=== PATIENT | male | born 1955 | race Caucasian/White ===

== ENCOUNTER 2016-07-18 14:22 | Inpatient (IN) | payer OTHER ==
[~2016-07-18] VITALS: Ht 185.4 cm; Wt 87.4 kg
[~2016-07-18 14:22] MED LIST: ASPI-664 PO; ATOR20TA38 PO; BUDE0.5A IH; BUDE6HFA IH; DILTIAZEM PO; FOLI0.4T2 PO; LISI20TA11 PO; NICO1PAT40 TD; NITROGLYCERIN SL; PANT20TA3 PO; PROVENTIL; THIA50TA PO
--- NOTE | 2016-07-18 17:36 | ERA ---
ER Documentation Chief Complaint Date/Time DATE: 07/18/16 TIME: 17:35 Chief Complaint BILATERAL LOWER LEG SWELLING HPI The patient is a 60-year-old male, presenting to the ER because of worsening bilateral lower extremity edema, redness and bleeding for 1 week. He was hospitalized at [facility] and was discharged about a week ago with clindamycin and Lasix. He denies fever, chills, syncope, near syncope, neck pain, chest pain. He complains of dyspnea on exertion and orthopnea. He denies abdominal pain, vomiting, dysuria, diarrhea, constipation. He used to smoke until recently Past medical history: COPD, history of CHF, GERD, CAD, epilepsy, dyslipidemia, chronic bilateral lower extremity edema Past surgical history: Right inguinal herniorrhaphy, left knee and right knee arthroscopy ROS All systems reviewed and are negative except as per history of present illness. Medications Home Meds Reported Medications Quetiapine Fumarate* (Quetiapine Fumarate*) 25 Mg Tablet, 25 MG PO HS, TAB 07/18/16 Pantoprazole* (Pantoprazole*) 40 Mg Tablet.dr, 40 MG PO AC BREAKFAST DINNER, TAB 07/18/16 Nitroglycerin* (Nitroglycerin* SL) 0.4 Mg Tab.subl, 0.4 MG SL Q5MIN Y for CHEST PAIN, BOTTLE 07/18/16 Nicotine* (Nicotine* Patch) 21 mg/day Patch, 1 EACH TD DAILY, PATCH 07/18/16 Magnesium Oxide* (Magnesium Oxide*) 400 Mg Tablet, 400 MG PO BID, TAB 07/18/16 Diltiazem Hcl* (Cardizem SR*) 60 Mg Capsr, 60 MG PO TID, #60 CAP 07/18/16 Budesonide-Formoterol Fumarate* (Symbicort*) 160-4.5 Hfa.aer.ad, 2 PUFF INHALATION BID, #1 EACH 07/18/16 Albuterol Sulfate* (Ventolin HFA*) 18 Gm Hfa.aer.ad, 2 PUFF INHALATION Q6H Y for PRN, #1 INHALER 07/18/16 [Tudorza Pressair] No Conflict Check, 800 MCG PO DAILY 07/18/16 Oxycodone HCl/Acetaminophen (Percocet 5-325 mg Tablet) 1 Each Tablet, 1 EACH PO Q6H, TAB 07/18/16 Lactobacillus Acidophilus* (Lactinex*) 1 Tab Chew, 1 TAB PO BID, TAB 07/18/16 Furosemide* (Furosemide*) 40 Mg Tablet, 40 MG IV DAILY, TAB 07/18/16 Clindamycin Hcl* (Clindamycin Hcl*) 300 Mg Capsule, 300 MG PO QID for 7 Days, CAP 07/18/16 Aspirin* (Aspirin* EC) 81 Mg Tablet.dr, 81 MG PO DAILY, TAB 05/05/14 Atorvastatin Calcium* (Atorvastatin Calcium*) 20 Mg Tablet, 20 MG PO HS, TAB 05/05/14 Folic Acid* (Folic Acid*) 0.4 Mg Tablet, 0.4 MG PO DAILY, TAB 05/05/14 Discontinued Reported Medications Budesonide* (Budesonide*) 0.5 Mg/2 Ml Ampul.neb, 0.5 MG IH BID, EA 05/05/14 [Diltiazem] No Conflict Check, 60 MG PO TID 05/05/14 Lisinopril* (Lisinopril*) 20 Mg Tablet, 20 MG PO DAILY, TAB 05/05/14 Nicotine* (Nicoderm* Patch) 7 mg/day Patch, 1 PATCH TD DAILY, PATCH 05/05/14 [Nitroglycerin] No Conflict Check, 0.4 MG SL Y for CHEST PAIN 05/05/14 Pantoprazole* (Pantoprazole*) 20 Mg Tablet.dr, 20 MG PO DAILY, TAB 05/05/14 [Proventil] No Conflict Check, Q4 05/05/14 Thiamine* (Thiamine*) 50 Mg Tablet, 50 MG PO DAILY, TAB 05/05/14 Budesonide-Formoterol Fumarate* (Symbicort*) 160-4.5 Hfa.aer.ad, 1 PUFF IH BID, INH 05/05/14 Allergies Allergies: Coded Allergies: No Known Allergy (Unverified , 07/18/16) PMhx/Soc History of Surgery: Yes (KNEE) Anesthesia Reaction: No Hx Respiratory Disorders: No Hx Alcohol Use: Yes Hx Substance Use: Yes Hx Tobacco Use: Yes Physical Exam Vitals Vital Signs Date Time Temp Pulse Resp B/P Pulse Ox O2 Delivery O2 Flow Rate FiO2 07/18/16 14:36 98.0 92 18 113/65 99 Physical Exam Const: No acute distress. Head: Atraumatic. Eyes: Normal Conjunctiva. ENT: Normal External Ears, Nose and Mouth. Neck: Full range of motion. No meningismus. Resp: Bibasilar crackle Cardio: Regular rate and rhythm, no murmurs. Abd: Soft, non distended, normal bowel sounds, non tender. Skin: No petechiae or rashes. Back: No midline or flank tenderness. Ext: Bilateral lower extremity edema, erythema, calf tenderness with minimal bleeding lesions Neur: Awake and alert. No focal deficit Psych: Normal Mood and Affect. Result Diagram: 07/19/16 0607/19/16 06 Results 24 hrs Laboratory Tests Test 07/18/16 18:05 07/18/16 19:40 White Blood Count 9.010^3/ul Red Blood Count 3.8310^6/ul Hemoglobin 14.0g/dl Hematocrit 40.1% Mean Corpuscular Volume 104.7fl Mean Corpuscular Hemoglobin 36.6pg Mean Corpuscular Hemoglobin Concent 34.9g/dl Red Cell Distribution Width 13.2% Platelet Count 48417^3/UL Mean Platelet Volume 9.6fl Neutrophils % 81.0% Lymphocytes % 14.1% Monocytes % 3.0% Eosinophils % 0.9% Basophils % 0.1% Nucleated Red Blood Cells % 0.0/100WBC Neutrophils # 7.310^3/ul Lymphocytes # 1.310^3/ul Monocytes # 0.310^3/ul Eosinophils # 0.110^3/ul Basophils # 0.010^3/ul Nucleated Red Blood Cells # 0.010^3/ul Prothrombin Time 12.9Sec Prothrombin Time Ratio 1.0 INR International Normalized Ratio 0.97 Activated Partial Thromboplast Time 25.7Sec Sodium Level 133mmol/L Potassium Level 3.6mmol/L Chloride Level 91mmol/L Carbon Dioxide Level 32mmol/L Anion Gap 14 Blood Urea Nitrogen 12mg/dl Creatinine 0.52mg/dl Glucose Level 80mg/dl Lactic Acid Level 2.0mmol/L Calcium Level 9.0mg/dl Magnesium Level 1.9mg/dl Total Bilirubin 1.8mg/dl Direct Bilirubin 0.00mg/dl Indirect Bilirubin 1.8mg/dl Aspartate Amino Transf (AST/SGOT) 30IU/L Alanine Aminotransferase (ALT/SGPT) 79IU/L Alkaline Phosphatase 75IU/L Troponin I 0.014ng/ml B-Type Natriuretic Peptide 554PG/ML Total Protein 6.1g/dl Albumin 3.5g/dl Globulin 2.60g/dl Albumin/Globulin Ratio 1.34 Ethyl Alcohol Level < 10.0mg/dl Urine Color LT. YELLOW Urine Clarity CLEAR Urine pH 7.5 Urine Specific [place] 1.010 Urine Ketones NEGATIVE Urine Nitrite NEGATIVE Urine Bilirubin NEGATIVE Urine Urobilinogen 4.0 E.U./dL Urine Leukocyte Esterase NEGATIVE Urine Hemoglobin NEGATIVE Urine Glucose NEGATIVE% Urine Total Protein NEGATIVE Urine Opiates Screen Negative Urine Barbiturates Negative Urine Amphetamines Screen Negative Urine Benzodiazepines Screen Positive Urine Cocaine Screen Negative Urine Cannabinoids Negative Current Medications Medications (Trade) Dose Ordered Sig/Molly Route PRN Reason Start Time Stop Time Status Last Admin Dose Admin Levofloxacin/ Dextrose 150 ml @ 100 mls/hr ONCE ONCE IVPB 07/18/16 19:30 07/18/16 20:59 DC 07/18/16 19:41 Vancomycin HCl (Vancocin) 250 ml @ 125 mls/hr ONCE IVPB 07/18/16 19:30 07/18/16 21:29 DC 07/18/16 19:30 Furosemide (Lasix) 20 mg ONCE ONCE IV 07/18/16 19:30 07/18/16 19:31 DC 07/18/16 19:41 Procedures/MDM [place] [id number] Radiology Main Line: [phone] DIAGNOSTIC IMAGING REPORT Patient: JUDY CARLIN : 1955 Age: 60 Sex: M [id number] DOS: 07/18/16 1743 Ordering MD: MAX ESPINOSA MD Location: E/R Room/Bed: PROCEDURE: US Lower extremity Venous. CLINICAL INDICATION: Pain and swelling TECHNIQUE: Multiple sonographic images of the bilateral lower extremity deep venous system was obtained utilizing grayscale, color-flow, compressive sonography and doppler imaging with augmentation. The images were reviewed on a PACS workstation. COMPARISON: None. FINDINGS: There is normal compressibility and flow within the bilateral common femoral, deep femoral, superficial femoral and popliteal veins. Normal respiratory variation and augmentation is seen. There is normal color flow and compressibility of bilateral posterior tibial and peroneal veins IMPRESSION: No sonographic evidence for bilateral lower extremity deep venous thrombosis. RPTAT: HH .Ruben Choe MD, Date Time Electronically viewed and signed by .Ruben Choe MD, on 07/18/2016 19:09 .W/ CC: MAX ESPINOSA MD [place] [id number] Radiology Main Line: [phone] DIAGNOSTIC IMAGING REPORT Patient: JUDY CARLIN : 1955 Age: 60 Sex: M MR #: [id number] DOS: 07/18/16 1743 Ordering MD: MAX ESPINOSA MD Location: E/R Room/Bed: PROCEDURE: XR Chest. CLINICAL INDICATION: Possible sepsis. TECHNIQUE: Single frontal view of the chest was obtained COMPARISON: No. FINDINGS: The soft tissues are normal. The thoracic vertebra are poorly visualized due to underpenetration of the radiograph. The heart, cardiomediastinal silhouette and hilar structures are normal. The pulmonary vasculature is normal. There are vascular calcifications in the aortic arch. The lungs are hyperinflated with some increased interstitial markings in the bases of the lungs. The costophrenic angles are normal. IMPRESSION: 1. Pulmonary hyperinflation which is likely the result of COPD. 2. Atherosclerosis of the aortic arch. RPTAT:AAJJ Physician Sree Date Time Electronically viewed and signed by Physician Sree on 07/18/2016 19:00 JM/ CC: MAX ESPINOSA MD EKG: Read by emergency physician Rate/Rhythm: Normal Sinus Rhythm 94 beats/min QRS, ST, T-waves: No ST elevation, no T inversion, premature supraventricular complex Impression: Abnormal EKG MEDICAL MAKING DECISION: The patient is a 60-year-old male, presenting with acute severe sepsis due to acute bilateral lower extremity cellulitis and acute CHF exacerbation. He was treated with vancomycin IV, Levaquin IV for acute severe sepsis due to bilateral lower extremity cellulitis and Lasix 20 mg IV due to acute CHF exacerbation Admit MDM: Patient's infectious symptoms have not stabilized and the patient is at risk of rapid decompensation. The patient will be admitted for careful hydration, antibiotic therapy, and infectious source control. Severe Sepsis criteria: Infectious source: Bilateral lower extremity cellulitis End organ damage indicated by: Lactate > 2.0 mmol/L Sepsis Management: Time of recognition of severe sepsis/septic shock:1810 Within 3 hours of recognition: Blood cultures x 2 before broad-spectrum antibiotics: Yes 30 ml/kg NS bolus not completed because of CHF exacerbation Initial lactate 2 Repeat lactate pnd Septic Shock Assessment: Any lactic acid > 4.0 no Persistent hypotension (SBP < 90 or 40 mmHg drop, MAP < 65) despite 30 mL/kg IV fluid bolusno Departure Diagnosis: Primary Impression: Severe sepsis Additional Impressions: Bilateral lower leg cellulitis CHF (congestive heart failure) Anemia Hyponatremia Condition: Stable Comments I discussed the findings with the patient. I discussed the patient with the on- call hospitalist Dr. Lucero who was made aware of the lab, the treatment, the patient condition. The patient is admitted to 7:30 PM to telemetry MAX ESPINOSA MD July 18, 2016 17:36
[2016-07-18 18:30] LABS: ADD SCAN DIFF NO
[2016-07-18 18:31] LABS: BASOPHILS % 0.1 % (0.0-2.0); EOSINOPHILS # 0.1 10^3/ul (0.0-0.5); EOSINOPHILS % 0.9 % (0.0-7.0); HEMATOCRIT 40.1 % (42.0-52.0); LYMPHOCYTES # 1.3 10^3/ul (0.8-2.9); LYMPHOCYTES % 14.1 % (15.0-51.0); MEAN CORPUSCULAR HEMOGLOBIN 36.6 pg (29.0-33.0); MEAN CORPUSCULAR HGB CONC 34.9 g/dl (32.0-37.0); MEAN CORPUSCULAR VOLUME 104.7 fl (82.0-101.0); MEAN PLATELET VOLUME 9.6 fl (7.4-10.4); MONOCYTE # 0.3 10^3/ul (0.3-0.9); NEUTROPHIL # 7.3 10^3/ul (1.6-7.5); PLATELET COUNT 180 10^3/UL (140-415); RED BLOOD COUNT 3.83 10^6/ul (4.70-6.10); RED CELL DISTRIBUTION WIDTH 13.2 % (11.5-14.5)
[2016-07-18 18:53] LABS: ALBUMIN 3.5 g/dl (3.3-4.9); CHLORIDE 91 mmol/L (97-110); POTASSIUM 3.6 mmol/L (3.5-5.1); SODIUM 133 mmol/L (135-144)
[2016-07-18 18:54] LABS: INR 0.97; PROTIME 12.9 Sec (12.2-14.2)
[2016-07-18 18:55] LABS: ANION GAP 14 (8-16); BILIRUBIN,INDIRECT 1.8 mg/dl (0-1.1); BILIRUBIN,TOTAL 1.8 mg/dl (0.2-1.3); CARBON DIOXIDE 32 mmol/L (21-31); CREATININE 0.52 mg/dl (0.61-1.24); PARTIAL THROMBOPLASTIN TIME 25.7 Sec (25.0-35.0)
[2016-07-18 18:56] LABS: ALANINE AMINOTRANSFERASE 79 IU/L (13-69); ALBUMIN/GLOBULIN RATIO 1.34; ALKALINE PHOSPHATASE 75 IU/L (42-121); ASPARTATE AMINO TRANSFERASE 30 IU/L (15-46); BLOOD UREA NITROGEN 12 mg/dl (7-20); GLUCOSE 80 mg/dl (70-220); MAGNESIUM 1.9 mg/dl (1.7-2.5); TOTAL PROTEIN 6.1 g/dl (6.1-8.1)
--- NOTE | 2016-07-18 19:01 | RADRPT ---
PROCEDURE: XR Chest. CLINICAL INDICATION: Possible sepsis. TECHNIQUE: Single frontal view of the chest was obtained COMPARISON: No. FINDINGS: The soft tissues are normal. The thoracic vertebra are poorly visualized due to underpenetration of the radiograph. The heart, cardiomediastinal silhouette and hilar structures are normal. The pulmo nary vasculature is normal. There are vascular calcifications in the aortic arch. The lungs are hyp erinflated with some increased interstitial markings in the bases of the lungs. The costophrenic an gles are normal. IMPRESSION: 1. Pulmonary hyperinflation which is likely the result of COPD. 2. Atherosclerosis of the aortic arch. RPTAT:AAJJ Physician Sree Date Time Electronically viewed and signed by Alfa Arredondo Physician on 07/18/2016 19:00 GLENDA/
[2016-07-18 19:05] LABS: B-TYPE NATRIURETIC PEPTIDE 554 PG/ML (0-125)
[2016-07-18 19:07] LABS: ETHANOL < 10.0 mg/dl
[2016-07-18 19:08] LABS: TROPONIN-I 0.014 ng/ml (0.00-0.12)
[2016-07-18] MEDS ORDERED: CLIN-73 PO (19:08)
[2016-07-18] MEDS ORDERED: FURO40TA4 IV (19:08)
[2016-07-18] MEDS ORDERED: LACTINEX PO (19:09)
--- NOTE | 2016-07-18 19:09 | RADRPT ---
PROCEDURE: US Lower extremity Venous. CLINICAL INDICATION: Pain and swelling TECHNIQUE: Multiple sonographic images of the bilateral lower extremity deep venous system was obt ained utilizing grayscale, color-flow, compressive sonography and doppler imaging with augmentation. The images were reviewed on a PACS workstation. COMPARISON: None. FINDINGS: There is normal compressibility and flow within the bilateral common femoral, deep femoral, superfic ial femoral and popliteal veins. Normal respiratory variation and augmentation is seen. There is normal color flow and compressibility of bilateral posterior tibial and peroneal veins IMPRESSION: No sonographic evidence for bilateral lower extremity deep venous thrombosis. RPTAT: HH .Ruben Choe MD, MD Date Time Electronically viewed and signed by .Ruben Choe MD, on 07/18/2016 19:09 .W/
[2016-07-18] MEDS ORDERED: OXYC-279 PO (19:10)
[2016-07-18] MEDS ORDERED: ALBU18HF INHALATION (19:13)
[2016-07-18] MEDS ORDERED: TUDORZA PRESSAIR PO (19:13)
[2016-07-18] MEDS ORDERED: BUDE6HFA INHALATION (19:15)
[2016-07-18] MEDS ORDERED: CARSR60 PO (19:16)
[2016-07-18] MEDS ORDERED: MAGN400T28 PO (19:17)
[2016-07-18] MEDS ORDERED: NICO1PAT6 TD (19:18)
[2016-07-18] MEDS ORDERED: NITR0.4T6 SL (19:19)
[2016-07-18] MEDS ORDERED: PANT40TA4 PO (19:20)
[2016-07-18] MEDS ORDERED: QUET25TA33 PO (19:20)
[2016-07-18] MEDS ORDERED: LEVOFLOXACIN 750MG/D5W (PMX) 150 ML IVPB ONE (19:30)
[2016-07-18] MEDS ORDERED: VANCOMYCIN 1 GM (PMX) 250 ML IVPB SCH (19:30)
[2016-07-18] MEDS ORDERED: FUROSEMIDE 20 MG INJ IV ONE (19:30)
[2016-07-18] MEDS ORDERED: ONDANSETRON 4 MG INJ IV STA (19:53)
[2016-07-18 19:57] LABS: ADD UMIC NO; URINE BILIRUBIN (Dip) NEGATIVE (NEGATIVE); URINE BLOOD (Dip) NEGATIVE (NEGATIVE); URINE COLOR LT. YELLOW (YELLOW); URINE GLUCOSE (Dip) NEGATIVE (NEGATIVE); URINE KETONES (Dip) NEGATIVE (NEGATIVE); URINE LEUKOCYTE ESTERASE (Dip) NEGATIVE (NEGATIVE); URINE NITRITE (Dip) NEGATIVE (NEGATIVE); URINE TOTAL PROTEIN (Dip) NEGATIVE (NEGATIVE); URINE UROBILINOGEN (Dip) 4.0 E.U./dL (0.1-1.0)
[2016-07-18] MEDS ORDERED: ONDANSETRON 4 MG INJ ONE (19:57)
[2016-07-18] MEDS ORDERED: morphine 2 MG INJ IV ONE (20:00)
[2016-07-18 20:15] LABS: BENZODIAZEPINES Positive (NEGATIVE)
[2016-07-18 20:16] LABS: BARBITURATES Negative (NEGATIVE)
[2016-07-18 20:22] LABS: CANNABINOIDS Negative (NEGATIVE); COCAINE Negative (NEGATIVE); OPIATES Negative (NEGATIVE)
[2016-07-18] MEDS ORDERED: IPRATROPIUM (NEB) 0.5 MG/2.5 ML AMP HHN ONE (20:30)
[2016-07-18] MEDS ORDERED: LEVALBUTEROL (NEB) 1.25 MG/0.5 ML AMP HHN ONE (20:30)
[2016-07-18] MEDS ORDERED: HYDROmorphONE 1 MG/ML SYG IV STA (20:31)
[2016-07-18 21:45] VITALS: BP 126/79; PULSE 101; RESP 18
[2016-07-18 21:58] VITALS: PULSE 80
[2016-07-18] MEDS ORDERED: OXYCODONE/ACETAMINOPHEN (5/325) TAB PO SCH (22:30)
[2016-07-18] MEDS ORDERED: NON-FORMULARY/PATIENT OWN MED (Budesonide-Formoterol Fumarate* (Symbicort*) 2 PUFF) INHALATION SCH (22:30)
[2016-07-18] MEDS ORDERED: morphine 2 MG INJ IV PRN (22:30)
[2016-07-18] MEDS ORDERED: ALBUTEROL HFA 8 GM INHALER INH PRN (22:30)
[2016-07-18] MEDS ORDERED: NITROGLYCERIN (SL) 0.4 MG TAB SL PRN (22:30)
[2016-07-18] MEDS ORDERED: ONDANSETRON 4 MG INJ IV PRN (22:30)
[2016-07-18] MEDS ORDERED: NON-FORMULARY/PATIENT OWN MED (Lactobacillus Acidophilus* (Lactinex*) 1 TAB) PO SCH (22:30)
[2016-07-18] MEDS: IPRATROPIUM (NEB) 0.5 MG/2.5 ML AMP HHN SCH (23:28)
[2016-07-19] VITALS (13 sets, daily range): BP systolic 109–124; BP diastolic 62–74; PULSE 80–195; RESP 15–18; Ht 185.4 cm; Wt 87.4 kg
[2016-07-19] MEDS: MAGNESIUM OXIDE 400 MG TAB PO SCH ×3 (01:17→21:31)
[2016-07-19] MEDS: HEPARIN 5,000 UNIT/0.5 ML VIAL SC SCH ×3 (01:22→22:04)
[2016-07-19] MEDS: IPRATROPIUM (NEB) 0.5 MG/2.5 ML AMP HHN SCH ×2 (01:23→05:29)
[2016-07-19] MEDS: LEVALBUTEROL (NEB) 0.63 MG/3 ML AMP HHN SCH ×3 (01:23→09:00)
[2016-07-19] MEDS ORDERED: VANCOMYCIN IV PER PHARMACY XX SCH (02:30)
[2016-07-19] MEDS ORDERED: KETOROLAC 30 MG INJ IV PRN ×2 (02:30→03:00)
[2016-07-19] MEDS: morphine 4 MG/ML VIAL IV PRN ×5 (02:45→21:45)
[2016-07-19] MEDS: CEFEPIME 1GM/50 ML (PMX) 50 ML IVPB SCH ×3 (04:16→21:29)
[2016-07-19] MEDS ORDERED: OXYCODONE/ACETAMINOPHEN (5/325) TAB PO PRN (04:30)
[2016-07-19] MEDS: OXYCODONE/ACETAMINOPHEN (10/325) TAB PO PRN ×2 (04:33→18:44)
[2016-07-19] MEDS: VANCOMYCIN 1.25 GM in SOD CHLORIDE 0.9% 250 ML IVPB SCH ×2 (06:09→16:47)
--- NOTE | 2016-07-19 06:39 | HP ---
Date/Time of Note Date/Time of Note DATE: 07/19/16 TIME: 06:25 Assessment/Plan VTE Prophylaxis VTE Prophylaxis Intervention: heparin Lines/Catheters IV Catheter Type (from Nrs): Saline Lock Assessment/Plan Assessment/Plan 1. Bilateral Lower ext cellulitis - cont abx - f/u culture results - ID consult 2. COPD exacerbation - cont oxygen, homes meds, breathing treatment, steroid 3. HTN: BP within goal - cont meds with adjustment as needed 4. GERD - cont PPI 5. Depression - cont Seroquel 6. Hx of Tobacco - cont nicotine patch HPI/ROS Admit Date/Time Admit Date/Time July 18, 2016 at 19:42 Hx of Present Illness Patient is a 60 yo female with hx HTN, COPD, CAD, CHF, GERD who presented to ER c/o bilateral lower ext redness, swelling, pain and blisters. He also c/o shortness of breath. In ER, initial vitals were stable, CXR showed hyperinflated lungs. Pt received abx, breathing treatment and lasix. . PMH/Family/Social Past Medical History Medical History: GERD, hypertension, other (COPD) Social History Alcohol Use: none Smoking Status: Former smoker Drug Use: none Exam/Review of Systems Vital Signs Vitals Vital Signs Date Time Temp Pulse Resp B/P Pulse Ox O2 Delivery O2 Flow Rate FiO2 07/19/16 05:41 87 18 97 Nasal Cannula 2.0 07/19/16 04:39 98.0 124/74 07/19/16 01:19 28 Exam Constitutional: alert, oriented Head: atraumatic, normocephalic Eyes: EOMI, PERRL Respiratory: clear to auscultation, normal air movement Cardiovascular: nl pulses, regular rate and rhythm Gastrointestinal: non-tender, soft Extremities: edema, other (erythema bilaterally, worse on left foot. Blisters leaking clear fluid), tenderness Labs Result Diagram: 07/18/16180407/18/161804 Medications Medications Current Medications Aspirin (Halfprin) 81 mg DAILY PO ; Start 07/19/16 at 09:00 Atorvastatin Calcium (Lipitor) 20 mg HS PO ; Start 07/19/16 at 21:00 Diltiazem HCl (Cardizem Sr) 60 mg TID PO ; Start 07/19/16 at 09:00 Folic Acid (Folic Acid) 0.4 mg DAILY PO ; Start 07/19/16 at 09:00 Magnesium Oxide (Mag-Ox 400) 400 mg BID PO Last administered on 07/19/16 01:17 ; Admin Dose 400 MG; Start 07/18/16 at 22:30 Nicotine (Nicoderm 21 Mg/ 24hr) 1 patch DAILY TRANSDERM ; Start 07/19/16 at 09:00 Nitroglycerin (Nitroglycerin (Sl Tab) 0.4 Mg) 1 tab ONCE PRN SL CHEST PAIN; Start 07/18/16 at 22:30; Stop 07/19/16 at 22:29 Quetiapine Fumarate (Seroquel) 25 mg HS PO ; Start 07/19/16 at 21:00 Miscellaneous Information 800 mcg DAILY PO ; Start 07/19/16 at 09:00; Status UNV Ondansetron HCl (Zofran Inj) 4 mg Q6H PRN IV NAUSEA AND/OR VOMITING; Start 07/18 at 22:30 Heparin Sodium (Porcine) (Heparin (5000 Units/0.5 ml)) 5,000 unit BID SC Last administered on 07/19/16 01:22; Admin Dose 5,000 UNIT; Start 07/18/16 at 22:30 Albuterol (Ventolin Hfa) 2 puff Q6H PRN INH SHORTNESS OF BREATH; Start 07/18/16 at 23:00 Salmeterol Xinafoate/ Fluticasone (Advair 250/50 Diskus) 1 inh BID INH ; Start 07/19/16 at 09:00 Lactobacillus Acidophilus (Florajen3 Capsule) 1 each BID PO ; Start 07/19/16 at 09:00 Morphine Sulfate 4 mg 4 mg Q4H PRN IV SEVERE PAIN LEVEL 7-10 Last administered on 07/19/16 02:45; Admin Dose 4 MG; Start 07/19/16 at 02:30 Cefepime HCl (Maxipime 1gm/50 ml (Pmx)) 50 ml @ 100 mls/hr Q12 IVPB Last administered on 07/19/16 04:16; Admin Dose 100 MLS/HR; Start 07/19/16 at 02:30 Oxycodone/ Acetaminophen (Endocet (10/ 325)) 1 tab Q6H PRN PO PAIN Last administered on 07/19/16 04:33; Admin Dose 1 TAB; Start 07/19/16 at 02:30 Ketorolac Tromethamine 30 mg 30 mg Q6H PRN IV PAIN Last administered on 04:08; Admin Dose 30 MG; Start 07/19/16 at 03:00; Stop 07/22/16 at 02:59 Vancomycin HCl/ Sodium Chloride (Vancocin/NS) 250 ml @ 83.333 mls/ hr Q12H IVPB Last administered on 07/19/16 06:09; Admin Dose 83.333 MLS/HR; Start at 04:00 FALLON GANDARA MD July 19, 2016 06:35
[2016-07-19 06:55] LABS: ADD SCAN DIFF NO
[2016-07-19 06:57] LABS: BASOPHILS % 0.4 % (0.0-2.0); EOSINOPHILS # 0.1 10^3/ul (0.0-0.5); EOSINOPHILS % 1.1 % (0.0-7.0); HEMATOCRIT 35.2 % (42.0-52.0); HEMOGLOBIN 11.9 g/dl (14.0-18.0); LYMPHOCYTES # 1.2 10^3/ul (0.8-2.9); LYMPHOCYTES % 21.4 % (15.0-51.0); MEAN CORPUSCULAR HEMOGLOBIN 36.2 pg (29.0-33.0); MEAN CORPUSCULAR HGB CONC 33.8 g/dl (32.0-37.0); MEAN PLATELET VOLUME 10.3 fl (7.4-10.4); MONOCYTE # 0.2 10^3/ul (0.3-0.9); MONOCYTES % 4.2 % (0.0-11.0); NEUTROPHIL # 4.1 10^3/ul (1.6-7.5); NEUTROPHILS % 71.8 % (39.0-77.0); PLATELET COUNT 119 10^3/UL (140-415); RED BLOOD COUNT 3.29 10^6/ul (4.70-6.10); RED CELL DISTRIBUTION WIDTH 13.4 % (11.5-14.5); WHITE BLOOD COUNT 5.7 10^3/ul (4.8-10.8)
[2016-07-19] MEDS: PANTOPRAZOLE (EC) 40 MG TAB PO SCH ×2 (07:25→16:47)
[2016-07-19 07:52] LABS: CALCIUM 8.2 mg/dl (8.4-10.2); CREATININE 0.6 mg/dl (0.61-1.24); MAGNESIUM 1.8 mg/dl (1.7-2.5); PHOSPHORUS 3.4 mg/dl (2.5-4.9); POTASSIUM 4.2 mmol/L (3.5-5.1)
[2016-07-19 07:56] LABS: THYROID STIMULATING HORMONE 1.3 MIU/L (0.465-4.680)
[2016-07-19] MEDS: FOLIC ACID 0.4 MG TAB PO SCH (08:37)
[2016-07-19] MEDS: SALMETEROL/FLUTICASONE 250/50 INHA INH SCH ×2 (08:38→21:29)
[2016-07-19] MEDS: ASPIRIN (EC) 81 MG TAB PO SCH (08:38)
[2016-07-19] MEDS: L ACIDOPHIL/B LACTIS/B LONGUM CAPSULE PO SCH ×2 (08:38→21:31)
[2016-07-19] MEDS: DILTIAZEM (SR) 60 MG CAP PO SCH ×3 (08:38→21:32)
[2016-07-19] MEDS: NICOTINE (21 MG/24 HR) PATCH TRANSDERM SCH (08:39)
--- NOTE | 2016-07-19 10:20 | PN ---
Date/Time of Note Date/Time of Note DATE: 07/19/16 TIME: 10:15 Assessment/Plan VTE Prophylaxis VTE Prophylaxis Intervention: heparin Lines/Catheters IV [facility] Saline Lock Assessment/Plan Chief Complaint/Hosp Course Assessment and plan 1. Bilateral Lower ext cellulitis - cont abx - f/u culture results - ID consult has been obtained 2. COPD exacerbation - cont oxygen, homes meds, breathing treatment, steroid 3. HTN: BP within goal - cont meds with adjustment as needed 4. GERD - cont PPI 5. Depression - cont Seroquel 6. Hx of Tobacco - cont nicotine patch 7. Congestive heart failure -Obtain 2D echocardiogram, cardiology has been consulted -Strict I&O's We will continue monitor patient closely for recommendation management treatment as clinical course Problems: Subjective 24 Hr Interval Summary Free Text/Dictation Patient complains of having bilateral lower extremity discomfort and pain He is requesting Dilaudid Denies of any chest pain or shortness of breath Tolerating oral intake Exam/Review of Systems Vital Signs Vitals Vital Signs Date Time Temp Pulse Resp B/P Pulse Ox O2 Delivery O2 Flow Rate FiO2 07/19/16 09:30 102 07/19/16 09:00 98 3.0 07/19/16 09:00 20 Nasal Cannula 07/19/16 07:36 97.9 112/65 07/19/16 01:19 28 Intake and Output 07/18/16 07/18/16 07/19/16 15:00 23:00 07:00 Intake Total 750 ml Balance 750 ml Exam General: The patient is well-developed, Not in acute distress. HEENT: Atraumatic, normocephalic. The pupils are equal and round . Neck: Supple with full range of motion. Chest: Normal expansion of the thorax during inspiration Lungs: Clear to auscultation bilaterally Heart: Normal S1-S2, Regular rhythm and rate. Abdomen: Soft , nontender, nondistended , bowel sounds are present. Extremities: Bilateral lower extremity erythema, +2 edema bilateral lower extremity, no cyanosis Neurologic: Normal mental status,The patient is awake, alert and oriented . Results Result Diagram: 07/19/16 0617 07/19/16 0617 Results 24 hrs Laboratory Tests Test 07/18/16 18:05 07/18/16 19:40 07/18/16 19:46 07/18/16 22:20 White Blood Count 9.0 Red Blood Count 3.83 L Hemoglobin 14.0 Hematocrit 40.1 L Mean Corpuscular Volume 104.7 H Mean Corpuscular Hemoglobin 36.6 H Mean Corpuscular Hemoglobin Concent 34.9 Red Cell Distribution Width 13.2 Platelet Count 180 Mean Platelet Volume 9.6 Neutrophils % 81.0 H Lymphocytes % 14.1 L Monocytes % 3.0 Eosinophils % 0.9 Basophils % 0.1 Nucleated Red Blood Cells % 0.0 Neutrophils # 7.3 Lymphocytes # 1.3 Monocytes # 0.3 Eosinophils # 0.1 Basophils # 0.0 Nucleated Red Blood Cells # 0.0 Prothrombin Time 12.9 Prothrombin Time Ratio 1.0 INR International Normalized Ratio 0.97 Activated Partial Thromboplast Time 25.7 Sodium Level 133 L Potassium Level 3.6 Chloride Level 91 L Carbon Dioxide Level 32 H Anion Gap 14 Blood Urea Nitrogen 12 Creatinine 0.52 L Glucose Level 80 Lactic Acid Level 2.0 1.8 1.4 Calcium Level 9.0 Magnesium Level 1.9 Total Bilirubin 1.8 H Direct Bilirubin 0.00 Indirect Bilirubin 1.8 H Aspartate Amino Transf (AST/SGOT) 30 Alanine Aminotransferase (ALT/SGPT) 79 H Alkaline Phosphatase 75 Troponin I 0.014 0.018 B-Type Natriuretic Peptide 554 H Total Protein 6.1 Albumin 3.5 Globulin 2.60 Albumin/Globulin Ratio 1.34 Ethyl Alcohol Level < 10.0 Urine Color LT. YELLOW Urine Clarity CLEAR Urine pH 7.5 Urine Specific [place] 1.010 Urine Ketones NEGATIVE Urine Nitrite NEGATIVE Urine Bilirubin NEGATIVE Urine Urobilinogen 4.0 E.U./dL H Urine Leukocyte Esterase NEGATIVE Urine Hemoglobin NEGATIVE Urine Glucose NEGATIVE Urine Total Protein NEGATIVE Urine Opiates Screen Negative Urine Barbiturates Negative Urine Amphetamines Screen Negative Urine Benzodiazepines Screen Positive Urine Cocaine Screen Negative Urine Cannabinoids Negative Test 07/19/16 06:17 White Blood Count 5.7 # Red Blood Count 3.29 L Hemoglobin 11.9 L Hematocrit 35.2 L Mean Corpuscular Volume 107.0 H Mean Corpuscular Hemoglobin 36.2 H Mean Corpuscular Hemoglobin Concent 33.8 Red Cell Distribution Width 13.4 Platelet Count 119 #L Mean Platelet Volume 10.3 Neutrophils % 71.8 Lymphocytes % 21.4 Monocytes % 4.2 Eosinophils % 1.1 Basophils % 0.4 Nucleated Red Blood Cells % 0.0 Neutrophils # 4.1 Lymphocytes # 1.2 Monocytes # 0.2 L Eosinophils # 0.1 Basophils # 0.0 Nucleated Red Blood Cells # 0.0 Sodium Level 124 L Potassium Level 4.2 Chloride Level 95 L Carbon Dioxide Level 27 Anion Gap 6 #L Blood Urea Nitrogen 15 Creatinine 0.60 L Glucose Level 75 Hemoglobin A1c 5.6 Calcium Level 8.2 L Phosphorus Level 3.4 Magnesium Level 1.8 Troponin I 0.019 Triglycerides Level 82 Cholesterol Level 127 LDL Cholesterol, Calculated 49 HDL Cholesterol 62 Cholesterol/HDL Ratio 2.0 Thyroid Stimulating Hormone (TSH) 1.300 Medications Medications Current Medications Aspirin (Halfprin) 81 mg DAILY PO Last administered on 07/19/16 08:38; Admin Dose 81 MG; Start 07/19/16 at 09:00 Atorvastatin Calcium (Lipitor) 20 mg HS PO ; Start 07/19/16 at 21:00 Diltiazem HCl (Cardizem Sr) 60 mg TID PO Last administered on 07/19/16 08:38; Admin Dose 60 MG; Start 07/19/16 at 09:00 Folic Acid (Folic Acid) 0.4 mg DAILY PO Last administered on 07/19/16 08:37; Admin Dose 0.4 MG; Start 07/19/16 at 09:00 Magnesium Oxide (Mag-Ox 400) 400 mg BID PO Last administered on 07/19/16 08:37 ; Admin Dose 400 MG; Start 07/18/16 at 22:30 Nicotine (Nicoderm 21 Mg/ 24hr) 1 patch DAILY TRANSDERM Last administered on 08:39; Admin Dose 1 PATCH; Start 07/19/16 at 09:00 Nitroglycerin (Nitroglycerin (Sl Tab) 0.4 Mg) 1 tab ONCE PRN SL CHEST PAIN; Start 07/18/16 at 22:30; Stop 07/19/16 at 22:29 Quetiapine Fumarate (Seroquel) 25 mg HS PO ; Start 07/19/16 at 21:00 Miscellaneous Information 800 mcg DAILY PO ; Start 07/19/16 at 09:00; Status UNV Ondansetron HCl (Zofran Inj) 4 mg Q6H PRN IV NAUSEA AND/OR VOMITING; Start 07/18 at 22:30 Heparin Sodium (Porcine) (Heparin (5000 Units/0.5 ml)) 5,000 unit BID SC Last administered on 07/19/16 08:58; Admin Dose 5,000 UNIT; Start 07/18/16 at 22:30 Albuterol (Ventolin Hfa) 2 puff Q6H PRN INH SHORTNESS OF BREATH; Start 07/18/16 at 23:00 Salmeterol Xinafoate/ Fluticasone (Advair 250/50 Diskus) 1 inh BID INH Last administered on 07/19/16 08:38; Admin Dose 1 INH; Start 07/19/16 at 09:00 Lactobacillus Acidophilus (Florajen3 Capsule) 1 each BID PO Last administered on 07/19/16 08:38; Admin Dose 1 EACH; Start 07/19/16 at 09:00 Morphine Sulfate 4 mg 4 mg Q4H PRN IV SEVERE PAIN LEVEL 7-10 Last administered on 07/19/16 07:39; Admin Dose 4 MG; Start 07/19/16 at 02:30 Cefepime HCl (Maxipime 1gm/50 ml (Pmx)) 50 ml @ 100 mls/hr Q12 IVPB Last administered on 07/19/16 08:47; Admin Dose 100 MLS/HR; Start 07/19/16 at 02:30 Oxycodone/ Acetaminophen (Endocet (10/ 325)) 1 tab Q6H PRN PO PAIN Last administered on 07/19/16 04:33; Admin Dose 1 TAB; Start 07/19/16 at 02:30 Ketorolac Tromethamine 30 mg 30 mg Q6H PRN IV PAIN Last administered on 04:08; Admin Dose 30 MG; Start 07/19/16 at 03:00; Stop 07/22/16 at 02:59 Vancomycin HCl/ Sodium Chloride (Vancocin/NS) 250 ml @ 83.333 mls/ hr Q12H IVPB Last administered on 07/19/16 06:09; Admin Dose 83.333 MLS/HR; Start at 04:00 DEVAUGHN CASE MD July 19, 2016 10:20
[2016-07-19] MEDS: FUROSEMIDE 20 MG INJ IV SCH ×2 (12:23→18:19)
--- NOTE | 2016-07-19 16:16 | CONS ---
Date/Time of Note Date/Time of Note DATE: 07/19/16 TIME: 16:16 Assessment/Plan Assessment/Plan Additional Assessment/Plan 60 yo male with 1) B/L LE Cellulitis 2) COPD Exacerbation 3) Chronic CHF 4) Hyponatremia, Pt is not euvolemic at this time, Asymptomatic 5) CAD 6) Anemia, Likely chronic Hyponatremia likely from Excessive free H20 intake in the setting of Increase Circulating ADH from pain and lung disease Will check urine Na, Osm, Cr, Serum TSH and Cortisol Pt is receiving Lasix Rx for treatment of CHF, Would not recommend Thiazide diuretic at this time Please repeat Chemistry am Recommend free H20 restriction at this time No acute indication for hypertonic saline Thank you for the opportunity to participate in the care of Mr Pool. Consultation Date/Type/Reason Admit Date/Time July 18, 2016 at 19:42 Date of Consultation: July 19, 2016 Type of Consultation: Renal Reason for Consultation Hyponatremia Referring Provider: FALLON GANADRA MD Hx of Present Illness 60 yo male with hx of Chronic HTN, COPD former tobacco, CAD, hx of CHF who presented to ER with c/o bilateral lower ext redness, swelling, pain and found to have cellulitis. Pt also described shortness of breast, CXR performed and patient started on treatment of COPD and CHF, Receiving IV lasix. no IVFs. Incidentally found to have hyponatremia during this admission. Pt is not currently on fluid restriction. Nephrology consutled for Hyponatremia. Past Medical History Medical History: GERD, hypertension, other (COPD) Past Surgical History Past Surgical Hx: no surgical history Family History Significant Family History: no pertinent family hx Social History Alcohol Use: none Smoking Status: Former smoker Drug Use: none Exam/Review of Systems Vital Signs Vitals Vital Signs Date Time Temp Pulse Resp B/P Pulse Ox O2 Delivery O2 Flow Rate FiO2 07/19/16 15:31 98.4 85 15 120/65 100 07/19/16 09:00 3.0 07/19/16 09:00 Nasal Cannula 07/19/16 01:19 28 Intake and Output 07/18/16 07/18/16 07/19/16 15:00 23:00 07:00 Intake Total 750 ml Balance 750 ml Exam Constitutional: distress Head: atraumatic, normocephalic ENMT: mucosa pink and moist Neck: No jvd Respiratory: crackles/rales, diminished breath sounds, labored breathing Cardiovascular: edema, regular rate and rhythm Musculoskeletal: swelling Extremities: edema Neurological: CERTIFIED ORTHOTIST/PEDORTHIST II-XII intact, nl mental status, No lethargic Skin: other (cellulitis), rash or lesions, No diaphoresis Results Result Diagram: 07/19/16 0617 07/19/16 0617 Results 24 hrs Laboratory Tests Test 07/18/16 18:05 07/18/16 19:40 07/18/16 19:46 07/18/16 22:20 White Blood Count 9.0 Red Blood Count 3.83 L Hemoglobin 14.0 Hematocrit 40.1 L Mean Corpuscular Volume 104.7 H Mean Corpuscular Hemoglobin 36.6 H Mean Corpuscular Hemoglobin Concent 34.9 Red Cell Distribution Width 13.2 Platelet Count 180 Mean Platelet Volume 9.6 Neutrophils % 81.0 H Lymphocytes % 14.1 L Monocytes % 3.0 Eosinophils % 0.9 Basophils % 0.1 Nucleated Red Blood Cells % 0.0 Neutrophils # 7.3 Lymphocytes # 1.3 Monocytes # 0.3 Eosinophils # 0.1 Basophils # 0.0 Nucleated Red Blood Cells # 0.0 Prothrombin Time 12.9 Prothrombin Time Ratio 1.0 INR International Normalized Ratio 0.97 Activated Partial Thromboplast Time 25.7 Sodium Level 133 L Potassium Level 3.6 Chloride Level 91 L Carbon Dioxide Level 32 H Anion Gap 14 Blood Urea Nitrogen 12 Creatinine 0.52 L Glucose Level 80 Lactic Acid Level 2.0 1.8 1.4 Calcium Level 9.0 Magnesium Level 1.9 Total Bilirubin 1.8 H Direct Bilirubin 0.00 Indirect Bilirubin 1.8 H Aspartate Amino Transf (AST/SGOT) 30 Alanine Aminotransferase (ALT/SGPT) 79 H Alkaline Phosphatase 75 Troponin I 0.014 0.018 B-Type Natriuretic Peptide 554 H Total Protein 6.1 Albumin 3.5 Globulin 2.60 Albumin/Globulin Ratio 1.34 Ethyl Alcohol Level < 10.0 Urine Color LT. YELLOW Urine Clarity CLEAR Urine pH 7.5 Urine Specific [place] 1.010 Urine Ketones NEGATIVE Urine Nitrite NEGATIVE Urine Bilirubin NEGATIVE Urine Urobilinogen 4.0 E.U./dL H Urine Leukocyte Esterase NEGATIVE Urine Hemoglobin NEGATIVE Urine Glucose NEGATIVE Urine Total Protein NEGATIVE Urine Opiates Screen Negative Urine Barbiturates Negative Urine Amphetamines Screen Negative Urine Benzodiazepines Screen Positive Urine Cocaine Screen Negative Urine Cannabinoids Negative Test 07/19/16 06:17 White Blood Count 5.7 # Red Blood Count 3.29 L Hemoglobin 11.9 L Hematocrit 35.2 L Mean Corpuscular Volume 107.0 H Mean Corpuscular Hemoglobin 36.2 H Mean Corpuscular Hemoglobin Concent 33.8 Red Cell Distribution Width 13.4 Platelet Count 119 #L Mean Platelet Volume 10.3 Neutrophils % 71.8 Lymphocytes % 21.4 Monocytes % 4.2 Eosinophils % 1.1 Basophils % 0.4 Nucleated Red Blood Cells % 0.0 Neutrophils # 4.1 Lymphocytes # 1.2 Monocytes # 0.2 L Eosinophils # 0.1 Basophils # 0.0 Nucleated Red Blood Cells # 0.0 Sodium Level 124 L Potassium Level 4.2 Chloride Level 95 L Carbon Dioxide Level 27 Anion Gap 6 #L Blood Urea Nitrogen 15 Creatinine 0.60 L Glucose Level 75 Hemoglobin A1c 5.6 Calcium Level 8.2 L Phosphorus Level 3.4 Magnesium Level 1.8 Troponin I 0.019 Triglycerides Level 82 Cholesterol Level 127 LDL Cholesterol, Calculated 49 HDL Cholesterol 62 Cholesterol/HDL Ratio 2.0 Thyroid Stimulating Hormone (TSH) 1.300 Medications Medications Current Medications Aspirin (Halfprin) 81 mg DAILY PO Last administered on 07/19/16 08:38; Admin Dose 81 MG; Start 07/19/16 at 09:00 Atorvastatin Calcium (Lipitor) 20 mg HS PO ; Start 07/19/16 at 21:00 Diltiazem HCl (Cardizem Sr) 60 mg TID PO Last administered on 07/19/16 12:24; Admin Dose 60 MG; Start 07/19/16 at 09:00 Folic Acid (Folic Acid) 0.4 mg DAILY PO Last administered on 07/19/16 08:37; Admin Dose 0.4 MG; Start 07/19/16 at 09:00 Magnesium Oxide (Mag-Ox 400) 400 mg BID PO Last administered on 07/19/16 08:37 ; Admin Dose 400 MG; Start 07/18/16 at 22:30 Nicotine (Nicoderm 21 Mg/ 24hr) 1 patch DAILY TRANSDERM Last administered on 08:39; Admin Dose 1 PATCH; Start 07/19/16 at 09:00 Nitroglycerin (Nitroglycerin (Sl Tab) 0.4 Mg) 1 tab ONCE PRN SL CHEST PAIN; Start 07/18/16 at 22:30; Stop 07/19/16 at 22:29 Quetiapine Fumarate (Seroquel) 25 mg HS PO ; Start 07/19/16 at 21:00 Miscellaneous Information 800 mcg DAILY PO ; Start 07/19/16 at 09:00; Status UNV Ondansetron HCl (Zofran Inj) 4 mg Q6H PRN IV NAUSEA AND/OR VOMITING; Start 07/18 at 22:30 Heparin Sodium (Porcine) (Heparin (5000 Units/0.5 ml)) 5,000 unit BID SC Last administered on 07/19/16 08:58; Admin Dose 5,000 UNIT; Start 07/18/16 at 22:30 Albuterol (Ventolin Hfa) 2 puff Q6H PRN INH SHORTNESS OF BREATH; Start 07/18/16 at 23:00 Salmeterol Xinafoate/ Fluticasone (Advair 250/50 Diskus) 1 inh BID INH Last administered on 07/19/16 08:38; Admin Dose 1 INH; Start 07/19/16 at 09:00 Lactobacillus Acidophilus (Florajen3 Capsule) 1 each BID PO Last administered on 07/19/16 08:38; Admin Dose 1 EACH; Start 07/19/16 at 09:00 Morphine Sulfate 4 mg 4 mg Q4H PRN IV SEVERE PAIN LEVEL 7-10 Last administered on 07/19/16 12:24; Admin Dose 4 MG; Start 07/19/16 at 02:30 Cefepime HCl (Maxipime 1gm/50 ml (Pmx)) 50 ml @ 100 mls/hr Q12 IVPB Last administered on 07/19/16 08:47; Admin Dose 100 MLS/HR; Start 07/19/16 at 02:30 Oxycodone/ Acetaminophen (Endocet (10/ 325)) 1 tab Q6H PRN PO PAIN Last administered on 07/19/16 04:33; Admin Dose 1 TAB; Start 07/19/16 at 02:30 Ketorolac Tromethamine 30 mg 30 mg Q6H PRN IV PAIN Last administered on 04:08; Admin Dose 30 MG; Start 07/19/16 at 03:00; Stop 07/22/16 at 02:59 Vancomycin HCl/ Sodium Chloride (Vancocin/NS) 250 ml @ 83.333 mls/ hr Q12H IVPB Last administered on 07/19/16t 06:09; Admin Dose 83.333 MLS/HR; Start at 04:00 Miscellaneous Information (*Rx Drug Level Order Reminder*) 1 ONCE ONCE XX ; Start 07/20/16 at 15:00; Stop 07/20/16 at 15:01 Procedures Procedures PROCEDURE: XR Chest. CLINICAL INDICATION: Possible sepsis. TECHNIQUE: Single frontal view of the chest was obtained COMPARISON: No. FINDINGS: The soft tissues are normal. The thoracic vertebra are poorly visualized due to underpenetration of the radiograph. The heart, cardiomediastinal silhouette and hilar structures are normal. The pulmonary vasculature is normal. There are vascular calcifications in the aortic arch. The lungs are hyperinflated with some increased interstitial markings in the bases of the lungs. The costophrenic angles are normal. IMPRESSION: 1. Pulmonary hyperinflation which is likely the result of COPD. 2. Atherosclerosis of the aortic arch. CHRISSIE MEANS MD July 19, 2016 16:16
--- NOTE | 2016-07-19 18:09 | RADRPT ---
Echocardiogram Report Patient Name: JUDY CARLIN Gender: Male Date: 1955 Study Date: 19-Jul-2016 Student Admissions Clerk: Cecille De Los Santos [facility] Location: [id number] Ref. Physician: DEVAUGHN CASE Quality: Good Procedures: Transthoracic echocardiogram with complete 2D, M-Mode, and doppler examination. Indications: Congestive Heart Failure. 2D/M Mode Doppler Measurement Value Normal Ranges Measurement Value Normal Ranges LVIDd 2D 5.5 3.5 - 5.6 cm AV Peak Dereck 1.4 m/sec LVIDs 2D 3.7 2.1 - 4.1 cm AV Peak PG 8.4 mmHg LVPWd 2D 1.2 0.6 - 1.1 cm LVOT Peak Dereck 1.2 m/sec IVSd 2D 1.0 0.6 - 1.1 cm LVOT Peak PG 5.6 mmHg AoR Diam 2D 1.8 2.0 - 3.7 cm EDV 2D 148.9 cm3 ESV 2D 51.0 cm3 LA Dimen 2D 3.4 2.3 - 4.0 cm Findings Left Ventricle: Normal left ventricular systolic function. Normal left ventricular cavity size. Left ventricular wall thickness upper limits of normal. Ejection fraction is visually estimated at 6065 %. Tissue Doppler/Mitral Doppler indices are consistent with impaired relaxation (Stage I diastolic dysfunction). Right Ventricle: Normal right ventricular size. Normal right ventricular systolic function. Left Atrium: The left atrium is normal in size. Right Atrium: The right atrium is normal in size. Mitral Valve: Normal appearance and function of the mitral valve with trace physiologic regurgitation. Aortic Valve: Normal appearance of the aortic valve. No significant aortic stenosis or insufficiency. Tricuspid Valve: Normal appearance of the tricuspid valve. Unable to obtain RVSP due to minimal presence of tricuspid regurgitation. Pulmonic Valve: Pulmonic valve not well visualized. Pericardium: Normal pericardium with no significant pericardial effusion. Aorta: Normal aortic root. IVC: Normal size and normal respiratory collapse consistent with normal right atrial pressure. Conclusions 1.The left ventricle is normal in size and systolic function. 2.Estimated left ventricular ejection fraction of 60-65%. 3.Mild left ventricular diastolic dysfunction. Electronically Signed By: Paulo Leach 19-Jul-2016 18:08:26 -0700 Patient Name: JUDY CARLIN Study Date: 19-Jul-2016 [id number]
--- NOTE | 2016-07-19 19:06 | CONS ---
Date/Time of Note Date/Time of Note DATE: 07/19/16 TIME: 18:56 Assessment/Plan Assessment/Plan Chief Complaint/Hosp Course Assessment: Acute on chronic diastolic heart failure - improving with diuresis Paroxysmal supraventricular tachycardia - reverted to sinus rhythm Hypertension Dyslipidemia Bilateral lower extremity cellulitis - antibiotics per primary team Chronic obstructive pulmonary disease exacerbation - management per primary team Hyponatremia - management per endocrine Recommendations: -continue telemetry monitoring -echocardiogram showed LVEF 60-65%, mild diastolic dysfunction -continue Lasix 20mg IV BID -continue diltiazem 60mg TID -continue aspirin 81mg and atorvastatin 20mg daily Problems: Consultation Date/Type/Reason Admit Date/Time July 18, 2016 at 19:42 Type of Consultation: Cardiology Reason for Consultation congestive heart failure Hx of Present Illness The patient is a 60 year-old male who presents with worsening bilateral lower extremity edema, erythema, and pain for one week. He also reports shortness of breath. He denies chest pain. Since admission, he as received treatment with IV Lasix and nebulizer treatments with improvement in his breathing. His is on antibiotics for bilateral lower extremity cellulitis. He was noted to have a run of supraventricular tachycardia today, but has spontaneously revered to sinus rhythm. 14 point review of systems negative other than per HPI. Past Medical History Chronic diastolic heart failure Hypertension Dyslipidemia Chronic obstructive pulmonary disease Past Surgical History Right inguinal hernia repair Bilateral knee surgeries Family History Significant Family History: no pertinent family hx (denies family history of heart disease) Social History Alcohol Use: sober Smoking Status: Former smoker Drug Use: none Exam/Review of Systems Vital Signs Vitals Vital Signs Date Time Temp Pulse Resp B/P Pulse Ox O2 Delivery O2 Flow Rate FiO2 07/19/16 18:24 2.0 07/19/16 17:04 93 07/19/16 15:31 98.4 15 120/65 100 07/19/16 09:00 Nasal Cannula 07/19/16 01:19 28 Intake and Output 07/18/16 07/18/16 07/19/16 15:00 23:00 07:00 Intake Total 750 ml Balance 750 ml Exam Constitutional: alert, well developed Psych: nl mood/affect, no complaints Head: atraumatic, normocephalic Eyes: nl conjunctiva, nl lids ENMT: nl external ears & nose, nl nasal mucosa & septum Neck: non-tender, supple, No jvd Respiratory: diminished breath sounds, wheezing Cardiovascular: regular rate and rhythm, No murmurs/extra sounds Gastrointestinal: non-tender, soft Musculoskeletal: swelling Extremities: edema, No clubbing, No cyanosis Neurological: nl mental status, nl speech Skin: rash or lesions Results Result Diagram: 07/19/16 0617 07/19/16 0617 Results 24 hrs Laboratory Tests Test 07/18/16 19:40 07/18/16 19:46 07/18/16 22:20 07/19/16 06:17 Urine Color LT. YELLOW Urine Clarity CLEAR Urine pH 7.5 Urine Specific [place] 1.010 Urine Ketones NEGATIVE Urine Nitrite NEGATIVE Urine Bilirubin NEGATIVE Urine Urobilinogen 4.0 E.U./dL H Urine Leukocyte Esterase NEGATIVE Urine Hemoglobin NEGATIVE Urine Glucose NEGATIVE Urine Total Protein NEGATIVE Urine Opiates Screen Negative Urine Barbiturates Negative Urine Amphetamines Screen Negative Urine Benzodiazepines Screen Positive Urine Cocaine Screen Negative Urine Cannabinoids Negative Lactic Acid Level 1.8 1.4 Troponin I 0.018 0.019 White Blood Count 5.7 # Red Blood Count 3.29 L Hemoglobin 11.9 L Hematocrit 35.2 L Mean Corpuscular Volume 107.0 H Mean Corpuscular Hemoglobin 36.2 H Mean Corpuscular Hemoglobin Concent 33.8 Red Cell Distribution Width 13.4 Platelet Count 119 #L Mean Platelet Volume 10.3 Neutrophils % 71.8 Lymphocytes % 21.4 Monocytes % 4.2 Eosinophils % 1.1 Basophils % 0.4 Nucleated Red Blood Cells % 0.0 Neutrophils # 4.1 Lymphocytes # 1.2 Monocytes # 0.2 L Eosinophils # 0.1 Basophils # 0.0 Nucleated Red Blood Cells # 0.0 Sodium Level 124 L Potassium Level 4.2 Chloride Level 95 L Carbon Dioxide Level 27 Anion Gap 6 #L Blood Urea Nitrogen 15 Creatinine 0.60 L Glucose Level 75 Hemoglobin A1c 5.6 Calcium Level 8.2 L Phosphorus Level 3.4 Magnesium Level 1.8 Triglycerides Level 82 Cholesterol Level 127 LDL Cholesterol, Calculated 49 HDL Cholesterol 62 Cholesterol/HDL Ratio 2.0 Thyroid Stimulating Hormone (TSH) 1.300 Test 07/19/16 17:30 Urine Random Creatinine 27.24 Urine Random Sodium 22 L Medications Medications Current Medications Aspirin (Halfprin) 81 mg DAILY PO Last administered on 07/19/16t 08:38; Admin Dose 81 MG; Start 07/19/16 at 09:00 Atorvastatin Calcium (Lipitor) 20 mg HS PO ; Start 07/19/16 at 21:00 Diltiazem HCl (Cardizem Sr) 60 mg TID PO Last administered on 07/19/16 12:24; Admin Dose 60 MG; Start 07/19/16 at 09:00 Folic Acid (Folic Acid) 0.4 mg DAILY PO Last administered on 07/19/16 08:37; Admin Dose 0.4 MG; Start 07/19/16 at 09:00 Magnesium Oxide (Mag-Ox 400) 400 mg BID PO Last administered on 07/19/16 08:37 ; Admin Dose 400 MG; Start 07/18/16 at 22:30 Nicotine (Nicoderm 21 Mg/ 24hr) 1 patch DAILY TRANSDERM Last administered on 08:39; Admin Dose 1 PATCH; Start 07/19/16 at 09:00 Nitroglycerin (Nitroglycerin (Sl Tab) 0.4 Mg) 1 tab ONCE PRN SL CHEST PAIN; Start 07/18/16 at 22:30; Stop 07/19/16 at 22:29 Quetiapine Fumarate (Seroquel) 25 mg HS PO ; Start 07/19/16 at 21:00 Miscellaneous Information 800 mcg DAILY PO ; Start 07/19/16 at 09:00; Status UNV Ondansetron HCl (Zofran Inj) 4 mg Q6H PRN IV NAUSEA AND/OR VOMITING; Start 07/18 at 22:30 Heparin Sodium (Porcine) (Heparin (5000 Units/0.5 ml)) 5,000 unit BID SC Last administered on 07/19/16 08:58; Admin Dose 5,000 UNIT; Start 07/18/16 at 22:30 Albuterol (Ventolin Hfa) 2 puff Q6H PRN INH SHORTNESS OF BREATH; Start 07/18/16 at 23:00 Salmeterol Xinafoate/ Fluticasone (Advair 250/50 Diskus) 1 inh BID INH Last administered on 07/19/16 08:38; Admin Dose 1 INH; Start 07/19/16 at 09:00 Lactobacillus Acidophilus (Florajen3 Capsule) 1 each BID PO Last administered on 07/19/16 08:38; Admin Dose 1 EACH; Start 07/19/16 at 09:00 Morphine Sulfate 4 mg 4 mg Q4H PRN IV SEVERE PAIN LEVEL 7-10 Last administered on 07/19/16 16:47; Admin Dose 4 MG; Start 07/19/16 at 02:30 Cefepime HCl (Maxipime 1gm/50 ml (Pmx)) 50 ml @ 100 mls/hr Q12 IVPB Last administered on 07/19/16 08:47; Admin Dose 100 MLS/HR; Start 07/19/16 at 02:30 Oxycodone/ Acetaminophen (Endocet ()) 1 tab Q6H PRN PO PAIN Last administered on 07/19/16 18:44; Admin Dose 1 TAB; Start 07/19/16 at 02:30 Ketorolac Tromethamine 30 mg 30 mg Q6H PRN IV PAIN Last administered on 04:08; Admin Dose 30 MG; Start 07/19/16 at 03:00; Stop 07/22/16 at 02:59 Vancomycin HCl/ Sodium Chloride (Vancocin/NS) 250 ml @ 83.333 mls/ hr Q12H IVPB Last administered on 07/19/16 16:47; Admin Dose 83.333 MLS/HR; Start at 04:00 Miscellaneous Information (*Rx Drug Level Order Reminder*) 1 ONCE ONCE XX ; Start 07/20/16 at 15:00; Stop 07/20/16 at 15:01 PRISCILLA HEMPHILL MD July 19, 2016 19:06
[2016-07-19] MEDS: ATORVASTATIN 20 MG TAB PO SCH (21:31)
[2016-07-19] MEDS: QUETIAPINE 25 MG TAB PO SCH (21:32)
[2016-07-20] VITALS (13 sets, daily range): BP systolic 110–141; BP diastolic 59–79; PULSE 85–97; RESP 18–20
[2016-07-20 04:07] LABS: THYROID STIMULATING HORMONE 1.09 MIU/L (0.465-4.680)
[2016-07-20] MEDS: VANCOMYCIN 1.25 GM in SOD CHLORIDE 0.9% 250 ML IVPB SCH (04:43)
[2016-07-20] MEDS: FUROSEMIDE 20 MG INJ IV SCH ×2 (06:21→18:35)
[2016-07-20] MEDS: morphine 4 MG/ML VIAL IV PRN ×3 (07:28→18:35)
[2016-07-20] MEDS: [UNRECOGNIZED DRUG - REMARK] XX SCH ×3 (07:30→23:01)
[2016-07-20 07:59] LABS: ADD SCAN DIFF NO
[2016-07-20 08:05] LABS: BASOPHILS % 0.3 % (0.0-2.0); EOSINOPHILS # 0.1 10^3/ul (0.0-0.5); EOSINOPHILS % 1.3 % (0.0-7.0); HEMOGLOBIN 12.3 g/dl (14.0-18.0); LYMPHOCYTES % 25.8 % (15.0-51.0); MEAN CORPUSCULAR HEMOGLOBIN 36.8 pg (29.0-33.0); MEAN CORPUSCULAR HGB CONC 35.1 g/dl (32.0-37.0); MEAN CORPUSCULAR VOLUME 104.8 fl (82.0-101.0); MEAN PLATELET VOLUME 9.3 fl (7.4-10.4); MONOCYTE # 0.2 10^3/ul (0.3-0.9); MONOCYTES % 5.8 % (0.0-11.0); NEUTROPHIL # 2.6 10^3/ul (1.6-7.5); NEUTROPHILS % 65.3 % (39.0-77.0); PLATELET COUNT 179 10^3/UL (140-415); RED BLOOD COUNT 3.34 10^6/ul (4.70-6.10); RED CELL DISTRIBUTION WIDTH 13.3 % (11.5-14.5)
[2016-07-20 08:34] LABS: CALCIUM 8.6 mg/dl (8.4-10.2); CREATININE 0.58 mg/dl (0.61-1.24); POTASSIUM 4.5 mmol/L (3.5-5.1)
[2016-07-20] MEDS: SALMETEROL/FLUTICASONE 250/50 INHA INH SCH ×2 (09:52→20:58)
[2016-07-20] MEDS: CEFEPIME 1GM/50 ML (PMX) 50 ML IVPB SCH ×2 (09:52→20:58)
[2016-07-20] MEDS: MAGNESIUM OXIDE 400 MG TAB PO SCH ×2 (09:53→20:57)
[2016-07-20] MEDS: DILTIAZEM (SR) 60 MG CAP PO SCH ×3 (09:53→20:58)
[2016-07-20] MEDS: PANTOPRAZOLE (EC) 40 MG TAB PO SCH ×2 (09:53→18:35)
[2016-07-20] MEDS: ASPIRIN (EC) 81 MG TAB PO SCH (09:53)
[2016-07-20] MEDS: L ACIDOPHIL/B LACTIS/B LONGUM CAPSULE PO SCH ×2 (09:53→20:57)
[2016-07-20] MEDS: NICOTINE (21 MG/24 HR) PATCH TRANSDERM SCH (09:53)
[2016-07-20] MEDS: FOLIC ACID 0.4 MG TAB PO SCH (09:53)
[2016-07-20] MEDS: HEPARIN 5,000 UNIT/0.5 ML VIAL SC SCH ×2 (10:07→20:59)
--- NOTE | 2016-07-20 10:45 | CONS ---
Date/Time of Note Date/Time of Note DATE: 07/20/16 TIME: 10:44 Assessment/Plan Assessment/Plan Additional Assessment/Plan 60 yo male with 1) B/L LE Cellulitis 2) COPD Exacerbation 3) Chronic CHF 4) Hyponatremia, Pt is not euvolemic at this time, Asymptomatic 5) CAD 6) Anemia, Likely chronic Hyponatremia likely from Excessive free H20 intake in the setting of Increase Circulating ADH from pain and lung disease Improving, Cont current treatment and plan Recommend free H20 restriction at this time Thank you for the opportunity to participate in the care of Mr Pool. Consultation Date/Type/Reason Admit Date/Time July 18, 2016 at 19:42 Initial Consult Date 07/19/16 Type of Consultation: Renal Referring Provider: FALLON GANDARA MD Exam/Review of Systems Vital Signs Vitals Vital Signs Date Time Temp Pulse Resp B/P Pulse Ox O2 Delivery O2 Flow Rate FiO2 07/20/16 08:39 88 07/20/16 07:50 98.2 18 113/62 99 07/20/16 02:47 2.0 07/19/16 19:36 Nasal Cannula 07/19/16 01:19 28 Intake and Output 07/19/16 07/19/16 07/20/16 15:00 23:00 07:00 Intake Total 750 ml 300 ml Output Total 2000 ml Balance -1250 ml 300 ml Exam Constitutional: No distress ENMT: mucosa pink and moist Respiratory: crackles/rales Cardiovascular: edema Gastrointestinal: non-tender, soft Neurological: SEED PRODUCTION FIELD SUPERVISOR II-XII intact, nl mental status, nl speech, nl strength Results Result Diagram: 07/20/16 0655 07/20/16 0655 Results 24 hrs Laboratory Tests Test 07/19/16 17:30 07/20/16 02:26 07/20/16 06:55 Urine Osmolality 185 L Urine Random Creatinine 27.24 Urine Random Sodium 22 L Thyroid Stimulating Hormone (TSH) 1.090 Random Cortisol 1.2 White Blood Count 4.0 #L Red Blood Count 3.34 L Hemoglobin 12.3 L Hematocrit 35.0 L Mean Corpuscular Volume 104.8 H Mean Corpuscular Hemoglobin 36.8 H Mean Corpuscular Hemoglobin Concent 35.1 Red Cell Distribution Width 13.3 Platelet Count 179 # Mean Platelet Volume 9.3 Neutrophils % 65.3 Lymphocytes % 25.8 Monocytes % 5.8 Eosinophils % 1.3 Basophils % 0.3 Nucleated Red Blood Cells % 0.0 Neutrophils # 2.6 Lymphocytes # 1.0 Monocytes # 0.2 L Eosinophils # 0.1 Basophils # 0.0 Nucleated Red Blood Cells # 0.0 Sodium Level 130 L Potassium Level 4.5 Chloride Level 94 L Carbon Dioxide Level 31 Anion Gap 10 Blood Urea Nitrogen 13 Creatinine 0.58 L Glucose Level 88 Calcium Level 8.6 Magnesium Level 2.0 Vitamin B12 Level 276 Folate Pending Medications Medications Current Medications Aspirin (Halfprin) 81 mg DAILY PO Last administered on 07/20/16 09:53; Admin Dose 81 MG; Start 07/19/16 at 09:00 Atorvastatin Calcium (Lipitor) 20 mg HS PO Last administered on 07/19/16 21:31 ; Admin Dose 20 MG; Start 07/19/16 at 21:00 Diltiazem HCl (Cardizem Sr) 60 mg TID PO Last administered on 07/20/16 09:53; Admin Dose 60 MG; Start 07/19/16 at 09:00 Folic Acid (Folic Acid) 0.4 mg DAILY PO Last administered on 07/20/16 09:53; Admin Dose 0.4 MG; Start 07/19/16 at 09:00 Magnesium Oxide (Mag-Ox 400) 400 mg BID PO Last administered on 07/20/16 09:53 ; Admin Dose 400 MG; Start 07/18/16 at 22:30 Nicotine (Nicoderm 21 Mg/ 24hr) 1 patch DAILY TRANSDERM Last administered on 09:53; Admin Dose 1 PATCH; Start 07/19/16 at 09:00 Quetiapine Fumarate (Seroquel) 25 mg HS PO Last administered on 07/19/16 21:32 ; Admin Dose 25 MG; Start 07/19/16 at 21:00 Miscellaneous Information 800 mcg DAILY PO ; Start 07/19/16 at 09:00; Status UNV Ondansetron HCl (Zofran Inj) 4 mg Q6H PRN IV NAUSEA AND/OR VOMITING; Start 07/18 at 22:30 Heparin Sodium (Porcine) (Heparin (5000 Units/0.5 ml)) 5,000 unit BID SC Last administered on 07/20/16 10:07; Admin Dose 5,000 UNIT; Start 07/18/16 at 22:30 Albuterol (Ventolin Hfa) 2 puff Q6H PRN INH SHORTNESS OF BREATH; Start 07/18/16 at 23:00 Salmeterol Xinafoate/ Fluticasone (Advair 250/50 Diskus) 1 inh BID INH Last administered on 07/20/16 09:52; Admin Dose 1 INH; Start 07/19/16 at 09:00 Lactobacillus Acidophilus (Florajen3 Capsule) 1 each BID PO Last administered on 07/20/16 09:53; Admin Dose 1 EACH; Start 07/19/16 at 09:00 Morphine Sulfate 4 mg 4 mg Q4H PRN IV SEVERE PAIN LEVEL 7-10 Last administered on 07/20/16 07:28; Admin Dose 4 MG; Start 07/19/16 at 02:30 Cefepime HCl (Maxipime 1gm/50 ml (Pmx)) 50 ml @ 100 mls/hr Q12 IVPB Last administered on 07/20/16 09:52; Admin Dose 100 MLS/HR; Start 07/19/16 at 02:30 Oxycodone/ Acetaminophen (Endocet (10/ 325)) 1 tab Q6H PRN PO PAIN Last administered on 07/19/16 18:44; Admin Dose 1 TAB; Start 07/19/16 at 02:30 Ketorolac Tromethamine 30 mg 30 mg Q6H PRN IV PAIN Last administered on 04:08; Admin Dose 30 MG; Start 07/19/16 at 03:00; Stop 07/22/16 at 02:59 Vancomycin HCl/ Sodium Chloride (Vancocin/NS) 250 ml @ 83.333 mls/ hr Q12H IVPB Last administered on 07/20/16 04:43; Admin Dose 83.333 MLS/HR; Start 07/19 at 04:00 Miscellaneous Information (*Rx Drug Level Order Reminder*) 1 ONCE ONCE XX ; Start 07/20/16 at 15:00; Stop 07/20/16 at 15:01 Diltiazem HCl (Cardizem) 60 mg Q3H PRN PO HR>150; Start 07/19/16 at 19:30 Miscellaneous Information (*Order Clarification Bulletin) MEDICATION REQUIRES CLARIFICATI... Q8H XX ; Start 07/20/16 at 07:30 CHRISSIE MEANS MD July 20, 2016 10:44
[2016-07-20 10:47] LABS: FOLATE 17.9 ng/ml (2.8-20.0)
[2016-07-20] MEDS: DILTIAZEM 60 MG TAB PO PRN (11:07)
--- NOTE | 2016-07-20 13:42 | PN ---
Date/Time of Note Date/Time of Note DATE: 07/20/16 TIME: 13:40 Assessment/Plan VTE Prophylaxis VTE Prophylaxis Intervention: other Lines/Catheters IV Catheter Type (from [facility]): Saline Lock Assessment/Plan Chief Complaint/Hosp Course Assessment and plan 1. Bilateral Lower ext cellulitis - cont abx - f/u culture results - ID consult has been obtained 2. COPD exacerbation - cont oxygen, homes meds, breathing treatment, steroid 3. HTN: BP within goal - cont meds with adjustment as needed 4. GERD - cont PPI 5. Depression - cont Seroquel 6. Hx of Tobacco - cont nicotine patch 7. Lower extremity edema - 2D echocardiogram showed normal ejection fraction, cardiology has been consulted -Strict I&O's 8. Microcytic anemia -Start vitamin B12 supplementation We will continue monitor patient closely for recommendation management treatment as clinical course Problems: Subjective 24 Hr Interval Summary Free Text/Dictation Patient continues to complain of having bilateral lower extremity discomfort No nausea vomiting diarrhea Denies of any chest pain Exam/Review of Systems Vital Signs Vitals Vital Signs Date Time Temp Pulse Resp B/P Pulse Ox O2 Delivery O2 Flow Rate FiO2 07/20/16 12:29 97 07/20/16 08:00 Nasal Cannula 2.0 07/20/16 07:50 98.2 18 113/62 99 07/19/16 01:19 28 Intake and Output 07/19/16 07/19/16 07/20/16 15:00 23:00 07:00 Intake Total 750 ml 300 ml Output Total 2000 ml Balance -1250 ml 300 ml Exam General: The patient is well-developed, Not in acute distress. HEENT: Atraumatic, normocephalic. The pupils are equal and round . Neck: Supple with full range of motion. Chest: Normal expansion of the thorax during inspiration Lungs: Clear to auscultation bilaterally Heart: Normal S1-S2, Regular rhythm and rate. Abdomen: Soft , nontender, nondistended , bowel sounds are present. Extremities: Bilateral ankle and feet erythema , +1 edema no cyanosis Neurologic: Normal mental status,The patient is awake, alert and oriented . Results Result Diagram: 07/20/16 0655 07/20/16 0655 Results 24 hrs Laboratory Tests Test 07/19/16 17:30 07/20/16 02:26 07/20/16 06:55 Urine Osmolality 185 L Urine Random Creatinine 27.24 Urine Random Sodium 22 L Thyroid Stimulating Hormone (TSH) 1.090 Random Cortisol 1.2 White Blood Count 4.0 #L Red Blood Count 3.34 L Hemoglobin 12.3 L Hematocrit 35.0 L Mean Corpuscular Volume 104.8 H Mean Corpuscular Hemoglobin 36.8 H Mean Corpuscular Hemoglobin Concent 35.1 Red Cell Distribution Width 13.3 Platelet Count 179 # Mean Platelet Volume 9.3 Neutrophils % 65.3 Lymphocytes % 25.8 Monocytes % 5.8 Eosinophils % 1.3 Basophils % 0.3 Nucleated Red Blood Cells % 0.0 Neutrophils # 2.6 Lymphocytes # 1.0 Monocytes # 0.2 L Eosinophils # 0.1 Basophils # 0.0 Nucleated Red Blood Cells # 0.0 Sodium Level 130 L Potassium Level 4.5 Chloride Level 94 L Carbon Dioxide Level 31 Anion Gap 10 Blood Urea Nitrogen 13 Creatinine 0.58 L Glucose Level 88 Calcium Level 8.6 Magnesium Level 2.0 Vitamin B12 Level 276 Folate 17.9 Medications Medications Current Medications Aspirin (Halfprin) 81 mg DAILY PO Last administered on 07/20/16 09:53; Admin Dose 81 MG; Start 07/19/16 at 09:00 Atorvastatin Calcium (Lipitor) 20 mg HS PO Last administered on 07/19/16 21:31 ; Admin Dose 20 MG; Start 07/19/16 at 21:00 Diltiazem HCl (Cardizem Sr) 60 mg TID PO Last administered on 07/20/16 13:17; Admin Dose 60 MG; Start 07/19/16 at 09:00 Folic Acid (Folic Acid) 0.4 mg DAILY PO Last administered on 07/20/16 09:53; Admin Dose 0.4 MG; Start 07/19/16 at 09:00 Magnesium Oxide (Mag-Ox 400) 400 mg BID PO Last administered on 07/20/16 09:53 ; Admin Dose 400 MG; Start 07/18/16 at 22:30 Nicotine (Nicoderm 21 Mg/ 24hr) 1 patch DAILY TRANSDERM Last administered on 09:53; Admin Dose 1 PATCH; Start 07/19/16 at 09:00 Quetiapine Fumarate (Seroquel) 25 mg HS PO Last administered on 07/19/16 21:32 ; Admin Dose 25 MG; Start 07/19/16 at 21:00 Miscellaneous Information 800 mcg DAILY PO ; Start 07/19/16 at 09:00; Status UNV Ondansetron HCl (Zofran Inj) 4 mg Q6H PRN IV NAUSEA AND/OR VOMITING; Start 07/18 at 22:30 Heparin Sodium (Porcine) (Heparin (5000 Units/0.5 ml)) 5,000 unit BID SC Last administered on 07/20/16 10:07; Admin Dose 5,000 UNIT; Start 07/18/16 at 22:30 Albuterol (Ventolin Hfa) 2 puff Q6H PRN INH SHORTNESS OF BREATH; Start 07/18/16 at 23:00 Salmeterol Xinafoate/ Fluticasone (Advair 250/50 Diskus) 1 inh BID INH Last administered on 07/20/16 09:52; Admin Dose 1 INH; Start 07/19/16 at 09:00 Lactobacillus Acidophilus (Florajen3 Capsule) 1 each BID PO Last administered on 07/20/16 09:53; Admin Dose 1 EACH; Start 07/19/16 at 09:00 Morphine Sulfate 4 mg 4 mg Q4H PRN IV SEVERE PAIN LEVEL 7-10 Last administered on 07/20/16 13:18; Admin Dose 4 MG; Start 07/19/16 at 02:30 Cefepime HCl (Maxipime 1gm/50 ml (Pmx)) 50 ml @ 100 mls/hr Q12 IVPB Last administered on 07/20/16 09:52; Admin Dose 100 MLS/HR; Start 07/19/16 at 02:30 Oxycodone/ Acetaminophen (Endocet (10/ 325)) 1 tab Q6H PRN PO PAIN Last administered on 07/19/16 18:44; Admin Dose 1 TAB; Start 07/19/16 at 02:30 Ketorolac Tromethamine 30 mg 30 mg Q6H PRN IV PAIN Last administered on 04:08; Admin Dose 30 MG; Start 07/19/16 at 03:00; Stop 07/22/16 at 02:59 Vancomycin HCl/ Sodium Chloride (Vancocin/NS) 250 ml @ 83.333 mls/ hr Q12H IVPB Last administered on 07/20/16 04:43; Admin Dose 83.333 MLS/HR; Start 07/19 at 04:00 Miscellaneous Information (*Rx Drug Level Order Reminder*) 1 ONCE ONCE XX ; Start 07/20/16 at 15:00; Stop 07/20/16 at 15:01 Diltiazem HCl (Cardizem) 60 mg Q3H PRN PO HR>150 Last administered on t 11:07; Admin Dose 60 MG; Start 07/19/16 at 19:30 Miscellaneous Information (*Order Clarification Bulletin) MEDICATION REQUIRES CLARIFICATI... Q8H XX ; Start 07/20/16 at 07:30 Cyanocobalamin (Vitamin B12) 1,000 mcg DAILY PO ; Start 07/20/16 at 14:00; Status DEVAUGHN WESTON MD July 20, 2016 13:42
[2016-07-20] MEDS: CYANOCOBALAMIN 500 MCG TAB PO SCH (16:46)
[2016-07-20] MEDS: VANCOMYCIN 1 GM in NS 250 ML IVPB SCH ×2 (16:46→23:03)
[2016-07-20] MEDS: ALBUTEROL 18 GM INHALER INH PRN (20:05)
[2016-07-20] MEDS: OXYCODONE/ACETAMINOPHEN (10/325) TAB PO PRN (20:07)
[2016-07-20] MEDS: IPRATROPIUM (NEB) 0.5 MG/2.5 ML AMP HHN PRN (20:13)
[2016-07-20] MEDS: LEVALBUTEROL (NEB) 0.63 MG/3 ML AMP HHN PRN (20:13)
[2016-07-20] MEDS: QUETIAPINE 25 MG TAB PO SCH (20:57)
[2016-07-20] MEDS: ATORVASTATIN 20 MG TAB PO SCH (20:57)
--- NOTE | 2016-07-20 21:23 | CONS ---
Date/Time of Note Date/Time of Note DATE: 07/20/16 TIME: 21:21 Assessment/Plan Assessment/Plan Chief Complaint/Hosp Course Assessment: Acute on chronic diastolic heart failure - improving with diuresis Paroxysmal supraventricular tachycardia - reverted to sinus rhythm Hypertension Dyslipidemia Bilateral lower extremity cellulitis - antibiotics per primary team Chronic obstructive pulmonary disease exacerbation - management per primary team Hyponatremia - improving Recommendations: -echocardiogram showed LVEF 60-65%, mild diastolic dysfunction -continue Lasix 20mg IV BID -continue diltiazem 60mg TID -continue aspirin 81mg and atorvastatin 20mg daily Problems: Consultation Date/Type/Reason Admit Date/Time July 18, 2016 at 19:42 Initial Consult Date 07/19/16 Type of Consultation: Cardiology 24 HR Interval Summary Free Text/Dictation Shortness of breath and lower extremity swelling improving. Detailed Summary Additional Comments 14 point review of systems without changes. Exam/Review of Systems Vital Signs Vitals Vital Signs Date Time Temp Pulse Resp B/P Pulse Ox O2 Delivery O2 Flow Rate FiO2 07/20/16 20:14 88 18 Nasal Cannula 3.0 07/20/16 19:20 97.3 141/79 98 07/19/16 01:19 28 Intake and Output 07/19/16 07/19/16 07/20/16 14:59 22:59 06:59 Intake Total 750 ml 300 ml Output Total 2000 ml Balance -1250 ml 300 ml Exam Constitutional: alert, well developed Psych: nl mood/affect, no complaints Head: atraumatic, normocephalic Eyes: nl conjunctiva, nl lids ENMT: nl external ears & nose, nl nasal mucosa & septum Neck: non-tender, supple, No jvd Respiratory: diminished breath sounds, wheezing Cardiovascular: regular rate and rhythm, No murmurs/extra sounds Gastrointestinal: non-tender, soft Musculoskeletal: swelling Extremities: edema, No clubbing, No cyanosis Neurological: nl mental status, nl speech Skin: rash or lesions Results Result Diagram: 07/20/1655 07/20/16 0655 Results 24 hrs Laboratory Tests Test 07/20/16 02:26 07/20/16 06:55 07/20/16 14:40 Thyroid Stimulating Hormone (TSH) 1.090 Random Cortisol 1.2 White Blood Count 4.0 #L Red Blood Count 3.34 L Hemoglobin 12.3 L Hematocrit 35.0 L Mean Corpuscular Volume 104.8 H Mean Corpuscular Hemoglobin 36.8 H Mean Corpuscular Hemoglobin Concent 35.1 Red Cell Distribution Width 13.3 Platelet Count 179 # Mean Platelet Volume 9.3 Neutrophils % 65.3 Lymphocytes % 25.8 Monocytes % 5.8 Eosinophils % 1.3 Basophils % 0.3 Nucleated Red Blood Cells % 0.0 Neutrophils # 2.6 Lymphocytes # 1.0 Monocytes # 0.2 L Eosinophils # 0.1 Basophils # 0.0 Nucleated Red Blood Cells # 0.0 Sodium Level 130 L Potassium Level 4.5 Chloride Level 94 L Carbon Dioxide Level 31 Anion Gap 10 Blood Urea Nitrogen 13 Creatinine 0.58 L Glucose Level 88 Calcium Level 8.6 Magnesium Level 2.0 Vitamin B12 Level 276 Folate 17.9 Vancomycin Level Trough 6.4 L Medications Medications Current Medications Aspirin (Halfprin) 81 mg DAILY PO Last administered on 07/20/16 09:53; Admin Dose 81 MG; Start 07/19/16 at 09:00 Atorvastatin Calcium (Lipitor) 20 mg HS PO Last administered on 07/20/16 20:57 ; Admin Dose 20 MG; Start 07/19/16 at 21:00 Diltiazem HCl (Cardizem Sr) 60 mg TID PO Last administered on 07/20/16 20:58; Admin Dose 60 MG; Start 07/19/16 at 09:00 Folic Acid (Folic Acid) 0.4 mg DAILY PO Last administered on 07/20/16 09:53; Admin Dose 0.4 MG; Start 07/19/16 at 09:00 Magnesium Oxide (Mag-Ox 400) 400 mg BID PO Last administered on 07/20/16 20:57 ; Admin Dose 400 MG; Start 07/18/16 at 22:30 Nicotine (Nicoderm 21 Mg/ 24hr) 1 patch DAILY TRANSDERM Last administered on 09:53; Admin Dose 1 PATCH; Start 07/19/16 at 09:00 Quetiapine Fumarate (Seroquel) 25 mg HS PO Last administered on 07/20/16 20:57 ; Admin Dose 25 MG; Start 07/19/16 at 21:00 Miscellaneous Information 800 mcg DAILY PO ; Start 07/19/16 at 09:00; Status UNV Ondansetron HCl (Zofran Inj) 4 mg Q6H PRN IV NAUSEA AND/OR VOMITING; Start 07/18 at 22:30 Heparin Sodium (Porcine) (Heparin (5000 Units/0.5 ml)) 5,000 unit BID SC Last administered on 07/20/16 20:59; Admin Dose 5,000 UNIT; Start 07/18/16 at 22:30 Albuterol (Ventolin Hfa) 2 puff Q6H PRN INH SHORTNESS OF BREATH Last administered on 07/20/16 20:05; Admin Dose 2 PUFF; Start 07/18/16 at 23:00 Salmeterol Xinafoate/ Fluticasone (Advair 250/50 Diskus) 1 inh BID INH Last administered on 07/20/16 20:58; Admin Dose 1 INH; Start 07/19/16 at 09:00 Lactobacillus Acidophilus (Florajen3 Capsule) 1 each BID PO Last administered on 07/20/16 20:57; Admin Dose 1 EACH; Start 07/19/16 at 09:00 Morphine Sulfate 4 mg 4 mg Q4H PRN IV SEVERE PAIN LEVEL 7-10 Last administered on 07/20/16 18:35; Admin Dose 4 MG; Start 07/19/16 at 02:30 Cefepime HCl (Maxipime 1gm/50 ml (Pmx)) 50 ml @ 100 mls/hr Q12 IVPB Last administered on 07/20/16 20:58; Admin Dose 100 MLS/HR; Start 07/19/16 at 02:30 Oxycodone/ Acetaminophen (Endocet (10/ 325)) 1 tab Q6H PRN PO PAIN Last administered on 07/20/16 20:07; Admin Dose 1 TAB; Start 07/19/16 at 02:30 Ketorolac Tromethamine (Toradol) 30 mg Q6H PRN IV PAIN Last administered on 07/19 04:08; Admin Dose 30 MG; Start 07/19/16 at 03:00; Stop 07/22/16 at 02:59 Diltiazem HCl (Cardizem) 60 mg Q3H PRN PO HR>150 Last administered on 11:07; Admin Dose 60 MG; Start 07/19/16 at 19:30 Miscellaneous Information (*Order Clarification Bulletin) MEDICATION REQUIRES CLARIFICATI... Q8H XX ; Start 07/20/16 at 07:30 Cyanocobalamin 1000 mcg 1,000 mcg DAILY PO Last administered on 07/20/16 16:46 ; Admin Dose 1,000 MCG; Start 07/20/16 at 14:00 Vancomycin HCl (Vancocin) 250 ml @ 125 mls/hr Q8H IVPB Last administered on 16:46; Admin Dose 125 MLS/HR; Start 07/20/16 at 16:00 Miscellaneous Information (*Rx Drug Level Order Reminder*) VANCOMYCIN TROUGH AT 1500 ONCE ONCE XX ; Start 07/21/16 at 15:00; Stop 07/21/16 at 15:01 PRISCILLA HEMPHILL MD July 20, 2016 21:22
[2016-07-21] VITALS (11 sets, daily range): BP systolic 122–140; BP diastolic 64–72; PULSE 81–172; RESP 18–21
[2016-07-21] MEDS: morphine 4 MG/ML VIAL IV PRN ×3 (06:01→19:48)
[2016-07-21] MEDS: FUROSEMIDE 20 MG INJ IV SCH ×2 (06:02→17:37)
[2016-07-21] MEDS: ALBUTEROL 18 GM INHALER INH PRN (06:12)
[2016-07-21] MEDS: PANTOPRAZOLE (EC) 40 MG TAB PO SCH ×2 (06:47→17:36)
[2016-07-21 07:03] LABS: ADD SCAN DIFF NO
[2016-07-21 07:12] LABS: BASOPHILS % 0.3 % (0.0-2.0); EOSINOPHILS # 0.1 10^3/ul (0.0-0.5); EOSINOPHILS % 1.5 % (0.0-7.0); HEMATOCRIT 35.9 % (42.0-52.0); HEMOGLOBIN 12.1 g/dl (14.0-18.0); LYMPHOCYTES # 0.9 10^3/ul (0.8-2.9); LYMPHOCYTES % 21.5 % (15.0-51.0); MEAN CORPUSCULAR HEMOGLOBIN 35.8 pg (29.0-33.0); MEAN CORPUSCULAR HGB CONC 33.7 g/dl (32.0-37.0); MEAN CORPUSCULAR VOLUME 106.2 fl (82.0-101.0); MEAN PLATELET VOLUME 8.8 fl (7.4-10.4); MONOCYTE # 0.4 10^3/ul (0.3-0.9); MONOCYTES % 9.9 % (0.0-11.0); NEUTROPHIL # 2.5 10^3/ul (1.6-7.5); NEUTROPHILS % 64.3 % (39.0-77.0); PLATELET COUNT 204 10^3/UL (140-415); RED BLOOD COUNT 3.38 10^6/ul (4.70-6.10); RED CELL DISTRIBUTION WIDTH 13.1 % (11.5-14.5)
[2016-07-21] MEDS: [UNRECOGNIZED DRUG - REMARK] XX SCH (07:30)
[2016-07-21 07:32] LABS: CALCIUM 8.8 mg/dl (8.4-10.2); CREATININE 0.61 mg/dl (0.61-1.24); MAGNESIUM 1.9 mg/dl (1.7-2.5); POTASSIUM 4.7 mmol/L (3.5-5.1)
[2016-07-21] MEDS: FOLIC ACID 0.4 MG TAB PO SCH (08:54)
[2016-07-21] MEDS: NICOTINE (21 MG/24 HR) PATCH TRANSDERM SCH (08:54)
[2016-07-21] MEDS: OXYCODONE/ACETAMINOPHEN (10/325) TAB PO PRN ×2 (08:54→18:26)
[2016-07-21] MEDS: CYANOCOBALAMIN 500 MCG TAB PO SCH (08:55)
[2016-07-21] MEDS: L ACIDOPHIL/B LACTIS/B LONGUM CAPSULE PO SCH ×2 (08:55→22:03)
[2016-07-21] MEDS: MAGNESIUM OXIDE 400 MG TAB PO SCH ×2 (08:55→22:05)
[2016-07-21] MEDS: ASPIRIN (EC) 81 MG TAB PO SCH (08:55)
[2016-07-21] MEDS: VANCOMYCIN 1 GM in NS 250 ML IVPB SCH (08:55)
[2016-07-21] MEDS: DILTIAZEM (SR) 60 MG CAP PO SCH ×3 (08:55→22:04)
[2016-07-21] MEDS: SALMETEROL/FLUTICASONE 250/50 INHA INH SCH ×2 (08:56→22:03)
[2016-07-21] MEDS: CEFEPIME 1GM/50 ML (PMX) 50 ML IVPB SCH (09:05)
[2016-07-21] MEDS: HEPARIN 5,000 UNIT/0.5 ML VIAL SC SCH ×2 (09:08→22:10)
--- NOTE | 2016-07-21 10:44 | PN ---
Date/Time of Note Date/Time of Note DATE: 07/21/16 TIME: 10:41 Assessment/Plan VTE Prophylaxis VTE Prophylaxis Intervention: other Lines/Catheters IV Catheter Type (from Nrs): Saline Lock Assessment/Plan Chief Complaint/Hosp Course Assessment and plan 1. Bilateral Lower ext cellulitis - cont abx - f/u culture results 2. COPD exacerbation - cont oxygen as needed, homes meds, breathing treatment, steroid 3. HTN: BP within goal - cont meds with adjustment as needed 4. GERD - cont PPI 5. Depression - cont Seroquel 6. Hx of Tobacco - cont nicotine patch 7. Lower extremity edema - 2D echocardiogram showed normal ejection fraction, cardiology has been consulted -Strict I&O's 8. Microcytic anemia -Start vitamin B12 supplementation 9. Neuropathy -With history of alcohol abuse -Start gabapentin We will continue monitor patient closely for recommendation management treatment as clinical course Problems: Subjective 24 Hr Interval Summary Free Text/Dictation Patient continues to complain of having bilateral lower extremity discomfort Denies of any chest pain or shortness of breath No nausea vomiting diarrhea Difficulty with ambulation Exam/Review of Systems Vital Signs Vitals Vital Signs Date Time Temp Pulse Resp B/P Pulse Ox O2 Delivery O2 Flow Rate FiO2 07/21/16 08:12 91 07/21/16 08:00 98.0 20 122/64 98 07/21/16 07:31 2.0 07/20/16 20:14 Nasal Cannula 07/19/16 01:19 28 Intake and Output 07/20/16 07/20/16 07/21/16 15:00 23:00 07:00 Intake Total 200 ml 1250 ml 490 ml Output Total 2250 ml 2200 ml 2100 ml Balance -2050 ml -950 ml -1610 ml Exam General: The patient is well-developed, Not in acute distress. HEENT: Atraumatic, normocephalic. The pupils are equal and round . Neck: Supple with full range of motion. Chest: Normal expansion of the thorax during inspiration Lungs: Clear to auscultation bilaterally Heart: Normal S1-S2, Regular rhythm and rate. Abdomen: Soft , nontender, nondistended , bowel sounds are present. Extremities: Bilateral lower extremity erythema, tender to touch, +2 edema no cyanosis Neurologic: Normal mental status,The patient is awake, alert and oriented . Results Result Diagram: 07/21/16 0650 07/21/16 0650 Results 24 hrs Laboratory Tests Test 07/20/16 14:40 07/21/16 06:50 Vancomycin Level Trough 6.4 L White Blood Count 4.0 L Red Blood Count 3.38 L Hemoglobin 12.1 L Hematocrit 35.9 L Mean Corpuscular Volume 106.2 H Mean Corpuscular Hemoglobin 35.8 H Mean Corpuscular Hemoglobin Concent 33.7 Red Cell Distribution Width 13.1 Platelet Count 204 Mean Platelet Volume 8.8 Neutrophils % 64.3 Lymphocytes % 21.5 Monocytes % 9.9 Eosinophils % 1.5 Basophils % 0.3 Nucleated Red Blood Cells % 0.0 Neutrophils # 2.5 Lymphocytes # 0.9 Monocytes # 0.4 Eosinophils # 0.1 Basophils # 0.0 Nucleated Red Blood Cells # 0.0 Sodium Level 129 L Potassium Level 4.7 Chloride Level 93 L Carbon Dioxide Level 34 H Anion Gap 7 L Blood Urea Nitrogen 12 Creatinine 0.61 Glucose Level 104 Calcium Level 8.8 Magnesium Level 1.9 Medications Medications Current Medications Aspirin (Halfprin) 81 mg DAILY PO Last administered on 07/21/16 08:55; Admin Dose 81 MG; Start 07/19/16 at 09:00 Atorvastatin Calcium (Lipitor) 20 mg HS PO Last administered on 07/20/16 20:57 ; Admin Dose 20 MG; Start 07/19/16 at 21:00 Diltiazem HCl (Cardizem Sr) 60 mg TID PO Last administered on 07/21/16 08:55; Admin Dose 60 MG; Start 07/19/16 at 09:00 Folic Acid (Folic Acid) 0.4 mg DAILY PO Last administered on 07/21/16 08:54; Admin Dose 0.4 MG; Start 07/19/16 at 09:00 Magnesium Oxide (Mag-Ox 400) 400 mg BID PO Last administered on 07/21/16 08:55 ; Admin Dose 400 MG; Start 07/18/16 at 22:30 Nicotine (Nicoderm 21 Mg/ 24hr) 1 patch DAILY TRANSDERM Last administered on 08:54; Admin Dose 1 PATCH; Start 07/19/16 at 09:00 Quetiapine Fumarate (Seroquel) 25 mg HS PO Last administered on 07/20/16 20:57 ; Admin Dose 25 MG; Start 07/19/16 at 21:00 Miscellaneous Information 800 mcg DAILY PO ; Start 07/19/16 at 09:00; Status UNV Ondansetron HCl (Zofran Inj) 4 mg Q6H PRN IV NAUSEA AND/OR VOMITING; Start 07/18 at 22:30 Heparin Sodium (Porcine) (Heparin (5000 Units/0.5 ml)) 5,000 unit BID SC Last administered on 07/21/16 09:08; Admin Dose 5,000 UNIT; Start 07/18/16 at 22:30 Albuterol (Ventolin Hfa) 2 puff Q6H PRN INH SHORTNESS OF BREATH Last administered on 07/21/16 06:12; Admin Dose 2 PUFF; Start 07/18/16 at 23:00 Salmeterol Xinafoate/ Fluticasone (Advair 250/50 Diskus) 1 inh BID INH Last administered on 07/21/16 08:56; Admin Dose 1 INH; Start 07/19/16 at 09:00 Lactobacillus Acidophilus (Florajen3 Capsule) 1 each BID PO Last administered on 07/21/16 08:55; Admin Dose 1 EACH; Start 07/19/16 at 09:00 Morphine Sulfate 4 mg 4 mg Q4H PRN IV SEVERE PAIN LEVEL 7-10 Last administered on 07/21/16 10:36; Admin Dose 4 MG; Start 07/19/16 at 02:30 Cefepime HCl (Maxipime 1gm/50 ml (Pmx)) 50 ml @ 100 mls/hr Q12 IVPB Last administered on 07/21/16 09:05; Admin Dose 100 MLS/HR; Start 07/19/16 at 02:30 Oxycodone/ Acetaminophen (Endocet (10/ 325)) 1 tab Q6H PRN PO PAIN Last administered on 07/21/16 08:54; Admin Dose 1 TAB; Start 07/19/16 at 02:30 Ketorolac Tromethamine (Toradol) 30 mg Q6H PRN IV PAIN Last administered on 07/19 04:08; Admin Dose 30 MG; Start 07/19/16 at 03:00; Stop 07/22/16 at 02:59 Diltiazem HCl (Cardizem) 60 mg Q3H PRN PO HR>150 Last administered on 11:07; Admin Dose 60 MG; Start 07/19/16 at 19:30 Miscellaneous Information (*Order Clarification Bulletin) MEDICATION REQUIRES CLARIFICATI... Q8H XX ; Start 07/20/16 at 07:30 Cyanocobalamin 1000 mcg 1,000 mcg DAILY PO Last administered on 07/21/16 08:55 ; Admin Dose 1,000 MCG; Start 07/20/16 at 14:00 Vancomycin HCl (Vancocin) 250 ml @ 125 mls/hr Q8H IVPB Last administered on 08:55; Admin Dose 125 MLS/HR; Start 07/20/16 at 16:00 Miscellaneous Information (*Rx Drug Level Order Reminder*) VANCOMYCIN TROUGH AT 1500 ONCE ONCE XX ; Start 07/21/16 at 15:00; Stop 07/21/16 at 15:01 DEVAUGHN CASE MD July 21, 2016 10:44
[2016-07-21] MEDS: GABAPENTIN 100 MG CAP PO SCH ×2 (12:34→22:05)
[2016-07-21] MEDS: CEFTRIAXONE 1 GM/50 ML (PMX) 50 ML IVPB SCH (12:34)
--- NOTE | 2016-07-21 13:57 | CONS ---
Date/Time of Note Date/Time of Note DATE: 07/21/16 TIME: 13:56 Assessment/Plan Assessment/Plan Chief Complaint/Hosp Course Assessment: Acute on chronic diastolic heart failure - improving with diuresis Paroxysmal supraventricular tachycardia - reverted to sinus rhythm Hypertension Dyslipidemia Bilateral lower extremity cellulitis - antibiotics per primary team Chronic obstructive pulmonary disease exacerbation - management per primary team Hyponatremia - improving Recommendations: -echocardiogram showed LVEF 60-65%, mild diastolic dysfunction -continue Lasix 20mg IV BID -continue diltiazem 60mg TID -continue aspirin 81mg and atorvastatin 20mg daily Problems: Consultation Date/Type/Reason Admit Date/Time July 18, 2016 at 19:42 Initial Consult Date 07/19/16 Type of Consultation: Cardiology 24 HR Interval Summary Free Text/Dictation Shortness of breath and lower extremity swelling improving. Detailed Summary Additional Comments 14 point review of systems without changes. Exam/Review of Systems Vital Signs Vitals Vital Signs Date Time Temp Pulse Resp B/P Pulse Ox O2 Delivery O2 Flow Rate FiO2 07/21/16 12:00 81 07/21/16 11:56 98.2 18 139/67 95 07/21/16 11:43 2.0 07/20/16 20:14 Nasal Cannula 07/19/16 01:19 28 Intake and Output 07/20/16 07/20/16 07/21/16 15:00 23:00 07:00 Intake Total 200 ml 1250 ml 490 ml Output Total 2250 ml 2200 ml 2100 ml Balance -2050 ml -950 ml -1610 ml Exam Constitutional: alert, well developed Psych: nl mood/affect, no complaints Head: atraumatic, normocephalic Eyes: nl conjunctiva, nl lids ENMT: nl external ears & nose, nl nasal mucosa & septum Neck: non-tender, supple, No jvd Respiratory: diminished breath sounds, wheezing Cardiovascular: regular rate and rhythm, No murmurs/extra sounds Gastrointestinal: non-tender, soft Musculoskeletal: swelling Extremities: edema, No clubbing, No cyanosis Neurological: nl mental status, nl speech Skin: rash or lesions Results Result Diagram: 07/21/16 0650 07/21/16 0650 Results 24 hrs Laboratory Tests Test 07/20/16 14:40 07/21/16 06:50 Vancomycin Level Trough 6.4 L White Blood Count 4.0 L Red Blood Count 3.38 L Hemoglobin 12.1 L Hematocrit 35.9 L Mean Corpuscular Volume 106.2 H Mean Corpuscular Hemoglobin 35.8 H Mean Corpuscular Hemoglobin Concent 33.7 Red Cell Distribution Width 13.1 Platelet Count 204 Mean Platelet Volume 8.8 Neutrophils % 64.3 Lymphocytes % 21.5 Monocytes % 9.9 Eosinophils % 1.5 Basophils % 0.3 Nucleated Red Blood Cells % 0.0 Neutrophils # 2.5 Lymphocytes # 0.9 Monocytes # 0.4 Eosinophils # 0.1 Basophils # 0.0 Nucleated Red Blood Cells # 0.0 Sodium Level 129 L Potassium Level 4.7 Chloride Level 93 L Carbon Dioxide Level 34 H Anion Gap 7 L Blood Urea Nitrogen 12 Creatinine 0.61 Glucose Level 104 Calcium Level 8.8 Magnesium Level 1.9 Medications Medications Current Medications Aspirin (Halfprin) 81 mg DAILY PO Last administered on 07/21/16 08:55; Admin Dose 81 MG; Start 07/19/16 at 09:00 Atorvastatin Calcium (Lipitor) 20 mg HS PO Last administered on 07/20/16 20:57 ; Admin Dose 20 MG; Start 07/19/16 at 21:00 Diltiazem HCl (Cardizem Sr) 60 mg TID PO Last administered on 07/21/16 12:35; Admin Dose 60 MG; Start 07/19/16 at 09:00 Folic Acid (Folic Acid) 0.4 mg DAILY PO Last administered on 07/21/16 08:54; Admin Dose 0.4 MG; Start 07/19/16 at 09:00 Magnesium Oxide (Mag-Ox 400) 400 mg BID PO Last administered on 07/21/16 08:55 ; Admin Dose 400 MG; Start 07/18/16 at 22:30 Nicotine (Nicoderm 21 Mg/ 24hr) 1 patch DAILY TRANSDERM Last administered on 08:54; Admin Dose 1 PATCH; Start 07/19/16 at 09:00 Quetiapine Fumarate (Seroquel) 25 mg HS PO Last administered on 07/20/16 20:57 ; Admin Dose 25 MG; Start 07/19/16 at 21:00 Miscellaneous Information 800 mcg DAILY PO ; Start 07/19/16 at 09:00; Status UNV Ondansetron HCl (Zofran Inj) 4 mg Q6H PRN IV NAUSEA AND/OR VOMITING; Start 07/18 at 22:30 Heparin Sodium (Porcine) (Heparin (5000 Units/0.5 ml)) 5,000 unit BID SC Last administered on 07/21/16 09:08; Admin Dose 5,000 UNIT; Start 07/18/16 at 22:30 Albuterol (Ventolin Hfa) 2 puff Q6H PRN INH SHORTNESS OF BREATH Last administered on 07/21/16 06:12; Admin Dose 2 PUFF; Start 07/18/16 at 23:00 Salmeterol Xinafoate/ Fluticasone (Advair 250/50 Diskus) 1 inh BID INH Last administered on 07/21/16 08:56; Admin Dose 1 INH; Start 07/19/16 at 09:00 Lactobacillus Acidophilus (Florajen3 Capsule) 1 each BID PO Last administered on 07/21/16 08:55; Admin Dose 1 EACH; Start 07/19/16 at 09:00 Morphine Sulfate (morphine) 4 mg Q4H PRN IV SEVERE PAIN LEVEL 7-10 Last administered on 07/21/16 10:36; Admin Dose 4 MG; Start 07/19/16 at 02:30 Oxycodone/ Acetaminophen (Endocet (10/ 325)) 1 tab Q6H PRN PO PAIN Last administered on 07/21/16 08:54; Admin Dose 1 TAB; Start 07/19/16 at 02:30 Ketorolac Tromethamine (Toradol) 30 mg Q6H PRN IV PAIN Last administered on 07/19 04:08; Admin Dose 30 MG; Start 07/19/16 at 03:00; Stop 07/22/16 at 02:59 Diltiazem HCl (Cardizem) 60 mg Q3H PRN PO HR>150 Last administered on 11:07; Admin Dose 60 MG; Start 07/19/16 at 19:30 Miscellaneous Information (*Order Clarification Bulletin) MEDICATION REQUIRES CLARIFICATI... Q8H XX ; Start 07/20/16 at 07:30 Cyanocobalamin 1000 mcg 1,000 mcg DAILY PO Last administered on 07/21/16 08:55 ; Admin Dose 1,000 MCG; Start 07/20/16 at 14:00 Ceftriaxone Sodium (Rocephin) 50 ml @ 100 mls/hr Q24H IVPB Last administered on 07/21/16 12:34; Admin Dose 100 MLS/HR; Start 07/21/16 at 12:00 Levofloxacin (Levaquin) 500 mg DAILY@06 PO ; Start 07/22/16 at 06:00 Gabapentin (Neurontin) 100 mg TID PO Last administered on 07/21/16 12:34; Admin Dose 100 MG; Start 07/21/16 at 13:00 PRISCILLA HEMPHILL MD July 21, 2016 13:57
[2016-07-21] MEDS: TIOTROPIUM 18 MCG CAPSULE INHA DEV INH SCH (14:30)
[2016-07-21] MEDS: DILTIAZEM 60 MG TAB PO PRN (18:26)
[2016-07-21] MEDS ORDERED: DILTIAZEM (CD) 120 MG CAP PO ONE (19:00)
[2016-07-21] MEDS ORDERED: DILTIAZEM 60 MG TAB PO ONE (19:00)
[2016-07-21] MEDS: ATORVASTATIN 20 MG TAB PO SCH (22:03)
[2016-07-21] MEDS: QUETIAPINE 25 MG TAB PO SCH (22:05)
[2016-07-21] MEDS: LEVALBUTEROL (NEB) 0.63 MG/3 ML AMP HHN PRN (22:22)
[2016-07-21] MEDS: IPRATROPIUM (NEB) 0.5 MG/2.5 ML AMP HHN PRN (22:22)
[2016-07-22] VITALS (13 sets, daily range): BP systolic 118–132; BP diastolic 60–75; PULSE 80–109; RESP 18–21
[2016-07-22] MEDS: morphine 4 MG/ML VIAL IV PRN ×2 (03:22→10:37)
[2016-07-22] MEDS: FUROSEMIDE 20 MG INJ IV SCH ×2 (05:30→17:55)
[2016-07-22] MEDS: LEVOFLOXACIN 500 MG TAB PO SCH (05:30)
[2016-07-22] MEDS: OXYCODONE/ACETAMINOPHEN (10/325) TAB PO PRN ×3 (05:43→20:37)
[2016-07-22] MEDS: IPRATROPIUM (NEB) 0.5 MG/2.5 ML AMP HHN PRN (05:46)
[2016-07-22] MEDS: LEVALBUTEROL (NEB) 0.63 MG/3 ML AMP HHN PRN (05:46)
[2016-07-22 07:58] LABS: ADD SCAN DIFF NO
[2016-07-22 08:02] LABS: BASOPHILS % 0.3 % (0.0-2.0); EOSINOPHILS # 0.1 10^3/ul (0.0-0.5); HEMATOCRIT 32.7 % (42.0-52.0); HEMOGLOBIN 11.6 g/dl (14.0-18.0); LYMPHOCYTES # 0.9 10^3/ul (0.8-2.9); MEAN CORPUSCULAR HEMOGLOBIN 36.6 pg (29.0-33.0); MEAN CORPUSCULAR HGB CONC 35.5 g/dl (32.0-37.0); MEAN CORPUSCULAR VOLUME 103.2 fl (82.0-101.0); MEAN PLATELET VOLUME 8.8 fl (7.4-10.4); MONOCYTE # 0.4 10^3/ul (0.3-0.9); MONOCYTES % 12.1 % (0.0-11.0); NEUTROPHILS % 58.3 % (39.0-77.0); PLATELET COUNT 209 10^3/UL (140-415); RED BLOOD COUNT 3.17 10^6/ul (4.70-6.10); RED CELL DISTRIBUTION WIDTH 12.5 % (11.5-14.5); WHITE BLOOD COUNT 3.5 10^3/ul (4.8-10.8)
[2016-07-22] MEDS: ASPIRIN (EC) 81 MG TAB PO SCH (08:44)
[2016-07-22] MEDS: FOLIC ACID 0.4 MG TAB PO SCH (08:44)
[2016-07-22] MEDS: L ACIDOPHIL/B LACTIS/B LONGUM CAPSULE PO SCH ×2 (08:45→20:36)
[2016-07-22] MEDS: NICOTINE (21 MG/24 HR) PATCH TRANSDERM SCH (08:45)
[2016-07-22] MEDS: MAGNESIUM OXIDE 400 MG TAB PO SCH ×2 (08:45→20:36)
[2016-07-22] MEDS: PANTOPRAZOLE (EC) 40 MG TAB PO SCH ×2 (08:45→17:53)
[2016-07-22] MEDS: CYANOCOBALAMIN 500 MCG TAB PO SCH (08:45)
[2016-07-22] MEDS: GABAPENTIN 100 MG CAP PO SCH ×3 (08:45→20:36)
[2016-07-22] MEDS: SALMETEROL/FLUTICASONE 250/50 INHA INH SCH ×2 (08:46→20:36)
[2016-07-22] MEDS: DILTIAZEM (SR) 60 MG CAP PO SCH ×2 (08:46→12:22)
[2016-07-22] MEDS: TIOTROPIUM 18 MCG CAPSULE INHA DEV INH SCH (08:47)
[2016-07-22 08:51] LABS: POTASSIUM 3.7 mmol/L (3.5-5.1)
[2016-07-22 08:53] LABS: CREATININE 0.57 mg/dl (0.61-1.24)
[2016-07-22 08:54] LABS: CALCIUM 8.3 mg/dl (8.4-10.2); MAGNESIUM 1.8 mg/dl (1.7-2.5)
[2016-07-22] MEDS: HEPARIN 5,000 UNIT/0.5 ML VIAL SC SCH ×2 (09:10→20:42)
--- NOTE | 2016-07-22 10:33 | PN ---
Date/Time of Note Date/Time of Note DATE: 07/22/16 TIME: 10:30 Assessment/Plan VTE Prophylaxis VTE Prophylaxis Intervention: other Lines/Catheters IV Catheter Type (from Nrs): Saline Lock Assessment/Plan Chief Complaint/Hosp Course Assessment and plan 1. Bilateral Lower ext cellulitis - cont abx 2. COPD exacerbation - cont oxygen as needed, homes meds, breathing treatment, steroid 3. HTN: BP within goal - cont meds with adjustment as needed 4. GERD - cont PPI 5. Depression - cont Seroquel 6. Hx of Tobacco - cont nicotine patch 7. Lower extremity edema - 2D echocardiogram showed normal ejection fraction, cardiology has been consulted -Strict I&O's 8. Microcytic anemia -Start vitamin B12 supplementation 9. Neuropathy -With history of alcohol abuse -Continue gabapentin 10. Hyponatremia -Nephrology has been consulted, continue Lasix, -Strict SANJAY's, no free water We will continue monitor patient closely for recommendation management treatment as clinical course Problems: Subjective 24 Hr Interval Summary Free Text/Dictation Patient continues to complain of bilateral lower extremity pain Denies of any chest pain or shortness of breath No nausea vomiting diarrhea Exam/Review of Systems Vital Signs Vitals Vital Signs Date Time Temp Pulse Resp B/P Pulse Ox O2 Delivery O2 Flow Rate FiO2 07/22/16 08:15 80 07/22/16 07:40 98.4 18 119/60 98 07/22/16 05:47 Nasal Cannula 3.0 07/19/16 01:19 28 Intake and Output 07/21/16 07/21/16 07/22/16 14:59 22:59 06:59 Intake Total 750 ml 800 ml Output Total 1400 ml 1000 ml Balance -650 ml -200 ml Exam General: The patient is well-developed, Not in acute distress. HEENT: Atraumatic, normocephalic. The pupils are equal and round . Neck: Supple with full range of motion. Chest: Normal expansion of the thorax during inspiration Lungs: Clear to auscultation bilaterally Heart: Normal S1-S2, Regular rhythm and rate. Abdomen: Soft , nontender, nondistended , bowel sounds are present. Extremities: Bilateral lower extremity erythema and edema, edema is improving no cyanosis Neurologic: Normal mental status,The patient is awake, alert and oriented . Results Result Diagram: 5/12/17 0703 5/12/17 0703 Results 24 hrs Laboratory Tests Test 07/22/16 07:03 White Blood Count 3.5 L Red Blood Count 3.17 L Hemoglobin 11.6 L Hematocrit 32.7 L Mean Corpuscular Volume 103.2 H Mean Corpuscular Hemoglobin 36.6 H Mean Corpuscular Hemoglobin Concent 35.5 Red Cell Distribution Width 12.5 Platelet Count 209 Mean Platelet Volume 8.8 Neutrophils % 58.3 Lymphocytes % 25.0 Monocytes % 12.1 H Eosinophils % 2.0 Basophils % 0.3 Nucleated Red Blood Cells % 0.0 Neutrophils # 2.0 Lymphocytes # 0.9 Monocytes # 0.4 Eosinophils # 0.1 Basophils # 0.0 Nucleated Red Blood Cells # 0.0 Sodium Level 127 L Potassium Level 3.7 Chloride Level 88 L Carbon Dioxide Level 31 Anion Gap 12 Blood Urea Nitrogen 9 Creatinine 0.57 L Glucose Level 91 Calcium Level 8.3 L Magnesium Level 1.8 Medications Medications Current Medications Aspirin (Halfprin) 81 mg DAILY PO Last administered on 07/22/16 08:44; Admin Dose 81 MG; Start 07/19/16 at 09:00 Atorvastatin Calcium (Lipitor) 20 mg HS PO Last administered on 07/21/16 22:03 ; Admin Dose 20 MG; Start 07/19/16 at 21:00 Diltiazem HCl (Cardizem Sr) 60 mg TID PO Last administered on 07/22/16 08:46; Admin Dose 60 MG; Start 07/19/16 at 09:00 Folic Acid (Folic Acid) 0.4 mg DAILY PO Last administered on 07/22/16 08:44; Admin Dose 0.4 MG; Start 07/19/16 at 09:00 Magnesium Oxide (Mag-Ox 400) 400 mg BID PO Last administered on 07/22/16 08:45 ; Admin Dose 400 MG; Start 07/18/16 at 22:30 Nicotine (Nicoderm 21 Mg/ 24hr) 1 patch DAILY TRANSDERM Last administered on 08:45; Admin Dose 1 PATCH; Start 07/19/16 at 09:00 Quetiapine Fumarate (Seroquel) 25 mg HS PO Last administered on 07/21/16 22:05 ; Admin Dose 25 MG; Start 07/19/16 at 21:00 Tiotropium [place] (Spiriva) 1 inh DAILY INH ; Start 07/21/16 at 14:30 Ondansetron HCl (Zofran Inj) 4 mg Q6H PRN IV NAUSEA AND/OR VOMITING; Start 07/18 at 22:30 Heparin Sodium (Porcine) (Heparin (5000 Units/0.5 ml)) 5,000 unit BID SC Last administered on 07/22/16 09:10; Admin Dose 5,000 UNIT; Start 07/18/16 at 22:30 Albuterol (Ventolin Hfa) 2 puff Q6H PRN INH SHORTNESS OF BREATH Last administered on 07/21/16 06:12; Admin Dose 2 PUFF; Start 07/18/16 at 23:00 Salmeterol Xinafoate/ Fluticasone (Advair 250/50 Diskus) 1 inh BID INH Last administered on 07/22/16 08:46; Admin Dose 1 INH; Start 07/19/16 at 09:00 Lactobacillus Acidophilus (Florajen3 Capsule) 1 each BID PO Last administered on 07/22/16 08:45; Admin Dose 1 EACH; Start 07/19/16 at 09:00 Morphine Sulfate (morphine) 4 mg Q4H PRN IV SEVERE PAIN LEVEL 7-10 Last administered on 07/22/16 03:22; Admin Dose 4 MG; Start 07/19/16 at 02:30 Oxycodone/ Acetaminophen (Endocet (10/ 325)) 1 tab Q6H PRN PO PAIN Last administered on 07/22/16 05:43; Admin Dose 1 TAB; Start 07/19/16 at 02:30 Diltiazem HCl (Cardizem) 60 mg Q3H PRN PO HR>150 Last administered on 18:26; Admin Dose 60 MG; Start 07/19/16 at 19:30 Cyanocobalamin 1000 mcg 1,000 mcg DAILY PO Last administered on 07/22/16 08:45 ; Admin Dose 1,000 MCG; Start 07/20/16 at 14:00 Ceftriaxone Sodium (Rocephin) 50 ml @ 100 mls/hr Q24H IVPB Last administered on 07/21/16 12:34; Admin Dose 100 MLS/HR; Start 07/21/16 at 12:00 Levofloxacin (Levaquin) 500 mg DAILY@06 PO Last administered on 07/22/16 05:30 ; Admin Dose 500 MG; Start 07/22/16 at 06:00 Gabapentin (Neurontin) 100 mg TID PO Last administered on 07/22/16 08:45; Admin Dose 100 MG; Start 07/21/16 at 13:00 DEVAUGHN CASE MD July 22, 2016 10:33
[2016-07-22] MEDS: CEFTRIAXONE 1 GM/50 ML (PMX) 50 ML IVPB SCH (12:20)
[2016-07-22] MEDS: DILTIAZEM 60 MG TAB PO PRN (14:13)
--- NOTE | 2016-07-22 16:20 | CONS ---
Date/Time of Note Date/Time of Note DATE: 07/22/16 TIME: :17 Assessment/Plan Assessment/Plan Chief Complaint/Hosp Course Assessment: Acute on chronic diastolic heart failure - improving with diuresis Paroxysmal supraventricular tachycardia Hypertension Dyslipidemia Bilateral lower extremity cellulitis - antibiotics per primary team Chronic obstructive pulmonary disease exacerbation - management per primary team Hyponatremia Recommendations: -echocardiogram showed LVEF 60-65%, mild diastolic dysfunction -continue Lasix 20mg IV BID -change diltiazem to CD 240mg daily -continue aspirin 81mg and atorvastatin 20mg daily Problems: Consultation Date/Type/Reason Admit Date/Time July 18, 2016 at 19:42 Initial Consult Date 07/19/16 Type of Consultation: Cardiology 24 HR Interval Summary Free Text/Dictation Continues to have some shortness of breath. Frequent runs of paroxysmal supraventricular tachycardia. Detailed Summary Additional Comments 14 point review of systems negative other than per HPI. Exam/Review of Systems Vital Signs Vitals Vital Signs Date Time Temp Pulse Resp B/P Pulse Ox O2 Delivery O2 Flow Rate FiO2 07/22/16 16:01 2.0 07/22/16 15:09 98.2 98 18 132/70 94 07/22/16 09:00 Nasal Cannula 07/19/16 01:19 28 Intake and Output 07/21/16 07/21/16 07/22/16 15:00 23:00 07:00 Intake Total 750 ml 800 ml Output Total 1400 ml 1000 ml Balance -650 ml -200 ml Exam Constitutional: alert, well developed Psych: nl mood/affect, no complaints Head: atraumatic, normocephalic Eyes: nl conjunctiva, nl lids ENMT: nl external ears & nose, nl nasal mucosa & septum Neck: non-tender, supple, No jvd Respiratory: diminished breath sounds, wheezing Cardiovascular: regular rate and rhythm, No murmurs/extra sounds Gastrointestinal: non-tender, soft Musculoskeletal: swelling Extremities: edema, No clubbing, No cyanosis Neurological: nl mental status, nl speech Skin: rash or lesions Results Result Diagram: 07/22/1670207/22/16 07 Results 24 hrs Laboratory Tests Test 07/22/16 07:03 White Blood Count 3.5 L Red Blood Count 3.17 L Hemoglobin 11.6 L Hematocrit 32.7 L Mean Corpuscular Volume 103.2 H Mean Corpuscular Hemoglobin 36.6 H Mean Corpuscular Hemoglobin Concent 35.5 Red Cell Distribution Width 12.5 Platelet Count 209 Mean Platelet Volume 8.8 Neutrophils % 58.3 Lymphocytes % 25.0 Monocytes % 12.1 H Eosinophils % 2.0 Basophils % 0.3 Nucleated Red Blood Cells % 0.0 Neutrophils # 2.0 Lymphocytes # 0.9 Monocytes # 0.4 Eosinophils # 0.1 Basophils # 0.0 Nucleated Red Blood Cells # 0.0 Sodium Level 127 L Potassium Level 3.7 Chloride Level 88 L Carbon Dioxide Level 31 Anion Gap 12 Blood Urea Nitrogen 9 Creatinine 0.57 L Glucose Level 91 Calcium Level 8.3 L Magnesium Level 1.8 Medications Medications Current Medications Aspirin (Halfprin) 81 mg DAILY PO Last administered on 07/22/16 08:44; Admin Dose 81 MG; Start 07/19/16 at 09:00 Atorvastatin Calcium (Lipitor) 20 mg HS PO Last administered on 07/21/16 22:03 ; Admin Dose 20 MG; Start 07/19/16 at 21:00 Diltiazem HCl (Cardizem Sr) 60 mg TID PO Last administered on 07/22/16 12:22; Admin Dose 60 MG; Start 07/19/16 at 09:00 Folic Acid (Folic Acid) 0.4 mg DAILY PO Last administered on 07/22/16 08:44; Admin Dose 0.4 MG; Start 07/19/16 at 09:00 Magnesium Oxide (Mag-Ox 400) 400 mg BID PO Last administered on 07/22/16 08:45 ; Admin Dose 400 MG; Start 07/18/16 at 22:30 Nicotine (Nicoderm 21 Mg/ 24hr) 1 patch DAILY TRANSDERM Last administered on 08:45; Admin Dose 1 PATCH; Start 07/19/16 at 09:00 Quetiapine Fumarate (Seroquel) 25 mg HS PO Last administered on 07/21/16 22:05 ; Admin Dose 25 MG; Start 07/19/16 at 21:00 Tiotropium [place] (Spiriva) 1 inh DAILY INH ; Start 07/21/16 at 14:30 Ondansetron HCl (Zofran Inj) 4 mg Q6H PRN IV NAUSEA AND/OR VOMITING; Start 07/18 at 22:30 Heparin Sodium (Porcine) (Heparin (5000 Units/0.5 ml)) 5,000 unit BID SC Last administered on 07/22/16 09:10; Admin Dose 5,000 UNIT; Start 07/18/16 at 22:30 Albuterol (Ventolin Hfa) 2 puff Q6H PRN INH SHORTNESS OF BREATH Last administered on 07/21/16 06:12; Admin Dose 2 PUFF; Start 07/18/16 at 23:00 Salmeterol Xinafoate/ Fluticasone (Advair 250/50 Diskus) 1 inh BID INH Last administered on 07/22/16 08:46; Admin Dose 1 INH; Start 07/19/16 at 09:00 Lactobacillus Acidophilus (Florajen3 Capsule) 1 each BID PO Last administered on 07/22/16 08:45; Admin Dose 1 EACH; Start 07/19/16 at 09:00 Morphine Sulfate (morphine) 4 mg Q4H PRN IV SEVERE PAIN LEVEL 7-10 Last administered on 07/22/16 10:37; Admin Dose 4 MG; Start 07/19/16 at 02:30 Oxycodone/ Acetaminophen (Endocet (10/ 325)) 1 tab Q6H PRN PO PAIN Last administered on 07/22/16 14:18; Admin Dose 1 TAB; Start 07/19/16 at 02:30 Diltiazem HCl (Cardizem) 60 mg Q3H PRN PO HR>150 Last administered on 14:13; Admin Dose 60 MG; Start 07/19/16 at 19:30 Cyanocobalamin 1000 mcg 1,000 mcg DAILY PO Last administered on 07/22/16 08:45 ; Admin Dose 1,000 MCG; Start 07/20/16 at 14:00 Ceftriaxone Sodium (Rocephin) 50 ml @ 100 mls/hr Q24H IVPB Last administered on 07/22/16 12:20; Admin Dose 100 MLS/HR; Start 07/21/16 at 12:00 Levofloxacin (Levaquin) 500 mg DAILY@06 PO Last administered on 07/22/16 05:30 ; Admin Dose 500 MG; Start 07/22/16 at 06:00 Gabapentin (Neurontin) 100 mg TID PO Last administered on 07/22/16 12:20; Admin Dose 100 MG; Start 07/21/16 at 13:00 PRISCILLA HEMPHILL MD July 22, 2016 16:20
[2016-07-22] MEDS: DILTIAZEM (CD) 240 MG CAP PO SCH (17:54)
[2016-07-22] MEDS: ATORVASTATIN 20 MG TAB PO SCH (20:36)
[2016-07-22] MEDS: QUETIAPINE 25 MG TAB PO SCH (20:36)
[2016-07-22] MEDS ORDERED: ACETAMINOPHEN 325 MG TAB PO PRN (21:00)
[2016-07-23] VITALS (12 sets, daily range): BP systolic 122–138; BP diastolic 65–88; PULSE 70–161; RESP 16–20
[2016-07-23] MEDS: OXYCODONE/ACETAMINOPHEN (10/325) TAB PO PRN ×2 (00:45→17:44)
[2016-07-23] MEDS: morphine 4 MG/ML VIAL IV PRN ×3 (03:41→16:52)
[2016-07-23] MEDS: LEVOFLOXACIN 500 MG TAB PO SCH (05:27)
[2016-07-23 07:12] LABS: ADD SCAN DIFF NO
[2016-07-23 07:17] LABS: BASOPHILS % 0.6 % (0.0-2.0); EOSINOPHILS # 0.1 10^3/ul (0.0-0.5); EOSINOPHILS % 2.1 % (0.0-7.0); HEMATOCRIT 31.5 % (42.0-52.0); LYMPHOCYTES # 0.8 10^3/ul (0.8-2.9); LYMPHOCYTES % 24.9 % (15.0-51.0); MEAN CORPUSCULAR HEMOGLOBIN 35.9 pg (29.0-33.0); MEAN CORPUSCULAR HGB CONC 34.9 g/dl (32.0-37.0); MEAN CORPUSCULAR VOLUME 102.9 fl (82.0-101.0); MEAN PLATELET VOLUME 8.8 fl (7.4-10.4); MONOCYTE # 0.5 10^3/ul (0.3-0.9); MONOCYTES % 13.6 % (0.0-11.0); NEUTROPHIL # 1.9 10^3/ul (1.6-7.5); NEUTROPHILS % 55.2 % (39.0-77.0); PLATELET COUNT 230 10^3/UL (140-415); RED BLOOD COUNT 3.06 10^6/ul (4.70-6.10); RED CELL DISTRIBUTION WIDTH 12.4 % (11.5-14.5); WHITE BLOOD COUNT 3.4 10^3/ul (4.8-10.8)
[2016-07-23 07:41] LABS: POTASSIUM 3.5 mmol/L (3.5-5.1)
[2016-07-23 07:44] LABS: CREATININE 0.51 mg/dl (0.61-1.24)
[2016-07-23 07:45] LABS: CALCIUM 8.4 mg/dl (8.4-10.2); MAGNESIUM 1.9 mg/dl (1.7-2.5)
[2016-07-23] MEDS: PANTOPRAZOLE (EC) 40 MG TAB PO SCH ×2 (08:24→17:39)
[2016-07-23] MEDS: SALMETEROL/FLUTICASONE 250/50 INHA INH SCH ×2 (08:37→20:29)
[2016-07-23] MEDS: GABAPENTIN 100 MG CAP PO SCH ×3 (08:37→20:29)
[2016-07-23] MEDS: NICOTINE (21 MG/24 HR) PATCH TRANSDERM SCH (08:39)
[2016-07-23] MEDS: DILTIAZEM (CD) 240 MG CAP PO SCH (08:39)
[2016-07-23] MEDS: ASPIRIN (EC) 81 MG TAB PO SCH (08:40)
[2016-07-23] MEDS: CYANOCOBALAMIN 500 MCG TAB PO SCH (08:40)
[2016-07-23] MEDS: FOLIC ACID 0.4 MG TAB PO SCH (08:40)
[2016-07-23] MEDS: MAGNESIUM OXIDE 400 MG TAB PO SCH ×2 (08:40→20:29)
[2016-07-23] MEDS: HEPARIN 5,000 UNIT/0.5 ML VIAL SC SCH ×2 (08:50→20:43)
[2016-07-23] MEDS: TIOTROPIUM 18 MCG CAPSULE INHA DEV INH SCH (08:51)
[2016-07-23] MEDS: L ACIDOPHIL/B LACTIS/B LONGUM CAPSULE PO SCH ×2 (09:49→20:29)
[2016-07-23] MEDS: CEFTRIAXONE 1 GM/50 ML (PMX) 50 ML IVPB SCH (12:32)
--- NOTE | 2016-07-23 15:03 | CONS ---
Date/Time of Note Date/Time of Note DATE: 07/23/16 TIME: 15:02 Assessment/Plan Assessment/Plan Additional Assessment/Plan 60 yo male with 1) B/L LE Cellulitis 2) COPD Exacerbation 3) Chronic CHF 4) Hyponatremia, Pt is not euvolemic at this time, Asymptomatic 5) CAD 6) Anemia, Likely chronic Hyponatremia likely from Excessive free H20 intake in the setting of Increase Circulating ADH from pain and lung disease Stable, Cont current treatment and plan Cont Free H20 restriction at this time If continues to worsen the will start tolvaptan. Consultation Date/Type/Reason Admit Date/Time July 18, 2016 at 19:42 Initial Consult Date 07/19/16 Type of Consultation: Renal Reason for Consultation Hyponatremia 24 HR Interval Summary Free Text/Dictation No new complaints Exam/Review of Systems Vital Signs Vitals Vital Signs Date Time Temp Pulse Resp B/P Pulse Ox O2 Delivery O2 Flow Rate FiO2 07/23/16 12:44 83 07/23/16 11:21 98.3 18 122/65 96 07/23/16 08:20 Nasal Cannula 2.0 Intake and Output 07/22/16 07/22/16 07/23/16 15:00 23:00 07:00 Intake Total 1200 ml 1600 ml Output Total 2400 ml 1400 ml Balance -1200 ml 200 ml Exam Constitutional: No distress ENMT: mucosa pink and moist Cardiovascular: regular rate and rhythm Gastrointestinal: soft Neurological: No lethargic Results Result Diagram: 07/23/16 0626 07/23/16 0626 Results 24 hrs Laboratory Tests Test 07/23/16 06:26 White Blood Count 3.4 L Red Blood Count 3.06 L Hemoglobin 11.0 L Hematocrit 31.5 L Mean Corpuscular Volume 102.9 H Mean Corpuscular Hemoglobin 35.9 H Mean Corpuscular Hemoglobin Concent 34.9 Red Cell Distribution Width 12.4 Platelet Count 230 Mean Platelet Volume 8.8 Neutrophils % 55.2 Lymphocytes % 24.9 Monocytes % 13.6 H Eosinophils % 2.1 Basophils % 0.6 Nucleated Red Blood Cells % 0.0 Neutrophils # 1.9 Lymphocytes # 0.8 Monocytes # 0.5 Eosinophils # 0.1 Basophils # 0.0 Nucleated Red Blood Cells # 0.0 Sodium Level 128 L Potassium Level 3.5 Chloride Level 87 L Carbon Dioxide Level 34 H Anion Gap 11 Blood Urea Nitrogen 9 Creatinine 0.51 L Glucose Level 99 Calcium Level 8.4 Magnesium Level 1.9 Medications Medications Current Medications Aspirin (Halfprin) 81 mg DAILY PO Last administered on 07/23/16 08:40; Admin Dose 81 MG; Start 07/19/16 at 09:00 Atorvastatin Calcium (Lipitor) 20 mg HS PO Last administered on 07/22/16 20:36 ; Admin Dose 20 MG; Start 07/19/16 at 21:00 Folic Acid (Folic Acid) 0.4 mg DAILY PO Last administered on 07/23/16 08:40; Admin Dose 0.4 MG; Start 07/19/16 at 09:00 Magnesium Oxide (Mag-Ox 400) 400 mg BID PO Last administered on 07/23/16 08:40 ; Admin Dose 400 MG; Start 07/18/16 at 22:30 Nicotine (Nicoderm 21 Mg/ 24hr) 1 patch DAILY TRANSDERM Last administered on 08:39; Admin Dose 1 PATCH; Start 07/19/16 at 09:00 Quetiapine Fumarate (Seroquel) 25 mg HS PO Last administered on 07/22/16 20:36 ; Admin Dose 25 MG; Start 07/19/16 at 21:00 Tiotropium [place] (Spiriva) 1 inh DAILY INH ; Start 07/21/16 at 14:30 Ondansetron HCl (Zofran Inj) 4 mg Q6H PRN IV NAUSEA AND/OR VOMITING; Start 07/18 at 22:30 Heparin Sodium (Porcine) (Heparin (5000 Units/0.5 ml)) 5,000 unit BID SC Last administered on 07/23/16 08:50; Admin Dose 5,000 UNIT; Start 07/18/16 at 22:30 Albuterol (Ventolin Hfa) 2 puff Q6H PRN INH SHORTNESS OF BREATH Last administered on 07/21/16 06:12; Admin Dose 2 PUFF; Start 07/18/16 at 23:00 Salmeterol Xinafoate/ Fluticasone (Advair 250/50 Diskus) 1 inh BID INH Last administered on 07/23/16 08:37; Admin Dose 1 INH; Start 07/19/16 at 09:00 Lactobacillus Acidophilus (Florajen3 Capsule) 1 each BID PO Last administered on 07/23/16 09:49; Admin Dose 1 EACH; Start 07/19/16 at 09:00 Morphine Sulfate (morphine) 4 mg Q4H PRN IV SEVERE PAIN LEVEL 7-10 Last administered on 07/23/16 09:04; Admin Dose 4 MG; Start 07/19/16 at 02:30 Oxycodone/ Acetaminophen (Endocet (10/ 325)) 1 tab Q6H PRN PO PAIN Last administered on 07/23/16 00:45; Admin Dose 1 TAB; Start 07/19/16 at 02:30 Diltiazem HCl (Cardizem) 60 mg Q3H PRN PO HR>150 Last administered on 14:13; Admin Dose 60 MG; Start 07/19/16 at 19:30 Cyanocobalamin 1000 mcg 1,000 mcg DAILY PO Last administered on 07/23/16 08:40 ; Admin Dose 1,000 MCG; Start 07/20/16 at 14:00 Ceftriaxone Sodium (Rocephin) 50 ml @ 100 mls/hr Q24H IVPB Last administered on 07/23/16 12:32; Admin Dose 100 MLS/HR; Start 07/21/16 at 12:00 Levofloxacin (Levaquin) 500 mg DAILY@06 PO Last administered on 07/23/16 05:27 ; Admin Dose 500 MG; Start 07/22/16 at 06:00 Gabapentin (Neurontin) 100 mg TID PO Last administered on 07/23/16 12:40; Admin Dose 100 MG; Start 07/21/16 at 13:00 Diltiazem HCl (Cardizem Cd) 240 mg DAILY PO Last administered on 07/23/16 08: 39; Admin Dose 240 MG; Start 07/22/16 at 16:30 Acetaminophen (Tylenol Tab) 650 mg Q6H PRN PO PAIN AND OR ELEVATED TEMP Last administered on 07/22/16 20:41; Admin Dose 650 MG; Start 07/22/16 at 21:00 CHRISSIE MEANS MD July 23, 2016 15:03
--- NOTE | 2016-07-23 15:08 | CONS ---
Date/Time of Note Date/Time of Note DATE: 07/23/16 TIME: 15:06 Assessment/Plan Assessment/Plan Chief Complaint/Hosp Course Acute on chronic diastolic heart failure - EF preserved. Improving with diuresis. Still overloaded by JVP Paroxysmal supraventricular tachycardia: no recurrence since 07/22 Hypertension Dyslipidemia Bilateral lower extremity cellulitis - antibiotics per primary team Chronic obstructive pulmonary disease exacerbation - management per primary team Hyponatremia -restart Lasix 20mg IV BID (order had ) -diltiazem 240mg daily -continue aspirin 81mg and atorvastatin 20mg daily Problems: Consultation Date/Type/Reason Admit Date/Time July 18, 2016 at 19:42 Initial Consult Date 07/19/16 Type of Consultation: Cardiology 24 HR Interval Summary Free Text/Dictation No o/n events. No further SVT. Breathing imprioving Exam/Review of Systems Vital Signs Vitals Vital Signs Date Time Temp Pulse Resp B/P Pulse Ox O2 Delivery O2 Flow Rate FiO2 07/23/16 12:44 83 07/23/16 11:21 98.3 18 122/65 96 07/23/16 08:20 Nasal Cannula 2.0 Intake and Output 07/22/16 07/22/16 07/23/16 15:00 23:00 07:00 Intake Total 1200 ml 1600 ml Output Total 2400 ml 1400 ml Balance -1200 ml 200 ml Exam Constitutional: alert, oriented Psych: no complaints Head: normocephalic Eyes: nl conjunctiva Neck: jvd (9cm) Respiratory: diminished breath sounds, No clear to auscultation Cardiovascular: edema (1+), regular rate and rhythm Gastrointestinal: non-tender, soft Neurological: nl mental status, nl speech Results Result Diagram: 07/23/16 0626 07/23/16 0626 Results 24 hrs Laboratory Tests Test 07/23/16 06:26 White Blood Count 3.4 L Red Blood Count 3.06 L Hemoglobin 11.0 L Hematocrit 31.5 L Mean Corpuscular Volume 102.9 H Mean Corpuscular Hemoglobin 35.9 H Mean Corpuscular Hemoglobin Concent 34.9 Red Cell Distribution Width 12.4 Platelet Count 230 Mean Platelet Volume 8.8 Neutrophils % 55.2 Lymphocytes % 24.9 Monocytes % 13.6 H Eosinophils % 2.1 Basophils % 0.6 Nucleated Red Blood Cells % 0.0 Neutrophils # 1.9 Lymphocytes # 0.8 Monocytes # 0.5 Eosinophils # 0.1 Basophils # 0.0 Nucleated Red Blood Cells # 0.0 Sodium Level 128 L Potassium Level 3.5 Chloride Level 87 L Carbon Dioxide Level 34 H Anion Gap 11 Blood Urea Nitrogen 9 Creatinine 0.51 L Glucose Level 99 Calcium Level 8.4 Magnesium Level 1.9 Medications Medications Current Medications Aspirin (Halfprin) 81 mg DAILY PO Last administered on 07/23/16 08:40; Admin Dose 81 MG; Start 07/19/16 at 09:00 Atorvastatin Calcium (Lipitor) 20 mg HS PO Last administered on 07/22/16 20:36 ; Admin Dose 20 MG; Start 07/19/16 at 21:00 Folic Acid (Folic Acid) 0.4 mg DAILY PO Last administered on 07/23/16 08:40; Admin Dose 0.4 MG; Start 07/19/16 at 09:00 Magnesium Oxide (Mag-Ox 400) 400 mg BID PO Last administered on 07/23/16 08:40 ; Admin Dose 400 MG; Start 07/18/16 at 22:30 Nicotine (Nicoderm 21 Mg/ 24hr) 1 patch DAILY TRANSDERM Last administered on 08:39; Admin Dose 1 PATCH; Start 07/19/16 at 09:00 Quetiapine Fumarate (Seroquel) 25 mg HS PO Last administered on 07/22/16 20:36 ; Admin Dose 25 MG; Start 07/19/16 at 21:00 Tiotropium [place] (Spiriva) 1 inh DAILY INH ; Start 07/21/16 at 14:30 Ondansetron HCl (Zofran Inj) 4 mg Q6H PRN IV NAUSEA AND/OR VOMITING; Start 07/18 at 22:30 Heparin Sodium (Porcine) (Heparin (5000 Units/0.5 ml)) 5,000 unit BID SC Last administered on 07/23/16 08:50; Admin Dose 5,000 UNIT; Start 07/18/16 at 22:30 Albuterol (Ventolin Hfa) 2 puff Q6H PRN INH SHORTNESS OF BREATH Last administered on 07/21/16 06:12; Admin Dose 2 PUFF; Start 07/18/16 at 23:00 Salmeterol Xinafoate/ Fluticasone (Advair 250/50 Diskus) 1 inh BID INH Last administered on 07/23/16 08:37; Admin Dose 1 INH; Start 07/19/16 at 09:00 Lactobacillus Acidophilus (Florajen3 Capsule) 1 each BID PO Last administered on 07/23/16 09:49; Admin Dose 1 EACH; Start 07/19/16 at 09:00 Morphine Sulfate (morphine) 4 mg Q4H PRN IV SEVERE PAIN LEVEL 7-10 Last administered on 07/23/16 09:04; Admin Dose 4 MG; Start 07/19/16 at 02:30 Oxycodone/ Acetaminophen (Endocet (10/ 325)) 1 tab Q6H PRN PO PAIN Last administered on 07/23/16 00:45; Admin Dose 1 TAB; Start 07/19/16 at 02:30 Diltiazem HCl (Cardizem) 60 mg Q3H PRN PO HR>150 Last administered on 14:13; Admin Dose 60 MG; Start 07/19/16 at 19:30 Cyanocobalamin 1000 mcg 1,000 mcg DAILY PO Last administered on 07/23/16 08:40 ; Admin Dose 1,000 MCG; Start 07/20/16 at 14:00 Ceftriaxone Sodium (Rocephin) 50 ml @ 100 mls/hr Q24H IVPB Last administered on 07/23/16 12:32; Admin Dose 100 MLS/HR; Start 07/21/16 at 12:00 Levofloxacin (Levaquin) 500 mg DAILY@06 PO Last administered on 07/23/16 05:27 ; Admin Dose 500 MG; Start 07/22/16 at 06:00 Gabapentin (Neurontin) 100 mg TID PO Last administered on 07/23/16 12:40; Admin Dose 100 MG; Start 07/21/16 at 13:00 Diltiazem HCl (Cardizem Cd) 240 mg DAILY PO Last administered on 07/23/16 08: 39; Admin Dose 240 MG; Start 07/22/16 at 16:30 Acetaminophen (Tylenol Tab) 650 mg Q6H PRN PO PAIN AND OR ELEVATED TEMP Last administered on 07/22/16 20:41; Admin Dose 650 MG; Start 07/22/16 at 21:00 STEPHANY ALY July 23, 2016 15:08
[2016-07-23] MEDS: FUROSEMIDE 20 MG INJ IV SCH (17:40)
--- NOTE | 2016-07-23 19:14 | PN ---
Date/Time of Note Date/Time of Note DATE: 07/23/16 TIME: 19:09 Assessment/Plan VTE Prophylaxis VTE Prophylaxis Intervention: LMWH Lines/Catheters IV Catheter Type (from Nrs): [facility] Urinary Cath still in place: No Assessment/Plan Chief Complaint/Hosp Course S- bilat lwr ext pain remains. less edema. O- vss; sr; no further svt PE no pallor/icterus/adenopathy s1s2 reg; no m/r/g ctab bs+ nt nd; no r/r/g +1edema bilat. warmth, stasis, tenderness. A/P 1) Bilat lwr ext cellulitis; stable, cont antibiotics 2) Bilat stasis; wound care/elevate/ lasix 3) CHF-preserved ef; chr, stable. -1.4 kgs since admit. 4) Past tobacco 5) Past etoh 6) Pre Dm 7) COPD ac/chr 8) Gerd 9) SVT; lytes noted 10) Anemia 11) Depression 12) Hyponatremia; hypervolemic? 13) CAD? 14) Htn Problems: Exam/Review of Systems Vital Signs Vitals Vital Signs Date Time Temp Pulse Resp B/P Pulse Ox O2 Delivery O2 Flow Rate FiO2 07/23/16 16:14 81 07/23/16 15:21 98.3 18 127/69 96 07/23/16 08:20 Nasal Cannula 2.0 Intake and Output 07/22/16 07/22/16 07/23/16 15:00 23:00 07:00 Intake Total 1200 ml 1600 ml Output Total 2400 ml 1400 ml Balance -1200 ml 200 ml Results Result Diagram: 07/23/1626 07/23/16 0626 Results 24 hrs Laboratory Tests Test 07/23/16 06:26 White Blood Count 3.4 L Red Blood Count 3.06 L Hemoglobin 11.0 L Hematocrit 31.5 L Mean Corpuscular Volume 102.9 H Mean Corpuscular Hemoglobin 35.9 H Mean Corpuscular Hemoglobin Concent 34.9 Red Cell Distribution Width 12.4 Platelet Count 230 Mean Platelet Volume 8.8 Neutrophils % 55.2 Lymphocytes % 24.9 Monocytes % 13.6 H Eosinophils % 2.1 Basophils % 0.6 Nucleated Red Blood Cells % 0.0 Neutrophils # 1.9 Lymphocytes # 0.8 Monocytes # 0.5 Eosinophils # 0.1 Basophils # 0.0 Nucleated Red Blood Cells # 0.0 Sodium Level 128 L Potassium Level 3.5 Chloride Level 87 L Carbon Dioxide Level 34 H Anion Gap 11 Blood Urea Nitrogen 9 Creatinine 0.51 L Glucose Level 99 Calcium Level 8.4 Magnesium Level 1.9 Medications Medications Current Medications Aspirin (Halfprin) 81 mg DAILY PO Last administered on 07/23/16 08:40; Admin Dose 81 MG; Start 07/19/16 at 09:00 Atorvastatin Calcium (Lipitor) 20 mg HS PO Last administered on 07/22/16 20:36 ; Admin Dose 20 MG; Start 07/19/16 at 21:00 Folic Acid (Folic Acid) 0.4 mg DAILY PO Last administered on 07/23/16 08:40; Admin Dose 0.4 MG; Start 07/19/16 at 09:00 Magnesium Oxide (Mag-Ox 400) 400 mg BID PO Last administered on 07/23/16 08:40 ; Admin Dose 400 MG; Start 07/18/16 at 22:30 Nicotine (Nicoderm 21 Mg/ 24hr) 1 patch DAILY TRANSDERM Last administered on 08:39; Admin Dose 1 PATCH; Start 07/19/16 at 09:00 Quetiapine Fumarate (Seroquel) 25 mg HS PO Last administered on 07/22/16 20:36 ; Admin Dose 25 MG; Start 07/19/16 at 21:00 Tiotropium [place] (Spiriva) 1 inh DAILY INH ; Start 07/21/16 at 14:30 Ondansetron HCl (Zofran Inj) 4 mg Q6H PRN IV NAUSEA AND/OR VOMITING; Start 07/18 at 22:30 Heparin Sodium (Porcine) (Heparin (5000 Units/0.5 ml)) 5,000 unit BID SC Last administered on 07/23/16 08:50; Admin Dose 5,000 UNIT; Start 07/18/16 at 22:30 Albuterol (Ventolin Hfa) 2 puff Q6H PRN INH SHORTNESS OF BREATH Last administered on 07/21/16 06:12; Admin Dose 2 PUFF; Start 07/18/16 at 23:00 Salmeterol Xinafoate/ Fluticasone (Advair 250/50 Diskus) 1 inh BID INH Last administered on 07/23/16 08:37; Admin Dose 1 INH; Start 07/19/16 at 09:00 Lactobacillus Acidophilus (Florajen3 Capsule) 1 each BID PO Last administered on 07/23/16 09:49; Admin Dose 1 EACH; Start 07/19/16 at 09:00 Morphine Sulfate (morphine) 4 mg Q4H PRN IV SEVERE PAIN LEVEL 7-10 Last administered on 07/23/16 16:52; Admin Dose 4 MG; Start 07/19/16 at 02:30 Oxycodone/ Acetaminophen (Endocet (10/ 325)) 1 tab Q6H PRN PO PAIN Last administered on 07/23/16 17:44; Admin Dose 1 TAB; Start 07/19/16 at 02:30 Diltiazem HCl (Cardizem) 60 mg Q3H PRN PO HR>150 Last administered on 14:13; Admin Dose 60 MG; Start 07/19/16 at 19:30 Cyanocobalamin 1000 mcg 1,000 mcg DAILY PO Last administered on 07/23/16 08:40 ; Admin Dose 1,000 MCG; Start 07/20/16 at 14:00 Ceftriaxone Sodium (Rocephin) 50 ml @ 100 mls/hr Q24H IVPB Last administered on 07/23/16 12:32; Admin Dose 100 MLS/HR; Start 07/21/16 at 12:00 Levofloxacin (Levaquin) 500 mg DAILY@06 PO Last administered on 07/23/16 05:27 ; Admin Dose 500 MG; Start 07/22/16 at 06:00 Gabapentin (Neurontin) 100 mg TID PO Last administered on 07/23/16 12:40; Admin Dose 100 MG; Start 07/21/16 at 13:00 Diltiazem HCl (Cardizem Cd) 240 mg DAILY PO Last administered on 07/23/16 08: 39; Admin Dose 240 MG; Start 07/22/16 at 16:30 Acetaminophen (Tylenol Tab) 650 mg Q6H PRN PO PAIN AND OR ELEVATED TEMP Last administered on 07/22/16 20:41; Admin Dose 650 MG; Start 07/22/16 at 21:00 QUEENIE VASQUES MD July 23, 2016 19:14
[2016-07-23] MEDS ORDERED: BISACODYL (EC) 5 MG TAB PO PRN (19:30)
[2016-07-23] MEDS: THIAMINE 100 MG TAB PO SCH (20:28)
[2016-07-23] MEDS: DOCUSATE SODIUM 100 MG CAP PO SCH (20:28)
[2016-07-23] MEDS: QUETIAPINE 25 MG TAB PO SCH (20:29)
[2016-07-23] MEDS: ATORVASTATIN 20 MG TAB PO SCH (20:29)
[2016-07-23] MEDS ORDERED: LACTOBACILLUS RHAMNOSUS CAP PO SCH (21:00)
[2016-07-24] VITALS (14 sets, daily range): BP systolic 108–133; BP diastolic 59–74; PULSE 79–180; RESP 18–20
[2016-07-24] MEDS: morphine 4 MG/ML VIAL IV PRN ×3 (04:05→21:10)
[2016-07-24] MEDS: FUROSEMIDE 20 MG INJ IV SCH ×2 (05:57→17:27)
[2016-07-24 06:30] LABS: ADD SCAN DIFF NO; HAAIG REFLEX REFLEX FILED
[2016-07-24 06:42] LABS: BASOPHILS % 0.3 % (0.0-2.0); EOSINOPHILS # 0.1 10^3/ul (0.0-0.5); EOSINOPHILS % 2.1 % (0.0-7.0); HEMATOCRIT 30.5 % (42.0-52.0); HEMOGLOBIN 10.6 g/dl (14.0-18.0); LYMPHOCYTES # 0.9 10^3/ul (0.8-2.9); LYMPHOCYTES % 27.9 % (15.0-51.0); MEAN CORPUSCULAR HEMOGLOBIN 35.6 pg (29.0-33.0); MEAN CORPUSCULAR HGB CONC 34.8 g/dl (32.0-37.0); MEAN CORPUSCULAR VOLUME 102.3 fl (82.0-101.0); MEAN PLATELET VOLUME 8.8 fl (7.4-10.4); MONOCYTE # 0.5 10^3/ul (0.3-0.9); MONOCYTES % 13.6 % (0.0-11.0); NEUTROPHIL # 1.8 10^3/ul (1.6-7.5); NEUTROPHILS % 52.8 % (39.0-77.0); PLATELET COUNT 239 10^3/UL (140-415); RED BLOOD COUNT 2.98 10^6/ul (4.70-6.10); RED CELL DISTRIBUTION WIDTH 12.4 % (11.5-14.5); WHITE BLOOD COUNT 3.4 10^3/ul (4.8-10.8)
[2016-07-24 07:02] LABS: POTASSIUM 3.3 mmol/L (3.5-5.1)
[2016-07-24 07:05] LABS: CREATININE 0.46 mg/dl (0.61-1.24)
[2016-07-24 07:06] LABS: CALCIUM 8.6 mg/dl (8.4-10.2); MAGNESIUM 1.9 mg/dl (1.7-2.5)
[2016-07-24 07:47] LABS: HEPATITIS B CORE ANTIBODY NEGATIVE (NEGATIVE)
[2016-07-24] MEDS: GABAPENTIN 100 MG CAP PO SCH ×3 (08:50→20:56)
[2016-07-24] MEDS: ASPIRIN (EC) 81 MG TAB PO SCH (08:50)
[2016-07-24] MEDS: NICOTINE (21 MG/24 HR) PATCH TRANSDERM SCH (08:50)
[2016-07-24] MEDS: FOLIC ACID 0.4 MG TAB PO SCH (08:51)
[2016-07-24] MEDS: DILTIAZEM (CD) 240 MG CAP PO SCH (08:51)
[2016-07-24] MEDS: L ACIDOPHIL/B LACTIS/B LONGUM CAPSULE PO SCH ×2 (08:51→20:56)
[2016-07-24] MEDS: FAMOTIDINE 20 MG TAB PO SCH (08:51)
[2016-07-24] MEDS: CYANOCOBALAMIN 500 MCG TAB PO SCH (08:52)
[2016-07-24] MEDS: THIAMINE 100 MG TAB PO SCH (08:52)
[2016-07-24] MEDS: MAGNESIUM OXIDE 400 MG TAB PO SCH ×2 (08:52→20:56)
[2016-07-24] MEDS: TIOTROPIUM 18 MCG CAPSULE INHA DEV INH SCH (08:53)
[2016-07-24] MEDS: SALMETEROL/FLUTICASONE 250/50 INHA INH SCH ×2 (08:53→20:55)
--- NOTE | 2016-07-24 08:59 | RADRPT ---
PROCEDURE: US Abdomen. CLINICAL INDICATION: elevated LFTs TECHNIQUE: Multiple real-time images were acquired of the patient's abdomen and retroperitoneum ut ilizing a high resolution transducer. COMPARISON: None FINDINGS: The liver demonstrates elevated echogenicity with no gross focal lesions are seen. No gallstones ar e identified within the gallbladder. There is no pericholecystic fluid or gallbladder wall thickeni ng. No intra or extrahepatic biliary dilatation is seen. The common bile duct measures 3 mm in maxi mal dimension. The visualized portions of the pancreas are unremarkable. No free fluid is identif ied. The right kidney is unremarkable without hydronephrosis. It measures 11.4 cm. Visualized portion of the aorta and IVC are unremarkable. IMPRESSION: There is fatty infiltration of the liver. RPTAT: AA .Chau Duran MD, MD Date Time Electronically viewed and signed by .Chau Duran MD, MD on 07/24/2016 08:59 .J/
[2016-07-24] MEDS: HEPARIN 5,000 UNIT/0.5 ML VIAL SC SCH ×2 (09:12→21:03)
[2016-07-24] MEDS ORDERED: POTASSIUM CHLORIDE (SR) 20 MEQ TAB PO STA (09:28)
--- NOTE | 2016-07-24 09:30 | CONS ---
Date/Time of Note Date/Time of Note DATE: 07/24/16 TIME: 09:29 Assessment/Plan Assessment/Plan Additional Assessment/Plan 60 yo male with 1) B/L LE Cellulitis 2) COPD Exacerbation 3) Chronic CHF 4) Hyponatremia, Pt is not euvolemic at this time, Asymptomatic 5) CAD 6) Anemia, Likely chronic Hyponatremia likely from Excessive free H20 intake in the setting of Increase Circulating ADH from pain and lung disease Stable, Cont current treatment and plan Cont Free H20 restriction at this time Supplement K ordered Consultation Date/Type/Reason Admit Date/Time July 18, 2016 at 19:42 Initial Consult Date 07/19/16 Type of Consultation: Renal 24 HR Interval Summary Constitutional: requiring O2 Exam/Review of Systems Vital Signs Vitals Vital Signs Date Time Temp Pulse Resp B/P Pulse Ox O2 Delivery O2 Flow Rate FiO2 07/24/16 08:34 180 07/24/16 06:54 98.3 18 127/73 97 07/24/16 04:11 3.0 07/24/16 04:11 Nasal Cannula Intake and Output 07/23/16 07/23/16 07/24/16 15:00 23:00 07:00 Intake Total 1400 ml 350 ml Output Total 250 ml 2575 ml 1200 ml Balance -250 ml -1175 ml -850 ml Exam Constitutional: No distress ENMT: mucosa pink and moist Respiratory: crackles/rales, No labored breathing Cardiovascular: edema Gastrointestinal: non-tender, soft Skin: No diaphoresis Results Result Diagram: 07/24/16 0510 07/24/16 0510 Results 24 hrs Laboratory Tests Test 07/24/16 05:10 White Blood Count 3.4 L Red Blood Count 2.98 L Hemoglobin 10.6 L Hematocrit 30.5 L Mean Corpuscular Volume 102.3 H Mean Corpuscular Hemoglobin 35.6 H Mean Corpuscular Hemoglobin Concent 34.8 Red Cell Distribution Width 12.4 Platelet Count 239 Mean Platelet Volume 8.8 Neutrophils % 52.8 Lymphocytes % 27.9 Monocytes % 13.6 H Eosinophils % 2.1 Basophils % 0.3 Nucleated Red Blood Cells % 0.0 Neutrophils # 1.8 Lymphocytes # 0.9 Monocytes # 0.5 Eosinophils # 0.1 Basophils # 0.0 Nucleated Red Blood Cells # 0.0 Sodium Level 128 L Potassium Level 3.3 L Chloride Level 89 L Carbon Dioxide Level 32 H Anion Gap 10 Blood Urea Nitrogen 7 Creatinine 0.46 L Glucose Level 105 Calcium Level 8.6 Magnesium Level 1.9 Hepatitis B Surface Antigen NEGATIVE Hepatitis B Core Total Antibody NEGATIVE Hepatitis C Antibody NEGATIVE HIV (1&2) Antibody NEGATIVE Medications Medications Current Medications Aspirin (Halfprin) 81 mg DAILY PO Last administered on 07/24/16 08:50; Admin Dose 81 MG; Start 07/19/16 at 09:00 Atorvastatin Calcium (Lipitor) 20 mg HS PO Last administered on 07/23/16 20:29 ; Admin Dose 20 MG; Start 07/19/16 at 21:00 Folic Acid (Folic Acid) 0.4 mg DAILY PO Last administered on 07/24/16 08:51; Admin Dose 0.4 MG; Start 07/19/16 at 09:00 Magnesium Oxide (Mag-Ox 400) 400 mg BID PO Last administered on 07/24/16 08:52 ; Admin Dose 400 MG; Start 07/18/16 at 22:30 Nicotine (Nicoderm 21 Mg/ 24hr) 1 patch DAILY TRANSDERM Last administered on 08:50; Admin Dose 1 PATCH; Start 07/19/16 at 09:00 Quetiapine Fumarate (Seroquel) 25 mg HS PO Last administered on 07/23/16 20:29 ; Admin Dose 25 MG; Start 07/19/16 at 21:00 Tiotropium [place] (Spiriva) 1 inh DAILY INH ; Start 07/21/16 at 14:30 Ondansetron HCl (Zofran Inj) 4 mg Q6H PRN IV NAUSEA AND/OR VOMITING; Start 07/18 at 22:30 Heparin Sodium (Porcine) (Heparin (5000 Units/0.5 ml)) 5,000 unit BID SC Last administered on 07/24/16 09:12; Admin Dose 5,000 UNIT; Start 07/18/16 at 22:30 Albuterol (Ventolin Hfa) 2 puff Q6H PRN INH SHORTNESS OF BREATH Last administered on 07/21/16 06:12; Admin Dose 2 PUFF; Start 07/18/16 at 23:00 Salmeterol Xinafoate/ Fluticasone (Advair 250/50 Diskus) 1 inh BID INH Last administered on 07/24/16 08:53; Admin Dose 1 INH; Start 07/19/16 at 09:00 Lactobacillus Acidophilus (Florajen3 Capsule) 1 each BID PO Last administered on 07/24/16 08:51; Admin Dose 1 EACH; Start 07/19/16 at 09:00 Morphine Sulfate (morphine) 4 mg Q4H PRN IV SEVERE PAIN LEVEL 7-10 Last administered on 07/24/16 04:05; Admin Dose 4 MG; Start 07/19/16 at 02:30 Oxycodone/ Acetaminophen (Endocet (10/ 325)) 1 tab Q6H PRN PO PAIN Last administered on 07/23/16 17:44; Admin Dose 1 TAB; Start 07/19/16 at 02:30 Diltiazem HCl (Cardizem) 60 mg Q3H PRN PO HR>150 Last administered on 14:13; Admin Dose 60 MG; Start 07/19/16 at 19:30 Cyanocobalamin 1000 mcg 1,000 mcg DAILY PO Last administered on 07/24/16 08:52 ; Admin Dose 1,000 MCG; Start 07/20/16 at 14:00 Ceftriaxone Sodium (Rocephin) 50 ml @ 100 mls/hr Q24H IVPB Last administered on 07/23/16 12:32; Admin Dose 100 MLS/HR; Start 07/21/16 at 12:00 Gabapentin (Neurontin) 100 mg TID PO Last administered on 07/24/16 08:50; Admin Dose 100 MG; Start 07/21/16 at 13:00 Diltiazem HCl (Cardizem Cd) 240 mg DAILY PO Last administered on 07/24/16 08: 51; Admin Dose 240 MG; Start 07/22/16 at 16:30 Acetaminophen (Tylenol Tab) 650 mg Q6H PRN PO PAIN AND OR ELEVATED TEMP Last administered on 07/22/16 20:41; Admin Dose 650 MG; Start 07/22/16 at 21:00 Famotidine (Pepcid) 20 mg DAILY PO Last administered on 07/24/16 08:51; Admin Dose 20 MG; Start 07/24/16 at 09:00 Docusate Sodium (Colace) 100 mg HS PO Last administered on 07/23/16 20:28; Admin Dose 100 MG; Start 07/23/16 at 21:00 Bisacodyl (Dulcolax) 10 mg DAILY PRN PO CONSTIPATION; Start 07/23/16 at 19:30 Thiamine HCl (Vitamin B1) 100 mg DAILY PO Last administered on 07/24/16t 08:52 ; Admin Dose 100 MG; Start 07/23/16 at 19:30 CHRISSIE MEANS MD July 24, 2016 09:30
[2016-07-24] MEDS: CEFTRIAXONE 1 GM/50 ML (PMX) 50 ML IVPB SCH (11:55)
--- NOTE | 2016-07-24 12:51 | PN ---
Date/Time of Note Date/Time of Note DATE: 07/24/16 TIME: 12:50 Assessment/Plan VTE Prophylaxis VTE Prophylaxis Intervention: LMWH Lines/Catheters IV C[facility]ter Type (from [facility]): [facility] Urinary Cath still in place: No Assessment/Plan Chief Complaint/Hosp Course S- 07/23bilat lwr ext pain remains. less edema. 07/24 atypical chest pain at rest. Arrhythmia overnight? O- vss; sr; svt? PE no pallor/icterus s1s2 reg; no m/r/g ctab bs+ nt nd; no r/r/g +1edema bilat. warmth, stasis, tenderness. A/P 1) Bilat lwr ext cellulitis; stable, cont atb's 2) Bilat stasis; wound care/elevate/ lasix 3) CHF-preserved ef; chr, stable. -1.4 kgs since admit. 4) Past tobacco 5) Past etoh 6) Pre Dm 7) COPD ac/chr 8) Gerd 9) SVT; lytes noted 10) Anemia 11) Depression 12) Hyponatremia; hypervolemic? 13) CAD? 14) Htn Problems: Exam/Review of Systems Vital Signs Vitals Vital Signs Date Time Temp Pulse Resp B/P Pulse Ox O2 Delivery O2 Flow Rate FiO2 07/24/16 12:13 88 07/24/16 11:04 98.2 18 108/59 97 07/24/16 07:30 Nasal Cannula 2.0 Intake and Output 07/23/16 07/23/16 07/24/16 15:00 23:00 07:00 Intake Total 1400 ml 350 ml Output Total 250 ml 2575 ml 1200 ml Balance -250 ml -1175 ml -850 ml Results Result Diagram: 07/24/16 0510 07/24/16 0510 Results 24 hrs Laboratory Tests Test 07/24/16 05:10 White Blood Count 3.4 L Red Blood Count 2.98 L Hemoglobin 10.6 L Hematocrit 30.5 L Mean Corpuscular Volume 102.3 H Mean Corpuscular Hemoglobin 35.6 H Mean Corpuscular Hemoglobin Concent 34.8 Red Cell Distribution Width 12.4 Platelet Count 239 Mean Platelet Volume 8.8 Neutrophils % 52.8 Lymphocytes % 27.9 Monocytes % 13.6 H Eosinophils % 2.1 Basophils % 0.3 Nucleated Red Blood Cells % 0.0 Neutrophils # 1.8 Lymphocytes # 0.9 Monocytes # 0.5 Eosinophils # 0.1 Basophils # 0.0 Nucleated Red Blood Cells # 0.0 Sodium Level 128 L Potassium Level 3.3 L Chloride Level 89 L Carbon Dioxide Level 32 H Anion Gap 10 Blood Urea Nitrogen 7 Creatinine 0.46 L Glucose Level 105 Calcium Level 8.6 Magnesium Level 1.9 Hepatitis B Surface Antigen NEGATIVE Hepatitis B Core Total Antibody NEGATIVE Hepatitis C Antibody NEGATIVE HIV (1&2) Antibody NEGATIVE Medications Medications Current Medications Aspirin (Halfprin) 81 mg DAILY PO Last administered on 07/24/16 08:50; Admin Dose 81 MG; Start 07/19/16 at 09:00 Atorvastatin Calcium (Lipitor) 20 mg HS PO Last administered on 07/23/16 20:29 ; Admin Dose 20 MG; Start 07/19/16 at 21:00 Folic Acid (Folic Acid) 0.4 mg DAILY PO Last administered on 07/24/16 08:51; Admin Dose 0.4 MG; Start 07/19/16 at 09:00 Magnesium Oxide (Mag-Ox 400) 400 mg BID PO Last administered on 07/24/16 08:52 ; Admin Dose 400 MG; Start 07/18/16 at 22:30 Nicotine (Nicoderm 21 Mg/ 24hr) 1 patch DAILY TRANSDERM Last administered on 08:50; Admin Dose 1 PATCH; Start 07/19/16 at 09:00 Quetiapine Fumarate (Seroquel) 25 mg HS PO Last administered on 07/23/16 20:29 ; Admin Dose 25 MG; Start 07/19/16 at 21:00 Tiotropium [place] (Spiriva) 1 inh DAILY INH ; Start 07/21/16 at 14:30 Ondansetron HCl (Zofran Inj) 4 mg Q6H PRN IV NAUSEA AND/OR VOMITING; Start 07/18 at 22:30 Heparin Sodium (Porcine) (Heparin (5000 Units/0.5 ml)) 5,000 unit BID SC Last administered on 07/24/16 09:12; Admin Dose 5,000 UNIT; Start 07/18/16 at 22:30 Albuterol (Ventolin Hfa) 2 puff Q6H PRN INH SHORTNESS OF BREATH Last administered on 07/21/16 06:12; Admin Dose 2 PUFF; Start 07/18/16 at 23:00 Salmeterol Xinafoate/ Fluticasone (Advair 250/50 Diskus) 1 inh BID INH Last administered on 07/24/16 08:53; Admin Dose 1 INH; Start 07/19/16 at 09:00 Lactobacillus Acidophilus (Florajen3 Capsule) 1 each BID PO Last administered on 07/24/16 08:51; Admin Dose 1 EACH; Start 07/19/16 at 09:00 Morphine Sulfate (morphine) 4 mg Q4H PRN IV SEVERE PAIN LEVEL 7-10 Last administered on 07/24/16 04:05; Admin Dose 4 MG; Start 07/19/16 at 02:30 Oxycodone/ Acetaminophen (Endocet (10/ 325)) 1 tab Q6H PRN PO PAIN Last administered on 07/23/16 17:44; Admin Dose 1 TAB; Start 07/19/16 at 02:30 Diltiazem HCl (Cardizem) 60 mg Q3H PRN PO HR>150 Last administered on 14:13; Admin Dose 60 MG; Start 07/19/16 at 19:30 Cyanocobalamin 1000 mcg 1,000 mcg DAILY PO Last administered on 07/24/16 08:52 ; Admin Dose 1,000 MCG; Start 07/20/16 at 14:00 Ceftriaxone Sodium (Rocephin) 50 ml @ 100 mls/hr Q24H IVPB Last administered on 07/24/16 11:55; Admin Dose 100 MLS/HR; Start 07/21/16 at 12:00 Gabapentin (Neurontin) 100 mg TID PO Last administered on 07/24/16 08:50; Admin Dose 100 MG; Start 07/21/16 at 13:00 Diltiazem HCl (Cardizem Cd) 240 mg DAILY PO Last administered on 07/24/16 08: 51; Admin Dose 240 MG; Start 07/22/16 at 16:30 Acetaminophen (Tylenol Tab) 650 mg Q6H PRN PO PAIN AND OR ELEVATED TEMP Last administered on 07/22/16 20:41; Admin Dose 650 MG; Start 07/22/16 at 21:00 Famotidine (Pepcid) 20 mg DAILY PO Last administered on 07/24/16 08:51; Admin Dose 20 MG; Start 07/24/16 at 09:00 Docusate Sodium (Colace) 100 mg HS PO Last administered on 07/23/16 20:28; Admin Dose 100 MG; Start 07/23/16 at 21:00 Bisacodyl (Dulcolax) 10 mg DAILY PRN PO CONSTIPATION; Start 07/23/16 at 19:30 Thiamine HCl (Vitamin B1) 100 mg DAILY PO Last administered on 07/24/16 08:52 ; Admin Dose 100 MG; Start 07/23/16 at 19:30 QUEENIE VASQUES MD July 24, 2016 12:51
[2016-07-24] MEDS ORDERED: MAGNESIUM SULFATE 2 GM/50 ML 50 ML IVPB ONE (13:00)
--- NOTE | 2016-07-24 16:40 | CONS ---
Date/Time of Note Date/Time of Note DATE: 07/24/16 TIME: 16:36 Assessment/Plan Assessment/Plan Chief Complaint/Hosp Course Acute on chronic diastolic heart failure - EF preserved. Improving with diuresis. Still overloaded by JVP but better than yesterday Paroxysmal supraventricular tachycardia: occurred again this am and last night Hypertension Dyslipidemia Bilateral lower extremity cellulitis - antibiotics per primary team Chronic obstructive pulmonary disease exacerbation - management per primary team Hyponatremia -continue Lasix 20mg IV BID -increase to diltiazem 360mg daily (extra 120mg now) -continue aspirin 81mg and atorvastatin 20mg daily Problems: Consultation Date/Type/Reason Admit Date/Time July 18, 2016 at 19:42 Initial Consult Date 07/19/16 Type of Consultation: Cardiology 24 HR Interval Summary Free Text/Dictation Feels slightly better but still SOB. Good UOP Exam/Review of Systems Vital Signs Vitals Vital Signs Date Time Temp Pulse Resp B/P Pulse Ox O2 Delivery O2 Flow Rate FiO2 07/24/16 15:33 98.5 85 18 123/74 100 07/24/16 07:30 Nasal Cannula 2.0 Intake and Output 07/23/16 07/23/16 07/24/16 15:00 23:00 07:00 Intake Total 1400 ml 350 ml Output Total 250 ml 2575 ml 1200 ml Balance -250 ml -1175 ml -850 ml Exam Constitutional: alert, oriented Psych: no complaints Head: normocephalic Neck: jvd (8cm) Respiratory: crackles/rales, No clear to auscultation (crackles, ronchi) Cardiovascular: edema (1+), regular rate and rhythm Neurological: nl mental status Results Result Diagram: 07/24/16 0510 07/24/16 0510 Results 24 hrs Laboratory Tests Test 07/24/16 05:10 White Blood Count 3.4 L Red Blood Count 2.98 L Hemoglobin 10.6 L Hematocrit 30.5 L Mean Corpuscular Volume 102.3 H Mean Corpuscular Hemoglobin 35.6 H Mean Corpuscular Hemoglobin Concent 34.8 Red Cell Distribution Width 12.4 Platelet Count 239 Mean Platelet Volume 8.8 Neutrophils % 52.8 Lymphocytes % 27.9 Monocytes % 13.6 H Eosinophils % 2.1 Basophils % 0.3 Nucleated Red Blood Cells % 0.0 Neutrophils # 1.8 Lymphocytes # 0.9 Monocytes # 0.5 Eosinophils # 0.1 Basophils # 0.0 Nucleated Red Blood Cells # 0.0 Sodium Level 128 L Potassium Level 3.3 L Chloride Level 89 L Carbon Dioxide Level 32 H Anion Gap 10 Blood Urea Nitrogen 7 Creatinine 0.46 L Glucose Level 105 Calcium Level 8.6 Magnesium Level 1.9 Hepatitis B Surface Antigen NEGATIVE Hepatitis B Core Total Antibody NEGATIVE Hepatitis C Antibody NEGATIVE HIV (1&2) Antibody NEGATIVE Medications Medications Current Medications Aspirin (Halfprin) 81 mg DAILY PO Last administered on 07/24/16 08:50; Admin Dose 81 MG; Start 07/19/16 at 09:00 Atorvastatin Calcium (Lipitor) 20 mg HS PO Last administered on 07/23/16 20:29 ; Admin Dose 20 MG; Start 07/19/16 at 21:00 Folic Acid (Folic Acid) 0.4 mg DAILY PO Last administered on 07/24/16 08:51; Admin Dose 0.4 MG; Start 07/19/16 at 09:00 Magnesium Oxide (Mag-Ox 400) 400 mg BID PO Last administered on 07/24/16 08:52 ; Admin Dose 400 MG; Start 07/18/16 at 22:30 Nicotine (Nicoderm 21 Mg/ 24hr) 1 patch DAILY TRANSDERM Last administered on 08:50; Admin Dose 1 PATCH; Start 07/19/16 at 09:00 Quetiapine Fumarate (Seroquel) 25 mg HS PO Last administered on 07/23/16 20:29 ; Admin Dose 25 MG; Start 07/19/16 at 21:00 Tiotropium [place] (Spiriva) 1 inh DAILY INH ; Start 07/21/16 at 14:30 Ondansetron HCl (Zofran Inj) 4 mg Q6H PRN IV NAUSEA AND/OR VOMITING; Start 07/18 at 22:30 Heparin Sodium (Porcine) (Heparin (5000 Units/0.5 ml)) 5,000 unit BID SC Last administered on 07/24/16 09:12; Admin Dose 5,000 UNIT; Start 07/18/16 at 22:30 Albuterol (Ventolin Hfa) 2 puff Q6H PRN INH SHORTNESS OF BREATH Last administered on 07/21/16 06:12; Admin Dose 2 PUFF; Start 07/18/16 at 23:00 Salmeterol Xinafoate/ Fluticasone (Advair 250/50 Diskus) 1 inh BID INH Last administered on 07/24/16 08:53; Admin Dose 1 INH; Start 07/19/16 at 09:00 Lactobacillus Acidophilus (Florajen3 Capsule) 1 each BID PO Last administered on 07/24/16 08:51; Admin Dose 1 EACH; Start 07/19/16 at 09:00 Morphine Sulfate (morphine) 4 mg Q4H PRN IV SEVERE PAIN LEVEL 7-10 Last administered on 07/24/16 16:00; Admin Dose 4 MG; Start 07/19/16 at 02:30 Oxycodone/ Acetaminophen (Endocet (10/ 325)) 1 tab Q6H PRN PO PAIN Last administered on 07/23/16 17:44; Admin Dose 1 TAB; Start 07/19/16 at 02:30 Diltiazem HCl (Cardizem) 60 mg Q3H PRN PO HR>150 Last administered on 14:13; Admin Dose 60 MG; Start 07/19/16 at 19:30 Cyanocobalamin 1000 mcg 1,000 mcg DAILY PO Last administered on 07/24/16 08:52 ; Admin Dose 1,000 MCG; Start 07/20/16 at 14:00 Ceftriaxone Sodium (Rocephin) 50 ml @ 100 mls/hr Q24H IVPB Last administered on 07/24/16 11:55; Admin Dose 100 MLS/HR; Start 07/21/16 at 12:00 Gabapentin (Neurontin) 100 mg TID PO Last administered on 07/24/16 13:26; Admin Dose 100 MG; Start 07/21/16 at 13:00 Diltiazem HCl (Cardizem Cd) 240 mg DAILY PO Last administered on 07/24/16 08: 51; Admin Dose 240 MG; Start 07/22/16 at 16:30 Acetaminophen (Tylenol Tab) 650 mg Q6H PRN PO PAIN AND OR ELEVATED TEMP Last administered on 07/22/16 20:41; Admin Dose 650 MG; Start 07/22/16 at 21:00 Famotidine (Pepcid) 20 mg DAILY PO Last administered on 07/24/16 08:51; Admin Dose 20 MG; Start 07/24/16 at 09:00 Docusate Sodium (Colace) 100 mg HS PO Last administered on 07/23/16 20:28; Admin Dose 100 MG; Start 07/23/16 at 21:00 Bisacodyl (Dulcolax) 10 mg DAILY PRN PO CONSTIPATION; Start 07/23/16 at 19:30 Thiamine HCl (Vitamin B1) 100 mg DAILY PO Last administered on 07/24/16 08:52 ; Admin Dose 100 MG; Start 07/23/16 at 19:30 STEPHANY ALY July 24, 2016 16:40
[2016-07-24] MEDS ORDERED: DILTIAZEM (CD) 120 MG CAP PO ONE (17:00)
[2016-07-24] MEDS: OXYCODONE/ACETAMINOPHEN (10/325) TAB PO PRN (17:52)
[2016-07-24] MEDS: IPRATROPIUM (NEB) 0.5 MG/2.5 ML AMP HHN PRN (19:46)
[2016-07-24] MEDS: LEVALBUTEROL (NEB) 0.63 MG/3 ML AMP HHN PRN (19:46)
[2016-07-24] MEDS: DOCUSATE SODIUM 100 MG CAP PO SCH (20:55)
[2016-07-24] MEDS: ATORVASTATIN 20 MG TAB PO SCH (20:56)
[2016-07-24] MEDS: QUETIAPINE 25 MG TAB PO SCH (20:56)
[2016-07-25] VITALS (12 sets, daily range): BP systolic 114–137; BP diastolic 54–78; PULSE 70–84; RESP 18–20
[2016-07-25] MEDS: FUROSEMIDE 20 MG INJ IV SCH ×2 (06:14→17:38)
[2016-07-25] MEDS: morphine 4 MG/ML VIAL IV PRN ×3 (06:19→20:33)
[2016-07-25 07:14] LABS: ADD SCAN DIFF NO
[2016-07-25 07:19] LABS: BASOPHILS % 0.5 % (0.0-2.0); EOSINOPHILS # 0.1 10^3/ul (0.0-0.5); EOSINOPHILS % 2.2 % (0.0-7.0); HEMATOCRIT 32.1 % (42.0-52.0); HEMOGLOBIN 11.3 g/dl (14.0-18.0); LYMPHOCYTES # 0.9 10^3/ul (0.8-2.9); LYMPHOCYTES % 24.9 % (15.0-51.0); MEAN CORPUSCULAR HEMOGLOBIN 36.1 pg (29.0-33.0); MEAN CORPUSCULAR HGB CONC 35.2 g/dl (32.0-37.0); MEAN CORPUSCULAR VOLUME 102.6 fl (82.0-101.0); MEAN PLATELET VOLUME 8.9 fl (7.4-10.4); MONOCYTE # 0.5 10^3/ul (0.3-0.9); MONOCYTES % 13.6 % (0.0-11.0); NEUTROPHIL # 2.1 10^3/ul (1.6-7.5); NEUTROPHILS % 55.5 % (39.0-77.0); PLATELET COUNT 283 10^3/UL (140-415); RED BLOOD COUNT 3.13 10^6/ul (4.70-6.10); RED CELL DISTRIBUTION WIDTH 12.1 % (11.5-14.5); WHITE BLOOD COUNT 3.7 10^3/ul (4.8-10.8)
[2016-07-25 07:42] LABS: POTASSIUM 3.4 mmol/L (3.5-5.1)
[2016-07-25 07:45] LABS: CREATININE 0.47 mg/dl (0.61-1.24)
[2016-07-25 07:46] LABS: CALCIUM 8.7 mg/dl (8.4-10.2); MAGNESIUM 1.9 mg/dl (1.7-2.5)
[2016-07-25] MEDS: SALMETEROL/FLUTICASONE 250/50 INHA INH SCH ×2 (08:50→20:40)
[2016-07-25] MEDS: TIOTROPIUM 18 MCG CAPSULE INHA DEV INH SCH (08:52)
[2016-07-25] MEDS: GABAPENTIN 100 MG CAP PO SCH ×3 (08:54→20:33)
[2016-07-25] MEDS: MAGNESIUM OXIDE 400 MG TAB PO SCH ×2 (08:54→20:33)
[2016-07-25] MEDS: CYANOCOBALAMIN 500 MCG TAB PO SCH (08:55)
[2016-07-25] MEDS: ASPIRIN (EC) 81 MG TAB PO SCH (08:55)
[2016-07-25] MEDS: FAMOTIDINE 20 MG TAB PO SCH (08:56)
[2016-07-25] MEDS: THIAMINE 100 MG TAB PO SCH (08:56)
[2016-07-25] MEDS: FOLIC ACID 0.4 MG TAB PO SCH (08:57)
[2016-07-25] MEDS: L ACIDOPHIL/B LACTIS/B LONGUM CAPSULE PO SCH ×2 (08:58→22:31)
[2016-07-25] MEDS: NICOTINE (21 MG/24 HR) PATCH TRANSDERM SCH (08:59)
[2016-07-25] MEDS: HEPARIN 5,000 UNIT/0.5 ML VIAL SC SCH ×2 (09:01→20:39)
--- NOTE | 2016-07-25 09:02 | CONS ---
Date/Time of Note Date/Time of Note DATE: 07/25/16 TIME: 09:02 Assessment/Plan Assessment/Plan Additional Assessment/Plan 60 yo male with 1) B/L LE Cellulitis 2) COPD Exacerbation 3) Chronic CHF 4) Hyponatremia, Pt is not euvolemic at this time, Asymptomatic 5) CAD 6) Anemia, Likely chronic 7) Hypokalemia Hyponatremia likely from Excessive free H20 intake in the setting of Increase Circulating ADH from pain and lung disease Stable and improving, Cont current treatment and plan Cont Free H20 restriction at this time Supplement K ordered Consultation Date/Type/Reason Admit Date/Time July 18, 2016 at 19:42 Initial Consult Date 07/19/16 Type of Consultation: Renal 24 HR Interval Summary Free Text/Dictation No new complaints Exam/Review of Systems Vital Signs Vitals Vital Signs Date Time Temp Pulse Resp B/P Pulse Ox O2 Delivery O2 Flow Rate FiO2 07/25/16 08:43 78 07/25/16 07:34 98.0 18 120/74 98 07/24/16 20:44 Nasal Cannula 2.0 Intake and Output 07/24/16 07/24/16 07/25/16 15:00 23:00 07:00 Intake Total 50 ml 1400 ml 850 ml Output Total 750 ml 1400 ml 1250 ml Balance -700 ml 0 ml -400 ml Exam Constitutional: No distress Psych: No confusion ENMT: mucosa pink and moist Neck: No jvd Respiratory: No diminished breath sounds, No labored breathing Cardiovascular: regular rate and rhythm Gastrointestinal: soft Neurological: nl mental status, No lethargic Skin: No diaphoresis Results Result Diagram: 07/25/16 0638 07/25/16 0638 Results 24 hrs Laboratory Tests Test 07/25/16 06:38 White Blood Count 3.7 L Red Blood Count 3.13 L Hemoglobin 11.3 L Hematocrit 32.1 L Mean Corpuscular Volume 102.6 H Mean Corpuscular Hemoglobin 36.1 H Mean Corpuscular Hemoglobin Concent 35.2 Red Cell Distribution Width 12.1 Platelet Count 283 Mean Platelet Volume 8.9 Neutrophils % 55.5 Lymphocytes % 24.9 Monocytes % 13.6 H Eosinophils % 2.2 Basophils % 0.5 Nucleated Red Blood Cells % 0.0 Neutrophils # 2.1 Lymphocytes # 0.9 Monocytes # 0.5 Eosinophils # 0.1 Basophils # 0.0 Nucleated Red Blood Cells # 0.0 Sodium Level 130 L Potassium Level 3.4 L Chloride Level 90 L Carbon Dioxide Level 32 H Anion Gap 11 Blood Urea Nitrogen 8 Creatinine 0.47 L Glucose Level 96 Calcium Level 8.7 Magnesium Level 1.9 Medications Medications Current Medications Aspirin (Halfprin) 81 mg DAILY PO Last administered on 07/24/16 08:50; Admin Dose 81 MG; Start 07/19/16 at 09:00 Atorvastatin Calcium (Lipitor) 20 mg HS PO Last administered on 07/24/16 20:56 ; Admin Dose 20 MG; Start 07/19/16 at 21:00 Folic Acid (Folic Acid) 0.4 mg DAILY PO Last administered on 07/24/16 08:51; Admin Dose 0.4 MG; Start 07/19/16 at 09:00 Magnesium Oxide (Mag-Ox 400) 400 mg BID PO Last administered on 07/24/16 20:56 ; Admin Dose 400 MG; Start 07/18/16 at 22:30 Nicotine (Nicoderm 21 Mg/ 24hr) 1 patch DAILY TRANSDERM Last administered on 08:50; Admin Dose 1 PATCH; Start 07/19/16 at 09:00 Quetiapine Fumarate (Seroquel) 25 mg HS PO Last administered on 07/24/16 20:56 ; Admin Dose 25 MG; Start 07/19/16 at 21:00 Tiotropium [place] (Spiriva) 1 inh DAILY INH ; Start 07/21/16 at 14:30 Ondansetron HCl (Zofran Inj) 4 mg Q6H PRN IV NAUSEA AND/OR VOMITING; Start 07/18 at 22:30 Heparin Sodium (Porcine) (Heparin (5000 Units/0.5 ml)) 5,000 unit BID SC Last administered on 07/24/16 21:03; Admin Dose 5,000 UNIT; Start 07/18/16 at 22:30 Albuterol (Ventolin Hfa) 2 puff Q6H PRN INH SHORTNESS OF BREATH Last administered on 07/21/16 06:12; Admin Dose 2 PUFF; Start 07/18/16 at 23:00 Salmeterol Xinafoate/ Fluticasone (Advair 250/50 Diskus) 1 inh BID INH Last administered on 07/24/16 20:55; Admin Dose 1 INH; Start 07/19/16 at 09:00 Lactobacillus Acidophilus (Florajen3 Capsule) 1 each BID PO Last administered on 07/24/16 20:56; Admin Dose 1 EACH; Start 07/19/16 at 09:00 Morphine Sulfate (morphine) 4 mg Q4H PRN IV SEVERE PAIN LEVEL 7-10 Last administered on 07/25/16 06:19; Admin Dose 4 MG; Start 07/19/16 at 02:30 Oxycodone/ Acetaminophen (Endocet (10/ 325)) 1 tab Q6H PRN PO PAIN Last administered on 07/24/16 17:52; Admin Dose 1 TAB; Start 07/19/16 at 02:30 Diltiazem HCl (Cardizem) 60 mg Q3H PRN PO HR>150 Last administered on 14:13; Admin Dose 60 MG; Start 07/19/16 at 19:30 Cyanocobalamin 1000 mcg 1,000 mcg DAILY PO Last administered on 07/24/16 08:52 ; Admin Dose 1,000 MCG; Start 07/20/16 at 14:00 Ceftriaxone Sodium (Rocephin) 50 ml @ 100 mls/hr Q24H IVPB Last administered on 07/24/16 11:55; Admin Dose 100 MLS/HR; Start 07/21/16 at 12:00 Gabapentin (Neurontin) 100 mg TID PO Last administered on 07/24/16 20:56; Admin Dose 100 MG; Start 07/21/16 at 13:00 Acetaminophen (Tylenol Tab) 650 mg Q6H PRN PO PAIN AND OR ELEVATED TEMP Last administered on 07/22/16 20:41; Admin Dose 650 MG; Start 07/22/16 at 21:00 Famotidine (Pepcid) 20 mg DAILY PO Last administered on 07/24/16 08:51; Admin Dose 20 MG; Start 07/24/16 at 09:00 Docusate Sodium (Colace) 100 mg HS PO Last administered on 07/24/16 20:55; Admin Dose 100 MG; Start 07/23/16 at 21:00 Bisacodyl (Dulcolax) 10 mg DAILY PRN PO CONSTIPATION; Start 07/23/16 at 19:30 Thiamine HCl (Vitamin B1) 100 mg DAILY PO Last administered on 07/24/16t 08:52 ; Admin Dose 100 MG; Start 07/23/16 at 19:30 Diltiazem HCl (Cardizem Cd) 360 mg DAILY PO ; Start 07/25/16 at 09:00 CHRISSIE MEANS MD July 25, 2016 09:02
[2016-07-25] MEDS: OXYCODONE/ACETAMINOPHEN (10/325) TAB PO PRN ×2 (09:09→15:21)
[2016-07-25] MEDS: DILTIAZEM (CD) 240 MG CAP PO SCH (09:11)
[2016-07-25] MEDS: LEVALBUTEROL (NEB) 0.63 MG/3 ML AMP HHN PRN (10:01)
[2016-07-25] MEDS: CEFTRIAXONE 1 GM/50 ML (PMX) 50 ML IVPB SCH (12:07)
--- NOTE | 2016-07-25 13:39 | PN ---
Date/Time of Note Date/Time of Note DATE: 07/25/16 TIME: 13:36 Assessment/Plan VTE Prophylaxis VTE Prophylaxis Intervention: LMWH Lines/Catheters IV Catheter Type (from Nrsg): Saline Lock Assessment/Plan Assessment/Plan 60 yo male who presented to ER c/o bilateral lower ext redness, swelling, pain and blisters and shortness of breath Acute on chronic diastolic heart failure - EF preserved. Improving with diuresis. Paroxysmal supraventricular tachycardia: occurred again this am and last night: cardizem increased Hypertension: controlled Dyslipidemia Bilateral lower extremity cellulitis - improving Chronic obstructive pulmonary disease exacerbation - improved Hyponatremia: improved with diuresis Fatty liver Prev hx of tobacco and alcohol use Hypokalemia 2/2 lasix PLAN: * Infectious disease consult to assist with cellulitis management. * Continue diuresis per cardiology, continue to monitor heart rate * Replace electrolytes /pain control /physical therapy / supportive care. Subjective 24 Hr Interval Summary Free Text/Dictation Patient states he is unable to walk due to severe pain in both legs. Constitutional: improved Musculoskeletal: other (bilateral feet pain), swelling Exam/Review of Systems Vital Signs Vitals Vital Signs Date Time Temp Pulse Resp B/P Pulse Ox O2 Delivery O2 Flow Rate FiO2 07/25/16 12:59 84 07/25/16 11:53 98.0 18 135/78 97 07/25/16 10:03 3.0 07/25/16 10:02 Nasal Cannula 32 Intake and Output 07/24/16 07/24/16 07/25/16 15:00 23:00 07:00 Intake Total 50 ml 1400 ml 850 ml Output Total 750 ml 1400 ml 1250 ml Balance -700 ml 0 ml -400 ml Exam Constitutional: alert, oriented Head: atraumatic, normocephalic Eyes: EOMI, PERRL Respiratory: clear to auscultation, normal air movement Cardiovascular: nl pulses, regular rate and rhythm Gastrointestinal: non-tender, soft Extremities: edema, other (erythema bilaterally, worse on left foot. dried up scabs), tenderness Results Result Diagram: 07/25/16 0638 07/25/16 0638 Results 24 hrs Laboratory Tests Test 07/25/16 06:38 White Blood Count 3.7 L Red Blood Count 3.13 L Hemoglobin 11.3 L Hematocrit 32.1 L Mean Corpuscular Volume 102.6 H Mean Corpuscular Hemoglobin 36.1 H Mean Corpuscular Hemoglobin Concent 35.2 Red Cell Distribution Width 12.1 Platelet Count 283 Mean Platelet Volume 8.9 Neutrophils % 55.5 Lymphocytes % 24.9 Monocytes % 13.6 H Eosinophils % 2.2 Basophils % 0.5 Nucleated Red Blood Cells % 0.0 Neutrophils # 2.1 Lymphocytes # 0.9 Monocytes # 0.5 Eosinophils # 0.1 Basophils # 0.0 Nucleated Red Blood Cells # 0.0 Sodium Level 130 L Potassium Level 3.4 L Chloride Level 90 L Carbon Dioxide Level 32 H Anion Gap 11 Blood Urea Nitrogen 8 Creatinine 0.47 L Glucose Level 96 Calcium Level 8.7 Magnesium Level 1.9 Medications Medications Current Medications Aspirin (Halfprin) 81 mg DAILY PO Last administered on 07/25/16 08:55; Admin Dose 81 MG; Start 07/19/16 at 09:00 Atorvastatin Calcium (Lipitor) 20 mg HS PO Last administered on 07/24/16 20:56 ; Admin Dose 20 MG; Start 07/19/16 at 21:00 Folic Acid (Folic Acid) 0.4 mg DAILY PO Last administered on 07/25/16 08:57; Admin Dose 0.4 MG; Start 07/19/16 at 09:00 Magnesium Oxide (Mag-Ox 400) 400 mg BID PO Last administered on 07/25/16 08:54 ; Admin Dose 400 MG; Start 07/18/16 at 22:30 Nicotine (Nicoderm 21 Mg/ 24hr) 1 patch DAILY TRANSDERM Last administered on 08:59; Admin Dose 1 PATCH; Start 07/19/16 at 09:00 Quetiapine Fumarate (Seroquel) 25 mg HS PO Last administered on 07/24/16 20:56 ; Admin Dose 25 MG; Start 07/19/16 at 21:00 Tiotropium [place] (Spiriva) 1 inh DAILY INH ; Start 07/21/16 at 14:30 Ondansetron HCl (Zofran Inj) 4 mg Q6H PRN IV NAUSEA AND/OR VOMITING; Start 07/18 at 22:30 Heparin Sodium (Porcine) (Heparin (5000 Units/0.5 ml)) 5,000 unit BID SC Last administered on 07/25/16 09:01; Admin Dose 5,000 UNIT; Start 07/18/16 at 22:30 Albuterol (Ventolin Hfa) 2 puff Q6H PRN INH SHORTNESS OF BREATH Last administered on 07/21/16 06:12; Admin Dose 2 PUFF; Start 07/18/16 at 23:00 Salmeterol Xinafoate/ Fluticasone (Advair 250/50 Diskus) 1 inh BID INH Last administered on 07/25/16 08:50; Admin Dose 1 INH; Start 07/19/16 at 09:00 Lactobacillus Acidophilus (Florajen3 Capsule) 1 each BID PO Last administered on 07/25/16 08:58; Admin Dose 1 EACH; Start 07/19/16 at 09:00 Morphine Sulfate (morphine) 4 mg Q4H PRN IV SEVERE PAIN LEVEL 7-10 Last administered on 07/25/16 10:35; Admin Dose 4 MG; Start 07/19/16 at 02:30 Oxycodone/ Acetaminophen (Endocet (10/ 325)) 1 tab Q6H PRN PO PAIN Last administered on 07/25/16 09:09; Admin Dose 1 TAB; Start 07/19/16 at 02:30 Diltiazem HCl (Cardizem) 60 mg Q3H PRN PO HR>150 Last administered on 14:13; Admin Dose 60 MG; Start 07/19/16 at 19:30 Cyanocobalamin 1000 mcg 1,000 mcg DAILY PO Last administered on 07/25/16 08:55 ; Admin Dose 1,000 MCG; Start 07/20/16 at 14:00 Ceftriaxone Sodium (Rocephin) 50 ml @ 100 mls/hr Q24H IVPB Last administered on 07/25/16 12:07; Admin Dose 100 MLS/HR; Start 07/21/16 at 12:00 Gabapentin (Neurontin) 100 mg TID PO Last administered on 07/25/16 12:08; Admin Dose 100 MG; Start 07/21/16 at 13:00 Acetaminophen (Tylenol Tab) 650 mg Q6H PRN PO PAIN AND OR ELEVATED TEMP Last administered on 07/22/16 20:41; Admin Dose 650 MG; Start 07/22/16 at 21:00 Famotidine (Pepcid) 20 mg DAILY PO Last administered on 07/25/16 08:56; Admin Dose 20 MG; Start 07/24/16 at 09:00 Docusate Sodium (Colace) 100 mg HS PO Last administered on 07/24/16 20:55; Admin Dose 100 MG; Start 07/23/16 at 21:00 Bisacodyl (Dulcolax) 10 mg DAILY PRN PO CONSTIPATION; Start 07/23/16 at 19:30 Thiamine HCl (Vitamin B1) 100 mg DAILY PO Last administered on 07/25/16 08:56 ; Admin Dose 100 MG; Start 07/23/16 at 19:30 Diltiazem HCl (Cardizem Cd) 360 mg DAILY PO Last administered on 07/25/16 09: 11; Admin Dose 360 MG; Start 07/25/16 at 09:00 Procedures Procedures PROCEDURE: US Abdomen. CLINICAL INDICATION: elevated LFTs TECHNIQUE: Multiple real-time images were acquired of the patient's abdomen and retroperitoneum utilizing a high resolution transducer. COMPARISON: None FINDINGS: The liver demonstrates elevated echogenicity with no gross focal lesions are seen. No gallstones are identified within the gallbladder. There is no pericholecystic fluid or gallbladder wall thickening. No intra or extrahepatic biliary dilatation is seen. The common bile duct measures 3 mm in maximal dimension. The visualized portions of the pancreas are unremarkable. No free fluid is identified. The right kidney is unremarkable without hydronephrosis. It measures 11.4 cm. Visualized portion of the aorta and IVC are unremarkable. IMPRESSION: There is fatty infiltration of the liver. RPTAT: AA .Chau Duran MD, Date Time Electronically viewed and signed by .Chau Duran MD, MD on 07/24/2016 08:59 .J/ CC: QUEENIE VASQUES MD, BOLATITO M. July 25, 2016 13:39
[2016-07-25] MEDS ORDERED: VANCOMYCIN IV PER PHARMACY XX SCH (16:00)
[2016-07-25] MEDS: ENOXAPARIN 40 MG/0.4 ML SYG SC SCH (16:42)
--- NOTE | 2016-07-25 16:56 | CONS ---
Date/Time of Note Date/Time of Note DATE: 07/25/16 TIME: 16:54 Assessment/Plan Assessment/Plan Chief Complaint/Hosp Course Assessment: Acute on chronic diastolic heart failure - improving with diuresis Paroxysmal supraventricular tachycardia Hypertension Dyslipidemia Bilateral lower extremity cellulitis - antibiotics per primary team Chronic obstructive pulmonary disease exacerbation - management per primary team Hyponatremia Recommendations: -echocardiogram showed LVEF 60-65%, mild diastolic dysfunction -continue Lasix 20mg IV BID -continue diltiazem CD 360mg daily -continue aspirin 81mg and atorvastatin 20mg daily Problems: Consultation Date/Type/Reason Admit Date/Time July 18, 2016 at 19:42 Initial Consult Date 07/19/16 Type of Consultation: Cardiology 24 HR Interval Summary Free Text/Dictation Shortness of breath slowly improving. No further supraventricular tachycardia today. Detailed Summary Additional Comments 14 point review of systems without changes. Exam/Review of Systems Vital Signs Vitals Vital Signs Date Time Temp Pulse Resp B/P Pulse Ox O2 Delivery O2 Flow Rate FiO2 07/25/16 16:45 77 07/25/16 15:48 98.0 18 130/73 98 07/25/16 10:03 3.0 07/25/16 10:02 Nasal Cannula 32 Intake and Output 07/24/16 07/24/16 07/25/16 15:00 23:00 07:00 Intake Total 50 ml 1400 ml 850 ml Output Total 750 ml 1400 ml 1250 ml Balance -700 ml 0 ml -400 ml Exam Constitutional: alert, well developed Psych: nl mood/affect, no complaints Head: atraumatic, normocephalic Eyes: nl conjunctiva, nl lids ENMT: nl external ears & nose, nl nasal mucosa & septum Neck: non-tender, supple, No jvd Respiratory: diminished breath sounds, wheezing Cardiovascular: regular rate and rhythm, No murmurs/extra sounds Gastrointestinal: non-tender, soft Musculoskeletal: swelling Extremities: edema, No clubbing, No cyanosis Neurological: nl mental status, nl speech Skin: rash or lesions Results Result Diagram: 07/25/16 0638 07/25/16 0638 Results 24 hrs Laboratory Tests Test 07/25/16 06:38 White Blood Count 3.7 L Red Blood Count 3.13 L Hemoglobin 11.3 L Hematocrit 32.1 L Mean Corpuscular Volume 102.6 H Mean Corpuscular Hemoglobin 36.1 H Mean Corpuscular Hemoglobin Concent 35.2 Red Cell Distribution Width 12.1 Platelet Count 283 Mean Platelet Volume 8.9 Neutrophils % 55.5 Lymphocytes % 24.9 Monocytes % 13.6 H Eosinophils % 2.2 Basophils % 0.5 Nucleated Red Blood Cells % 0.0 Neutrophils # 2.1 Lymphocytes # 0.9 Monocytes # 0.5 Eosinophils # 0.1 Basophils # 0.0 Nucleated Red Blood Cells # 0.0 Sodium Level 130 L Potassium Level 3.4 L Chloride Level 90 L Carbon Dioxide Level 32 H Anion Gap 11 Blood Urea Nitrogen 8 Creatinine 0.47 L Glucose Level 96 Calcium Level 8.7 Magnesium Level 1.9 Medications Medications Current Medications Aspirin (Halfprin) 81 mg DAILY PO Last administered on 07/25/16 08:55; Admin Dose 81 MG; Start 07/19/16 at 09:00 Atorvastatin Calcium (Lipitor) 20 mg HS PO Last administered on 07/24/16 20:56 ; Admin Dose 20 MG; Start 07/19/16 at 21:00 Folic Acid (Folic Acid) 0.4 mg DAILY PO Last administered on 07/25/16 08:57; Admin Dose 0.4 MG; Start 07/19/16 at 09:00 Magnesium Oxide (Mag-Ox 400) 400 mg BID PO Last administered on 07/25/16 08:54 ; Admin Dose 400 MG; Start 07/18/16 at 22:30 Nicotine (Nicoderm 21 Mg/ 24hr) 1 patch DAILY TRANSDERM Last administered on 08:59; Admin Dose 1 PATCH; Start 07/19/16 at 09:00 Quetiapine Fumarate (Seroquel) 25 mg HS PO Last administered on 07/24/16 20:56 ; Admin Dose 25 MG; Start 07/19/16 at 21:00 Tiotropium [place] (Spiriva) 1 inh DAILY INH ; Start 07/21/16 at 14:30 Ondansetron HCl (Zofran Inj) 4 mg Q6H PRN IV NAUSEA AND/OR VOMITING; Start 07/18 at 22:30 Heparin Sodium (Porcine) (Heparin (5000 Units/0.5 ml)) 5,000 unit BID SC Last administered on 07/25/16 09:01; Admin Dose 5,000 UNIT; Start 07/18/16 at 22:30 Albuterol (Ventolin Hfa) 2 puff Q6H PRN INH SHORTNESS OF BREATH Last administered on 07/21/16 06:12; Admin Dose 2 PUFF; Start 07/18/16 at 23:00 Salmeterol Xinafoate/ Fluticasone (Advair 250/50 Diskus) 1 inh BID INH Last administered on 07/25/16 08:50; Admin Dose 1 INH; Start 07/19/16 at 09:00 Lactobacillus Acidophilus (Florajen3 Capsule) 1 each BID PO Last administered on 07/25/16 08:58; Admin Dose 1 EACH; Start 07/19/16 at 09:00 Morphine Sulfate (morphine) 4 mg Q4H PRN IV SEVERE PAIN LEVEL 7-10 Last administered on 07/25/16 10:35; Admin Dose 4 MG; Start 07/19/16 at 02:30 Oxycodone/ Acetaminophen (Endocet (10/ 325)) 1 tab Q6H PRN PO PAIN Last administered on 07/25/16 15:21; Admin Dose 1 TAB; Start 07/19/16 at 02:30 Diltiazem HCl (Cardizem) 60 mg Q3H PRN PO HR>150 Last administered on 14:13; Admin Dose 60 MG; Start 07/19/16 at 19:30 Cyanocobalamin 1000 mcg 1,000 mcg DAILY PO Last administered on 07/25/16 08:55 ; Admin Dose 1,000 MCG; Start 07/20/16 at 14:00 Ceftriaxone Sodium (Rocephin) 50 ml @ 100 mls/hr Q24H IVPB Last administered on 07/25/16 12:07; Admin Dose 100 MLS/HR; Start 07/21/16 at 12:00 Gabapentin (Neurontin) 100 mg TID PO Last administered on 07/25/16 12:08; Admin Dose 100 MG; Start 07/21/16 at 13:00 Acetaminophen (Tylenol Tab) 650 mg Q6H PRN PO PAIN AND OR ELEVATED TEMP Last administered on 07/22/16 20:41; Admin Dose 650 MG; Start 07/22/16 at 21:00 Famotidine (Pepcid) 20 mg DAILY PO Last administered on 07/25/16 08:56; Admin Dose 20 MG; Start 07/24/16 at 09:00 Docusate Sodium (Colace) 100 mg HS PO Last administered on 07/24/16 20:55; Admin Dose 100 MG; Start 07/23/16 at 21:00 Bisacodyl (Dulcolax) 10 mg DAILY PRN PO CONSTIPATION; Start 07/23/16 at 19:30 Thiamine HCl (Vitamin B1) 100 mg DAILY PO Last administered on 07/25/16 08:56 ; Admin Dose 100 MG; Start 07/23/16 at 19:30 Diltiazem HCl (Cardizem Cd) 360 mg DAILY PO Last administered on 07/25/16 09: 11; Admin Dose 360 MG; Start 07/25/16 at 09:00 Enoxaparin Sodium 40 mg 40 mg DAILY SC Last administered on 07/25/16 16:42; Admin Dose 40 MG; Start 07/25/16 at 17:00 Vancomycin HCl/ Sodium Chloride (Vancocin/NS) 500 ml @ 125 mls/hr ONCE IVPB ; Start 07/25/16 at 18:00; Stop 07/25/16 at 20:00 PRISCILLA HEMPHILL MD July 25, 2016 16:56
[2016-07-25] MEDS ORDERED: VANCOMYCIN 1.75 GM in NS 500 ML IVPB SCH (18:00)
[2016-07-25] MEDS: QUETIAPINE 25 MG TAB PO SCH (20:33)
[2016-07-25] MEDS: ATORVASTATIN 20 MG TAB PO SCH (20:33)
[2016-07-25] MEDS: DOCUSATE SODIUM 100 MG CAP PO SCH (20:33)
--- NOTE | 2016-07-25 20:53 | CONS ---
DATE OF ADMISSION: 07/18/2016 DATE OF CONSULTATION: 07/25/2016 TYPE OF CONSULTATION: Infectious disease. REASON FOR CONSULTATION: Antibiotic management. HISTORY OF PRESENT ILLNESS: Bartolome Pool is a 60-year-old male who comes in with bilateral lower ex tremity cellulitis and is being seen for antibiotic management. Past problems include: 1. Hypertension. 2. COPD. 3. Coronary artery disease with CHF. 4. GERD. He presented to the emergency room with bilateral lower extremity redness, swelling and blisters. H e also complained of shortness of breath. In the ER, chest x-ray showed hyperinflated lungs. The p atient received antibiotics, breathing treatment and Lasix. On admission, his white count was 9000, H and H of 14 and 40, platelet count 180,000. BUN and creatinine 12/0.52. HOSPITAL COURSE: The patient has been seen by multiple consultants. An ultrasound of the lower ext remities showed no evidence for DVTs. A chest x-ray shows pulmonary hyperinflation and abdominal ul trasound shows fatty infiltration of the liver. HOSPITAL COURSE: The patient was cultured. Blood cultures are negative. Urine showed mixed gram-p ositive organisms. The patient was started on ceftriaxone and is currently on ceftriaxone. He has been followed by the hospitalist on 07/20/2016. Dr. Bruce saw him. White count was down to 400 0. The patient was on vancomycin and cefepime at that time. Patient has acute on chronic diastolic heart failure, improved with diuresis. Currently he also has paroxysmal supraventricular tachycard ia which occurred again last night and this morning. Cardizem was increased. Other problems includ e hypertension, dyslipidemia, bilateral lower extremity cellulitis, COPD. PAST MEDICAL HISTORY: Operations as outlined. FAMILY HISTORY: Noncontributory. SOCIAL HISTORY: He is a former smoker, does not drink or abuse drugs. ALLERGIES: NONE TO PENICILLIN, SULFA OR FOODS. MEDICATIONS: Per chart. REVIEW OF SYSTEMS: As per HPI. PHYSICAL EXAMINATION: GENERAL: The patient is alert, responsive, in no acute distress. VITAL SIGNS: Stable. He is afebrile. SKIN: Without generalized rash. HEENT: Within normal limits. NECK: Supple. LYMPH NODES: None palpable. CHEST: Decreased breath sounds at the bases. HEART: Without murmur or gallop. ABDOMEN: Soft, nontender, without organosplenomegaly or masses. EXTREMITIES: Edematous with erythema bilaterally, worse on the left. He has some blisters and tend erness. RECTAL AND GENITAL: Deferred. NEUROLOGIC: No focal neurological abnormalities. IMPRESSION AND PLAN: The patient is currently only on ceftriaxone. I believe he needs vancomycin a s well. I will dictate my findings to the hospitalist. Dictated By: BLAYNE FLORES MD, JD/VENKAT Conf#: [id number] DID#: [id number]
[2016-07-26] VITALS (13 sets, daily range): BP systolic 116–138; BP diastolic 56–79; PULSE 66–90; RESP 18–19
[2016-07-26] MEDS: LEVALBUTEROL (NEB) 0.63 MG/3 ML AMP HHN PRN (02:32)
[2016-07-26] MEDS: IPRATROPIUM (NEB) 0.5 MG/2.5 ML AMP HHN PRN (02:33)
[2016-07-26] MEDS: VANCOMYCIN 1 GM in NS 250 ML IVPB SCH ×3 (02:56→19:19)
[2016-07-26] MEDS: FUROSEMIDE 20 MG INJ IV SCH ×3 (06:00→18:13)
[2016-07-26 06:49] LABS: ADD SCAN DIFF NO
[2016-07-26 06:55] LABS: BASOPHILS % 0.3 % (0.0-2.0); EOSINOPHILS # 0.1 10^3/ul (0.0-0.5); EOSINOPHILS % 1.6 % (0.0-7.0); HEMATOCRIT 33.3 % (42.0-52.0); HEMOGLOBIN 11.4 g/dl (14.0-18.0); LYMPHOCYTES % 28.3 % (15.0-51.0); MEAN CORPUSCULAR HEMOGLOBIN 35.3 pg (29.0-33.0); MEAN CORPUSCULAR HGB CONC 34.2 g/dl (32.0-37.0); MEAN CORPUSCULAR VOLUME 103.1 fl (82.0-101.0); MEAN PLATELET VOLUME 8.9 fl (7.4-10.4); MONOCYTE # 0.4 10^3/ul (0.3-0.9); MONOCYTES % 9.8 % (0.0-11.0); NEUTROPHIL # 2.1 10^3/ul (1.6-7.5); NEUTROPHILS % 57.3 % (39.0-77.0); PLATELET COUNT 281 10^3/UL (140-415); RED BLOOD COUNT 3.23 10^6/ul (4.70-6.10); RED CELL DISTRIBUTION WIDTH 12.2 % (11.5-14.5); WHITE BLOOD COUNT 3.7 10^3/ul (4.8-10.8)
[2016-07-26 07:22] LABS: CALCIUM 8.8 mg/dl (8.4-10.2); CREATININE 0.48 mg/dl (0.61-1.24); MAGNESIUM 1.8 mg/dl (1.7-2.5); POTASSIUM 3.8 mmol/L (3.5-5.1)
[2016-07-26] MEDS: HEPARIN 5,000 UNIT/0.5 ML VIAL SC SCH (09:00)
[2016-07-26] MEDS: SALMETEROL/FLUTICASONE 250/50 INHA INH SCH ×2 (09:39→20:39)
[2016-07-26] MEDS: TIOTROPIUM 18 MCG CAPSULE INHA DEV INH SCH (09:39)
[2016-07-26] MEDS: CYANOCOBALAMIN 500 MCG TAB PO SCH (09:41)
[2016-07-26] MEDS: THIAMINE 100 MG TAB PO SCH (09:41)
[2016-07-26] MEDS: DILTIAZEM (CD) 240 MG CAP PO SCH (09:41)
[2016-07-26] MEDS: MAGNESIUM OXIDE 400 MG TAB PO SCH ×2 (09:41→20:40)
[2016-07-26] MEDS: GABAPENTIN 100 MG CAP PO SCH ×3 (09:41→20:40)
[2016-07-26] MEDS: FAMOTIDINE 20 MG TAB PO SCH (09:41)
[2016-07-26] MEDS: ASPIRIN (EC) 81 MG TAB PO SCH (09:41)
[2016-07-26] MEDS: NICOTINE (21 MG/24 HR) PATCH TRANSDERM SCH (09:42)
[2016-07-26] MEDS: FOLIC ACID 0.4 MG TAB PO SCH (09:42)
[2016-07-26] MEDS: L ACIDOPHIL/B LACTIS/B LONGUM CAPSULE PO SCH ×2 (09:42→20:40)
[2016-07-26] MEDS: ENOXAPARIN 40 MG/0.4 ML SYG SC SCH (09:43)
[2016-07-26] MEDS: morphine 4 MG/ML VIAL IV PRN ×2 (10:03→19:49)
[2016-07-26] MEDS: CEFTRIAXONE 1 GM/50 ML (PMX) 50 ML IVPB SCH (12:20)
--- NOTE | 2016-07-26 13:59 | PN ---
DATE: 07/26/2016 SUBJECTIVE: The patient is awake, lying comfortably in bed. No fevers. Denies pain. LABORATORY DATA: WBC 3.7, no shift, no bands. BUN 9, creatinine 0.48. MICROBIOLOGY: Blood cultures remain negative. ANTIMICROBIALS: The patient is on: 1. IV vancomycin 2. IV Rocephin. PHYSICAL EXAMINATION: GENERAL: A 60-year-old man who looks older than his age. The patient is in no distress. HEENT: Head atraumatic, normocephalic. Sclerae anicteric. Buccal mucosa dry. NECK: Supple. CHEST: Rise symmetrical. Breath sounds diminished to bases. HEART: S1, S2. ABDOMEN: Soft, bowel sounds present. EXTREMITIES: With bilateral lower extremities edema, erythema, chronic wounds, left more than right . ASSESSMENT: 1. Bilateral lower extremity cellulitis. 2. History of coronary artery disease and congestive heart failure. 3. Hypertension. 4. Chronic obstructive pulmonary disease. PLAN: Remains stable. Continue present care. Continue on current antibiotics. Add topical [place] cream to bilateral lower extremities and check MRSA swab. Dictated By: STEVENSON MEJIA LARRY CAR OPERATOR for BLAYNE FLORES MD NI/NTS Conf#: [id number] DID#: [id number]
--- NOTE | 2016-07-26 15:12 | PDOCDIS ---
Discharge Instructions CONDITION Patient Condition: Good HOME CARE INSTRUCTIONS: Special Diet: cardiac diet ACTIVITY: Activity Restrictions: Slowly Increase Activity Rest between Activity Avoid heavy lifting Keep Limb Elevated FOLLOW UP/APPOINTMENTS Appointments Follow up with PCP as out-pt DEVAUGHN CASE MD July 26, 2016 15:12
[2016-07-26] MEDS ORDERED: Thiamine PO (15:21)
[2016-07-26] MEDS ORDERED: ATOR20TA38 PO (15:21)
[2016-07-26] MEDS ORDERED: ALBU18HF INHALATION (15:21)
[2016-07-26] MEDS ORDERED: CYAN500T46 PO (15:21)
[2016-07-26] MEDS ORDERED: ASPI-664 PO (15:21)
[2016-07-26] MEDS ORDERED: FOLI0.4T2 PO (15:21)
[2016-07-26] MEDS ORDERED: SSD1C20 TOP (15:21)
[2016-07-26] MEDS ORDERED: TUDORZA PRESSAIR PO (15:21)
[2016-07-26] MEDS ORDERED: QUET25TA33 PO (15:21)
[2016-07-26] MEDS ORDERED: PANT40TA4 PO (15:21)
[2016-07-26] MEDS ORDERED: OXYC-279 PO (15:21)
[2016-07-26] MEDS ORDERED: LACTINEX PO (15:21)
[2016-07-26] MEDS ORDERED: MAGN400T28 PO (15:21)
[2016-07-26] MEDS ORDERED: NICO1PAT6 TD (15:21)
[2016-07-26] MEDS ORDERED: CARSR60 PO (15:21)
[2016-07-26] MEDS ORDERED: NITR0.4T6 SL (15:21)
[2016-07-26] MEDS ORDERED: GABA100C14 PO (15:21)
[2016-07-26] MEDS ORDERED: BUDE6HFA INHALATION (15:21)
[2016-07-26] MEDS ORDERED: CLIN-73 PO (15:21)
[2016-07-26] MEDS ORDERED: Furosemide IV (15:21)
[2016-07-26] MEDS: SILVER SULFADIAZINE 1% 25 GM CR TOP SCH ×2 (16:14→22:42)
--- NOTE | 2016-07-26 16:34 | CONS ---
Date/Time of Note Date/Time of Note DATE: 07/26/16 TIME: 16:33 Assessment/Plan Assessment/Plan Additional Assessment/Plan 10 yo male with 1) B/L LE Cellulitis 2) COPD Exacerbation 3) Chronic CHF 4) Hyponatremia, Pt is not euvolemic at this time, Asymptomatic 5) CAD 6) Anemia, Likely chronic 7) Hypokalemia- Resolved Hyponatremia likely from Excessive free H20 intake in the setting of Increase Circulating ADH from pain and lung disease Na cont to improve and stable Cont current treatment and plan Cont Free H20 restriction at this time Consultation Date/Type/Reason Admit Date/Time July 18, 2016 at 19:42 Initial Consult Date 07/19/16 Type of Consultation: Renal Exam/Review of Systems Vital Signs Vitals Vital Signs Date Time Temp Pulse Resp B/P Pulse Ox O2 Delivery O2 Flow Rate FiO2 07/26/16 16:21 66 07/26/16 15:36 18 128/68 96 07/26/16 11:30 97.4 07/26/16 08:00 Nasal Cannula 2.0 07/25/16 10:02 32 Intake and Output 07/25/16 07/25/16 07/26/16 15:00 23:00 07:00 Intake Total 750 ml Output Total 350 ml 3100 ml Balance -350 ml -2350 ml Exam Constitutional: No distress ENMT: mucosa pink and moist Neck: No jvd Respiratory: No diminished breath sounds, No labored breathing Gastrointestinal: non-tender, soft Neurological: BID WRITER II-XII intact, nl mental status, No lethargic Results Result Diagram: 07/26/16 0608 07/26/16 0608 Results 24 hrs Laboratory Tests Test 07/26/16 06:08 White Blood Count 3.7 L Red Blood Count 3.23 L Hemoglobin 11.4 L Hematocrit 33.3 L Mean Corpuscular Volume 103.1 H Mean Corpuscular Hemoglobin 35.3 H Mean Corpuscular Hemoglobin Concent 34.2 Red Cell Distribution Width 12.2 Platelet Count 281 Mean Platelet Volume 8.9 Neutrophils % 57.3 Lymphocytes % 28.3 Monocytes % 9.8 Eosinophils % 1.6 Basophils % 0.3 Nucleated Red Blood Cells % 0.0 Neutrophils # 2.1 Lymphocytes # 1.0 Monocytes # 0.4 Eosinophils # 0.1 Basophils # 0.0 Nucleated Red Blood Cells # 0.0 Sodium Level 130 L Potassium Level 3.8 Chloride Level 93 L Carbon Dioxide Level 32 H Anion Gap 9 Blood Urea Nitrogen 9 Creatinine 0.48 L Glucose Level 103 Calcium Level 8.8 Magnesium Level 1.8 Medications Medications Current Medications Aspirin (Halfprin) 81 mg DAILY PO Last administered on 07/26/16 09:41; Admin Dose 81 MG; Start 07/19/16 at 09:00 Atorvastatin Calcium (Lipitor) 20 mg HS PO Last administered on 07/25/16 20:33 ; Admin Dose 20 MG; Start 07/19/16 at 21:00 Folic Acid (Folic Acid) 0.4 mg DAILY PO Last administered on 07/26/16 09:42; Admin Dose 0.4 MG; Start 07/19/16 at 09:00 Magnesium Oxide (Mag-Ox 400) 400 mg BID PO Last administered on 07/26/16 09:41 ; Admin Dose 400 MG; Start 07/18/16 at 22:30 Nicotine (Nicoderm 21 Mg/ 24hr) 1 patch DAILY TRANSDERM Last administered on 09:42; Admin Dose 1 PATCH; Start 07/19/16 at 09:00 Quetiapine Fumarate (Seroquel) 25 mg HS PO Last administered on 07/25/16 20:33 ; Admin Dose 25 MG; Start 07/19/16 at 21:00 Tiotropium [place] (Spiriva) 1 inh DAILY INH Last administered on 07/26/16 09: 39; Admin Dose 1 INH; Start 07/21/16 at 14:30 Ondansetron HCl (Zofran Inj) 4 mg Q6H PRN IV NAUSEA AND/OR VOMITING; Start 07/18 at 22:30 Albuterol (Ventolin Hfa) 2 puff Q6H PRN INH SHORTNESS OF BREATH Last administered on 07/21/16 06:12; Admin Dose 2 PUFF; Start 07/18/16 at 23:00 Salmeterol Xinafoate/ Fluticasone (Advair 250/50 Diskus) 1 inh BID INH Last administered on 07/26/16 09:39; Admin Dose 1 INH; Start 07/19/16 at 09:00 Lactobacillus Acidophilus (Florajen3 Capsule) 1 each BID PO Last administered on 07/26/16 09:42; Admin Dose 1 EACH; Start 07/19/16 at 09:00 Morphine Sulfate (morphine) 4 mg Q4H PRN IV SEVERE PAIN LEVEL 7-10 Last administered on 07/26/16 10:03; Admin Dose 4 MG; Start 07/19/16 at 02:30 Oxycodone/ Acetaminophen (Endocet (10/ 325)) 1 tab Q6H PRN PO PAIN Last administered on 07/25/16 15:21; Admin Dose 1 TAB; Start 07/19/16 at 02:30 Diltiazem HCl (Cardizem) 60 mg Q3H PRN PO HR>150 Last administered on 14:13; Admin Dose 60 MG; Start 07/19/16 at 19:30 Cyanocobalamin 1000 mcg 1,000 mcg DAILY PO Last administered on 07/26/16 09:41 ; Admin Dose 1,000 MCG; Start 07/20/16 at 14:00 Ceftriaxone Sodium (Rocephin) 50 ml @ 100 mls/hr Q24H IVPB Last administered on 07/26/16 12:20; Admin Dose 100 MLS/HR; Start 07/21/16 at 12:00 Gabapentin (Neurontin) 100 mg TID PO Last administered on 07/26/16 12:19; Admin Dose 100 MG; Start 07/21/16 at 13:00 Acetaminophen (Tylenol Tab) 650 mg Q6H PRN PO PAIN AND OR ELEVATED TEMP Last administered on 07/22/16 20:41; Admin Dose 650 MG; Start 07/22/16 at 21:00 Famotidine (Pepcid) 20 mg DAILY PO Last administered on 07/26/16 09:41; Admin Dose 20 MG; Start 07/24/16 at 09:00 Docusate Sodium (Colace) 100 mg HS PO Last administered on 07/25/16 20:33; Admin Dose 100 MG; Start 07/23/16 at 21:00 Bisacodyl (Dulcolax) 10 mg DAILY PRN PO CONSTIPATION; Start 07/23/16 at 19:30 Thiamine HCl (Vitamin B1) 100 mg DAILY PO Last administered on 07/26/16 09:41 ; Admin Dose 100 MG; Start 07/23/16 at 19:30 Diltiazem HCl (Cardizem Cd) 360 mg DAILY PO Last administered on 07/26/16 09: 41; Admin Dose 360 MG; Start 07/25/16 at 09:00 Enoxaparin Sodium 40 mg 40 mg DAILY SC Last administered on 07/26/16 09:43; Admin Dose 40 MG; Start 07/25/16 at 17:00 Vancomycin HCl (Vancocin) 250 ml @ 125 mls/hr Q8H IVPB Last administered on 09:40; Admin Dose 125 MLS/HR; Start 07/26/16 at 02:00 Miscellaneous Information (*Rx Drug Level Order Reminder*) VANCO TR LEVEL PRIOR... ONCE ONCE XX ; Start 07/26/16 at 17:00; Stop 07/26/16 at 17:01 Silver Sulfadiazine (Thermazene 1% 25 Gm) 1 applic BID TOP Last administered on 07/26/16 16:14; Admin Dose 1 APPLIC; Start 07/26/16 at 14:30 CHRISSIE MEANS MD July 26, 2016 16:34
--- NOTE | 2016-07-26 19:53 | CONS ---
Date/Time of Note Date/Time of Note DATE: 07/26/16 TIME: 19:52 Assessment/Plan Assessment/Plan Chief Complaint/Hosp Course Assessment: Acute on chronic diastolic heart failure - improving with diuresis Paroxysmal supraventricular tachycardia Hypertension Dyslipidemia Bilateral lower extremity cellulitis - antibiotics per primary team Chronic obstructive pulmonary disease exacerbation - management per primary team Hyponatremia Recommendations: -echocardiogram showed LVEF 60-65%, mild diastolic dysfunction -continue Lasix 20mg IV BID -continue diltiazem CD 360mg daily -continue aspirin 81mg and atorvastatin 20mg daily Problems: Consultation Date/Type/Reason Admit Date/Time July 18, 2016 at 19:42 Initial Consult Date 07/19/16 Type of Consultation: Cardiology 24 HR Interval Summary Free Text/Dictation No acute events. Shortness of breath and lower extremity swelling and pain improved. Detailed Summary Additional Comments 14 point review of systems without changes. Exam/Review of Systems Vital Signs Vitals Vital Signs Date Time Temp Pulse Resp B/P Pulse Ox O2 Delivery O2 Flow Rate FiO2 07/26/16 19:36 Nasal Cannula 4.0 07/26/16 16:21 66 07/26/16 15:36 18 128/68 96 07/26/16 11:30 97.4 07/25/16 10:02 32 Intake and Output 07/25/16 07/25/16 07/26/16 14:59 22:59 06:59 Intake Total 750 ml Output Total 350 ml 3100 ml Balance -350 ml -2350 ml Exam Constitutional: alert, well developed Psych: nl mood/affect, no complaints Head: atraumatic, normocephalic Eyes: nl conjunctiva, nl lids ENMT: nl external ears & nose, nl nasal mucosa & septum Neck: non-tender, supple, No jvd Respiratory: diminished breath sounds, wheezing Cardiovascular: regular rate and rhythm, No murmurs/extra sounds Gastrointestinal: non-tender, soft Musculoskeletal: swelling Extremities: edema, No clubbing, No cyanosis Neurological: nl mental status, nl speech Skin: rash or lesions Results Result Diagram: 07/26/16 0608 07/26/16 0608 Results 24 hrs Laboratory Tests Test 07/26/16 06:08 07/26/16 16:55 White Blood Count 3.7 L Red Blood Count 3.23 L Hemoglobin 11.4 L Hematocrit 33.3 L Mean Corpuscular Volume 103.1 H Mean Corpuscular Hemoglobin 35.3 H Mean Corpuscular Hemoglobin Concent 34.2 Red Cell Distribution Width 12.2 Platelet Count 281 Mean Platelet Volume 8.9 Neutrophils % 57.3 Lymphocytes % 28.3 Monocytes % 9.8 Eosinophils % 1.6 Basophils % 0.3 Nucleated Red Blood Cells % 0.0 Neutrophils # 2.1 Lymphocytes # 1.0 Monocytes # 0.4 Eosinophils # 0.1 Basophils # 0.0 Nucleated Red Blood Cells # 0.0 Sodium Level 130 L Potassium Level 3.8 Chloride Level 93 L Carbon Dioxide Level 32 H Anion Gap 9 Blood Urea Nitrogen 9 Creatinine 0.48 L Glucose Level 103 Calcium Level 8.8 Magnesium Level 1.8 Vancomycin Level Trough 10.1 Medications Medications Current Medications Aspirin (Halfprin) 81 mg DAILY PO Last administered on 07/26/16 09:41; Admin Dose 81 MG; Start 07/19/16 at 09:00 Atorvastatin Calcium (Lipitor) 20 mg HS PO Last administered on 07/25/16 20:33 ; Admin Dose 20 MG; Start 07/19/16 at 21:00 Folic Acid (Folic Acid) 0.4 mg DAILY PO Last administered on 07/26/16 09:42; Admin Dose 0.4 MG; Start 07/19/16 at 09:00 Magnesium Oxide (Mag-Ox 400) 400 mg BID PO Last administered on 07/26/16 09:41 ; Admin Dose 400 MG; Start 07/18/16 at 22:30 Nicotine (Nicoderm 21 Mg/ 24hr) 1 patch DAILY TRANSDERM Last administered on 09:42; Admin Dose 1 PATCH; Start 07/19/16 at 09:00 Quetiapine Fumarate (Seroquel) 25 mg HS PO Last administered on 07/25/16 20:33 ; Admin Dose 25 MG; Start 07/19/16 at 21:00 Tiotropium [place] (Spiriva) 1 inh DAILY INH Last administered on 07/26/16 09: 39; Admin Dose 1 INH; Start 07/21/16 at 14:30 Ondansetron HCl (Zofran Inj) 4 mg Q6H PRN IV NAUSEA AND/OR VOMITING; Start 07/18 at 22:30 Albuterol (Ventolin Hfa) 2 puff Q6H PRN INH SHORTNESS OF BREATH Last administered on 07/21/16 06:12; Admin Dose 2 PUFF; Start 07/18/16 at 23:00 Salmeterol Xinafoate/ Fluticasone (Advair 250/50 Diskus) 1 inh BID INH Last administered on 07/26/16 09:39; Admin Dose 1 INH; Start 07/19/16 at 09:00 Lactobacillus Acidophilus (Florajen3 Capsule) 1 each BID PO Last administered on 07/26/16 09:42; Admin Dose 1 EACH; Start 07/19/16 at 09:00 Morphine Sulfate (morphine) 4 mg Q4H PRN IV SEVERE PAIN LEVEL 7-10 Last administered on 07/26/16 19:49; Admin Dose 4 MG; Start 07/19/16 at 02:30 Oxycodone/ Acetaminophen (Endocet (10/ 325)) 1 tab Q6H PRN PO PAIN Last administered on 07/25/16 15:21; Admin Dose 1 TAB; Start 07/19/16 at 02:30 Diltiazem HCl (Cardizem) 60 mg Q3H PRN PO HR>150 Last administered on 14:13; Admin Dose 60 MG; Start 07/19/16 at 19:30 Cyanocobalamin 1000 mcg 1,000 mcg DAILY PO Last administered on 07/26/16 09:41 ; Admin Dose 1,000 MCG; Start 07/20/16 at 14:00 Ceftriaxone Sodium (Rocephin) 50 ml @ 100 mls/hr Q24H IVPB Last administered on 07/26/16 12:20; Admin Dose 100 MLS/HR; Start 07/21/16 at 12:00 Gabapentin (Neurontin) 100 mg TID PO Last administered on 07/26/16 12:19; Admin Dose 100 MG; Start 07/21/16 at 13:00 Acetaminophen (Tylenol Tab) 650 mg Q6H PRN PO PAIN AND OR ELEVATED TEMP Last administered on 07/22/16 20:41; Admin Dose 650 MG; Start 07/22/16 at 21:00 Famotidine (Pepcid) 20 mg DAILY PO Last administered on 07/26/16 09:41; Admin Dose 20 MG; Start 07/24/16 at 09:00 Docusate Sodium (Colace) 100 mg HS PO Last administered on 07/25/16 20:33; Admin Dose 100 MG; Start 07/23/16 at 21:00 Bisacodyl (Dulcolax) 10 mg DAILY PRN PO CONSTIPATION; Start 07/23/16 at 19:30 Thiamine HCl (Vitamin B1) 100 mg DAILY PO Last administered on 07/26/16 09:41 ; Admin Dose 100 MG; Start 07/23/16 at 19:30 Diltiazem HCl (Cardizem Cd) 360 mg DAILY PO Last administered on 07/26/16 09: 41; Admin Dose 360 MG; Start 07/25/16 at 09:00 Enoxaparin Sodium 40 mg 40 mg DAILY SC Last administered on 07/26/16 09:43; Admin Dose 40 MG; Start 07/25/16 at 17:00 Vancomycin HCl (Vancocin) 250 ml @ 125 mls/hr Q8H IVPB Last administered on 19:19; Admin Dose 125 MLS/HR; Start 07/26/16 at 02:00 Silver Sulfadiazine (Thermazene 1% 25 Gm) 1 applic BID TOP Last administered on 07/26/16 16:14; Admin Dose 1 APPLIC; Start 07/26/16 at 14:30 PRISCILLA HEMPHILL MD July 26, 2016 19:53
[2016-07-26] MEDS: QUETIAPINE 25 MG TAB PO SCH (20:40)
[2016-07-26] MEDS: DOCUSATE SODIUM 100 MG CAP PO SCH (20:40)
[2016-07-26] MEDS: ATORVASTATIN 20 MG TAB PO SCH (20:40)
[2016-07-27] VITALS (11 sets, daily range): BP systolic 123–148; BP diastolic 59–85; PULSE 71–98; RESP 18
[2016-07-27] MEDS: VANCOMYCIN 1 GM in NS 250 ML IVPB SCH ×3 (01:54→17:30)
--- NOTE | 2016-07-27 03:29 | DS ---
DATE OF ADMISSION: 07/18/2016 DATE OF DISCHARGE: 07/26/2016 induced [id number] 07/18/2016 07/26/2016. CONSULTANTS: 1. Dr. Aayush Garay 2. Dr. Paulo Leach. 3. Dr. Elijah Mcguire. PROCEDURE: 1. A 2D echocardiogram which demonstrated left ventricle is normal in size and systolic function. Estimated left ventricular ejection fraction 60-65%, mild left ventricular diastolic dysfunction. DISCHARGE DIAGNOSES: 1. Acute on chronic diastolic heart failure. 2. Paroxysmal ventricular tachycardia. 3. Hypertension. 4. Dyslipidemia. 5. Bilateral lower extremity cellulitis. 6. Chronic obstructive pulmonary disease exacerbation. 7. Hyponatremia 8. Fatty liver. 9. Previous history of tobacco use. 10. Previous history of alcohol use. 11. Hyperkalemia secondary to Lasix. 12. Hypomagnesemia. 13. Microcytic anemia. 14. Dyslipidemia. MEDICATIONS: 1. Folic acid. 2. Lipitor. 3. Aspirin. 4. Clindamycin. 5. Lactobacillus. 6. Tudorza. 7. Albuterol sulfate. 8. Symbicort. 9. Diltiazem. 10. Magnesium oxide. 11. Nicotine patch. 12. Nitroglycerin p.r.n. 13. Protonix. 14. Seroquel. 15. Gabapentin. 16. Lasix. 17. Silver sulfadiazine. 18. Vitamin B12. 19. Thiamine. ALLERGIES: NO KNOWN DRUG ALLERGIES. DISPOSITION: To a group home facility for wound care and physical therapy. LABORATORY DATA: Sodium 130, potassium 2.8, chloride 93, bicarbonate 32, BUN 9, creatinine 0.848, g lucose 103. Hemoglobin A1c 5.6, calcium 8.8, magnesium 1.8. WBC 3.7, hemoglobin 11.5, hematocrit 3 3.3, platelets 281, MCV 103.1. Hepatitis panel negative, HIV negative. HOSPITAL COURSE: This is a 60-year-old gentleman with past medical history of hypertension, COPD, c oronary artery disease, CHF, GERD, nicotine dependency, who lives in his and was recently dischar gedusty from [facility] presented to [facility] Emergency Room with bilateral lower extremity s welling, redness, pain and blisters. The patient also complained of shortness of breath. Chest x-r ay showed hyperinflated lung. A 2D echocardiogram showed normal ejection fraction with diastolic dy sfunction. Nephrology was consulted secondary to severe hyponatremia with sodium of 133 and 124. T he patient was found to have fluid overload and was restricted on fluid, was placed on Lasix in rega rd to his lower extremity edema and cellulitis. The cellulitis was likely secondary to having edema , was placed on Rocephin and clindamycin. His lower extremity has improved significantly. There is no evidence of edema. Infectious disease doctor has been consulted. The patient was also placed o n vancomycin. In regard to his coronary artery disease, the patient was continued on aspirin and st atin. Regarding his ventricular tachycardia, the patient was placed on Cardizem. Regarding his his tory of alcohol abuse, he was continued on folic acid, vitamin B12 and thiamine. The patient has be en continued on aggressive medical management. Today, the patient is afebrile with temperature 97.4 , pulse 86, respiration 18, blood pressure 136/79, and oxygen 98% in room air. He has been able to ambulate with minimal assist, although at this time, the patient does need a front-wheel walker [facility] h will be delivered to him prior to discharge. At this time, patient is adamant that he wants to be discharged home, although I have asked the egg caser to set him to transfer to group home f acility. They will try regarding the group home facility for physical therapy and wound care. The patient's labs are stable except the patient is mildly still hyponatremic, otherwise, his BUN a nd creatinine is within normal limits. At this time, patient is medically stable to be transferred to group home facility. If group home facility is not available, the patient may be disch arged home with home health. Dictated By: DEVAUGHN MEZA/NTS Conf#: [id number] DID#: [id number]
[2016-07-27] MEDS: FUROSEMIDE 20 MG INJ IV SCH (05:34)
[2016-07-27] MEDS: morphine 4 MG/ML VIAL IV PRN ×2 (07:36→17:41)
--- NOTE | 2016-07-27 08:55 | CONS ---
Date/Time of Note Date/Time of Note DATE: 07/27/16 TIME: 08:54 Assessment/Plan Assessment/Plan Additional Assessment/Plan 60 yo male with 1) B/L LE Cellulitis 2) COPD Exacerbation 3) Chronic CHF 4) Hyponatremia, Pt is not euvolemic at this time, Asymptomatic 5) CAD 6) Anemia, Likely chronic 7) Hypokalemia- Resolved Hyponatremia likely from Excessive free H20 intake in the setting of Increase Circulating ADH from pain and lung disease Na cont to improve and stable Cont current treatment and plan Cont Free H20 restriction at this time Consultation Date/Type/Reason Admit Date/Time July 18, 2016 at 19:42 Initial Consult Date 07/19/16 Type of Consultation: Renal Exam/Review of Systems Vital Signs Vitals Vital Signs Date Time Temp Pulse Resp B/P Pulse Ox O2 Delivery O2 Flow Rate FiO2 07/27/16 08:26 98.7 88 18 123/81 97 07/27/16 03:29 4.0 07/26/16 19:36 Nasal Cannula 07/25/16 10:02 32 Intake and Output 07/26/16 07/26/16 07/27/16 15:00 23:00 07:00 Intake Total 300 ml 1200 ml 650 ml Output Total 1700 ml 1200 ml Balance 300 ml -500 ml -550 ml Exam Constitutional: No distress ENMT: mucosa pink and moist Respiratory: No diminished breath sounds, No labored breathing Cardiovascular: edema Gastrointestinal: non-tender, soft Neurological: IGNITER CAPPER II-XII intact, nl mental status, No lethargic Skin: No diaphoresis Results Result Diagram: 07/26/16 0608 07/26/16 0608 Results 24 hrs Laboratory Tests Test 07/26/16 16:55 Vancomycin Level Trough 10.1 Medications Medications Current Medications Aspirin (Halfprin) 81 mg DAILY PO Last administered on 07/26/16 09:41; Admin Dose 81 MG; Start 07/19/16 at 09:00 Atorvastatin Calcium (Lipitor) 20 mg HS PO Last administered on 07/26/16 20:40 ; Admin Dose 20 MG; Start 07/19/16 at 21:00 Folic Acid (Folic Acid) 0.4 mg DAILY PO Last administered on 07/26/16 09:42; Admin Dose 0.4 MG; Start 07/19/16 at 09:00 Magnesium Oxide (Mag-Ox 400) 400 mg BID PO Last administered on 07/26/16 20:40 ; Admin Dose 400 MG; Start 07/18/16 at 22:30 Nicotine (Nicoderm 21 Mg/ 24hr) 1 patch DAILY TRANSDERM Last administered on 09:42; Admin Dose 1 PATCH; Start 07/19/16 at 09:00 Quetiapine Fumarate (Seroquel) 25 mg HS PO Last administered on 07/26/16 20:40 ; Admin Dose 25 MG; Start 07/19/16 at 21:00 Tiotropium [place] (Spiriva) 1 inh DAILY INH Last administered on 07/26/16 09: 39; Admin Dose 1 INH; Start 07/21/16 at 14:30 Ondansetron HCl (Zofran Inj) 4 mg Q6H PRN IV NAUSEA AND/OR VOMITING; Start 07/18 at 22:30 Albuterol (Ventolin Hfa) 2 puff Q6H PRN INH SHORTNESS OF BREATH Last administered on 07/21/16 06:12; Admin Dose 2 PUFF; Start 07/18/16 at 23:00 Salmeterol Xinafoate/ Fluticasone (Advair 250/50 Diskus) 1 inh BID INH Last administered on 07/26/16 20:39; Admin Dose 1 INH; Start 07/19/16 at 09:00 Lactobacillus Acidophilus (Florajen3 Capsule) 1 each BID PO Last administered on 07/26/16 20:40; Admin Dose 1 EACH; Start 07/19/16 at 09:00 Morphine Sulfate (morphine) 4 mg Q4H PRN IV SEVERE PAIN LEVEL 7-10 Last administered on 07/27/16 07:36; Admin Dose 4 MG; Start 07/19/16 at 02:30 Oxycodone/ Acetaminophen (Endocet (10/ 325)) 1 tab Q6H PRN PO PAIN Last administered on 07/25/16 15:21; Admin Dose 1 TAB; Start 07/19/16 at 02:30 Diltiazem HCl (Cardizem) 60 mg Q3H PRN PO HR>150 Last administered on 14:13; Admin Dose 60 MG; Start 07/19/16 at 19:30 Cyanocobalamin 1000 mcg 1,000 mcg DAILY PO Last administered on 07/26/16 09:41 ; Admin Dose 1,000 MCG; Start 07/20/16 at 14:00 Ceftriaxone Sodium (Rocephin) 50 ml @ 100 mls/hr Q24H IVPB Last administered on 07/26/16 12:20; Admin Dose 100 MLS/HR; Start 07/21/16 at 12:00 Gabapentin (Neurontin) 100 mg TID PO Last administered on 07/26/16 20:40; Admin Dose 100 MG; Start 07/21/16 at 13:00 Acetaminophen (Tylenol Tab) 650 mg Q6H PRN PO PAIN AND OR ELEVATED TEMP Last administered on 07/22/16 20:41; Admin Dose 650 MG; Start 07/22/16 at 21:00 Famotidine (Pepcid) 20 mg DAILY PO Last administered on 07/26/16 09:41; Admin Dose 20 MG; Start 07/24/16 at 09:00 Docusate Sodium (Colace) 100 mg HS PO Last administered on 07/26/16 20:40; Admin Dose 100 MG; Start 07/23/16 at 21:00 Bisacodyl (Dulcolax) 10 mg DAILY PRN PO CONSTIPATION; Start 07/23/16 at 19:30 Thiamine HCl (Vitamin B1) 100 mg DAILY PO Last administered on 07/26/16 09:41 ; Admin Dose 100 MG; Start 07/23/16 at 19:30 Diltiazem HCl (Cardizem Cd) 360 mg DAILY PO Last administered on 07/26/16 09: 41; Admin Dose 360 MG; Start 07/25/16 at 09:00 Enoxaparin Sodium 40 mg 40 mg DAILY SC Last administered on 07/26/16 09:43; Admin Dose 40 MG; Start 07/25/16 at 17:00 Vancomycin HCl (Vancocin) 250 ml @ 125 mls/hr Q8H IVPB Last administered on 01:54; Admin Dose 125 MLS/HR; Start 07/26/16 at 02:00 Silver Sulfadiazine (Thermazene 1% 25 Gm) 1 applic BID TOP Last administered on 07/26/16 22:42; Admin Dose 1 APPLIC; Start 07/26/16 at 14:30 CHRISSIE MEANS MD July 27, 2016 08:55
[2016-07-27] MEDS: SALMETEROL/FLUTICASONE 250/50 INHA INH SCH ×2 (09:00→21:44)
[2016-07-27] MEDS: THIAMINE 100 MG TAB PO SCH (09:00)
[2016-07-27] MEDS: DILTIAZEM (CD) 240 MG CAP PO SCH (09:00)
[2016-07-27] MEDS: TIOTROPIUM 18 MCG CAPSULE INHA DEV INH SCH (09:00)
[2016-07-27] MEDS: SILVER SULFADIAZINE 1% 25 GM CR TOP SCH ×2 (09:00→21:43)
[2016-07-27] MEDS: ASPIRIN (EC) 81 MG TAB PO SCH (09:01)
[2016-07-27] MEDS: GABAPENTIN 100 MG CAP PO SCH ×3 (09:01→21:42)
[2016-07-27] MEDS: CYANOCOBALAMIN 500 MCG TAB PO SCH (09:01)
[2016-07-27] MEDS: MAGNESIUM OXIDE 400 MG TAB PO SCH ×2 (09:01→21:42)
[2016-07-27] MEDS: FOLIC ACID 0.4 MG TAB PO SCH (09:01)
[2016-07-27] MEDS: FAMOTIDINE 20 MG TAB PO SCH (09:01)
[2016-07-27] MEDS: NICOTINE (21 MG/24 HR) PATCH TRANSDERM SCH (09:04)
[2016-07-27] MEDS: ENOXAPARIN 40 MG/0.4 ML SYG SC SCH (09:05)
[2016-07-27] MEDS: L ACIDOPHIL/B LACTIS/B LONGUM CAPSULE PO SCH ×2 (09:17→21:42)
[2016-07-27] MEDS: DILTIAZEM (CD) 180 MG CAP PO SCH (09:18)
[2016-07-27] MEDS: OXYCODONE/ACETAMINOPHEN (10/325) TAB PO PRN ×2 (12:07→21:55)
--- NOTE | 2016-07-27 13:07 | PN ---
Date/Time of Note Date/Time of Note DATE: 07/27/16 TIME: 12:53 Assessment/Plan VTE Prophylaxis VTE Prophylaxis Intervention: LMWH Lines/Catheters IV Catheter Type (from Nrsg): Saline Lock Assessment/Plan Assessment/Plan 60 yo male who presented to ER c/o bilateral lower ext redness, swelling, pain and blisters and shortness of breath Acute on chronic diastolic heart failure - EF preserved. Improving with diuresis. Paroxysmal supraventricular tachycardia: occurred again this am and last night: cardizem increased Hypertension: controlled Dyslipidemia Bilateral lower extremity cellulitis - improving Chronic obstructive pulmonary disease exacerbation - improved Hyponatremia: improved with diuresis Fatty liver Prev hx of tobacco and alcohol use Hypokalemia 2/ lasix: Resolved PLAN: * Continue current care /patient would be better cared for in [place] [facility] as he resides in a motor home / placement pending * Continue diuresis per cardiology, continue to monitor heart rate * Replace electrolytes /pain control /physical therapy / supportive care. Subjective 24 Hr Interval Summary Free Text/Dictation Discharge planning still in process, patient is still doing well. Able to ambulate for short distances with his walker. Exam/Review of Systems Vital Signs Vitals Vital Signs Date Time Temp Pulse Resp B/P Pulse Ox O2 Delivery O2 Flow Rate FiO2 07/27/16 12:28 98 07/27/16 11:29 98.8 18 148/79 100 07/27/16 08:15 Nasal Cannula 4.0 07/25/16 10:02 32 Intake and Output 07/26/16 07/26/16 07/27/16 15:00 23:00 07:00 Intake Total 300 ml 1200 ml 650 ml Output Total 1700 ml 1200 ml Balance 300 ml -500 ml -550 ml Exam Constitutional: alert, oriented Head: atraumatic, normocephalic Eyes: EOMI, PERRL Respiratory: clear to auscultation, normal air movement Cardiovascular: nl pulses, regular rate and rhythm Gastrointestinal: non-tender, soft Extremities: Improved edema, other (erythema bilaterally, worse on left foot. dried up scabs, with occasional areas of oozing of very minimal amount of yellowish pus), tenderness Results Result Diagram: 07/26/16 0608 07/26/16 0608 Results 24 hrs Laboratory Tests Test 07/26/16 16:55 Vancomycin Level Trough 10.1 Medications Medications Current Medications Aspirin (Halfprin) 81 mg DAILY PO Last administered on 07/27/16 09:01; Admin Dose 81 MG; Start 07/19/16 at 09:00 Atorvastatin Calcium (Lipitor) 20 mg HS PO Last administered on 07/26/16 20:40 ; Admin Dose 20 MG; Start 07/19/16 at 21:00 Folic Acid (Folic Acid) 0.4 mg DAILY PO Last administered on 07/27/16 09:01; Admin Dose 0.4 MG; Start 07/19/16 at 09:00 Magnesium Oxide (Mag-Ox 400) 400 mg BID PO Last administered on 07/27/16 09:01 ; Admin Dose 400 MG; Start 07/18/16 at 22:30 Nicotine (Nicoderm 21 Mg/ 24hr) 1 patch DAILY TRANSDERM Last administered on 09:04; Admin Dose 1 PATCH; Start 07/19/16 at 09:00 Quetiapine Fumarate (Seroquel) 25 mg HS PO Last administered on 07/26/16 20:40 ; Admin Dose 25 MG; Start 07/19/16 at 21:00 Tiotropium [place] (Spiriva) 1 inh DAILY INH Last administered on 07/27/16 09: 00; Admin Dose 1 INH; Start 07/21/16 at 14:30 Ondansetron HCl (Zofran Inj) 4 mg Q6H PRN IV NAUSEA AND/OR VOMITING; Start 07/18 at 22:30 Albuterol (Ventolin Hfa) 2 puff Q6H PRN INH SHORTNESS OF BREATH Last administered on 07/21/16 06:12; Admin Dose 2 PUFF; Start 07/18/16 at 23:00 Salmeterol Xinafoate/ Fluticasone (Advair 250/50 Diskus) 1 inh BID INH Last administered on 07/27/16 09:00; Admin Dose 1 INH; Start 07/19/16 at 09:00 Lactobacillus Acidophilus (Florajen3 Capsule) 1 each BID PO Last administered on 07/27/16 09:17; Admin Dose 1 EACH; Start 07/19/16 at 09:00 Morphine Sulfate (morphine) 4 mg Q4H PRN IV SEVERE PAIN LEVEL 7-10 Last administered on 07/27/16 07:36; Admin Dose 4 MG; Start 07/19/16 at 02:30 Oxycodone/ Acetaminophen (Endocet (10/ 325)) 1 tab Q6H PRN PO PAIN Last administered on 07/27/16 12:07; Admin Dose 1 TAB; Start 07/19/16 at 02:30 Diltiazem HCl (Cardizem) 60 mg Q3H PRN PO HR>150 Last administered on 14:13; Admin Dose 60 MG; Start 07/19/16 at 19:30 Cyanocobalamin 1000 mcg 1,000 mcg DAILY PO Last administered on 07/27/16 09:01 ; Admin Dose 1,000 MCG; Start 07/20/16 at 14:00 Ceftriaxone Sodium (Rocephin) 50 ml @ 100 mls/hr Q24H IVPB Last administered on 07/26/16 12:20; Admin Dose 100 MLS/HR; Start 07/21/16 at 12:00 Gabapentin (Neurontin) 100 mg TID PO Last administered on 07/27/16 09:01; Admin Dose 100 MG; Start 07/21/16 at 13:00 Acetaminophen (Tylenol Tab) 650 mg Q6H PRN PO PAIN AND OR ELEVATED TEMP Last administered on 07/22/16 20:41; Admin Dose 650 MG; Start 07/22/16 at 21:00 Famotidine (Pepcid) 20 mg DAILY PO Last administered on 07/27/16 09:01; Admin Dose 20 MG; Start 07/24/16 at 09:00 Docusate Sodium (Colace) 100 mg HS PO Last administered on 07/26/16 20:40; Admin Dose 100 MG; Start 07/23/16 at 21:00 Bisacodyl (Dulcolax) 10 mg DAILY PRN PO CONSTIPATION; Start 07/23/16 at 19:30 Thiamine HCl (Vitamin B1) 100 mg DAILY PO Last administered on 07/27/16 09:00 ; Admin Dose 100 MG; Start 07/23/16 at 19:30 Enoxaparin Sodium 40 mg 40 mg DAILY SC Last administered on 07/27/16 09:05; Admin Dose 40 MG; Start 07/25/16 at 17:00 Vancomycin HCl (Vancocin) 250 ml @ 125 mls/hr Q8H IVPB Last administered on 10:55; Admin Dose 125 MLS/HR; Start 07/26/16 at 02:00 Silver Sulfadiazine (Thermazene 1% 25 Gm) 1 applic BID TOP Last administered on 07/27/16 09:00; Admin Dose 1 APPLIC; Start 07/26/16 at 14:30 Diltiazem HCl (Cardizem Cd) 360 mg DAILY PO Last administered on 07/27/16 09: 18; Admin Dose 360 MG; Start 07/27/16 at 09:30 JOVAN BENAVIDEZ July 27, 2016 13:04
[2016-07-27] MEDS: CEFTRIAXONE 1 GM/50 ML (PMX) 50 ML IVPB SCH (13:37)
--- NOTE | 2016-07-27 14:42 | CONS ---
Date/Time of Note Date/Time of Note DATE: 07/27/16 TIME: 14:41 Assessment/Plan Assessment/Plan Chief Complaint/Hosp Course SUBJECTIVE: The patient is awake, lying comfortably in bed. No fevers. . MICROBIOLOGY: Blood cultures remain negative. ANTIMICROBIALS: 1. IV vancomycin 2. IV Rocephin. PHYSICAL EXAMINATION: GENERAL: A 60-year-old man who looks older than his age. The patient is in no distress. HEENT: Head atraumatic, normocephalic. Sclerae anicteric. Buccal mucosa dry. NECK: Supple. CHEST: Rise symmetrical. Breath sounds diminished to bases. HEART: S1, S2. ABDOMEN: Soft, bowel sounds present. EXTREMITIES: With bilateral lower extremities edema, erythema, chronic wounds, left more than right. ASSESSMENT: 1. Bilateral lower extremity cellulitis. 2. History of coronary artery disease and congestive heart failure. 3. Hypertension. 4. Chronic obstructive pulmonary disease. PLAN: Remains stable. Continue present care, antibiotics, topical Silvadene [facility] staff Problems: Consultation Date/Type/Reason Admit Date/Time July 18, 2016 at 19:42 Initial Consult Date 07/19/16 Type of Consultation: ID Exam/Review of Systems Vital Signs Vitals Vital Signs Date Time Temp Pulse Resp B/P Pulse Ox O2 Delivery O2 Flow Rate FiO2 07/27/16 12:28 98 07/27/16 11:29 98.8 18 148/79 100 07/27/16 08:15 Nasal Cannula 4.0 07/25/16 10:02 32 Intake and Output 07/26/16 07/26/16 07/27/16 15:00 23:00 07:00 Intake Total 300 ml 1200 ml 650 ml Output Total 1700 ml 1200 ml Balance 300 ml -500 ml -550 ml Results Result Diagram: 07/26/16 0608 07/26/16 0608 Results 24 hrs Laboratory Tests Test 07/26/16 16:55 Vancomycin Level Trough 10.1 Medications Medications Current Medications Aspirin (Halfprin) 81 mg DAILY PO Last administered on 07/27/16 09:01; Admin Dose 81 MG; Start 07/19/16 at 09:00 Atorvastatin Calcium (Lipitor) 20 mg HS PO Last administered on 07/26/16 20:40 ; Admin Dose 20 MG; Start 07/19/16 at 21:00 Folic Acid (Folic Acid) 0.4 mg DAILY PO Last administered on 07/27/16 09:01; Admin Dose 0.4 MG; Start 07/19/16 at 09:00 Magnesium Oxide (Mag-Ox 400) 400 mg BID PO Last administered on 07/27/16 09:01 ; Admin Dose 400 MG; Start 07/18/16 at 22:30 Nicotine (Nicoderm 21 Mg/ 24hr) 1 patch DAILY TRANSDERM Last administered on 09:04; Admin Dose 1 PATCH; Start 07/19/16 at 09:00 Quetiapine Fumarate (Seroquel) 25 mg HS PO Last administered on 07/26/16 20:40 ; Admin Dose 25 MG; Start 07/19/16 at 21:00 Tiotropium [place] (Spiriva) 1 inh DAILY INH Last administered on 07/27/16 09: 00; Admin Dose 1 INH; Start 07/21/16 at 14:30 Ondansetron HCl (Zofran Inj) 4 mg Q6H PRN IV NAUSEA AND/OR VOMITING; Start 07/18 at 22:30 Albuterol (Ventolin Hfa) 2 puff Q6H PRN INH SHORTNESS OF BREATH Last administered on 07/21/16 06:12; Admin Dose 2 PUFF; Start 07/18/16 at 23:00 Salmeterol Xinafoate/ Fluticasone (Advair 250/50 Diskus) 1 inh BID INH Last administered on 07/27/16 09:00; Admin Dose 1 INH; Start 07/19/16 at 09:00 Lactobacillus Acidophilus (Florajen3 Capsule) 1 each BID PO Last administered on 07/27/16 09:17; Admin Dose 1 EACH; Start 07/19/16 at 09:00 Morphine Sulfate (morphine) 4 mg Q4H PRN IV SEVERE PAIN LEVEL 7-10 Last administered on 07/27/16 07:36; Admin Dose 4 MG; Start 07/19/16 at 02:30 Oxycodone/ Acetaminophen (Endocet (10/ 325)) 1 tab Q6H PRN PO PAIN Last administered on 07/27/16 12:07; Admin Dose 1 TAB; Start 07/19/16 at 02:30 Diltiazem HCl (Cardizem) 60 mg Q3H PRN PO HR>150 Last administered on 14:13; Admin Dose 60 MG; Start 07/19/16 at 19:30 Cyanocobalamin 1000 mcg 1,000 mcg DAILY PO Last administered on 07/27/16 09:01 ; Admin Dose 1,000 MCG; Start 07/20/16 at 14:00 Ceftriaxone Sodium (Rocephin) 50 ml @ 100 mls/hr Q24H IVPB Last administered on 07/27/16 13:37; Admin Dose 100 MLS/HR; Start 07/21/16 at 12:00 Gabapentin (Neurontin) 100 mg TID PO Last administered on 07/27/16 13:38; Admin Dose 100 MG; Start 07/21/16 at 13:00 Acetaminophen (Tylenol Tab) 650 mg Q6H PRN PO PAIN AND OR ELEVATED TEMP Last administered on 07/22/16 20:41; Admin Dose 650 MG; Start 07/22/16 at 21:00 Famotidine (Pepcid) 20 mg DAILY PO Last administered on 07/27/16 09:01; Admin Dose 20 MG; Start 07/24/16 at 09:00 Docusate Sodium (Colace) 100 mg HS PO Last administered on 07/26/16 20:40; Admin Dose 100 MG; Start 07/23/16 at 21:00 Bisacodyl (Dulcolax) 10 mg DAILY PRN PO CONSTIPATION; Start 07/23/16 at 19:30 Thiamine HCl (Vitamin B1) 100 mg DAILY PO Last administered on 07/27/16 09:00 ; Admin Dose 100 MG; Start 07/23/16 at 19:30 Enoxaparin Sodium 40 mg 40 mg DAILY SC Last administered on 07/27/16 09:05; Admin Dose 40 MG; Start 07/25/16 at 17:00 Vancomycin HCl (Vancocin) 250 ml @ 125 mls/hr Q8H IVPB Last administered on 10:55; Admin Dose 125 MLS/HR; Start 07/26/16 at 02:00 Silver Sulfadiazine (Thermazene 1% 25 Gm) 1 applic BID TOP Last administered on 07/27/16 09:00; Admin Dose 1 APPLIC; Start 07/26/16 at 14:30 Diltiazem HCl (Cardizem Cd) 360 mg DAILY PO Last administered on 07/27/16t 09: 18; Admin Dose 360 MG; Start 07/27/16 at 09:30 STEVENSON MEJIA NP July 27, 2016 14:42
--- NOTE | 2016-07-27 15:35 | CONS ---
Date/Time of Note Date/Time of Note DATE: 07/27/16 TIME: 15:34 Assessment/Plan Assessment/Plan Chief Complaint/Hosp Course Assessment: Acute on chronic diastolic heart failure - improving with diuresis Paroxysmal supraventricular tachycardia Hypertension Dyslipidemia Bilateral lower extremity cellulitis - antibiotics per primary team Chronic obstructive pulmonary disease exacerbation - management per primary team Hyponatremia Recommendations: -echocardiogram showed LVEF 60-65%, mild diastolic dysfunction -change Lasix to 40mg PO daily -continue diltiazem CD 360mg daily -continue aspirin 81mg and atorvastatin 20mg daily Problems: Consultation Date/Type/Reason Admit Date/Time July 18, 2016 at 19:42 Initial Consult Date 07/19/16 Type of Consultation: Cardiology 24 HR Interval Summary Free Text/Dictation No acute events. Detailed Summary Additional Comments 14 point review of systems without changes. Exam/Review of Systems Vital Signs Vitals Vital Signs Date Time Temp Pulse Resp B/P Pulse Ox O2 Delivery O2 Flow Rate FiO2 07/27/16 15:19 97.7 79 18 132/85 96 07/27/16 08:15 Nasal Cannula 4.0 07/25/16 10:02 32 Intake and Output 07/26/16 07/26/16 07/27/16 15:00 23:00 07:00 Intake Total 300 ml 1200 ml 650 ml Output Total 1700 ml 1200 ml Balance 300 ml -500 ml -550 ml Exam Constitutional: alert, well developed Psych: nl mood/affect, no complaints Head: atraumatic, normocephalic Eyes: nl conjunctiva, nl lids ENMT: nl external ears & nose, nl nasal mucosa & septum Neck: non-tender, supple, No jvd Respiratory: diminished breath sounds, wheezing Cardiovascular: regular rate and rhythm, No murmurs/extra sounds Gastrointestinal: non-tender, soft Musculoskeletal: swelling Extremities: edema, No clubbing, No cyanosis Neurological: nl mental status, nl speech Skin: rash or lesions Results Result Diagram: 07/26/16 0608 07/26/16 0608 Results 24 hrs Laboratory Tests Test 07/26/16 16:55 Vancomycin Level Trough 10.1 Medications Medications Current Medications Aspirin (Halfprin) 81 mg DAILY PO Last administered on 07/27/16 09:01; Admin Dose 81 MG; Start 07/19/16 at 09:00 Atorvastatin Calcium (Lipitor) 20 mg HS PO Last administered on 07/26/16 20:40 ; Admin Dose 20 MG; Start 07/19/16 at 21:00 Folic Acid (Folic Acid) 0.4 mg DAILY PO Last administered on 07/27/16 09:01; Admin Dose 0.4 MG; Start 07/19/16 at 09:00 Magnesium Oxide (Mag-Ox 400) 400 mg BID PO Last administered on 07/27/16 09:01 ; Admin Dose 400 MG; Start 07/18/16 at 22:30 Nicotine (Nicoderm 21 Mg/ 24hr) 1 patch DAILY TRANSDERM Last administered on 09:04; Admin Dose 1 PATCH; Start 07/19/16 at 09:00 Quetiapine Fumarate (Seroquel) 25 mg HS PO Last administered on 07/26/16 20:40 ; Admin Dose 25 MG; Start 07/19/16 at 21:00 Tiotropium [place] (Spiriva) 1 inh DAILY INH Last administered on 07/27/16 09: 00; Admin Dose 1 INH; Start 07/21/16 at 14:30 Ondansetron HCl (Zofran Inj) 4 mg Q6H PRN IV NAUSEA AND/OR VOMITING; Start 07/18 at 22:30 Albuterol (Ventolin Hfa) 2 puff Q6H PRN INH SHORTNESS OF BREATH Last administered on 07/21/16 06:12; Admin Dose 2 PUFF; Start 07/18/16 at 23:00 Salmeterol Xinafoate/ Fluticasone (Advair 250/50 Diskus) 1 inh BID INH Last administered on 07/27/16 09:00; Admin Dose 1 INH; Start 07/19/16 at 09:00 Lactobacillus Acidophilus (Florajen3 Capsule) 1 each BID PO Last administered on 07/27/16 09:17; Admin Dose 1 EACH; Start 07/19/16 at 09:00 Morphine Sulfate (morphine) 4 mg Q4H PRN IV SEVERE PAIN LEVEL 7-10 Last administered on 07/27/16 07:36; Admin Dose 4 MG; Start 07/19/16 at 02:30 Oxycodone/ Acetaminophen (Endocet (10/ 325)) 1 tab Q6H PRN PO PAIN Last administered on 07/27/16 12:07; Admin Dose 1 TAB; Start 07/19/16 at 02:30 Diltiazem HCl (Cardizem) 60 mg Q3H PRN PO HR>150 Last administered on 14:13; Admin Dose 60 MG; Start 07/19/16 at 19:30 Cyanocobalamin 1000 mcg 1,000 mcg DAILY PO Last administered on 07/27/16 09:01 ; Admin Dose 1,000 MCG; Start 07/20/16 at 14:00 Ceftriaxone Sodium (Rocephin) 50 ml @ 100 mls/hr Q24H IVPB Last administered on 07/27/16 13:37; Admin Dose 100 MLS/HR; Start 07/21/16 at 12:00 Gabapentin (Neurontin) 100 mg TID PO Last administered on 07/27/16 13:38; Admin Dose 100 MG; Start 07/21/16 at 13:00 Acetaminophen (Tylenol Tab) 650 mg Q6H PRN PO PAIN AND OR ELEVATED TEMP Last administered on 07/22/16 20:41; Admin Dose 650 MG; Start 07/22/16 at 21:00 Famotidine (Pepcid) 20 mg DAILY PO Last administered on 07/27/16 09:01; Admin Dose 20 MG; Start 07/24/16 at 09:00 Docusate Sodium (Colace) 100 mg HS PO Last administered on 07/26/16 20:40; Admin Dose 100 MG; Start 07/23/16 at 21:00 Bisacodyl (Dulcolax) 10 mg DAILY PRN PO CONSTIPATION; Start 07/23/16 at 19:30 Thiamine HCl (Vitamin B1) 100 mg DAILY PO Last administered on 07/27/16 09:00 ; Admin Dose 100 MG; Start 07/23/16 at 19:30 Enoxaparin Sodium 40 mg 40 mg DAILY SC Last administered on 07/27/16 09:05; Admin Dose 40 MG; Start 07/25/16 at 17:00 Vancomycin HCl (Vancocin) 250 ml @ 125 mls/hr Q8H IVPB Last administered on 10:55; Admin Dose 125 MLS/HR; Start 07/26/16 at 02:00 Silver Sulfadiazine (Thermazene 1% 25 Gm) 1 applic BID TOP Last administered on 07/27/16 09:00; Admin Dose 1 APPLIC; Start 07/26/16 at 14:30 Diltiazem HCl (Cardizem Cd) 360 mg DAILY PO Last administered on 07/27/16 09: 18; Admin Dose 360 MG; Start 07/27/16 at 09:30 PRISCILLA HEMPHILL MD July 27, 2016 15:35
[2016-07-27] MEDS: FUROSEMIDE 40 MG TAB PO SCH (17:35)
[2016-07-27] MEDS: QUETIAPINE 25 MG TAB PO SCH (21:42)
[2016-07-27] MEDS: DOCUSATE SODIUM 100 MG CAP PO SCH (21:42)
[2016-07-27] MEDS: ATORVASTATIN 20 MG TAB PO SCH (21:42)
[2016-07-28] VITALS (11 sets, daily range): BP systolic 100–133; BP diastolic 55–75; PULSE 80–166; RESP 18–20
[2016-07-28] MEDS: morphine 4 MG/ML VIAL IV PRN ×4 (00:14→20:04)
[2016-07-28] MEDS: VANCOMYCIN 1 GM in NS 250 ML IVPB SCH ×2 (02:14→10:22)
[2016-07-28 05:06] LABS: ADD SCAN DIFF NO
[2016-07-28 05:12] LABS: BASOPHILS % 0.4 % (0.0-2.0); EOSINOPHILS # 0.1 10^3/ul (0.0-0.5); EOSINOPHILS % 1.1 % (0.0-7.0); HEMOGLOBIN 10.8 g/dl (14.0-18.0); LYMPHOCYTES # 1.5 10^3/ul (0.8-2.9); LYMPHOCYTES % 30.5 % (15.0-51.0); MEAN CORPUSCULAR HEMOGLOBIN 35.4 pg (29.0-33.0); MEAN CORPUSCULAR HGB CONC 34.8 g/dl (32.0-37.0); MEAN CORPUSCULAR VOLUME 101.6 fl (82.0-101.0); MEAN PLATELET VOLUME 8.7 fl (7.4-10.4); MONOCYTE # 0.5 10^3/ul (0.3-0.9); MONOCYTES % 11.4 % (0.0-11.0); NEUTROPHIL # 2.6 10^3/ul (1.6-7.5); NEUTROPHILS % 55.3 % (39.0-77.0); PLATELET COUNT 316 10^3/UL (140-415); RED BLOOD COUNT 3.05 10^6/ul (4.70-6.10); RED CELL DISTRIBUTION WIDTH 12.1 % (11.5-14.5); WHITE BLOOD COUNT 4.8 10^3/ul (4.8-10.8)
[2016-07-28 05:24] LABS: POTASSIUM 3.3 mmol/L (3.5-5.1)
[2016-07-28 05:27] LABS: CREATININE 0.49 mg/dl (0.61-1.24)
[2016-07-28 05:28] LABS: MAGNESIUM 1.7 mg/dl (1.7-2.5)
[2016-07-28] MEDS: ASPIRIN (EC) 81 MG TAB PO SCH (08:58)
[2016-07-28] MEDS: MAGNESIUM OXIDE 400 MG TAB PO SCH ×2 (08:59→20:40)
[2016-07-28] MEDS: TIOTROPIUM 18 MCG CAPSULE INHA DEV INH SCH (08:59)
[2016-07-28] MEDS: FUROSEMIDE 40 MG TAB PO SCH (08:59)
[2016-07-28] MEDS: GABAPENTIN 100 MG CAP PO SCH ×3 (08:59→20:40)
[2016-07-28] MEDS: THIAMINE 100 MG TAB PO SCH (08:59)
[2016-07-28] MEDS: FOLIC ACID 0.4 MG TAB PO SCH (08:59)
[2016-07-28] MEDS: FAMOTIDINE 20 MG TAB PO SCH (08:59)
[2016-07-28] MEDS ORDERED: FUROSEMIDE 40 MG TAB PO SCH (09:00)
[2016-07-28] MEDS: SALMETEROL/FLUTICASONE 250/50 INHA INH SCH ×2 (09:00→20:40)
[2016-07-28] MEDS: ENOXAPARIN 40 MG/0.4 ML SYG SC SCH (09:02)
[2016-07-28] MEDS: NICOTINE (21 MG/24 HR) PATCH TRANSDERM SCH (09:03)
[2016-07-28] MEDS: SILVER SULFADIAZINE 1% 25 GM CR TOP SCH ×2 (09:03→22:22)
[2016-07-28] MEDS: L ACIDOPHIL/B LACTIS/B LONGUM CAPSULE PO SCH ×2 (09:10→20:40)
[2016-07-28] MEDS: DILTIAZEM (CD) 180 MG CAP PO SCH (11:57)
[2016-07-28] MEDS: CYANOCOBALAMIN 500 MCG TAB PO SCH (11:57)
[2016-07-28] MEDS ORDERED: LIDOCAINE 1% (MPF) 5 ML VIAL SC ONE ×2 (13:00→13:30)
[2016-07-28] MEDS ORDERED: SOD CHLORIDE 0.9% 1,000 ML IV ONE (13:30)
--- NOTE | 2016-07-28 13:47 | PN ---
Date/Time of Note Date/Time of Note DATE: 07/28/16 TIME: 13:45 Assessment/Plan VTE Prophylaxis VTE Prophylaxis Intervention: other Lines/Catheters IV Catheter Type (from Nrs): Saline Lock Assessment/Plan Chief Complaint/Hosp Course Assessment and plan 1. Bilateral Lower ext cellulitis - cont abx 2. COPD exacerbation - cont oxygen as needed, homes meds, breathing treatment, steroid 3. HTN: BP within goal - cont meds with adjustment as needed 4. GERD - cont PPI 5. Depression - cont Seroquel 6. Hx of Tobacco - cont nicotine patch 7. Lower extremity edema - 2D echocardiogram showed normal ejection fraction, cardiology has been consulted -Strict I&O's, continue Lasix 8. Microcytic anemia -Start vitamin B12 supplementation 9. Neuropathy -With history of alcohol abuse -Continue gabapentin 10. Hyponatremia -Nephrology has been consulted, continue Lasix, -Strict SANJAY's, no free water 11. 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 HEENT: Atraumatic, normocephalic. The pupils are equal and round . Neck: Supple with full range of motion. Chest: Normal expansion of the thorax during inspiration Lungs: Clear to auscultation bilaterally Heart: Normal S1-S2, Regular rhythm and rate. Abdomen: Soft , nontender, nondistended , bowel sounds are present. Extremities: Cellulitis of bilateral lower extremities improving, minimal edema no cyanosis Neurologic: Normal mental status,The patient is awake, alert and oriented . Results Result Diagram: 5/18/17 0420 5/18/17 0420 Results 24 hrs Laboratory Tests Test 07/28/16 04:20 07/28/16 12:51 White Blood Count 4.8 # Red Blood Count 3.05 L Hemoglobin 10.8 L Hematocrit 31.0 L Mean Corpuscular Volume 101.6 H Mean Corpuscular Hemoglobin 35.4 H Mean Corpuscular Hemoglobin Concent 34.8 Red Cell Distribution Width 12.1 Platelet Count 316 Mean Platelet Volume 8.7 Neutrophils % 55.3 Lymphocytes % 30.5 Monocytes % 11.4 H Eosinophils % 1.1 Basophils % 0.4 Nucleated Red Blood Cells % 0.0 Neutrophils # 2.6 Lymphocytes # 1.5 Monocytes # 0.5 Eosinophils # 0.1 Basophils # 0.0 Nucleated Red Blood Cells # 0.0 Sodium Level 133 L Potassium Level 3.3 L Chloride Level 93 L Carbon Dioxide Level 30 Anion Gap 13 Blood Urea Nitrogen 9 Creatinine 0.49 L Glucose Level 107 Calcium Level 9.0 Phosphorus Level 5.0 H Magnesium Level 1.7 Albumin 3.0 L Bedside Glucose 102 Medications Medications Current Medications Aspirin (Halfprin) 81 mg DAILY PO Last administered on 07/28/16 08:58; Admin Dose 81 MG; Start 07/19/16 at 09:00 Atorvastatin Calcium (Lipitor) 20 mg HS PO Last administered on 07/27/16 21:42 ; Admin Dose 20 MG; Start 07/19/16 at 21:00 Folic Acid (Folic Acid) 0.4 mg DAILY PO Last administered on 07/28/16 08:59; Admin Dose 0.4 MG; Start 07/19/16 at 09:00 Magnesium Oxide (Mag-Ox 400) 400 mg BID PO Last administered on 07/28/16 08:59 ; Admin Dose 400 MG; Start 07/18/16 at 22:30 Nicotine (Nicoderm 21 Mg/ 24hr) 1 patch DAILY TRANSDERM Last administered on 09:03; Admin Dose 1 PATCH; Start 07/19/16 at 09:00 Quetiapine Fumarate (Seroquel) 25 mg HS PO Last administered on 07/27/16 21:42 ; Admin Dose 25 MG; Start 07/19/16 at 21:00 Tiotropium [place] (Spiriva) 1 inh DAILY INH Last administered on 07/28/16 08: 59; Admin Dose 1 INH; Start 07/21/16 at 14:30 Ondansetron HCl (Zofran Inj) 4 mg Q6H PRN IV NAUSEA AND/OR VOMITING; Start 07/18 at 22:30 Albuterol (Ventolin Hfa) 2 puff Q6H PRN INH SHORTNESS OF BREATH Last administered on 07/21/16 06:12; Admin Dose 2 PUFF; Start 07/18/16 at 23:00 Salmeterol Xinafoate/ Fluticasone (Advair 250/50 Diskus) 1 inh BID INH Last administered on 07/28/16 09:00; Admin Dose 1 INH; Start 07/19/16 at 09:00 Lactobacillus Acidophilus (Florajen3 Capsule) 1 each BID PO Last administered on 07/28/16 09:10; Admin Dose 1 EACH; Start 07/19/16 at 09:00 Morphine Sulfate (morphine) 4 mg Q4H PRN IV SEVERE PAIN LEVEL 7-10 Last administered on 07/28/16 09:10; Admin Dose 4 MG; Start 07/19/16 at 02:30 Oxycodone/ Acetaminophen (Endocet (10/ 325)) 1 tab Q6H PRN PO PAIN Last administered on 07/27/16 21:55; Admin Dose 1 TAB; Start 07/19/16 at 02:30 Diltiazem HCl (Cardizem) 60 mg Q3H PRN PO HR>150 Last administered on 14:13; Admin Dose 60 MG; Start 07/19/16 at 19:30 Cyanocobalamin 1000 mcg 1,000 mcg DAILY PO Last administered on 07/28/16 11:57 ; Admin Dose 1,000 MCG; Start 07/20/16 at 14:00 Ceftriaxone Sodium (Rocephin) 50 ml @ 100 mls/hr Q24H IVPB Last administered on 07/27/16 13:37; Admin Dose 100 MLS/HR; Start 07/21/16 at 12:00 Gabapentin (Neurontin) 100 mg TID PO Last administered on 07/28/16 11:56; Admin Dose 100 MG; Start 07/21/16 at 13:00 Acetaminophen (Tylenol Tab) 650 mg Q6H PRN PO PAIN AND OR ELEVATED TEMP Last administered on 07/22/16 20:41; Admin Dose 650 MG; Start 07/22/16 at 21:00 Famotidine (Pepcid) 20 mg DAILY PO Last administered on 07/28/16 08:59; Admin Dose 20 MG; Start 07/24/16 at 09:00 Docusate Sodium (Colace) 100 mg HS PO Last administered on 07/27/16 21:42; Admin Dose 100 MG; Start 07/23/16 at 21:00 Bisacodyl (Dulcolax) 10 mg DAILY PRN PO CONSTIPATION; Start 07/23/16 at 19:30 Thiamine HCl (Vitamin B1) 100 mg DAILY PO Last administered on 07/28/16 08:59 ; Admin Dose 100 MG; Start 07/23/16 at 19:30 Enoxaparin Sodium 40 mg 40 mg DAILY SC Last administered on 07/28/16 09:02; Admin Dose 40 MG; Start 07/25/16 at 17:00 Vancomycin HCl (Vancocin) 250 ml @ 125 mls/hr Q8H IVPB Last administered on 10:22; Admin Dose 125 MLS/HR; Start 07/26/16 at 02:00 Silver Sulfadiazine (Thermazene 1% 25 Gm) 1 applic BID TOP Last administered on 07/28/16 09:03; Admin Dose 1 APPLIC; Start 07/26/16 at 14:30 Diltiazem HCl (Cardizem Cd) 360 mg DAILY PO Last administered on 07/28/16 11: 57; Admin Dose 360 MG; Start 07/27/16 at 09:30 Furosemide 40 mg 40 mg DAILY PO Last administered on 07/28/16 08:59; Admin Dose 40 MG; Start 07/27/16 at 16:00 Sodium Chloride (NS) 1,000 ml @ 1,000 mls/hr Q1H ONCE IV Last administered on 07/28/16 13:35; Admin Dose 1,000 MLS/HR; Start 07/28/16 at 13:30; Stop at 14:29 DEVAUGHN CASE MD July 28, 2016 13:47
[2016-07-28] MEDS: CLINDAMYCIN 300 MG CAP PO SCH ×3 (13:58→22:22)
[2016-07-28] MEDS: CEPHALEXIN 500 MG CAP PO SCH ×2 (13:58→22:27)
--- NOTE | 2016-07-28 14:13 | CONS ---
Date/Time of Note Date/Time of Note DATE: 07/28/16 TIME: 14:13 Assessment/Plan Assessment/Plan Chief Complaint/Hosp Course SUBJECTIVE: The patient is awake, nad, no fevers. . MICROBIOLOGY: Blood cultures remain negative. ANTIMICROBIALS: 1. IV vancomycin 2. IV Rocephin. PHYSICAL EXAMINATION: GENERAL: A 60-year-old man who looks older than his age. The patient is in no distress. HEENT: Head atraumatic, normocephalic. Sclerae anicteric. Buccal mucosa dry. NECK: Supple. CHEST: Rise symmetrical. Breath sounds diminished to bases. HEART: S1, S2. ABDOMEN: Soft, bowel sounds present. EXTREMITIES: With bilateral lower extremities edema, erythema, chronic wounds, left more than right. ASSESSMENT: 1. Bilateral lower extremity cellulitis. 2. History of coronary artery disease and congestive heart failure. 3. Hypertension. 4. Chronic obstructive pulmonary disease. PLAN: Remains stable. Continue present care, antibiotics, topical Silvadene, cardiology rec-s, PT DW staff Problems: Consultation Date/Type/Reason Admit Date/Time July 18, 2016 at 19:42 Initial Consult Date 07/19/16 Type of Consultation: id Exam/Review of Systems Vital Signs Vitals Vital Signs Date Time Temp Pulse Resp B/P Pulse Ox O2 Delivery O2 Flow Rate FiO2 07/28/16 13:54 103 07/28/16 13:26 97.9 20 100/66 94 Nasal Cannula 2.0 07/25/16 10:02 32 Intake and Output 07/27/16 07/27/16 07/28/16 15:00 23:00 07:00 Intake Total 50 ml 950 ml 650 ml Output Total 2000 ml Balance 50 ml -1050 ml 650 ml Results Result Diagram: 07/28/16 0420 07/28/16 0420 Results 24 hrs Laboratory Tests Test 07/28/16 04:20 07/28/16 12:51 White Blood Count 4.8 # Red Blood Count 3.05 L Hemoglobin 10.8 L Hematocrit 31.0 L Mean Corpuscular Volume 101.6 H Mean Corpuscular Hemoglobin 35.4 H Mean Corpuscular Hemoglobin Concent 34.8 Red Cell Distribution Width 12.1 Platelet Count 316 Mean Platelet Volume 8.7 Neutrophils % 55.3 Lymphocytes % 30.5 Monocytes % 11.4 H Eosinophils % 1.1 Basophils % 0.4 Nucleated Red Blood Cells % 0.0 Neutrophils # 2.6 Lymphocytes # 1.5 Monocytes # 0.5 Eosinophils # 0.1 Basophils # 0.0 Nucleated Red Blood Cells # 0.0 Sodium Level 133 L Potassium Level 3.3 L Chloride Level 93 L Carbon Dioxide Level 30 Anion Gap 13 Blood Urea Nitrogen 9 Creatinine 0.49 L Glucose Level 107 Calcium Level 9.0 Phosphorus Level 5.0 H Magnesium Level 1.7 Albumin 3.0 L Bedside Glucose 102 Medications Medications Current Medications Aspirin (Halfprin) 81 mg DAILY PO Last administered on 07/28/16 08:58; Admin Dose 81 MG; Start 07/19/16 at 09:00 Atorvastatin Calcium (Lipitor) 20 mg HS PO Last administered on 07/27/16 21:42 ; Admin Dose 20 MG; Start 07/19/16 at 21:00 Folic Acid (Folic Acid) 0.4 mg DAILY PO Last administered on 07/28/16 08:59; Admin Dose 0.4 MG; Start 07/19/16 at 09:00 Magnesium Oxide (Mag-Ox 400) 400 mg BID PO Last administered on 07/28/16 08:59 ; Admin Dose 400 MG; Start 07/18/16 at 22:30 Nicotine (Nicoderm 21 Mg/ 24hr) 1 patch DAILY TRANSDERM Last administered on 09:03; Admin Dose 1 PATCH; Start 07/19/16 at 09:00 Quetiapine Fumarate (Seroquel) 25 mg HS PO Last administered on 07/27/16 21:42 ; Admin Dose 25 MG; Start 07/19/16 at 21:00 Tiotrop[address] [place] (Spiriva) 1 inh DAILY INH Last administered on 07/28/16 08: 59; Admin Dose 1 INH; Start 07/21/16 at 14:30 Ondansetron HCl (Zofran Inj) 4 mg Q6H PRN IV NAUSEA AND/OR VOMITING; Start 07/18 at 22:30 Albuterol (Ventolin Hfa) 2 puff Q6H PRN INH SHORTNESS OF BREATH Last administered on 07/21/16 06:12; Admin Dose 2 PUFF; Start 07/18/16 at 23:00 Salmeterol Xinafoate/ Fluticasone (Advair 250/50 Diskus) 1 inh BID INH Last administered on 07/28/16 09:00; Admin Dose 1 INH; Start 07/19/16 at 09:00 Lactobacillus Acidophilus (Florajen3 Capsule) 1 each BID PO Last administered on 07/28/16 09:10; Admin Dose 1 EACH; Start 07/19/16 at 09:00 Morphine Sulfate (morphine) 4 mg Q4H PRN IV SEVERE PAIN LEVEL 7-10 Last administered on 07/28/16 13:58; Admin Dose 4 MG; Start 07/19/16 at 02:30 Oxycodone/ Acetaminophen (Endocet (10/ 325)) 1 tab Q6H PRN PO PAIN Last administered on 07/27/16 21:55; Admin Dose 1 TAB; Start 07/19/16 at 02:30 Diltiazem HCl (Cardizem) 60 mg Q3H PRN PO HR>150 Last administered on 14:13; Admin Dose 60 MG; Start 07/19/16 at 19:30 Cyanocobalamin (Vitamin B12) 1,000 mcg DAILY PO Last administered on 07/28/16 11:57; Admin Dose 1,000 MCG; Start 07/20/16 at 14:00 Gabapentin (Neurontin) 100 mg TID PO Last administered on 07/28/16 11:56; Admin Dose 100 MG; Start 07/21/16 at 13:00 Acetaminophen (Tylenol Tab) 650 mg Q6H PRN PO PAIN AND OR ELEVATED TEMP Last administered on 07/22/16 20:41; Admin Dose 650 MG; Start 07/22/16 at 21:00 Famotidine (Pepcid) 20 mg DAILY PO Last administered on 07/28/16 08:59; Admin Dose 20 MG; Start 07/24/16 at 09:00 Docusate Sodium (Colace) 100 mg HS PO Last administered on 07/27/16 21:42; Admin Dose 100 MG; Start 07/23/16 at 21:00 Bisacodyl (Dulcolax) 10 mg DAILY PRN PO CONSTIPATION; Start 07/23/16 at 19:30 Thiamine HCl (Vitamin B1) 100 mg DAILY PO Last administered on 07/28/16 08:59 ; Admin Dose 100 MG; Start 07/23/16 at 19:30 Enoxaparin Sodium (Lovenox) 40 mg DAILY SC Last administered on 07/28/16 09:02 ; Admin Dose 40 MG; Start 07/25/16 at 17:00 Silver Sulfadiazine (Thermazene 1% 25 Gm) 1 applic BID TOP Last administered on 07/28/16 09:03; Admin Dose 1 APPLIC; Start 07/26/16 at 14:30 Diltiazem HCl (Cardizem Cd) 360 mg DAILY PO Last administered on 07/28/16 11: 57; Admin Dose 360 MG; Start 07/27/16 at 09:30 Furosemide 40 mg 40 mg DAILY PO Last administered on 07/28/16 08:59; Admin Dose 40 MG; Start 07/27/16 at 16:00 Sodium Chloride (NS) 1,000 ml @ 1,000 mls/hr Q1H ONCE IV Last administered on 07/28/16 13:35; Admin Dose 1,000 MLS/HR; Start 07/28/16 at 13:30; Stop at 14:29 Clindamycin HCl (Cleocin) 300 mg Q8 PO ; Start 07/28/16 at 14:00 Cephalexin (Keflex) 500 mg Q8 PO Last administered on 07/28/16 13:58; Admin Dose 500 MG; Start 07/28/16 at 14:00 STEVENSON MEJIA NP July 28, 2016 14:13
[2016-07-28 14:18] LABS: CHLORIDE 91 mmol/L (97-110); POTASSIUM 3.2 mmol/L (3.5-5.1); SODIUM 134 mmol/L (135-144)
[2016-07-28 14:21] LABS: ANION GAP 16 (8-16); BLOOD UREA NITROGEN 7 mg/dl (7-20); CARBON DIOXIDE 30 mmol/L (21-31); CREATINE KINASE 21 IU/L (23-200); CREATININE 0.51 mg/dl (0.61-1.24)
[2016-07-28 14:22] LABS: CALCIUM 8.9 mg/dl (8.4-10.2); GLUCOSE 100 mg/dl (70-220); PHOSPHORUS 4.8 mg/dl (2.5-4.9)
[2016-07-28 14:32] LABS: CK-MB 0.43 ng/ml (0.0-2.4); TROPONIN-I < 0.012 ng/ml (0.00-0.12)
--- NOTE | 2016-07-28 15:33 | RADRPT ---
PROCEDURE: US guidance for PICC line CLINICAL INDICATION: PICC line placement TECHNIQUE: Multiple real-time images were acquired of the patient's arm utilizing a high resolutio n transducer. This was performed by the PICC line nurse for venous access. COMPARISON: None FINDINGS: Ultrasound guidance for PICC line placement. IMPRESSION: Ultrasound guidance for PICC line placement. RPTAT: AA .William Whitt MD, MD Date Time Electronically viewed and signed by .William Whitt MD, on 07/28/2016 15:32 .S/
--- NOTE | 2016-07-28 16:59 | RADRPT ---
PROCEDURE: XR Chest. CLINICAL INDICATION: Check PICC line position. TECHNIQUE: Single frontal view. COMPARISON: 07/18/2016. FINDINGS: There is a left arm PICC line with the tip in the lower superior vena cava. The lungs are clear. The heart size is normal. There is calcification in the aorta consistent with atherosclerosis. There is no pleural effusion. There is no pneumothorax. IMPRESSION: 1. Satisfactory position of left arm PICC line. 2. Atherosclerosis. 3. Otherwise normal chest radiograph. RPTAT: QQ .Jann Eddy MD, MD Date Time Electronically viewed and signed by .Jann Eddy MD, MD on 07/28/2016 16:58 .R/
--- NOTE | 2016-07-28 17:16 | CONS ---
Date/Time of Note Date/Time of Note DATE: 07/28/16 TIME: 17:15 Assessment/Plan Assessment/Plan Additional Assessment/Plan 60 yo male with 1) B/L LE Cellulitis 2) COPD Exacerbation 3) Chronic CHF 4) Hyponatremia, Pt is not euvolemic at this time, Asymptomatic 5) CAD 6) Anemia, Likely chronic 7) Hypokalemia Hyponatremia likely from Excessive free H20 intake in the setting of Increase Circulating ADH from pain and lung disease Na cont to improve and stable Cont current treatment and plan Cont Free H20 restriction at this time Supplement K Consultation Date/Type/Reason Admit Date/Time July 18, 2016 at 19:42 Initial Consult Date 07/19/16 Type of Consultation: Renal 24 HR Interval Summary Constitutional: No requiring O2 Exam/Review of Systems Vital Signs Vitals Vital Signs Date Time Temp Pulse Resp B/P Pulse Ox O2 Delivery O2 Flow Rate FiO2 07/28/16 16:02 80 07/28/16 15:58 97.7 18 117/72 98 07/28/16 14:25 Nasal Cannula 2.0 07/25/16 10:02 32 Intake and Output 07/27/16 07/27/16 07/28/16 15:00 23:00 07:00 Intake Total 50 ml 950 ml 650 ml Output Total 2000 ml Balance 50 ml -1050 ml 650 ml Exam Constitutional: alert, No distress ENMT: mucosa pink and moist Respiratory: clear to auscultation, No crackles/rales Cardiovascular: edema, regular rate and rhythm Gastrointestinal: soft Neurological: No confused, No lethargic Results Result Diagram: 07/28/16 0420 07/28/16 1335 Results 24 hrs Laboratory Tests Test 07/28/16 04:20 07/28/16 12:51 07/28/16 13:35 White Blood Count 4.8 # Red Blood Count 3.05 L Hemoglobin 10.8 L Hematocrit 31.0 L Mean Corpuscular Volume 101.6 H Mean Corpuscular Hemoglobin 35.4 H Mean Corpuscular Hemoglobin Concent 34.8 Red Cell Distribution Width 12.1 Platelet Count 316 Mean Platelet Volume 8.7 Neutrophils % 55.3 Lymphocytes % 30.5 Monocytes % 11.4 H Eosinophils % 1.1 Basophils % 0.4 Nucleated Red Blood Cells % 0.0 Neutrophils # 2.6 Lymphocytes # 1.5 Monocytes # 0.5 Eosinophils # 0.1 Basophils # 0.0 Nucleated Red Blood Cells # 0.0 Sodium Level 133 L 134 L Potassium Level 3.3 L 3.2 L Chloride Level 93 L 91 L Carbon Dioxide Level 30 30 Anion Gap 13 16 Blood Urea Nitrogen 9 7 Creatinine 0.49 L 0.51 L Glucose Level 107 100 Calcium Level 9.0 8.9 Phosphorus Level 5.0 H 4.8 Magnesium Level 1.7 1.5 L Albumin 3.0 L Bedside Glucose 102 Creatine Kinase 21 L Creatine Kinase Index 2.0 Creatinine Kinase MB (Mass) 0.43 Troponin I < 0.012 Medications Medications Current Medications Aspirin (Halfprin) 81 mg DAILY PO Last administered on 07/28/16 08:58; Admin Dose 81 MG; Start 07/19/16 at 09:00 Atorvastatin Calcium (Lipitor) 20 mg HS PO Last administered on 07/27/16 21:42 ; Admin Dose 20 MG; Start 07/19/16 at 21:00 Folic Acid (Folic Acid) 0.4 mg DAILY PO Last administered on 07/28/16 08:59; Admin Dose 0.4 MG; Start 07/19/16 at 09:00 Magnesium Oxide (Mag-Ox 400) 400 mg BID PO Last administered on 07/28/16 08:59 ; Admin Dose 400 MG; Start 07/18/16 at 22:30 Nicotine (Nicoderm 21 Mg/ 24hr) 1 patch DAILY TRANSDERM Last administered on 09:03; Admin Dose 1 PATCH; Start 07/19/16 at 09:00 Quetiapine Fumarate (Seroquel) 25 mg HS PO Last administered on 07/27/16 21:42 ; Admin Dose 25 MG; Start 07/19/16 at 21:00 Tiotropium [place] (Spiriva) 1 inh DAILY INH Last administered on 07/28/16 08: 59; Admin Dose 1 INH; Start 07/21/16 at 14:30 Ondansetron HCl (Zofran Inj) 4 mg Q6H PRN IV NAUSEA AND/OR VOMITING; Start 07/18 at 22:30 Albuterol (Ventolin Hfa) 2 puff Q6H PRN INH SHORTNESS OF BREATH Last administered on 07/21/16 06:12; Admin Dose 2 PUFF; Start 07/18/16 at 23:00 Salmeterol Xinafoate/ Fluticasone (Advair 250/50 Diskus) 1 inh BID INH Last administered on 07/28/16 09:00; Admin Dose 1 INH; Start 07/19/16 at 09:00 Lactobacillus Acidophilus (Florajen3 Capsule) 1 each BID PO Last administered on 07/28/16 09:10; Admin Dose 1 EACH; Start 07/19/16 at 09:00 Morphine Sulfate (morphine) 4 mg Q4H PRN IV SEVERE PAIN LEVEL 7-10 Last administered on 07/28/16 13:58; Admin Dose 4 MG; Start 07/19/16 at 02:30 Oxycodone/ Acetaminophen (Endocet (10/ 325)) 1 tab Q6H PRN PO PAIN Last administered on 07/27/16 21:55; Admin Dose 1 TAB; Start 07/19/16 at 02:30 Diltiazem HCl (Cardizem) 60 mg Q3H PRN PO HR>150 Last administered on 14:13; Admin Dose 60 MG; Start 07/19/16 at 19:30 Cyanocobalamin (Vitamin B12) 1,000 mcg DAILY PO Last administered on 07/28/16 11:57; Admin Dose 1,000 MCG; Start 07/20/16 at 14:00 Gabapentin (Neurontin) 100 mg TID PO Last administered on 07/28/16 11:56; Admin Dose 100 MG; Start 07/21/16 at 13:00 Acetaminophen (Tylenol Tab) 650 mg Q6H PRN PO PAIN AND OR ELEVATED TEMP Last administered on 07/22/16 20:41; Admin Dose 650 MG; Start 07/22/16 at 21:00 Famotidine (Pepcid) 20 mg DAILY PO Last administered on 07/28/16 08:59; Admin Dose 20 MG; Start 07/24/16 at 09:00 Docusate Sodium (Colace) 100 mg HS PO Last administered on 07/27/16 21:42; Admin Dose 100 MG; Start 07/23/16 at 21:00 Bisacodyl (Dulcolax) 10 mg DAILY PRN PO CONSTIPATION; Start 07/23/16 at 19:30 Thiamine HCl (Vitamin B1) 100 mg DAILY PO Last administered on 07/28/16 08:59 ; Admin Dose 100 MG; Start 07/23/16 at 19:30 Enoxaparin Sodium (Lovenox) 40 mg DAILY SC Last administered on 07/28/16 09:02 ; Admin Dose 40 MG; Start 07/25/16 at 17:00 Silver Sulfadiazine (Thermazene 1% 25 Gm) 1 applic BID TOP Last administered on 07/28/16 09:03; Admin Dose 1 APPLIC; Start 07/26/16 at 14:30 Diltiazem HCl (Cardizem Cd) 360 mg DAILY PO Last administered on 07/28/16 11: 57; Admin Dose 360 MG; Start 07/27/16 at 09:30 Furosemide (Lasix) 40 mg DAILY PO Last administered on 07/28/16 08:59; Admin Dose 40 MG; Start 07/27/16 at 16:00 Clindamycin HCl (Cleocin) 300 mg Q8 PO Last administered on 07/28/16 15:56; Admin Dose 300 MG; Start 07/28/16 at 14:00 Cephalexin (Keflex) 500 mg Q8 PO Last administered on 07/28/16 13:58; Admin Dose 500 MG; Start 07/28/16 at 14:00 IV Flush (NS 10 ml) 10 ml PRN PRN IV IV PROTOCOL; Start 07/28/16 at 16:00 CHRISSIE MEANS MD July 28, 2016 17:16
[2016-07-28 18:39] LABS: CK-MB 0.36 ng/ml (0.0-2.4); CREATINE KINASE < 20 IU/L (23-200); TROPONIN-I < 0.012 ng/ml (0.00-0.12)
[2016-07-28] MEDS ORDERED: MAGNESIUM SULFATE 2 GM/50 ML 50 ML IVPB ONE (19:30)
[2016-07-28] MEDS: POTASSIUM CHLORIDE (SR) 20 MEQ TAB PO SCH ×2 (19:58→23:35)
[2016-07-28] MEDS: QUETIAPINE 25 MG TAB PO SCH (20:40)
[2016-07-28] MEDS: ATORVASTATIN 20 MG TAB PO SCH (20:40)
[2016-07-28] MEDS: DOCUSATE SODIUM 100 MG CAP PO SCH (20:41)
--- NOTE | 2016-07-28 21:30 | RADRPT ---
Vent Rate: 106 bpm RR Interval: 0 msec VA Interval: 126 msec QRS Duration: 84 msec QT Interval: 346 msec QTC Interval: 459 msec P-R-T [place]: 70 - 69 - 74 degrees Sinus tachycardia with occasional premature ventricular complexes Otherwise normal ECG Electronically Signed By: Charles Leigh [id number]
[2016-07-28 22:09] LABS: CREATINE KINASE < 20 IU/L (23-200)
[2016-07-28 22:15] LABS: CK-MB 0.46 ng/ml (0.0-2.4)
[2016-07-28 22:18] LABS: TROPONIN-I < 0.012 ng/ml (0.00-0.12)
[2016-07-29] VITALS (13 sets, daily range): BP systolic 119–143; BP diastolic 70–80; PULSE 64–155; RESP 15–20
[2016-07-29] MEDS: CEPHALEXIN 500 MG CAP PO SCH ×3 (06:06→21:11)
[2016-07-29] MEDS: CLINDAMYCIN 300 MG CAP PO SCH ×3 (06:06→21:11)
[2016-07-29] MEDS: morphine 4 MG/ML VIAL IV PRN ×2 (06:34→19:40)
[2016-07-29 07:12] LABS: ADD SCAN DIFF NO
[2016-07-29 07:20] LABS: BASOPHILS % 0.6 % (0.0-2.0); EOSINOPHILS # 0.1 10^3/ul (0.0-0.5); EOSINOPHILS % 1.2 % (0.0-7.0); HEMATOCRIT 31.9 % (42.0-52.0); LYMPHOCYTES # 1.5 10^3/ul (0.8-2.9); LYMPHOCYTES % 31.5 % (15.0-51.0); MEAN CORPUSCULAR HEMOGLOBIN 36.1 pg (29.0-33.0); MEAN CORPUSCULAR HGB CONC 34.5 g/dl (32.0-37.0); MEAN CORPUSCULAR VOLUME 104.6 fl (82.0-101.0); MEAN PLATELET VOLUME 8.7 fl (7.4-10.4); MONOCYTE # 0.6 10^3/ul (0.3-0.9); MONOCYTES % 12.9 % (0.0-11.0); NEUTROPHIL # 2.5 10^3/ul (1.6-7.5); NEUTROPHILS % 52.6 % (39.0-77.0); PLATELET COUNT 328 10^3/UL (140-415); RED BLOOD COUNT 3.05 10^6/ul (4.70-6.10); RED CELL DISTRIBUTION WIDTH 12.4 % (11.5-14.5); WHITE BLOOD COUNT 4.8 10^3/ul (4.8-10.8)
[2016-07-29 07:49] LABS: CREATININE 0.51 mg/dl (0.61-1.24)
[2016-07-29 07:58] LABS: POTASSIUM 4.2 mmol/L (3.5-5.1)
[2016-07-29] MEDS: SALMETEROL/FLUTICASONE 250/50 INHA INH SCH ×2 (08:30→21:11)
[2016-07-29] MEDS: SILVER SULFADIAZINE 1% 25 GM CR TOP SCH ×2 (08:30→21:14)
[2016-07-29] MEDS: TIOTROPIUM 18 MCG CAPSULE INHA DEV INH SCH (08:31)
[2016-07-29] MEDS: ASPIRIN (EC) 81 MG TAB PO SCH (08:32)
[2016-07-29] MEDS: MAGNESIUM OXIDE 400 MG TAB PO SCH ×2 (08:32→21:11)
[2016-07-29] MEDS: FAMOTIDINE 20 MG TAB PO SCH (08:32)
[2016-07-29] MEDS: CYANOCOBALAMIN 500 MCG TAB PO SCH (08:32)
[2016-07-29] MEDS: GABAPENTIN 100 MG CAP PO SCH ×3 (08:32→21:11)
[2016-07-29] MEDS: FUROSEMIDE 40 MG TAB PO SCH (08:32)
[2016-07-29] MEDS: THIAMINE 100 MG TAB PO SCH (08:32)
[2016-07-29] MEDS: DILTIAZEM (CD) 180 MG CAP PO SCH (08:32)
[2016-07-29] MEDS: NICOTINE (21 MG/24 HR) PATCH TRANSDERM SCH (08:33)
[2016-07-29] MEDS: FOLIC ACID 0.4 MG TAB PO SCH (08:33)
[2016-07-29] MEDS: OXYCODONE/ACETAMINOPHEN (10/325) TAB PO PRN (08:42)
[2016-07-29] MEDS: L ACIDOPHIL/B LACTIS/B LONGUM CAPSULE PO SCH ×2 (08:42→21:11)
[2016-07-29] MEDS: ENOXAPARIN 40 MG/0.4 ML SYG SC SCH (08:46)
--- NOTE | 2016-07-29 11:56 | PN ---
Date/Time of Note Date/Time of Note DATE: 07/29/16 TIME: 11:52 Assessment/Plan VTE Prophylaxis VTE Prophylaxis Intervention: LMWH Lines/Catheters IV Catheter Type (from Nrsg): PICC Line Central line still needed: Yes Assessment/Plan Chief Complaint/Hosp Course Assessment and plan 1. Bilateral Lower ext cellulitis - cont abx, improving 2. COPD exacerbation - cont oxygen as needed, homes meds, breathing treatment, steroid 3. HTN: BP within goal - cont meds with adjustment as needed 4. GERD - cont PPI 5. Depression - cont Seroquel 6. Hx of Tobacco - cont nicotine patch 7. Lower extremity edema - 2D echocardiogram showed normal ejection fraction, cardiology has been consulted -Strict I&O's, continue Lasix 8. Microcytic anemia -Start vitamin B12 supplementation 9. Neuropathy -With history of alcohol abuse -Continue gabapentin 10. Hyponatremia -Nephrology has been consulted, continue Lasix, -Strict SANJAY's, no free water 11. Essential hypertension -Continue Cardizem 12. Ventricular tachycardia Rate controlled at this time on Cardizem We will continue monitor patient closely for recommendation management treatment as clinical course Problems: Subjective 24 Hr Interval Summary Free Text/Dictation Patient had an episode of ventricular tachycardia this morning Denies of any chest pain or shortness of breath Tolerating oral intake Is requesting to be discharged home although I have discussed his condition and the episode of ventricular tachycardia with him. He is stating if he is not discharge he will sign out AMA and I have discussed the risk with him. He needs to be monitored regarding his episode of tachycardia . The risks are worsening of his condition, chest pain, myocardial infarction, CVA , and possible Exam/Review of Systems Vital Signs Vitals Vital Signs Date Time Temp Pulse Resp B/P Pulse Ox O2 Delivery O2 Flow Rate FiO2 07/29/16 10:53 98.2 82 18 127/72 99 07/29/16 08:00 Nasal Cannula 2.0 07/25/16 10:02 32 Intake and Output 07/28/16 07/28/16 07/29/16 15:00 23:00 07:00 Intake Total 1880 ml 550 ml Output Total 1365 ml 1550 ml Balance 515 ml -1000 ml Exam General: The patient is well-developed, Not in acute distress. HEENT: Atraumatic, normocephalic. The pupils are equal and round . Neck: Supple with full range of motion. Chest: Normal expansion of the thorax during inspiration Lungs: Clear to auscultation bilaterally Heart: Normal S1-S2, Regular rhythm and rate. Abdomen: Soft , nontender, nondistended , bowel sounds are present. Extremities: Improvement in bilateral lower extremity cellulitis, no edema no cyanosis Neurologic: Normal mental status,The patient is awake, alert and oriented . Results Result Diagram: 07/29/16 0600 07/29/16 0600 Results 24 hrs Laboratory Tests Test 07/28/16 12:51 07/28/16 13:35 07/28/16 17:37 07/28/16 21:28 Bedside Glucose 102 Sodium Level 134 L Potassium Level 3.2 L Chloride Level 91 L Carbon Dioxide Level 30 Anion Gap 16 Blood Urea Nitrogen 7 Creatinine 0.51 L Glucose Level 100 Calcium Level 8.9 Phosphorus Level 4.8 Magnesium Level 1.5 L Creatine Kinase 21 L < 20 L < 20 L Creatine Kinase Index 2.0 Creatinine Kinase MB (Mass) 0.43 0.36 0.46 Troponin I < 0.012 < 0.012 < 0.012 Test 07/29/16 06:00 White Blood Count 4.8 Red Blood Count 3.05 L Hemoglobin 11.0 L Hematocrit 31.9 L Mean Corpuscular Volume 104.6 H Mean Corpuscular Hemoglobin 36.1 H Mean Corpuscular Hemoglobin Concent 34.5 Red Cell Distribution Width 12.4 Platelet Count 328 Mean Platelet Volume 8.7 Neutrophils % 52.6 Lymphocytes % 31.5 Monocytes % 12.9 H Eosinophils % 1.2 Basophils % 0.6 Nucleated Red Blood Cells % 0.0 Neutrophils # 2.5 Lymphocytes # 1.5 Monocytes # 0.6 Eosinophils # 0.1 Basophils # 0.0 Nucleated Red Blood Cells # 0.0 Sodium Level 136 Potassium Level 4.2 Chloride Level 96 L Carbon Dioxide Level 29 Anion Gap 15 Blood Urea Nitrogen 8 Creatinine 0.51 L Glucose Level 101 Calcium Level 9.0 Phosphorus Level 5.0 H Albumin 3.0 L Medications Medications Current Medications Aspirin (Halfprin) 81 mg DAILY PO Last administered on 07/29/16 08:32; Admin Dose 81 MG; Start 07/19/16 at 09:00 Atorvastatin Calcium (Lipitor) 20 mg HS PO Last administered on 07/28/16 20:40 ; Admin Dose 20 MG; Start 07/19/16 at 21:00 Folic Acid (Folic Acid) 0.4 mg DAILY PO Last administered on 07/29/16 08:33; Admin Dose 0.4 MG; Start 07/19/16 at 09:00 Magnesium Oxide (Mag-Ox 400) 400 mg BID PO Last administered on 07/29/16 08:32 ; Admin Dose 400 MG; Start 07/18/16 at 22:30 Nicotine (Nicoderm 21 Mg/ 24hr) 1 patch DAILY TRANSDERM Last administered on 08:33; Admin Dose 1 PATCH; Start 07/19/16 at 09:00 Quetiapine Fumarate (Seroquel) 25 mg HS PO Last administered on 07/28/16 20:40 ; Admin Dose 25 MG; Start 07/19/16 at 21:00 Tiotropium [place] (Spiriva) 1 inh DAILY INH Last administered on 07/28/16 08: 59; Admin Dose 1 INH; Start 07/21/16 at 14:30 Ondansetron HCl (Zofran Inj) 4 mg Q6H PRN IV NAUSEA AND/OR VOMITING; Start 07/18 at 22:30 Albuterol (Ventolin Hfa) 2 puff Q6H PRN INH SHORTNESS OF BREATH Last administered on 07/21/16 06:12; Admin Dose 2 PUFF; Start 07/18/16 at 23:00 Salmeterol Xinafoate/ Fluticasone (Advair 250/50 Diskus) 1 inh BID INH Last administered on 07/29/16 08:30; Admin Dose 1 INH; Start 07/19/16 at 09:00 Lactobacillus Acidophilus (Florajen3 Capsule) 1 each BID PO Last administered on 07/29/16 08:42; Admin Dose 1 EACH; Start 07/19/16 at 09:00 Morphine Sulfate (morphine) 4 mg Q4H PRN IV SEVERE PAIN LEVEL 7-10 Last administered on 07/29/16 06:34; Admin Dose 4 MG; Start 07/19/16 at 02:30 Oxycodone/ Acetaminophen (Endocet (10/ 325)) 1 tab Q6H PRN PO PAIN Last administered on 07/29/16 08:42; Admin Dose 1 TAB; Start 07/19/16 at 02:30 Diltiazem HCl (Cardizem) 60 mg Q3H PRN PO HR>150 Last administered on 14:13; Admin Dose 60 MG; Start 07/19/16 at 19:30 Cyanocobalamin (Vitamin B12) 1,000 mcg DAILY PO Last administered on 07/29/16 08:32; Admin Dose 1,000 MCG; Start 07/20/16 at 14:00 Gabapentin (Neurontin) 100 mg TID PO Last administered on 07/29/16 08:32; Admin Dose 100 MG; Start 07/21/16 at 13:00 Acetaminophen (Tylenol Tab) 650 mg Q6H PRN PO PAIN AND OR ELEVATED TEMP Last administered on 07/22/16 20:41; Admin Dose 650 MG; Start 07/22/16 at 21:00 Famotidine (Pepcid) 20 mg DAILY PO Last administered on 07/29/16 08:32; Admin Dose 20 MG; Start 07/24/16 at 09:00 Docusate Sodium (Colace) 100 mg HS PO Last administered on 07/28/16 20:41; Admin Dose 100 MG; Start 07/23/16 at 21:00 Bisacodyl (Dulcolax) 10 mg DAILY PRN PO CONSTIPATION; Start 07/23/16 at 19:30 Thiamine HCl (Vitamin B1) 100 mg DAILY PO Last administered on 07/29/16 08:32 ; Admin Dose 100 MG; Start 07/23/16 at 19:30 Enoxaparin Sodium (Lovenox) 40 mg DAILY SC Last administered on 07/29/16 08:46 ; Admin Dose 40 MG; Start 07/25/16 at 17:00 Silver Sulfadiazine (Thermazene 1% 25 Gm) 1 applic BID TOP Last administered on 07/29/16 08:30; Admin Dose 1 APPLIC; Start 07/26/16 at 14:30 Diltiazem HCl (Cardizem Cd) 360 mg DAILY PO Last administered on 07/29/16 08: 32; Admin Dose 360 MG; Start 07/27/16 at 09:30 Furosemide (Lasix) 40 mg DAILY PO Last administered on 07/29/16 08:32; Admin Dose 40 MG; Start 07/27/16 at 16:00 Clindamycin HCl (Cleocin) 300 mg Q8 PO Last administered on 07/29/16 06:06; Admin Dose 300 MG; Start 07/28/16 at 14:00 Cephalexin (Keflex) 500 mg Q8 PO Last administered on 07/29/16 06:06; Admin Dose 500 MG; Start 07/28/16 at 14:00 IV Flush (NS 10 ml) 10 ml PRN PRN IV IV PROTOCOL; Start 07/28/16 at 16:00 DEVAUGHN CASE MD July 29, 2016 11:56
--- NOTE | 2016-07-29 18:45 | CONS ---
Date/Time of Note Date/Time of Note DATE: 07/29/16 TIME: 18:43 Assessment/Plan Assessment/Plan Additional Assessment/Plan 60 yo male with 1) B/L LE Cellulitis 2) COPD Exacerbation 3) Chronic CHF 4) Hyponatremia Resolved 5) CAD 6) Anemia, Likely chronic 7) Hypokalemia Resolved Electolytes normal Will sign off please re consult as needed Consultation Date/Type/Reason Admit Date/Time July 18, 2016 at 19:42 Initial Consult Date 07/19/16 Type of Consultation: Renal Exam/Review of Systems Vital Signs Vitals Vital Signs Date Time Temp Pulse Resp B/P Pulse Ox O2 Delivery O2 Flow Rate FiO2 07/29/16 16:00 64 07/29/16 15:56 2.0 07/29/16 10:53 98.2 18 127/72 99 07/29/16 08:00 Nasal Cannula 07/25/16 10:02 32 Intake and Output 07/28/16 07/28/16 07/29/16 15:00 23:00 07:00 Intake Total 1880 ml 550 ml Output Total 1365 ml 1550 ml Balance 515 ml -1000 ml Exam Constitutional: No distress ENMT: mucosa pink and moist Neck: No jvd Respiratory: crackles/rales Cardiovascular: edema, regular rate and rhythm Gastrointestinal: soft Neurological: PHYSICAL GEOGRAPHER II-XII intact Results Result Diagram: 07/29/16 0600 07/29/16 0600 Results 24 hrs Laboratory Tests Test 07/28/16 21:28 07/29/16 06:00 Creatine Kinase < 20 L Creatine Kinase Index Creatinine Kinase MB (Mass) 0.46 Troponin I < 0.012 White Blood Count 4.8 Red Blood Count 3.05 L Hemoglobin 11.0 L Hematocrit 31.9 L Mean Corpuscular Volume 104.6 H Mean Corpuscular Hemoglobin 36.1 H Mean Corpuscular Hemoglobin Concent 34.5 Red Cell Distribution Width 12.4 Platelet Count 328 Mean Platelet Volume 8.7 Neutrophils % 52.6 Lymphocytes % 31.5 Monocytes % 12.9 H Eosinophils % 1.2 Basophils % 0.6 Nucleated Red Blood Cells % 0.0 Neutrophils # 2.5 Lymphocytes # 1.5 Monocytes # 0.6 Eosinophils # 0.1 Basophils # 0.0 Nucleated Red Blood Cells # 0.0 Sodium Level 136 Potassium Level 4.2 Chloride Level 96 L Carbon Dioxide Level 29 Anion Gap 15 Blood Urea Nitrogen 8 Creatinine 0.51 L Glucose Level 101 Calcium Level 9.0 Phosphorus Level 5.0 H Albumin 3.0 L Medications Medications Current Medications Aspirin (Halfprin) 81 mg DAILY PO Last administered on 07/29/16 08:32; Admin Dose 81 MG; Start 07/19/16 at 09:00 Atorvastatin Calcium (Lipitor) 20 mg HS PO Last administered on 07/28/16 20:40 ; Admin Dose 20 MG; Start 07/19/16 at 21:00 Folic Acid (Folic Acid) 0.4 mg DAILY PO Last administered on 07/29/16 08:33; Admin Dose 0.4 MG; Start 07/19/16 at 09:00 Magnesium Oxide (Mag-Ox 400) 400 mg BID PO Last administered on 07/29/16 08:32 ; Admin Dose 400 MG; Start 07/18/16 at 22:30 Nicotine (Nicoderm 21 Mg/ 24hr) 1 patch DAILY TRANSDERM Last administered on 08:33; Admin Dose 1 PATCH; Start 07/19/16 at 09:00 Quetiapine Fumarate (Seroquel) 25 mg HS PO Last administered on 07/28/16 20:40 ; Admin Dose 25 MG; Start 07/19/16 at 21:00 Tiotropium [place] (Spiriva) 1 inh DAILY INH Last administered on 07/28/16 08: 59; Admin Dose 1 INH; Start 07/21/16 at 14:30 Ondansetron HCl (Zofran Inj) 4 mg Q6H PRN IV NAUSEA AND/OR VOMITING; Start 07/18 at 22:30 Albuterol (Ventolin Hfa) 2 puff Q6H PRN INH SHORTNESS OF BREATH Last administered on 07/21/16 06:12; Admin Dose 2 PUFF; Start 07/18/16 at 23:00 Salmeterol Xinafoate/ Fluticasone (Advair 250/50 Diskus) 1 inh BID INH Last administered on 07/29/16 08:30; Admin Dose 1 INH; Start 07/19/16 at 09:00 Lactobacillus Acidophilus (Florajen3 Capsule) 1 each BID PO Last administered on 07/29/16 08:42; Admin Dose 1 EACH; Start 07/19/16 at 09:00 Morphine Sulfate (morphine) 4 mg Q4H PRN IV SEVERE PAIN LEVEL 7-10 Last administered on 07/29/16 06:34; Admin Dose 4 MG; Start 07/19/16 at 02:30 Oxycodone/ Acetaminophen (Endocet (10/ 325)) 1 tab Q6H PRN PO PAIN Last administered on 07/29/16 08:42; Admin Dose 1 TAB; Start 07/19/16 at 02:30 Diltiazem HCl (Cardizem) 60 mg Q3H PRN PO HR>150 Last administered on 14:13; Admin Dose 60 MG; Start 07/19/16 at 19:30 Cyanocobalamin (Vitamin B12) 1,000 mcg DAILY PO Last administered on 07/29/16 08:32; Admin Dose 1,000 MCG; Start 07/20/16 at 14:00 Gabapentin (Neurontin) 100 mg TID PO Last administered on 07/29/16 13:17; Admin Dose 100 MG; Start 07/21/16 at 13:00 Acetaminophen (Tylenol Tab) 650 mg Q6H PRN PO PAIN AND OR ELEVATED TEMP Last administered on 07/22/16 20:41; Admin Dose 650 MG; Start 07/22/16 at 21:00 Famotidine (Pepcid) 20 mg DAILY PO Last administered on 07/29/16 08:32; Admin Dose 20 MG; Start 07/24/16 at 09:00 Docusate Sodium (Colace) 100 mg HS PO Last administered on 07/28/16 20:41; Admin Dose 100 MG; Start 07/23/16 at 21:00 Bisacodyl (Dulcolax) 10 mg DAILY PRN PO CONSTIPATION; Start 07/23/16 at 19:30 Thiamine HCl (Vitamin B1) 100 mg DAILY PO Last administered on 07/29/16 08:32 ; Admin Dose 100 MG; Start 07/23/16 at 19:30 Enoxaparin Sodium (Lovenox) 40 mg DAILY SC Last administered on 07/29/16 08:46 ; Admin Dose 40 MG; Start 07/25/16 at 17:00 Silver Sulfadiazine (Thermazene 1% 25 Gm) 1 applic BID TOP Last administered on 07/29/16 08:30; Admin Dose 1 APPLIC; Start 07/26/16 at 14:30 Diltiazem HCl (Cardizem Cd) 360 mg DAILY PO Last administered on 07/29/16 08: 32; Admin Dose 360 MG; Start 07/27/16 at 09:30 Furosemide (Lasix) 40 mg DAILY PO Last administered on 07/29/16 08:32; Admin Dose 40 MG; Start 07/27/16 at 16:00 Clindamycin HCl (Cleocin) 300 mg Q8 PO Last administered on 07/29/16 13:17; Admin Dose 300 MG; Start 07/28/16 at 14:00 Cephalexin (Keflex) 500 mg Q8 PO Last administered on 07/29/16 13:17; Admin Dose 500 MG; Start 07/28/16 at 14:00 IV Flush (NS 10 ml) 10 ml PRN PRN IV IV PROTOCOL; Start 07/28/16 at 16:00 CHRISSIE MEANS MD July 29, 2016 18:45
--- NOTE | 2016-07-29 18:55 | CONS ---
Date/Time of Note Date/Time of Note DATE: 07/29/16 TIME: 18:55 Assessment/Plan Assessment/Plan Chief Complaint/Hosp Course SUBJECTIVE: Alert, feels better, no fevers, nad MICROBIOLOGY: Blood cultures remain negative. ANTIMICROBIALS: 1. IV vancomycin 2. IV Rocephin. PHYSICAL EXAMINATION: GENERAL: A 60-year-old man who looks older than his age. The patient is in no distress. HEENT: Head atraumatic, normocephalic. Sclerae anicteric. Buccal mucosa dry. NECK: Supple. CHEST: Rise symmetrical. Breath sounds diminished to bases. HEART: S1, S2. ABDOMEN: Soft, bowel sounds present. EXTREMITIES: With bilateral lower extremities edema, erythema, chronic wounds, left more than right. ASSESSMENT: 1. Bilateral lower extremity cellulitis==> improving. 2. History of coronary artery disease and congestive heart failure. 3. Hypertension. 4. Chronic obstructive pulmonary disease. PLAN: Remains stable. Continue present care, antibiotics, topical Silvadene [facility] staff Problems: Consultation Date/Type/Reason Admit Date/Time July 18, 2016 at 19:42 Initial Consult Date 07/19/16 Type of Consultation: ID Exam/Review of Systems Vital Signs Vitals Vital Signs Date Time Temp Pulse Resp B/P Pulse Ox O2 Delivery O2 Flow Rate FiO2 07/29/16 16:00 64 07/29/16 15:56 2.0 07/29/16 10:53 98.2 18 127/72 99 07/29/16 08:00 Nasal Cannula 07/25/16 10:02 32 Intake and Output 07/28/16 07/28/16 07/29/16 14:59 22:59 06:59 Intake Total 1880 ml 550 ml Output Total 1365 ml 1550 ml Balance 515 ml -1000 ml Results Result Diagram: 07/29/16 0600 07/29/16 0600 Results 24 hrs Laboratory Tests Test 07/28/16 21:28 07/29/16 06:00 Creatine Kinase < 20 L Creatine Kinase Index Creatinine Kinase MB (Mass) 0.46 Troponin I < 0.012 White Blood Count 4.8 Red Blood Count 3.05 L Hemoglobin 11.0 L Hematocrit 31.9 L Mean Corpuscular Volume 104.6 H Mean Corpuscular Hemoglobin 36.1 H Mean Corpuscular Hemoglobin Concent 34.5 Red Cell Distribution Width 12.4 Platelet Count 328 Mean Platelet Volume 8.7 Neutrophils % 52.6 Lymphocytes % 31.5 Monocytes % 12.9 H Eosinophils % 1.2 Basophils % 0.6 Nucleated Red Blood Cells % 0.0 Neutrophils # 2.5 Lymphocytes # 1.5 Monocytes # 0.6 Eosinophils # 0.1 Basophils # 0.0 Nucleated Red Blood Cells # 0.0 Sodium Level 136 Potassium Level 4.2 Chloride Level 96 L Carbon Dioxide Level 29 Anion Gap 15 Blood Urea Nitrogen 8 Creatinine 0.51 L Glucose Level 101 Calcium Level 9.0 Phosphorus Level 5.0 H Albumin 3.0 L Medications Medications Current Medications Aspirin (Halfprin) 81 mg DAILY PO Last administered on 07/29/16 08:32; Admin Dose 81 MG; Start 07/19/16 at 09:00 Atorvastatin Calcium (Lipitor) 20 mg HS PO Last administered on 07/28/16 20:40 ; Admin Dose 20 MG; Start 07/19/16 at 21:00 Folic Acid (Folic Acid) 0.4 mg DAILY PO Last administered on 07/29/16 08:33; Admin Dose 0.4 MG; Start 07/19/16 at 09:00 Magnesium Oxide (Mag-Ox 400) 400 mg BID PO Last administered on 07/29/16 08:32 ; Admin Dose 400 MG; Start 07/18/16 at 22:30 Nicotine (Nicoderm 21 Mg/ 24hr) 1 patch DAILY TRANSDERM Last administered on 08:33; Admin Dose 1 PATCH; Start 07/19/16 at 09:00 Quetiapine Fumarate (Seroquel) 25 mg HS PO Last administered on 07/28/16 20:40 ; Admin Dose 25 MG; Start 07/19/16 at 21:00 Tiotropium [place] (Spiriva) 1 inh DAILY INH Last administered on 07/28/16 08: 59; Admin Dose 1 INH; Start 07/21/16 at 14:30 Ondansetron HCl (Zofran Inj) 4 mg Q6H PRN IV NAUSEA AND/OR VOMITING; Start 07/18 at 22:30 Albuterol (Ventolin Hfa) 2 puff Q6H PRN INH SHORTNESS OF BREATH Last administered on 07/21/16 06:12; Admin Dose 2 PUFF; Start 07/18/16 at 23:00 Salmeterol Xinafoate/ Fluticasone (Advair 250/50 Diskus) 1 inh BID INH Last administered on 07/29/16 08:30; Admin Dose 1 INH; Start 07/19/16 at 09:00 Lactobacillus Acidophilus (Florajen3 Capsule) 1 each BID PO Last administered on 07/29/16 08:42; Admin Dose 1 EACH; Start 07/19/16 at 09:00 Morphine Sulfate (morphine) 4 mg Q4H PRN IV SEVERE PAIN LEVEL 7-10 Last administered on 07/29/16 06:34; Admin Dose 4 MG; Start 07/19/16 at 02:30 Oxycodone/ Acetaminophen (Endocet (10/ 325)) 1 tab Q6H PRN PO PAIN Last administered on 07/29/16 08:42; Admin Dose 1 TAB; Start 07/19/16 at 02:30 Diltiazem HCl (Cardizem) 60 mg Q3H PRN PO HR>150 Last administered on 14:13; Admin Dose 60 MG; Start 07/19/16 at 19:30 Cyanocobalamin (Vitamin B12) 1,000 mcg DAILY PO Last administered on 07/29/16 08:32; Admin Dose 1,000 MCG; Start 07/20/16 at 14:00 Gabapentin (Neurontin) 100 mg TID PO Last administered on 07/29/16 13:17; Admin Dose 100 MG; Start 07/21/16 at 13:00 Acetaminophen (Tylenol Tab) 650 mg Q6H PRN PO PAIN AND OR ELEVATED TEMP Last administered on 07/22/16 20:41; Admin Dose 650 MG; Start 07/22/16 at 21:00 Famotidine (Pepcid) 20 mg DAILY PO Last administered on 07/29/16 08:32; Admin Dose 20 MG; Start 07/24/16 at 09:00 Docusate Sodium (Colace) 100 mg HS PO Last administered on 07/28/16 20:41; Admin Dose 100 MG; Start 07/23/16 at 21:00 Bisacodyl (Dulcolax) 10 mg DAILY PRN PO CONSTIPATION; Start 07/23/16 at 19:30 Thiamine HCl (Vitamin B1) 100 mg DAILY PO Last administered on 07/29/16 08:32 ; Admin Dose 100 MG; Start 07/23/16 at 19:30 Enoxaparin Sodium (Lovenox) 40 mg DAILY SC Last administered on 07/29/16 08:46 ; Admin Dose 40 MG; Start 07/25/16 at 17:00 Silver Sulfadiazine (Thermazene 1% 25 Gm) 1 applic BID TOP Last administered on 07/29/16 08:30; Admin Dose 1 APPLIC; Start 07/26/16 at 14:30 Diltiazem HCl (Cardizem Cd) 360 mg DAILY PO Last administered on 07/29/16 08: 32; Admin Dose 360 MG; Start 07/27/16 at 09:30 Furosemide (Lasix) 40 mg DAILY PO Last administered on 07/29/16 08:32; Admin Dose 40 MG; Start 07/27/16 at 16:00 Clindamycin HCl (Cleocin) 300 mg Q8 PO Last administered on 07/29/16 13:17; Admin Dose 300 MG; Start 07/28/16 at 14:00 Cephalexin (Keflex) 500 mg Q8 PO Last administered on 07/29/16 13:17; Admin Dose 500 MG; Start 07/28/16 at 14:00 IV Flush (NS 10 ml) 10 ml PRN PRN IV IV PROTOCOL; Start 07/28/16 at 16:00 STEVENSON MEJIA NP July 29, 2016 18:55
[2016-07-29] MEDS: DOCUSATE SODIUM 100 MG CAP PO SCH (21:11)
[2016-07-29] MEDS: ATORVASTATIN 20 MG TAB PO SCH (21:11)
[2016-07-29] MEDS: QUETIAPINE 25 MG TAB PO SCH (21:11)
[2016-07-30] VITALS (12 sets, daily range): BP systolic 120–143; BP diastolic 65–84; PULSE 8–95; RESP 15–60
[2016-07-30] MEDS: morphine 4 MG/ML VIAL IV PRN ×5 (00:23→22:47)
[2016-07-30] MEDS: CEPHALEXIN 500 MG CAP PO SCH ×3 (05:55→21:02)
[2016-07-30] MEDS: CLINDAMYCIN 300 MG CAP PO SCH ×3 (05:58→21:02)
[2016-07-30 06:54] LABS: ADD SCAN DIFF NO
[2016-07-30 06:59] LABS: BASOPHILS % 0.2 % (0.0-2.0); EOSINOPHILS # 0.1 10^3/ul (0.0-0.5); HEMOGLOBIN 10.4 g/dl (14.0-18.0); LYMPHOCYTES # 1.4 10^3/ul (0.8-2.9); LYMPHOCYTES % 27.8 % (15.0-51.0); MEAN CORPUSCULAR HEMOGLOBIN 34.9 pg (29.0-33.0); MEAN CORPUSCULAR HGB CONC 33.5 g/dl (32.0-37.0); MEAN PLATELET VOLUME 8.8 fl (7.4-10.4); MONOCYTE # 0.6 10^3/ul (0.3-0.9); MONOCYTES % 11.4 % (0.0-11.0); NEUTROPHIL # 2.9 10^3/ul (1.6-7.5); NEUTROPHILS % 58.4 % (39.0-77.0); PLATELET COUNT 312 10^3/UL (140-415); RED BLOOD COUNT 2.98 10^6/ul (4.70-6.10); RED CELL DISTRIBUTION WIDTH 12.3 % (11.5-14.5); WHITE BLOOD COUNT 4.9 10^3/ul (4.8-10.8)
[2016-07-30 07:25] LABS: ALBUMIN 2.9 g/dl (3.3-4.9); CREATININE 0.52 mg/dl (0.61-1.24); PHOSPHORUS 5.5 mg/dl (2.5-4.9)
[2016-07-30] MEDS: TIOTROPIUM 18 MCG CAPSULE INHA DEV INH SCH (09:00)
[2016-07-30] MEDS: SALMETEROL/FLUTICASONE 250/50 INHA INH SCH ×2 (09:15→21:01)
[2016-07-30] MEDS: SILVER SULFADIAZINE 1% 25 GM CR TOP SCH ×2 (09:15→21:02)
[2016-07-30] MEDS: CYANOCOBALAMIN 500 MCG TAB PO SCH (09:18)
[2016-07-30] MEDS: GABAPENTIN 100 MG CAP PO SCH ×3 (09:18→21:02)
[2016-07-30] MEDS: FAMOTIDINE 20 MG TAB PO SCH (09:18)
[2016-07-30] MEDS: ASPIRIN (EC) 81 MG TAB PO SCH (09:18)
[2016-07-30] MEDS: NICOTINE (21 MG/24 HR) PATCH TRANSDERM SCH (09:18)
[2016-07-30] MEDS: L ACIDOPHIL/B LACTIS/B LONGUM CAPSULE PO SCH ×2 (09:18→21:04)
[2016-07-30] MEDS: MAGNESIUM OXIDE 400 MG TAB PO SCH ×2 (09:18→21:02)
[2016-07-30] MEDS: THIAMINE 100 MG TAB PO SCH (09:18)
[2016-07-30] MEDS: FOLIC ACID 0.4 MG TAB PO SCH (09:18)
[2016-07-30] MEDS: DILTIAZEM (CD) 180 MG CAP PO SCH (09:19)
[2016-07-30] MEDS: FUROSEMIDE 40 MG TAB PO SCH (09:19)
[2016-07-30] MEDS: ENOXAPARIN 40 MG/0.4 ML SYG SC SCH (09:33)
--- NOTE | 2016-07-30 12:15 | PN ---
Date/Time of Note Date/Time of Note DATE: 07/30/16 TIME: 12:11 Assessment/Plan VTE Prophylaxis VTE Prophylaxis Intervention: LMWH Lines/Catheters IV [facility] Assessment/Plan Problems: (1) COPD (chronic obstructive pulmonary disease) Status: Chronic Comment: He has on breathing treatments. He has been on steroids and modestly curious about his cortisol level is listed in the chart. I will check into the splint discharge planning for the morning would be appropriate. The main issue is will be able to manage himself in his RV. Qualifiers: COPD type: emphysema Emphysema type: panlobular Qualified Code: J43.1 - Panlobular emphysema (2) Diastolic dysfunction with acute on chronic heart failure Status: Chronic Comment: His diastolic dysfunction is relatively mild. He is being managed with diltiazem both for the diastolic dysfunction more appropriately for the paroxysmal SVT. This is been under control (3) Paroxysmal SVT (supraventricular tachycardia) Status: Chronic Comment: Controlled as noted above (4) Bilateral lower leg cellulitis Status: Acute Comment: This is improved nicely he is now on oral antibiotic therapy for this. Subjective 24 Hr Interval Summary Free Text/Dictation Patient reports he is tired of being in the hospital wants to go back to his RV Constitutional: no complaints Respiratory: no complaints Cardiovascular: no complaints Gastrointestinal: no complaints Genitourinary: no complaints Musculoskeletal: no complaints Exam/Review of Systems Vital Signs Vitals Vital Signs Date Time Temp Pulse Resp B/P Pulse Ox O2 Delivery O2 Flow Rate FiO2 07/30/16 12:09 90 07/30/16 12:02 97.6 18 143/84 98 07/30/16 03:57 2.0 07/29/16 22:00 Nasal Cannula Intake and Output 07/29/16 07/29/16 07/30/16 15:00 23:00 07:00 Intake Total 1750 ml 400 ml Output Total 2200 ml 500 ml Balance -450 ml -100 ml Exam Constitutional: alert, oriented Neck: non-tender, supple Respiratory: diminished breath sounds, wheezing Cardiovascular: nl pulses, regular rate and rhythm Gastrointestinal: nl liver, spleen, non-tender, soft Results Result Diagram: 07/30/16 0550 07/30/16 0550 Results 24 hrs Laboratory Tests Test 07/30/16 05:50 White Blood Count 4.9 Red Blood Count 2.98 L Hemoglobin 10.4 L Hematocrit 31.0 L Mean Corpuscular Volume 104.0 H Mean Corpuscular Hemoglobin 34.9 H Mean Corpuscular Hemoglobin Concent 33.5 Red Cell Distribution Width 12.3 Platelet Count 312 Mean Platelet Volume 8.8 Neutrophils % 58.4 Lymphocytes % 27.8 Monocytes % 11.4 H Eosinophils % 1.0 Basophils % 0.2 Nucleated Red Blood Cells % 0.0 Neutrophils # 2.9 Lymphocytes # 1.4 Monocytes # 0.6 Eosinophils # 0.1 Basophils # 0.0 Nucleated Red Blood Cells # 0.0 Sodium Level 132 L Potassium Level 4.0 Chloride Level 99 Carbon Dioxide Level 30 Anion Gap 7 #L Blood Urea Nitrogen 7 Creatinine 0.52 L Glucose Level 98 Calcium Level 9.0 Phosphorus Level 5.5 H Albumin 2.9 L Medications Medications Current Medications Aspirin (Halfprin) 81 mg DAILY PO Last administered on 07/30/16 09:18; Admin Dose 81 MG; Start 07/19/16 at 09:00 Atorvastatin Calcium (Lipitor) 20 mg HS PO Last administered on 07/29/16 21:11 ; Admin Dose 20 MG; Start 07/19/16 at 21:00 Folic Acid (Folic Acid) 0.4 mg DAILY PO Last administered on 07/30/16 09:18; Admin Dose 0.4 MG; Start 07/19/16 at 09:00 Magnesium Oxide (Mag-Ox 400) 400 mg BID PO Last administered on 07/30/16 09:18 ; Admin Dose 400 MG; Start 07/18/16 at 22:30 Nicotine (Nicoderm 21 Mg/ 24hr) 1 patch DAILY TRANSDERM Last administered on 09:18; Admin Dose 1 PATCH; Start 07/19/16 at 09:00 Quetiapine Fumarate (Seroquel) 25 mg HS PO Last administered on 07/29/16 21:11 ; Admin Dose 25 MG; Start 07/19/16 at 21:00 Tiotropium [place] (Spiriva) 1 inh DAILY INH Last administered on 07/28/16 08: 59; Admin Dose 1 INH; Start 07/21/16 at 14:30 Ondansetron HCl (Zofran Inj) 4 mg Q6H PRN IV NAUSEA AND/OR VOMITING; Start 07/18 at 22:30 Albuterol (Ventolin Hfa) 2 puff Q6H PRN INH SHORTNESS OF BREATH Last administered on 07/21/16 06:12; Admin Dose 2 PUFF; Start 07/18/16 at 23:00 Salmeterol Xinafoate/ Fluticasone (Advair 250/50 Diskus) 1 inh BID INH Last administered on 07/30/16 09:15; Admin Dose 1 INH; Start 07/19/16 at 09:00 Lactobacillus Acidophilus (Florajen3 Capsule) 1 each BID PO Last administered on 07/30/16 09:18; Admin Dose 1 EACH; Start 07/19/16 at 09:00 Morphine Sulfate (morphine) 4 mg Q4H PRN IV SEVERE PAIN LEVEL 7-10 Last administered on 07/30/16 09:14; Admin Dose 4 MG; Start 07/19/16 at 02:30 Oxycodone/ Acetaminophen (Endocet (10/ 325)) 1 tab Q6H PRN PO PAIN Last administered on 07/29/16 08:42; Admin Dose 1 TAB; Start 07/19/16 at 02:30 Diltiazem HCl (Cardizem) 60 mg Q3H PRN PO HR>150 Last administered on 14:13; Admin Dose 60 MG; Start 07/19/16 at 19:30 Cyanocobalamin (Vitamin B12) 1,000 mcg DAILY PO Last administered on 07/30/16 09:18; Admin Dose 1,000 MCG; Start 07/20/16 at 14:00 Gabapentin (Neurontin) 100 mg TID PO Last administered on 07/30/16 09:18; Admin Dose 100 MG; Start 07/21/16 at 13:00 Acetaminophen (Tylenol Tab) 650 mg Q6H PRN PO PAIN AND OR ELEVATED TEMP Last administered on 07/22/16 20:41; Admin Dose 650 MG; Start 07/22/16 at 21:00 Famotidine (Pepcid) 20 mg DAILY PO Last administered on 07/30/16 09:18; Admin Dose 20 MG; Start 07/24/16 at 09:00 Docusate Sodium (Colace) 100 mg HS PO Last administered on 07/29/16 21:11; Admin Dose 100 MG; Start 07/23/16 at 21:00 Bisacodyl (Dulcolax) 10 mg DAILY PRN PO CONSTIPATION; Start 07/23/16 at 19:30 Thiamine HCl (Vitamin B1) 100 mg DAILY PO Last administered on 07/30/16 09:18 ; Admin Dose 100 MG; Start 07/23/16 at 19:30 Enoxaparin Sodium (Lovenox) 40 mg DAILY SC Last administered on 07/30/16 09:33 ; Admin Dose 40 MG; Start 07/25/16 at 17:00 Silver Sulfadiazine (Thermazene 1% 25 Gm) 1 applic BID TOP Last administered on 07/30/16 09:15; Admin Dose 1 APPLIC; Start 07/26/16 at 14:30 Diltiazem HCl (Cardizem Cd) 360 mg DAILY PO Last administered on 07/30/16 09: 19; Admin Dose 360 MG; Start 07/27/16 at 09:30 Furosemide (Lasix) 40 mg DAILY PO Last administered on 07/30/16 09:19; Admin Dose 40 MG; Start 07/27/16 at 16:00 Clindamycin HCl (Cleocin) 300 mg Q8 PO Last administered on 07/30/16 05:58; Admin Dose 300 MG; Start 07/28/16 at 14:00 Cephalexin (Keflex) 500 mg Q8 PO Last administered on 07/30/16 05:55; Admin Dose 500 MG; Start 07/28/16 at 14:00 IV Flush (NS 10 ml) 10 ml PRN PRN IV IV PROTOCOL; Start 07/28/16 at 16:00 CHRISTEN MERAZ MD July 30, 2016 12:15
[2016-07-30] MEDS ORDERED: MONTELUKAST 10 MG TAB PO ONE (12:30)
[2016-07-30] MEDS: TERBINAFINE 250 MG TAB PO SCH ×2 (14:10→21:11)
[2016-07-30] MEDS: OXYCODONE/ACETAMINOPHEN (10/325) TAB PO PRN (14:11)
--- NOTE | 2016-07-30 14:12 | CONS ---
Date/Time of Note Date/Time of Note DATE: 07/30/16 TIME: 14:03 Assessment/Plan Assessment/Plan Chief Complaint/Hosp Course ID PROGRESS NOTE ABX DAY # Clindamycin + Keflex + Topical Silvadene 24H INTERVAL SUMMARY * Awake, alert, stable, no c/o * Tells me BLEXT cellulitis greatly improved PHYSICAL EXAMINATION: GENERAL: A/A/O, VSS HEENT: Unremarkable NECK: Supple, trach-> midline CHEST: Equal chest rise bilaterally, without dyspnea on observation HEART: Pulse RRR ABDOMEN: Soft EXTREMITIES: BLEXT edema w/cellulitis, chronic venous stasis wounds L >R SKIN: Warm, dry ID ASSESSMENT: 60 yo M admitted with: 1. Bilateral lower extremity cellulitis w/chronic venous stasis & scratch wounds==> improving. 2. Acute on chronic diastolic heart failure 3. Hx of CAD 4. Hypertension. 5. Chronic obstructive pulmonary disease-> has been on steroids 6. Fatty liver INVASIVES: *PIV ABX ALLERGIES: None to ABX CURRENT ABX: # Clindamycin + Keflex + Topical Silvadene ID RECOMMENDATIONS: 1. Continue current ABX PO => treat until resolution anticipate (+/-) 7 more days 2. May DC on ABX when cleared by primary . Problems: Consultation Date/Type/Reason Admit Date/Time July 18, 2016 at 19:42 Initial Consult Date 07/19/16 Type of Consultation: ID Exam/Review of Systems Vital Signs Vitals Vital Signs Date Time Temp Pulse Resp B/P Pulse Ox O2 Delivery O2 Flow Rate FiO2 07/30/16 12:09 90 07/30/16 12:02 97.6 18 143/84 98 07/30/16 08:00 Nasal Cannula 2.0 Intake and Output 07/29/16 07/29/16 07/30/16 15:00 23:00 07:00 Intake Total 1750 ml 400 ml Output Total 2200 ml 500 ml Balance -450 ml -100 ml Results Result Diagram: 07/30/16 0550 07/30/16 0550 Results 24 hrs Laboratory Tests Test 07/30/16 05:50 White Blood Count 4.9 Red Blood Count 2.98 L Hemoglobin 10.4 L Hematocrit 31.0 L Mean Corpuscular Volume 104.0 H Mean Corpuscular Hemoglobin 34.9 H Mean Corpuscular Hemoglobin Concent 33.5 Red Cell Distribution Width 12.3 Platelet Count 312 Mean Platelet Volume 8.8 Neutrophils % 58.4 Lymphocytes % 27.8 Monocytes % 11.4 H Eosinophils % 1.0 Basophils % 0.2 Nucleated Red Blood Cells % 0.0 Neutrophils # 2.9 Lymphocytes # 1.4 Monocytes # 0.6 Eosinophils # 0.1 Basophils # 0.0 Nucleated Red Blood Cells # 0.0 Sodium Level 132 L Potassium Level 4.0 Chloride Level 99 Carbon Dioxide Level 30 Anion Gap 7 #L Blood Urea Nitrogen 7 Creatinine 0.52 L Glucose Level 98 Calcium Level 9.0 Phosphorus Level 5.5 H Albumin 2.9 L Random Cortisol 0.7 Medications Medications Current Medications Aspirin (Halfprin) 81 mg DAILY PO Last administered on 07/30/16 09:18; Admin Dose 81 MG; Start 07/19/16 at 09:00 Atorvastatin Calcium (Lipitor) 20 mg HS PO Last administered on 07/29/16 21:11 ; Admin Dose 20 MG; Start 07/19/16 at 21:00 Folic Acid (Folic Acid) 0.4 mg DAILY PO Last administered on 07/30/16 09:18; Admin Dose 0.4 MG; Start 07/19/16 at 09:00 Magnesium Oxide (Mag-Ox 400) 400 mg BID PO Last administered on 07/30/16 09:18 ; Admin Dose 400 MG; Start 07/18/16 at 22:30 Nicotine (Nicoderm 21 Mg/ 24hr) 1 patch DAILY TRANSDERM Last administered on 09:18; Admin Dose 1 PATCH; Start 07/19/16 at 09:00 Quetiapine Fumarate (Seroquel) 25 mg HS PO Last administered on 07/29/16 21:11 ; Admin Dose 25 MG; Start 07/19/16 at 21:00 Tiotropium [place] (Spiriva) 1 inh DAILY INH Last administered on 07/28/16 08: 59; Admin Dose 1 INH; Start 07/21/16 at 14:30 Ondansetron HCl (Zofran Inj) 4 mg Q6H PRN IV NAUSEA AND/OR VOMITING; Start 07/18 at 22:30 Albuterol (Ventolin Hfa) 2 puff Q6H PRN INH SHORTNESS OF BREATH Last administered on 07/21/16 06:12; Admin Dose 2 PUFF; Start 07/18/16 at 23:00 Salmeterol Xinafoate/ Fluticasone (Advair 250/50 Diskus) 1 inh BID INH Last administered on 07/30/16 09:15; Admin Dose 1 INH; Start 07/19/16 at 09:00 Lactobacillus Acidophilus (Florajen3 Capsule) 1 each BID PO Last administered on 07/30/16 09:18; Admin Dose 1 EACH; Start 07/19/16 at 09:00 Morphine Sulfate (morphine) 4 mg Q4H PRN IV SEVERE PAIN LEVEL 7-10 Last administered on 07/30/16 09:14; Admin Dose 4 MG; Start 07/19/16 at 02:30 Oxycodone/ Acetaminophen (Endocet (10/ 325)) 1 tab Q6H PRN PO PAIN Last administered on 07/29/16 08:42; Admin Dose 1 TAB; Start 07/19/16 at 02:30 Diltiazem HCl (Cardizem) 60 mg Q3H PRN PO HR>150 Last administered on 14:13; Admin Dose 60 MG; Start 07/19/16 at 19:30 Cyanocobalamin (Vitamin B12) 1,000 mcg DAILY PO Last administered on 07/30/16 09:18; Admin Dose 1,000 MCG; Start 07/20/16 at 14:00 Gabapentin (Neurontin) 100 mg TID PO Last administered on 07/30/16 09:18; Admin Dose 100 MG; Start 07/21/16 at 13:00 Acetaminophen (Tylenol Tab) 650 mg Q6H PRN PO PAIN AND OR ELEVATED TEMP Last administered on 07/22/16 20:41; Admin Dose 650 MG; Start 07/22/16 at 21:00 Famotidine (Pepcid) 20 mg DAILY PO Last administered on 07/30/16 09:18; Admin Dose 20 MG; Start 07/24/16 at 09:00 Docusate Sodium (Colace) 100 mg HS PO Last administered on 07/29/16 21:11; Admin Dose 100 MG; Start 07/23/16 at 21:00 Bisacodyl (Dulcolax) 10 mg DAILY PRN PO CONSTIPATION; Start 07/23/16 at 19:30 Enoxaparin Sodium (Lovenox) 40 mg DAILY SC Last administered on 07/30/16 09:33 ; Admin Dose 40 MG; Start 07/25/16 at 17:00 Silver Sulfadiazine (Thermazene 1% 25 Gm) 1 applic BID TOP Last administered on 07/30/16 09:15; Admin Dose 1 APPLIC; Start 07/26/16 at 14:30 Diltiazem HCl (Cardizem Cd) 360 mg DAILY PO Last administered on 07/30/16 09: 19; Admin Dose 360 MG; Start 07/27/16 at 09:30 Furosemide (Lasix) 40 mg DAILY PO Last administered on 07/30/16 09:19; Admin Dose 40 MG; Start 07/27/16 at 16:00 Clindamycin HCl (Cleocin) 300 mg Q8 PO Last administered on 07/30/16 05:58; Admin Dose 300 MG; Start 07/28/16 at 14:00 Cephalexin (Keflex) 500 mg Q8 PO Last administered on 07/30/16 05:55; Admin Dose 500 MG; Start 07/28/16 at 14:00 IV Flush (NS 10 ml) 10 ml PRN PRN IV IV PROTOCOL; Start 07/28/16 at 16:00 Montelukast Sodium (Singulair) 10 mg HS PO ; Start 07/30/16 at 21:00 Terbinafine HCl (Lamisil) 250 mg BID PO ; Start 07/30/16 at 13:00; Stop at 12:59 STEVO SCHAEFER NP July 30, 2016 14:12
--- NOTE | 2016-07-30 15:20 | CONS ---
Date/Time of Note Date/Time of Note DATE: 07/30/16 TIME: 15:17 Assessment/Plan Assessment/Plan Chief Complaint/Hosp Course Assessment: Acute on chronic diastolic heart failure - improved with diuresis Nonsustained ventricular tachycardia - likely in setting of hypokalemia and hypomagnesemia, no recurrence since electrolytes corrected Paroxysmal supraventricular tachycardia - controlled Hypertension Dyslipidemia Bilateral lower extremity cellulitis - antibiotics per infectious disease Chronic obstructive pulmonary disease exacerbation - management per primary team Hyponatremia Recommendations: -echocardiogram showed LVEF 60-65%, mild diastolic dysfunction -continue Lasix 40mg PO daily -continue diltiazem CD 360mg daily -continue aspirin 81mg and atorvastatin 20mg daily -keep K>4 and Mg>2 Problems: Consultation Date/Type/Reason Admit Date/Time July 18, 2016 at 19:42 Initial Consult Date 07/19/16 Type of Consultation: Cardiology 24 HR Interval Summary Free Text/Dictation Had short runs of nonsustained ventricular tachycardia on 07/28/2016. No further episodes of nonsustained ventricular tachycardia or supraventricular tachycardia today. No chest pain. Shortness of breath and lower extremity swelling improved. Detailed Summary Additional Comments 14 point review of systems without changes. Exam/Review of Systems Vital Signs Vitals Vital Signs Date Time Temp Pulse Resp B/P Pulse Ox O2 Delivery O2 Flow Rate FiO2 07/30/16 12:09 90 07/30/16 12:02 97.6 18 143/84 98 07/30/16 08:00 Nasal Cannula 2.0 Intake and Output 07/29/16 07/29/16 07/30/16 15:00 23:00 07:00 Intake Total 1750 ml 400 ml Output Total 2200 ml 500 ml Balance -450 ml -100 ml Exam Constitutional: alert, well developed Psych: nl mood/affect, no complaints Head: atraumatic, normocephalic Eyes: nl conjunctiva, nl lids ENMT: nl external ears & nose, nl nasal mucosa & septum Neck: non-tender, supple, No jvd Respiratory: diminished breath sounds, wheezing Cardiovascular: regular rate and rhythm, No murmurs/extra sounds Gastrointestinal: non-tender, soft Musculoskeletal: swelling Extremities: edema, No clubbing, No cyanosis Neurological: nl mental status, nl speech Skin: rash or lesions Results Result Diagram: 07/30/16 0550 07/30/16 0550 Results 24 hrs Laboratory Tests Test 07/30/16 05:50 White Blood Count 4.9 Red Blood Count 2.98 L Hemoglobin 10.4 L Hematocrit 31.0 L Mean Corpuscular Volume 104.0 H Mean Corpuscular Hemoglobin 34.9 H Mean Corpuscular Hemoglobin Concent 33.5 Red Cell Distribution Width 12.3 Platelet Count 312 Mean Platelet Volume 8.8 Neutrophils % 58.4 Lymphocytes % 27.8 Monocytes % 11.4 H Eosinophils % 1.0 Basophils % 0.2 Nucleated Red Blood Cells % 0.0 Neutrophils # 2.9 Lymphocytes # 1.4 Monocytes # 0.6 Eosinophils # 0.1 Basophils # 0.0 Nucleated Red Blood Cells # 0.0 Sodium Level 132 L Potassium Level 4.0 Chloride Level 99 Carbon Dioxide Level 30 Anion Gap 7 #L Blood Urea Nitrogen 7 Creatinine 0.52 L Glucose Level 98 Calcium Level 9.0 Phosphorus Level 5.5 H Albumin 2.9 L Random Cortisol 0.7 Medications Medications Current Medications Aspirin (Halfprin) 81 mg DAILY PO Last administered on 07/30/16 09:18; Admin Dose 81 MG; Start 07/19/16 at 09:00 Atorvastatin Calcium (Lipitor) 20 mg HS PO Last administered on 07/29/16 21:11 ; Admin Dose 20 MG; Start 07/19/16 at 21:00 Folic Acid (Folic Acid) 0.4 mg DAILY PO Last administered on 07/30/16 09:18; Admin Dose 0.4 MG; Start 07/19/16 at 09:00 Magnesium Oxide (Mag-Ox 400) 400 mg BID PO Last administered on 07/30/16 09:18 ; Admin Dose 400 MG; Start 07/18/16 at 22:30 Nicotine (Nicoderm 21 Mg/ 24hr) 1 patch DAILY TRANSDERM Last administered on 09:18; Admin Dose 1 PATCH; Start 07/19/16 at 09:00 Quetiapine Fumarate (Seroquel) 25 mg HS PO Last administered on 07/29/16 21:11 ; Admin Dose 25 MG; Start 07/19/16 at 21:00 Tiotropium [place] (Spiriva) 1 inh DAILY INH Last administered on 07/28/16 08: 59; Admin Dose 1 INH; Start 07/21/16 at 14:30 Ondansetron HCl (Zofran Inj) 4 mg Q6H PRN IV NAUSEA AND/OR VOMITING; Start 07/18 at 22:30 Albuterol (Ventolin Hfa) 2 puff Q6H PRN INH SHORTNESS OF BREATH Last administered on 07/21/16 06:12; Admin Dose 2 PUFF; Start 07/18/16 at 23:00 Salmeterol Xinafoate/ Fluticasone (Advair 250/50 Diskus) 1 inh BID INH Last administered on 07/30/16 09:15; Admin Dose 1 INH; Start 07/19/16 at 09:00 Lactobacillus Acidophilus (Florajen3 Capsule) 1 each BID PO Last administered on 07/30/16 09:18; Admin Dose 1 EACH; Start 07/19/16 at 09:00 Morphine Sulfate (morphine) 4 mg Q4H PRN IV SEVERE PAIN LEVEL 7-10 Last administered on 07/30/16 09:14; Admin Dose 4 MG; Start 07/19/16 at 02:30 Oxycodone/ Acetaminophen (Endocet (10/ 325)) 1 tab Q6H PRN PO PAIN Last administered on 07/30/16 14:11; Admin Dose 1 TAB; Start 07/19/16 at 02:30 Diltiazem HCl (Cardizem) 60 mg Q3H PRN PO HR>150 Last administered on 14:13; Admin Dose 60 MG; Start 07/19/16 at 19:30 Cyanocobalamin (Vitamin B12) 1,000 mcg DAILY PO Last administered on 07/30/16 09:18; Admin Dose 1,000 MCG; Start 07/20/16 at 14:00 Gabapentin (Neurontin) 100 mg TID PO Last administered on 07/30/16 14:11; Admin Dose 100 MG; Start 07/21/16 at 13:00 Acetaminophen (Tylenol Tab) 650 mg Q6H PRN PO PAIN AND OR ELEVATED TEMP Last administered on 07/22/16 20:41; Admin Dose 650 MG; Start 07/22/16 at 21:00 Famotidine (Pepcid) 20 mg DAILY PO Last administered on 07/30/16 09:18; Admin Dose 20 MG; Start 07/24/16 at 09:00 Docusate Sodium (Colace) 100 mg HS PO Last administered on 07/29/16 21:11; Admin Dose 100 MG; Start 07/23/16 at 21:00 Bisacodyl (Dulcolax) 10 mg DAILY PRN PO CONSTIPATION; Start 07/23/16 at 19:30 Enoxaparin Sodium (Lovenox) 40 mg DAILY SC Last administered on 07/30/16 09:33 ; Admin Dose 40 MG; Start 07/25/16 at 17:00 Silver Sulfadiazine (Thermazene 1% 25 Gm) 1 applic BID TOP Last administered on 07/30/16 09:15; Admin Dose 1 APPLIC; Start 07/26/16 at 14:30 Diltiazem HCl (Cardizem Cd) 360 mg DAILY PO Last administered on 07/30/16 09: 19; Admin Dose 360 MG; Start 07/27/16 at 09:30 Furosemide (Lasix) 40 mg DAILY PO Last administered on 07/30/16 09:19; Admin Dose 40 MG; Start 07/27/16 at 16:00 Clindamycin HCl (Cleocin) 300 mg Q8 PO Last administered on 07/30/16 14:11; Admin Dose 300 MG; Start 07/28/16 at 14:00 Cephalexin (Keflex) 500 mg Q8 PO Last administered on 07/30/16 14:11; Admin Dose 500 MG; Start 07/28/16 at 14:00 IV Flush (NS 10 ml) 10 ml PRN PRN IV IV PROTOCOL; Start 07/28/16 at 16:00 Montelukast Sodium (Singulair) 10 mg HS PO ; Start 07/30/16 at 21:00 Terbinafine HCl (Lamisil) 250 mg BID PO Last administered on 07/30/16 14:10; Admin Dose 250 MG; Start 07/30/16 at 13:00; Stop 08/06/16 at 12:59 PRISCILLA HEMPHILL MD July 30, 2016 15:20
[2016-07-30] MEDS: QUETIAPINE 25 MG TAB PO SCH (21:02)
[2016-07-30] MEDS: MONTELUKAST 10 MG TAB PO SCH (21:02)
[2016-07-30] MEDS: ATORVASTATIN 20 MG TAB PO SCH (21:02)
[2016-07-30] MEDS: DOCUSATE SODIUM 100 MG CAP PO SCH (21:02)
[2016-07-31] VITALS (10 sets, daily range): BP systolic 124–141; BP diastolic 64–77; PULSE 70–87; RESP 18–20
[2016-07-31] MEDS: morphine 4 MG/ML VIAL IV PRN ×4 (02:47→21:06)
[2016-07-31] MEDS: CLINDAMYCIN 300 MG CAP PO SCH ×3 (05:43→21:06)
[2016-07-31] MEDS: CEPHALEXIN 500 MG CAP PO SCH ×3 (06:18→21:06)
[2016-07-31] MEDS: TIOTROPIUM 18 MCG CAPSULE INHA DEV INH SCH (09:00)
[2016-07-31] MEDS: SILVER SULFADIAZINE 1% 25 GM CR TOP SCH ×2 (09:32→21:06)
[2016-07-31] MEDS: SALMETEROL/FLUTICASONE 250/50 INHA INH SCH ×2 (09:32→21:09)
[2016-07-31] MEDS: MAGNESIUM OXIDE 400 MG TAB PO SCH ×2 (09:33→21:06)
[2016-07-31] MEDS: TERBINAFINE 250 MG TAB PO SCH ×2 (09:33→21:06)
[2016-07-31] MEDS: ASPIRIN (EC) 81 MG TAB PO SCH (09:33)
[2016-07-31] MEDS: CYANOCOBALAMIN 500 MCG TAB PO SCH (09:33)
[2016-07-31] MEDS: FUROSEMIDE 40 MG TAB PO SCH (09:33)
[2016-07-31] MEDS: DILTIAZEM (CD) 180 MG CAP PO SCH (09:33)
[2016-07-31] MEDS: FOLIC ACID 0.4 MG TAB PO SCH (09:33)
[2016-07-31] MEDS: L ACIDOPHIL/B LACTIS/B LONGUM CAPSULE PO SCH ×2 (09:34→21:06)
[2016-07-31] MEDS: FAMOTIDINE 20 MG TAB PO SCH (09:34)
[2016-07-31] MEDS: GABAPENTIN 100 MG CAP PO SCH ×3 (09:34→21:06)
[2016-07-31] MEDS: NICOTINE (21 MG/24 HR) PATCH TRANSDERM SCH (09:34)
[2016-07-31] MEDS: ENOXAPARIN 40 MG/0.4 ML SYG SC SCH (09:40)
--- NOTE | 2016-07-31 14:35 | CONS ---
Date/Time of Note Date/Time of Note DATE: 07/31/16 TIME: 14:32 Assessment/Plan Assessment/Plan Chief Complaint/Hosp Course ID PROGRESS NOTE ABX DAY # Clindamycin + Keflex + Topical Silvadene 24H INTERVAL SUMMARY * Lethargic, awakens easily, O2 via NC, c/o pain on examination of BLEXT/Feet * Tells me BLEXT cellulitis greatly improved -> erythema, pain, crusty scab lesions still present, no significant edema PHYSICAL EXAMINATION: GENERAL: A/A/O, VSS HEENT: Unremarkable NECK: Supple, trach-> midline CHEST: Equal chest rise bilaterally, without dyspnea on observation HEART: Pulse RRR ABDOMEN: Soft EXTREMITIES: BLEXT edema w/cellulitis, chronic venous stasis wounds L >R SKIN: Warm, dry ID ASSESSMENT: 60 yo M admitted with: 1. Bilateral lower extremity cellulitis w/chronic venous stasis & scratch wounds==> improving. 2. Acute on chronic diastolic heart failure 3. Hx of CAD 4. Hypertension. 5. Chronic obstructive pulmonary disease-> has been on steroids 6. Fatty liver INVASIVES: *PIV ABX ALLERGIES: None to ABX CURRENT ABX: # Clindamycin + Keflex + Topical Silvadene ID RECOMMENDATIONS: 1. Continue current ABX PO => treat until resolution anticipate (+/-) 7-10 more days 2. Consider BLEXT [place] therapy for crust debridement if he remains inpatient status 3. May DC on ABX when cleared by primary . Problems: Consultation Date/Type/Reason Admit Date/Time July 18, 2016 at 19:42 Initial Consult Date 07/19/16 Type of Consultation: Cardiology Exam/Review of Systems Vital Signs Vitals Vital Signs Date Time Temp Pulse Resp B/P Pulse Ox O2 Delivery O2 Flow Rate FiO2 07/31/16 12:26 87 07/31/16 12:13 98.0 18 141/71 98 07/31/16 08:00 Nasal Cannula 2.0 Intake and Output 07/30/16 07/30/16 07/31/16 15:00 23:00 07:00 Intake Total 1040 ml 700 ml Output Total 800 ml 1100 ml Balance 240 ml -400 ml Results Result Diagram: 07/30/16 0550 07/30/16 0550 Medications Medications Current Medications Aspirin (Halfprin) 81 mg DAILY PO Last administered on 07/31/16 09:33; Admin Dose 81 MG; Start 07/19/16 at 09:00 Atorvastatin Calcium (Lipitor) 20 mg HS PO Last administered on 07/30/16 21:02 ; Admin Dose 20 MG; Start 07/19/16 at 21:00 Folic Acid (Folic Acid) 0.4 mg DAILY PO Last administered on 07/31/16 09:33; Admin Dose 0.4 MG; Start 07/19/16 at 09:00 Magnesium Oxide (Mag-Ox 400) 400 mg BID PO Last administered on 07/31/16 09:33 ; Admin Dose 400 MG; Start 07/18/16 at 22:30 Nicotine (Nicoderm 21 Mg/ 24hr) 1 patch DAILY TRANSDERM Last administered on 09:34; Admin Dose 1 PATCH; Start 07/19/16 at 09:00 Quetiapine Fumarate (Seroquel) 25 mg HS PO Last administered on 07/30/16 21:02 ; Admin Dose 25 MG; Start 07/19/16 at 21:00 Tiotropium [place] (Spiriva) 1 inh DAILY INH Last administered on 07/28/16 08: 59; Admin Dose 1 INH; Start 07/21/16 at 14:30 Ondansetron HCl (Zofran Inj) 4 mg Q6H PRN IV NAUSEA AND/OR VOMITING; Start 07/18 at 22:30 Albuterol (Ventolin Hfa) 2 puff Q6H PRN INH SHORTNESS OF BREATH Last administered on 07/21/16 06:12; Admin Dose 2 PUFF; Start 07/18/16 at 23:00 Salmeterol Xinafoate/ Fluticasone (Advair 250/50 Diskus) 1 inh BID INH Last administered on 07/31/16 09:32; Admin Dose 1 INH; Start 07/19/16 at 09:00 Lactobacillus Acidophilus (Florajen3 Capsule) 1 each BID PO Last administered on 07/31/16 09:34; Admin Dose 1 EACH; Start 07/19/16 at 09:00 Morphine Sulfate (morphine) 4 mg Q4H PRN IV SEVERE PAIN LEVEL 7-10 Last administered on 07/31/16 06:21; Admin Dose 4 MG; Start 07/19/16 at 02:30 Oxycodone/ Acetaminophen (Endocet (10/ 325)) 1 tab Q6H PRN PO PAIN Last administered on 07/30/16 14:11; Admin Dose 1 TAB; Start 07/19/16 at 02:30 Diltiazem HCl (Cardizem) 60 mg Q3H PRN PO HR>150 Last administered on 14:13; Admin Dose 60 MG; Start 07/19/16 at 19:30 Cyanocobalamin (Vitamin B12) 1,000 mcg DAILY PO Last administered on 07/31/16 09:33; Admin Dose 1,000 MCG; Start 07/20/16 at 14:00 Gabapentin (Neurontin) 100 mg TID PO Last administered on 07/31/16 13:16; Admin Dose 100 MG; Start 07/21/16 at 13:00 Acetaminophen (Tylenol Tab) 650 mg Q6H PRN PO PAIN AND OR ELEVATED TEMP Last administered on 07/22/16 20:41; Admin Dose 650 MG; Start 07/22/16 at 21:00 Famotidine (Pepcid) 20 mg DAILY PO Last administered on 07/31/16 09:34; Admin Dose 20 MG; Start 07/24/16 at 09:00 Docusate Sodium (Colace) 100 mg HS PO Last administered on 07/30/16 21:02; Admin Dose 100 MG; Start 07/23/16 at 21:00 Bisacodyl (Dulcolax) 10 mg DAILY PRN PO CONSTIPATION; Start 07/23/16 at 19:30 Enoxaparin Sodium (Lovenox) 40 mg DAILY SC Last administered on 07/31/16 09:40 ; Admin Dose 40 MG; Start 07/25/16 at 17:00 Silver Sulfadiazine (Thermazene 1% 25 Gm) 1 applic BID TOP Last administered on 07/31/16 09:32; Admin Dose 1 APPLIC; Start 07/26/16 at 14:30 Diltiazem HCl (Cardizem Cd) 360 mg DAILY PO Last administered on 07/31/16 09: 33; Admin Dose 360 MG; Start 07/27/16 at 09:30 Furosemide (Lasix) 40 mg DAILY PO Last administered on 07/31/16 09:33; Admin Dose 40 MG; Start 07/27/16 at 16:00 Clindamycin HCl (Cleocin) 300 mg Q8 PO Last administered on 07/31/16 13:17; Admin Dose 300 MG; Start 07/28/16 at 14:00 Cephalexin (Keflex) 500 mg Q8 PO Last administered on 07/31/16 13:16; Admin Dose 500 MG; Start 07/28/16 at 14:00 IV Flush (NS 10 ml) 10 ml PRN PRN IV IV PROTOCOL; Start 07/28/16 at 16:00 Montelukast Sodium (Singulair) 10 mg HS PO Last administered on 07/30/16 21:02 ; Admin Dose 10 MG; Start 07/30/16 at 21:00 Terbinafine HCl (Lamisil) 250 mg BID PO Last administered on 07/31/16 09:33; Admin Dose 250 MG; Start 07/30/16 at 13:00; Stop 08/06/16 at 12:59 STEVO SCHAEFER NP July 31, 2016 14:35
--- NOTE | 2016-07-31 14:55 | PN ---
Date/Time of Note Date/Time of Note DATE: 07/31/16 TIME: 14:45 Assessment/Plan VTE Prophylaxis VTE Prophylaxis Intervention: LMWH Lines/Catheters IV [facility] PICC Line Central line still needed: Yes Assessment/Plan Problems: (1) Abnormal cortisol level Status: Acute Comment: Repeat cortisol level came back abnormal. The patient is not on any steroids save the Advair which should not have this effect. This raises the possibility that he has adrenal insufficiency. Will perform a Cortrosyn stimulation test now (2) Paroxysmal SVT (supraventricular tachycardia) Status: Chronic Comment: Noted and stable without evidence of activity (3) Diastolic dysfunction with acute on chronic heart failure Status: Chronic Comment: Adequately controlled. (4) COPD (chronic obstructive pulmonary disease) Status: Chronic Comment: His breathing is doing relatively well. However if he has adrenal insufficiency this will need to be addressed Qualifiers: COPD type: emphysema Emphysema type: panlobular Qualified Code: J43.1 - Panlobular emphysema (5) Bilateral lower leg cellulitis Status: Acute (6) Anemia Status: Acute Subjective 24 Hr Interval Summary Free Text/Dictation Patient sleeping in bed easily awakened no offered complaints Constitutional: no complaints Respiratory: no complaints Cardiovascular: no complaints Gastrointestinal: no complaints Exam/Review of Systems Vital Signs Vitals Vital Signs Date Time Temp Pulse Resp B/P Pulse Ox O2 Delivery O2 Flow Rate FiO2 07/31/16 12:26 87 07/31/16 12:13 98.0 18 141/71 98 07/31/16 08:00 Nasal Cannula 2.0 Intake and Output 07/30/16 07/30/16 07/31/16 15:00 23:00 07:00 Intake Total 1040 ml 700 ml Output Total 800 ml 1100 ml Balance 240 ml -400 ml Exam Constitutional: alert, oriented Neck: non-tender, supple Respiratory: clear to auscultation, diminished breath sounds Cardiovascular: nl pulses, regular rate and rhythm Results Result Diagram: 07/30/16 0550 07/30/16 0550 Medications Medications Current Medications Aspirin (Halfprin) 81 mg DAILY PO Last administered on 07/31/16 09:33; Admin Dose 81 MG; Start 07/19/16 at 09:00 Atorvastatin Calcium (Lipitor) 20 mg HS PO Last administered on 07/30/16 21:02 ; Admin Dose 20 MG; Start 07/19/16 at 21:00 Folic Acid (Folic Acid) 0.4 mg DAILY PO Last administered on 07/31/16 09:33; Admin Dose 0.4 MG; Start 07/19/16 at 09:00 Magnesium Oxide (Mag-Ox 400) 400 mg BID PO Last administered on 07/31/16 09:33 ; Admin Dose 400 MG; Start 07/18/16 at 22:30 Nicotine (Nicoderm 21 Mg/ 24hr) 1 patch DAILY TRANSDERM Last administered on 09:34; Admin Dose 1 PATCH; Start 07/19/16 at 09:00 Quetiapine Fumarate (Seroquel) 25 mg HS PO Last administered on 07/30/16 21:02 ; Admin Dose 25 MG; Start 07/19/16 at 21:00 Tiotropium [place] (Spiriva) 1 inh DAILY INH Last administered on 07/28/16 08: 59; Admin Dose 1 INH; Start 07/21/16 at 14:30 Ondansetron HCl (Zofran Inj) 4 mg Q6H PRN IV NAUSEA AND/OR VOMITING; Start 07/18 at 22:30 Albuterol (Ventolin Hfa) 2 puff Q6H PRN INH SHORTNESS OF BREATH Last administered on 07/21/16 06:12; Admin Dose 2 PUFF; Start 07/18/16 at 23:00 Salmeterol Xinafoate/ Fluticasone (Advair 250/50 Diskus) 1 inh BID INH Last administered on 07/31/16 09:32; Admin Dose 1 INH; Start 07/19/16 at 09:00 Lactobacillus Acidophilus (Florajen3 Capsule) 1 each BID PO Last administered on 07/31/16 09:34; Admin Dose 1 EACH; Start 07/19/16 at 09:00 Morphine Sulfate (morphine) 4 mg Q4H PRN IV SEVERE PAIN LEVEL 7-10 Last administered on 07/31/16 06:21; Admin Dose 4 MG; Start 07/19/16 at 02:30 Oxycodone/ Acetaminophen (Endocet (10/ 325)) 1 tab Q6H PRN PO PAIN Last administered on 07/30/16 14:11; Admin Dose 1 TAB; Start 07/19/16 at 02:30 Diltiazem HCl (Cardizem) 60 mg Q3H PRN PO HR>150 Last administered on 14:13; Admin Dose 60 MG; Start 07/19/16 at 19:30 Cyanocobalamin (Vitamin B12) 1,000 mcg DAILY PO Last administered on 07/31/16 09:33; Admin Dose 1,000 MCG; Start 07/20/16 at 14:00 Gabapentin (Neurontin) 100 mg TID PO Last administered on 07/31/16 13:16; Admin Dose 100 MG; Start 07/21/16 at 13:00 Acetaminophen (Tylenol Tab) 650 mg Q6H PRN PO PAIN AND OR ELEVATED TEMP Last administered on 07/22/16 20:41; Admin Dose 650 MG; Start 07/22/16 at 21:00 Famotidine (Pepcid) 20 mg DAILY PO Last administered on 07/31/16 09:34; Admin Dose 20 MG; Start 07/24/16 at 09:00 Docusate Sodium (Colace) 100 mg HS PO Last administered on 07/30/16 21:02; Admin Dose 100 MG; Start 07/23/16 at 21:00 Bisacodyl (Dulcolax) 10 mg DAILY PRN PO CONSTIPATION; Start 07/23/16 at 19:30 Enoxaparin Sodium (Lovenox) 40 mg DAILY SC Last administered on 07/31/16 09:40 ; Admin Dose 40 MG; Start 07/25/16 at 17:00 Silver Sulfadiazine (Thermazene 1% 25 Gm) 1 applic BID TOP Last administered on 07/31/16 09:32; Admin Dose 1 APPLIC; Start 07/26/16 at 14:30 Diltiazem HCl (Cardizem Cd) 360 mg DAILY PO Last administered on 07/31/16 09: 33; Admin Dose 360 MG; Start 07/27/16 at 09:30 Furosemide (Lasix) 40 mg DAILY PO Last administered on 07/31/16 09:33; Admin Dose 40 MG; Start 07/27/16 at 16:00 Clindamycin HCl (Cleocin) 300 mg Q8 PO Last administered on 07/31/16 13:17; Admin Dose 300 MG; Start 07/28/16 at 14:00 Cephalexin (Keflex) 500 mg Q8 PO Last administered on 07/31/16 13:16; Admin Dose 500 MG; Start 07/28/16 at 14:00 IV Flush (NS 10 ml) 10 ml PRN PRN IV IV PROTOCOL; Start 07/28/16 at 16:00 Montelukast Sodium (Singulair) 10 mg HS PO Last administered on 07/30/16 21:02 ; Admin Dose 10 MG; Start 07/30/16 at 21:00 Terbinafine HCl (Lamisil) 250 mg BID PO Last administered on 07/31/16 09:33; Admin Dose 250 MG; Start 07/30/16 at 13:00; Stop 08/06/16 at 12:59 CHRISTEN MERAZ MD July 31, 2016 14:55
[2016-07-31] MEDS ORDERED: COSYNTROPIN 0.25 MG INJ IV ONE (16:00)
[2016-07-31] MEDS ORDERED: HYDROCORTISONE 100 MG INJ IV ONE (18:00)
[2016-07-31] MEDS: ATORVASTATIN 20 MG TAB PO SCH (21:06)
[2016-07-31] MEDS: MONTELUKAST 10 MG TAB PO SCH (21:06)
[2016-07-31] MEDS: QUETIAPINE 25 MG TAB PO SCH (21:06)
[2016-07-31] MEDS: DOCUSATE SODIUM 100 MG CAP PO SCH (21:06)
[2016-07-31] MEDS: LEVALBUTEROL (NEB) 0.63 MG/3 ML AMP HHN PRN (21:31)
[2016-07-31] MEDS: IPRATROPIUM (NEB) 0.5 MG/2.5 ML AMP HHN PRN (21:32)
[2016-08-01] VITALS (8 sets, daily range): BP systolic 122–142; BP diastolic 70–76; PULSE 70–80; RESP 19–20
[2016-08-01] MEDS: morphine 4 MG/ML VIAL IV PRN ×3 (02:30→12:54)
[2016-08-01] MEDS ORDERED: morphine 2 MG INJ IV PRN (06:00)
[2016-08-01] MEDS: CLINDAMYCIN 300 MG CAP PO SCH ×2 (06:14→12:53)
[2016-08-01] MEDS: CEPHALEXIN 500 MG CAP PO SCH ×2 (06:14→12:53)
[2016-08-01] MEDS: SALMETEROL/FLUTICASONE 250/50 INHA INH SCH (08:15)
[2016-08-01] MEDS: NICOTINE (21 MG/24 HR) PATCH TRANSDERM SCH (08:16)
[2016-08-01] MEDS: TIOTROPIUM 18 MCG CAPSULE INHA DEV INH SCH (08:16)
[2016-08-01] MEDS: DILTIAZEM (CD) 180 MG CAP PO SCH (08:17)
[2016-08-01] MEDS: CYANOCOBALAMIN 500 MCG TAB PO SCH (08:17)
[2016-08-01] MEDS: ASPIRIN (EC) 81 MG TAB PO SCH (08:17)
[2016-08-01] MEDS: SILVER SULFADIAZINE 1% 25 GM CR TOP SCH (08:17)
[2016-08-01] MEDS: FOLIC ACID 0.4 MG TAB PO SCH (08:18)
[2016-08-01] MEDS: GABAPENTIN 100 MG CAP PO SCH ×3 (08:18→13:09)
[2016-08-01] MEDS: FUROSEMIDE 40 MG TAB PO SCH (08:18)
[2016-08-01] MEDS: FAMOTIDINE 20 MG TAB PO SCH (08:18)
[2016-08-01] MEDS: MAGNESIUM OXIDE 400 MG TAB PO SCH (08:18)
[2016-08-01] MEDS: ENOXAPARIN 40 MG/0.4 ML SYG SC SCH (08:22)
[2016-08-01] MEDS: TERBINAFINE 250 MG TAB PO SCH (08:54)
[2016-08-01] MEDS: L ACIDOPHIL/B LACTIS/B LONGUM CAPSULE PO SCH (08:54)
[2016-08-01] MEDS ORDERED: CEPH500C PO (10:51)
--- NOTE | 2016-08-01 12:51 | PN ---
DATE: 08/01/2016 SUBJECTIVE: No events overnight. No fevers. The patient is alert, wants to go home. Feels good. Denies pain, discomfort. Bilateral lower extremities look much better. PHYSICAL EXAMINATION: GENERAL: Well-developed, middle-aged white male who is alert, in no distress. HEENT: Head atraumatic, normocephalic. Sclerae anicteric. Buccal mucosa dry. NECK: Supple. CHEST: Rise symmetrical. Breath sounds clear. HEART: S1, S2. ABDOMEN: Soft, bowel tones present. EXTREMITIES: With resolving erythema and edema. ASSESSMENT: 1. Resolving bilateral lower extremity cellulitis. 2. Chronic obstructive pulmonary disease. 3. Coronary artery disease and hypertension. PLAN: The patient remains stable, improving on current antibiotics. Anticipate treating him for 7 more days. The patient is on Keflex, clindamycin and topical Silvadene to bilateral lower extremiti es. Dictated By: STEVENSON MEJIA DIRECTOR [employer] for [employer]LAYNE SOLITAR[employer]/VENKAT Conf#: [id number] DID#: [id number]
--- NOTE | 2016-08-02 04:32 | DS ---
DATE OF ADMISSION: 07/18/2016 DATE OF DISCHARGE: 08/01/2016 DISCHARGE DIAGNOSES: 1. Bilateral lower extremity cellulitis, now improved. 2. COPD, stable. 3. Coronary artery disease, stable. 4. Hypertension, stable. 5. Paroxysmal supraventricular tachycardia, stable. HOSPITAL COURSE: The patient is a 60-year-old male with a history of hypertension, COPD, coronary a rtery disease, CHF, GERD. The patient presents with bilateral lower extremity redness, swelling, an d pain blisters. He was diagnosed with bilateral lower extremity cellulitis. 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 The patient's urine culture did show mixed gram-positive organisms, likely contamination. Blood cultures were negative. The patien t's cellulitis improved significantly. The patient was felt to be stable for discharge per ID with p.o. antibiotics. On the day of discharge, the patient's vitals, labs, and physical exam was stable . He had no acute complaints. Questions answered. CONDITION ON DISCHARGE: Stable. DISPOSITION: To home. MEDICATIONS: 1. The patient was given a prescription for Keflex 500 mg p.o. q. 8 hours for 7 days. 2. Vitamin B12. 3. Gabapentin. 4. Silver sulfadiazine cream. 5. Furosemide. 6. Thiamine. 7. Clindamycin 300 mg p.o. t.i.d. for 7 days. 8. Magnesium. 9. Protonix. 10. The patient was given Lasix 20 mg p.o. b.i.d. 11. The patient is to continue other home medications. FOLLOWUP: The patient is to follow up with his PCP in 1 to 2 weeks. Greater than 30 minutes was spent coordinating discharge of patient. Dictated By: ANUJ MARIE/NTS Conf#: [id number] DID#: [id number]
== END 2016-08-01 13:17 | disposition home health service (06) | DRG 602 ==
LOC: E/R 14:22 → TEL 19:42 → MS1 07-28 00:10 → TEL 07-28 13:21
PROVIDERS: ADMIT Internal Medicine; ATTEND Internal Medicine
PROC: 02HV33Z Insertion of Infusion Device into Superior Vena Cava, Percutaneous Approach (ICD-10-PCS; principal; 2016-07-28)
DX: L03.116 Cellulitis of left lower limb (principal); I50.33 Acute on chronic diastolic (congestive) heart failure; E22.2 Syndrome of inappropriate secretion of antidiuretic hormone; I47.1 Supraventricular tachycardia; J44.1 Chronic obstructive pulmonary disease with (acute) exacerbation; K76.0 Fatty (change of) liver, not elsewhere classified; L03.115 Cellulitis of right lower limb; E83.42 Hypomagnesemia; E87.5 Hyperkalemia; E78.5 Hyperlipidemia, unspecified; D64.9 Anemia, unspecified; F32.9 Major depressive disorder, single episode, unspecified; F10.21 Alcohol dependence, in remission; G62.9 Polyneuropathy, unspecified; I11.0 Hypertensive heart disease with heart failure; I87.8 Other specified disorders of veins; I25.10 Atherosclerotic heart disease of native coronary artery without angina pectoris; K21.9 Gastro-esophageal reflux disease without esophagitis; R73.03 Prediabetes; Z87.891 Personal history of nicotine dependence
CPT/HCPCS: 36415; 36569; 71010; 76705; 76937; 80048; 80053; 80061; 80069; 80202; 80306; 80307; 81003; 82533; 82550; 82553; 82607; 82746; 82962; 83036; 83605; 83735; 83880; 83935; 84100; 84155; 84300; 84443; 84484; 85025; 85610; 85730; 86703; 86704; 86709; 86803; 87040; 87086; 87340; 93005; 93306; 93970; 94640; 94664; 96374; 96375; 97110; 97116; 97161; 97530; J1940; J0692; J0696; J1170; J1644; J1650; J1720; J1885; J1956; J2270; J2405; J3370; J3475; J7030; J7040; J7050

== ENCOUNTER 2016-08-11 11:10 | Outpatient (CLI) | payer OTHER ==
[~2016-08-11] VITALS: Ht 185.4 cm; Wt 74.1 kg
[~2016-08-11 11:10] MED LIST changes: +ALBU18HF INHALATION; -BUDE0.5A IH; -BUDE6HFA IH; +BUDE6HFA INHALATION; +CARSR60 PO; +CEPH500C PO; +CLIN-73 PO; +CYAN500T46 PO; -DILTIAZEM PO; +Furosemide IV; +GABA100C14 PO; +LACTINEX PO; -LISI20TA11 PO; +MAGN400T28 PO; -NICO1PAT40 TD; +NICO1PAT6 TD; +NITR0.4T6 SL; -NITROGLYCERIN SL; +OXYC-279 PO; -PANT20TA3 PO; +PANT40TA4 PO; -PROVENTIL; +QUET25TA33 PO; +SSD1C20 TOP; -THIA50TA PO; +TUDORZA PRESSAIR PO; +Thiamine PO
[2016-08-11 11:38] VITALS: BP 124/70; PULSE 95; RESP 18; Ht 185.4 cm; Wt 74.1 kg
--- NOTE | 2016-08-11 12:07 | PN ---
Date/Time of Note Date/Time of Note DATE: 08/11/16 TIME: 12:02 Outpatient Progress Note Chief Complaint Cellulitis/COPD/hypertension/ASHD/history of PAT HPI Cellulitis/patient has cellulitis of bilateral lower extremity, left side worse than the right side, much improved, no fever chill, no bleeding discharge, minimal discomfort, COPD/no cough expectoration, minimal o wheezing, no hemoptysis, no chest pain, Hypertension/no headache or dizziness, no lightheadedness, ASHD/no chest pain, no PND orthopnea or ankle edema, History of PAT/patient with a history of PAT, no palpitation, no dizziness, lightheadedness, Review of Systems Const: No Fever, no chills, no Wt. loss, no Fatigue, normal appetite, no diaphoresis. Eyes: No pain, no discharge, no redness, no visual change, no foreign body. ENT: No pain, no bleeding, no congestion, no sore throat, no dysphagia, no discharge or rhinitis. Lymph: No adenopathy, no tender nodes, no lymphedema. Resp: minimal SOB, no cough, no sputum, minimal wheezing, no chest pain. CV: No chest pain, no palpitaions, no PERLA, no PND, no edema. GI: Normal appetite, no pain, no nausea, no vomiting, no diarrhea, no blood, no constipation. : No frequency, no urgency, no dysuria, no hematuria, no flank pain, no discharge, no bleeding. Musc: No bone/joint pain, no back pain, no neck pain, no knee pain, no restricted ROM. Skin: No rash, no skin lesions, no erythema, no laceration, no bruising, no pruritus. Bilateral leg cellulitis improving, left side worse than the right side, Neuro: No MAXWELL, no dizziness, no syncope, no seizure, no focal-weakness. Endo: No polyuria, no polydypsia, no dry-skin, no temp-intolerance. Psych: No hallucinations, no depression, no anxiety, no suicidal ideation. Ext: No edema, no pain, no ulcer, no weakness. Both lower extremity cellulitis , improving, Physical Exam Vital Signs Date Time Temp Pulse Resp B/P Pulse Ox O2 Delivery O2 Flow Rate FiO2 08/11/16 11:38 98.1 95 18 124/70 97 Room Air General Appearance: A 60 year-old male who appears well-developed, well- nourished, in no acute distress. HEENT: Head normocephalic, atraumatic. Pupils equal, round, reactive to light and accommodate. Sclerae are no jaundice. Nasal turbinates pink without erythema or nasal discharge. Mucous membranes pink and moist without lesions. Oropharynx clear without any exudate or discharge. NECK: Supple. Trachea midline, No thyromegaly, No cervical lymphadenopathy, No mass, No carotid bruits, No JVD, Carotid pulses 2+ bilaterally. PULMONARY: Clear to auscultaion bilaterally, No retractions, Chest expansion symmetric bilaterally, no rales, bilateral few ronchi, no dulness on percussion. CARDIAC: Normal SI and S2, Regular rate and rythm, no murmur, gallop, or rub. GASTROINTESTINAL: Abdomen is soft, non-tender, Non Rigid, No distention, Positive bowel sounds x4 quadrants, Liver normal. SKIN: Warm, dry, no rash, no bruise, no echmosis. Cellulitis both lower extremity, left side worse than the right side, improving EXTREMITIES: Bilateral lower extremities normal, no edema, no phlabitus, pulse palpable, no contracture cellulitis both lower extremity, right side improved significantly, left side worse than the right side,. MUSCULOSKELETAL: Spine Normal, Non-tender, Normal range of motion, No swelling, no deformity, no clubbing, or cyanosis, the patient has no edema to bilateral lower extremities, dorsalis pedis pulses palpable bilaterally. NEUROLOGIC: The patient is awake, alert, oriented, responding to yes/no questions appropriately, moving all extremities, cranial nerve intact, normal strenght, normal power, normal coordination, normal gait. Allergies Coded Allergies: No Known Allergy (Unverified , 08/01/16) PMH Cellulitis/COPD/hypertension/ASHD/history of PAT, Social Hx Former smoker, no drinking, Family Hx Noncontributory Patient History: Hypertension 33 FATHER 32 MOTHER G8 SIBLING Assessment/Plan Impression Cellulitis both lower extremity/COPD/hypertension/ASHD/history of PAT Plan Cellulitis both lower extremity has improved significantly, patient continued to progress well, will continue same medication, Patient has minimal wheezing, patient advised to take her inhaler on regular basis, and not to miss any inhaler, Patient encouraged to follow with the primary care physician, Patient has all the medication, does not need any refill, Patient advised to go to ER if patient has a PAT, Medications Home Meds Active Scripts [Thiamine] 100 MG TAB No Conflict Check, 100 MG PO DAILY, #30 Prov:DEVAUGHN CASE MD 07/26/16 Cyanocobalamin* (Vitamin B12*) 500 Mcg Tab, 1000 MCG PO DAILY, #30 TAB Prov:DEVAUGHN CASE MD 07/26/16 Silver Sulfadiazine (THERMAZENE 1% 25 GM) 1 Applic Cr, 1 APPLIC TOP BID for 14 Days Prov:DEVAUGHN CASE MD 07/26/16 [Furosemide] 10 MG/ML SOLN No Conflict Check, 20 MG IV BID DIURETICS, #60 Prov:DEVAUGHN CSAE MD 07/26/16 Gabapentin* (Gabapentin*) 100 Mg Capsule, 100 MG PO BID, #60 CAP Prov:DEVAUGHN CASE MD 07/26/16 Quetiapine Fumarate* (Quetiapine Fumarate*) 25 Mg Tablet, 25 MG PO HS, #30 TAB Prov:DEVAUGHN CASE MD 07/26/16 Pantoprazole* (Pantoprazole*) 40 Mg Tablet.dr, 40 MG PO QAM for 30 Days, TAB Prov:DEVAUGHN CASE MD 07/26/16 Nitroglycerin* (Nitroglycerin* SL) 0.4 Mg Tab.subl, 0.4 MG SL Q5MIN Y for CHEST PAIN, #30 BOTTLE Prov:DEVAUGHN CASE MD 07/26/16 Nicotine* (Nicotine* Patch) 21 mg/day Patch, 1 EACH TD DAILY for 30 Days, PATCH Prov:DEVAUGHN CASE MD 07/26/16 Magnesium Oxide* (Magnesium Oxide*) 400 Mg Tablet, 400 MG PO DAILY, #30 TAB Prov:DEVAUGHN CASE MD 07/26/16 Diltiazem Hcl* (Cardizem SR*) 60 Mg Capsr, 60 MG PO TID, #90 CAP Prov:DEVAUGHN CASE MD 07/26/16 Budesonide-Formoterol Fumarate* (Symbicort*) 160-4.5 Hfa.aer.ad, 2 PUFF INHALATION BID, #1 EACH Prov:DEVAUGHN CASE MD 07/26/16 Albuterol Sulfate* (Ventolin HFA*) 18 Gm Hfa.aer.ad, 2 PUFF INHALATION Q6H Y for PRN, #1 INHALER Prov:DEVAUGHN CASE MD 07/26/16 [Tito Felipe] No Conflict Check, 800 MCG PO DAILY for 30 Days Prov:DEVAUGHN CASE MD 07/26/16 Oxycodone HCl/Acetaminophen (Percocet 5-325 mg Tablet) 1 Each Tablet, 1 EACH PO Q6H, #40 TAB Prov:DEVAUGHN CASE MD 07/26/16 Lactobacillus Acidophilus* (Lactinex*) 1 Tab Chew, 1 TAB PO BID, #30 TAB Prov:DEVAUGHN CASE MD 07/26/16 Aspirin* (Aspirin* EC) 81 Mg Tablet.dr, 81 MG PO DAILY, #30 TAB Prov:DEVAUGHN CASE MD 07/26/16 Atorvastatin Calcium* (Atorvastatin Calcium*) 20 Mg Tablet, 20 MG PO HS, #30 TAB Prov:DEVAUGHN CASE MD 07/26/16 Folic Acid* (Folic Acid*) 0.4 Mg Tablet, 0.4 MG PO DAILY, #30 TAB Prov:DEVAUGHN CASE MD 07/26/16 Discontinued Scripts Cephalexin* (Cephalexin*) 500 Mg Capsule, 500 MG PO Q8 for 7 Days, CAP Prov:ANUJ ELAINE 08/01/16 Clindamycin Hcl* (Clindamycin Hcl*) 300 Mg Capsule, 300 MG PO TID for 7 Days, CAP Prov:DEVAUGHN CASE MD 07/26/16 TANIA CONTRERAS MD Aug 11, 2016 12:07
== END 2016-08-11 17:00 | disposition home or self-care (01) ==
LOC: DCC 11:10
PROVIDERS: ATTEND Internal Medicine
DX: I10 Essential (primary) hypertension (principal); I25.10 Atherosclerotic heart disease of native coronary artery without angina pectoris; I47.1 Supraventricular tachycardia; Z87.891 Personal history of nicotine dependence

== ENCOUNTER 2016-08-25 11:44 | Outpatient (CLI) | payer OTHER ==
[~2016-08-25] VITALS: Ht 186.7 cm; Wt 81.8 kg
[2016-08-25 11:45] VITALS: BP 133/71; PULSE 86; RESP 18; Ht 186.7 cm; Wt 81.8 kg
--- NOTE | 2016-08-25 12:28 | PN ---
Date/Time of Note Date/Time of Note DATE: 08/25/16 TIME: 12:21 Outpatient Progress Note Chief Complaint Cellulitis/COPD/hypertension/ASHD HPI Cellulitis/patient has cellulitis of both feet, which has improved significantly , no ulcer bleeding or discharge, no redness, COPD/no cough expectoration wheezing or hemoptysis, Hypertension/no headache dizziness lightness, no local focal weakness, ASHD/no chest pain, no palpitation, no syncope, patient did have a one-time heart rate of 120 and slight palpitation, Review of Systems Const: No Fever, no chills, no Wt. loss, no Fatigue, normal appetite, no diaphoresis. Eyes: No pain, no discharge, no redness, no visual change, no foreign body. ENT: No pain, no bleeding, no congestion, no sore throat, no dysphagia, no discharge or rhinitis. Lymph: No adenopathy, no tender nodes, no lymphedema. Resp: No SOB, no cough, no sputum, no wheezing, no chest pain. CV: No chest pain, no palpitaions, no PERLA, no PND, no edema. GI: Normal appetite, no pain, no nausea, no vomiting, no diarrhea, no blood, no constipation. : No frequency, no urgency, no dysuria, no hematuria, no flank pain, no discharge, no bleeding. Musc: No bone/joint pain, no back pain, no neck pain, no knee pain, no restricted ROM. Skin: No rash, no skin lesions, no erythema, no laceration, no bruising, no pruritus slight hypersensitive in the both feet, no ulcer, no bleeding,. Neuro: No MAXWELL, no dizziness, no syncope, no seizure, no focal-weakness. Endo: No polyuria, no polydypsia, no dry-skin, no temp-intolerance. Psych: No hallucinations, no depression, no anxiety, no suicidal ideation. Ext: No edema, no pain, no ulcer, no weakness. Physical Exam Vital Signs Date Time Temp Pulse Resp B/P Pulse Ox O2 Delivery O2 Flow Rate FiO2 08/25/16 11:45 97.9 86 18 133/71 93 Room Air General Appearance: A 60 year-old male who appears well-developed, well- nourished, in no acute distress. HEENT: Head normocephalic, atraumatic. Pupils equal, round, reactive to light and accommodate. Sclerae are no jaundice. Nasal turbinates pink without erythema or nasal discharge. Mucous membranes pink and moist without lesions. Oropharynx clear without any exudate or discharge. NECK: Supple. Trachea midline, No thyromegaly, No cervical lymphadenopathy, No mass, No carotid bruits, No JVD, Carotid pulses 2+ bilaterally. PULMONARY: Clear to auscultaion bilaterally, No retractions, Chest expansion symmetric bilaterally, no rales, no ronchi, no dulness on percussion. CARDIAC: Normal SI and S2, Regular rate and rythm, no murmur, gallop, or rub. GASTROINTESTINAL: Abdomen is soft, non-tender, Non Rigid, No distention, Positive bowel sounds x4 quadrants, Liver normal. SKIN: Warm, dry, no rash, no bruise, no echmosis. Bilateral feet no ulcer, minimal discomfort on the bottom of the foot, no redness, no discharge, ulcer has healed completely, EXTREMITIES: Bilateral lower extremities normal, no edema, no phlabitus, pulse palpable, no contracture. MUSCULOSKELETAL: Spine Normal, Non-tender, Normal range of motion, No swelling, no deformity, no clubbing, or cyanosis, the patient has no edema to bilateral lower extremities, dorsalis pedis pulses palpable bilaterally. NEUROLOGIC: The patient is awake, alert, oriented, responding to yes/no questions appropriately, moving all extremities, cranial nerve intact, normal strenght, normal power, normal coordination, normal gait. Allergies Coded Allergies: No Known Allergy (Unverified , 08/01/16) PMH No change Social Hx No change Family Hx No change Patient History: Hypertension 33 FATHER 32 MOTHER G8 SIBLING Assessment/Plan Impression Cellulitis/improved COPD Hypertension ASHD History of PAT Plan Patient education done about COPD ASHD and hypertension, patient also has history of PAT, discussed about paroxysmal atrial tachycardia Patient advised to follow with the primary care physician, patient advised to take Symbicort on a regular basis, so patient may not have her take much Ventolin, which may and can contribute to PAT, Control of blood pressure, continue all medication, patient has a all supply, and patient will follow with the primary care physician, Medications Home Meds Active Scripts [Thiamine] 100 MG TAB No Conflict Check, 100 MG PO DAILY, #30 Prov:DEVAUGHN CASE MD 07/26/16 Cyanocobalamin* (Vitamin B12*) 500 Mcg Tab, 1000 MCG PO DAILY, #30 TAB Prov:DEVAUGHN CASE MD 07/26/16 [Furosemide] 10 MG/ML SOLN No Conflict Check, 20 MG IV BID DIURETICS, #60 Prov:DEVAUGHN CASE MD 07/26/16 Gabapentin* (Gabapentin*) 100 Mg Capsule, 100 MG PO BID, #60 CAP Prov:DEVAUGHN CASE MD 07/26/16 Quetiapine Fumarate* (Quetiapine Fumarate*) 25 Mg Tablet, 25 MG PO HS, #30 TAB Prov:DEVAUGHN CASE MD 07/26/16 Pantoprazole* (Pantoprazole*) 40 Mg Tablet.dr, 40 MG PO QAM for 30 Days, TAB Prov:DEVAUGHN CASE MD 07/26/16 Nitroglycerin* (Nitroglycerin* SL) 0.4 Mg Tab.subl, 0.4 MG SL Q5MIN Y for CHEST PAIN, #30 BOTTLE Prov:DEVAUGHN CASE MD 07/26/16 Nicotine* (Nicotine* Patch) 21 mg/day Patch, 1 EACH TD DAILY for 30 Days, PATCH Prov:DEVAUGHN CASE MD 07/26/16 Magnesium Oxide* (Magnesium Oxide*) 400 Mg Tablet, 400 MG PO DAILY, #30 TAB Prov:DEVAUGHN CASE MD 07/26/16 Diltiazem Hcl* (Cardizem SR*) 60 Mg Capsr, 60 MG PO TID, #90 CAP Prov:DEVAUGHN CASE MD 07/26/16 Budesonide-Formoterol Fumarate* (Symbicort*) 160-4.5 Hfa.aer.ad, 2 PUFF INHALATION BID, #1 EACH Prov:DEVAUGHN CASE MD 07/26/16 Albuterol Sulfate* (Ventolin HFA*) 18 Gm Hfa.aer.ad, 2 PUFF INHALATION Q6H Y for PRN, #1 INHALER Prov:DEVAUGHN CASE MD 07/26/16 [Tudorza Pressair] No Conflict Check, 800 MCG PO DAILY for 30 Days Prov:DEVAUGHN CASE MD 07/26/16 Aspirin* (Aspirin* EC) 81 Mg Tablet.dr, 81 MG PO DAILY, #30 TAB Prov:DEVAUGHN CASE MD 07/26/16 Atorvastatin Calcium* (Atorvastatin Calcium*) 20 Mg Tablet, 20 MG PO HS, #30 TAB Prov:DEVAUGHN CASE MD 07/26/16 Folic Acid* (Folic Acid*) 0.4 Mg Tablet, 0.4 MG PO DAILY, #30 TAB Prov:DEVAUGHN CASE MD 07/26/16 Discontinued Scripts Silver Sulfadiazine (THERMAZENE 1% 25 GM) 1 Applic Cr, 1 APPLIC TOP BID for 14 Days Prov:DEVAUGHN CASE MD 07/26/16 Oxycodone HCl/Acetaminophen (Percocet 5-325 mg Tablet) 1 Each Tablet, 1 EACH PO Q6H, #40 TAB Prov:DEVAUGHN CASE MD 07/26/16 Lactobacillus Acidophilus* (Lactinex*) 1 Tab Chew, 1 TAB PO BID, #30 TAB Prov:DEVAUGHN CASE MD 07/26/16 TANIA CONTRERAS MD Aug 25, 2016 12:28
== END 2016-08-25 16:41 | disposition home or self-care (01) ==
LOC: DCC 11:44
PROVIDERS: ATTEND Internal Medicine
DX: L03.116 Cellulitis of left lower limb (principal); L03.115 Cellulitis of right lower limb; J44.9 Chronic obstructive pulmonary disease, unspecified; I10 Essential (primary) hypertension; I25.10 Atherosclerotic heart disease of native coronary artery without angina pectoris; I47.1 Supraventricular tachycardia; Z79.82 Long term (current) use of aspirin